=== PATIENT | female | born 1960 | race Caucasian/White ===

== ENCOUNTER 2019-05-10 15:29 | Emergency (ER) | payer MEDICARE, SELFPAY ==
--- NOTE | ~2019-05-10 | CT_ITS ---
EXAMINATION: CT abdomen pelvis w con DATE: 05/10/2019 17:46 INDICATION: Leukocytosis, fever and right lower quadrant abdominal pain. TECHNIQUE: Computed tomography (CT) of the abdomen and pelvis was performed with 100 mL Omnipaque-350 intravenous contrast. Automated exposure control and iterative reconstruction technique were employe d. The dose-length product was 258.17 mGy-cm. COMPARISON: None FINDINGS: Mild atelectasis and bronchiectatic changes in the bilateral lower lobes. Heart size is normal. No pe ricardial or pleural effusion. Small amount of fluid within the lower thoracic esophagus. Postoperative change of prior anterior and posterior lumbar spinal fusion extending from L1 through S 1 with interbody fusion devices at L1-L2 and L2-L3, anterior fusion without evident interbody fusion device at L4-L5 and L5-S1 and with bilateral vertical rods and pedicle screw fixations extending from L1-L2 and L3-S1 on the right and from L1-L3 and L4-S1 on the left. The L3-L4 disc space remains unfu sed. Prominent metallic streak artifact from the pedicle screws limits evaluation of the adjacent sof t tissues at several levels throughout the abdomen. The spleen is not visualized and there are metallic densities as well as small soft tissue nodules at the splenic fossa suggesting likely prior splenectomy with adjacent splenosis. Cholecystectomy clips the gallbladder fossa. Liver, spleen, bilateral adrenal glands and kidneys appear normal. Moderate a mount of stool scattered throughout the colon. No bowel obstruction or abnormal bowel wall thickening . The appendix is not visualized. No pericecal inflammatory change to suggest acute appendicitis. Claritza rosy and bilateral adnexa are unremarkable. Tiny focus of gas in the nondependent aspect of the otherw ise normal-appearing bladder. No free intraperitoneal gas or fluid. No pathologically enlarged abdomi nal or pelvic lymphadenopathy. Moderate bilateral hip osteoarthritis. Bone graft harvest site at the right posterior iliac spine. IMPRESSION: 1. Tiny focus of gas within the otherwise normal-appearing bladder. Correlate with urinalysis and for history of recent segmentation or Gonzalez catheterization. 2. No other acute intra-abdominal/pelvic process. Evaluation of portions of the abdomen is limited by prominent metallic streak artifact related to L1-S1 instrumented anterior and posterior spinal fusio n. 3. Additional metallic densities left upper quadrant with several adjacent small soft tissue deposits suggesting prior splenectomy and secondary spondylosis. Correlate with surgical history. Reviewed, dictated and finalized at location A. PENDENT INSURANCE ADJUSTER IMPRESSION: 1. Tiny focus of gas within the otherwise normal-appearing bladder. Correlate w ith urinalysis and for history of recent segmentation or Gonzalez catheterization. 2. No other acute intra-abdominal/pelvic process. Evaluation of portions of the abdomen is limited by prominent metallic streak artifact related to L1-S1 inst rumented anterior and posterior spinal fusion. 3. Additional metallic densities left upper quadrant with several adjacent smal l soft tissue deposits suggesting prior splenectomy and secondary spondylosis. Correlate with surgical history.
[2019-05-10 16:25] VITALS: RESP 18; TEMP 37; O2SAT 98
--- NOTE | 2019-05-10 16:28 | ECG_ITS ---
Measurements Intervals [place] Rate: 66 P: 61 NM: 142 QRS: 5 QRSD: 90 T: 63 QT: 469 QTc: 492 Interpretive Statements SINUS RHYTHM INCOMPLETE RIGHT BUNDLE BRANCH BLOCK BASELINE ARTIFACT- I, II, III, AVR, AVL, AVF, V1-V2 BORDERLINE ECG Electronically Signed On 05-11-2019 9:19:01 CUSTOMER DEVELOPMENT REPRESENTATIVE by Shmuel Mayen D.O.
--- NOTE | 2019-05-10 16:33 | ED.ABDPAIN ---
HPI - Abdominal Pain General Chief Complaint: Abdominal Pain Stated Complaint: pain in stomach, low grade fever vomiting Source: patient and family Mode of arrival: ambulatory Limitations: no limitations History of Present Illness HPI narrative: Eloisa is a 58-year-old woman the present to emergency department abdominal pain. Abdominal mcfarland began insidiously at noon yesterday. she has a cramping to sharp pain in her right lower quadrant that has become progressively worse. She has had 2 episodes of nonbilious nonbloody vomiting And nausea. Last BM was yesterday. She reports she ran a fever of 101 this morning. Pain was partially relieved with ibuprofen. of note she had her appendix removed in 1972 and her gallbladder removed in 2008. She had a colonoscopy in December of 2018 that resulted in perforation. This led to significant bleeding and she had to have her spleen removed and developed pancreatitis during that time. She later developed an abdominal abscess did require a drain. She denies any chest pain, shortness of breath near-syncope/syncope but does admit diaphoresis. MD elicited complaint: abdominal pain Onset (ago): day(s) (1) Location: RLQ Severity: moderate Quality: cramping and stabbing Radiation: R flank Related Data Home Medications Medication Instructions Recorded Confirmed Bacillus coagulans [Digestive 1 cell PO DAILY 05/10/19 05/10/19 Advantage] C,E,zinc,copper [id number] 1 cap PO DAILY 05/10/19 05/10/19 [Ocuvite Adult 50 Plus] aspirin 325 mg PO DAILY 05/10/19 05/10/19 biotin 5,000 mcg PO DAILY 05/10/19 05/10/19 diphenhydramine-acetaminophen 2 tablet PO HS PRN 05/10/19 05/10/19 [Tylenol PM Extra Strength] fluticasone furoate-vilanterol 1 inh INHALATION DAILY 05/10/19 05/10/19 [Breo Ellipta] fluticasone propionate 1 spray INTRANASAL BID PRN 05/10/19 05/10/19 iron 159 mg PO DAILY 05/10/19 05/10/19 levocetirizine [Xyzal] 5 mg PO DAILY 05/10/19 05/10/19 [id number] [Creon] 1 cap PO TID 05/10/19 05/10/19 mecobalamin (vitamin B12) 1,000 mcg PO DAILY 05/10/19 05/10/19 melatonin 10 mg PO HS PRN 05/10/19 05/10/19 multivitamin [Multiple Vitamins] 1 tablet PO DAILY 05/10/19 05/10/19 oxybutynin chloride 10 mg PO DAILY 05/10/19 05/10/19 pantoprazole 40 mg PO DAILY 05/10/19 05/10/19 pramipexole 0.75 mg PO TID 05/10/19 05/10/19 sennosides-docusate sodium [Colace 4 tab-cap PO DAILY PRN 05/10/19 05/10/19 2-In-1] sertraline 150 mg PO DAILY 05/10/19 05/10/19 sucralfate 1 g PO QID 05/10/19 05/10/19 Allergies Allergy/AdvReac Type Severity Reaction Status Date / Time codeine Allergy Mild Unknown Verified 05/10/19 16:41 vancomycin AdvReac Unknown Rash Verified 05/10/19 16:44 cefazolin [From [facility]] AdvReac Rash Verified 05/10/19 16:44 MORPHINE Allergy Mild Rash Uncoded 05/10/19 16:43 ANCEF AdvReac Rash Uncoded 05/10/19 16:44 Review of Systems Constitutional: Constitutional: Denies weight gain Eyes: Eyes: Denies change in vision ENT: Denies Normal hearing present, Denies vertigo and Denies dizziness Cardiovascular: Cardiovascular: Denies chest pain with activity, Denies syncope, Denies edema and Denies dyspnea on exertion Respiratory: Respiratory: Denies cough and Denies dyspnea on exertion Gastrointestinal: Gastrointestinal: Denies diarrhea Genitourinary: Genitourinary: Denies hematuria and Denies dysuria Musculoskeletal: Musculoskeletal: Denies deformity Neurologic: Denies Normal hearing present, Denies behavioral changes, Denies confusion, Denies vertigo, Denies dizziness, Denies syncope and Denies loss of vision Psychiatric: Psychiatric: Denies anxiety, Denies behavioral changes and Denies confusion Endocrine: Endocrine: Reports no additional endocrine complaints Hematologic/Lymphatic: Hematologic/Lymphatic: Reports no additional hematologic/lymphatic complaints Allergic/Immunologic: Allergic/Immunologic: Reports no additional allergic/immunologic complaints REPLACED BY [facility]
[2019-05-10 16:46] LABS: Basophils Absolute Auto 0.06 K/mm3 (0.00-0.10); Basophils Percent Auto 0.2 % (0.0-1.0); Eosinophils Absolute Auto 0.17 K/mm3 (0.02-0.50); Eosinophils Percent Auto 0.7 % (1.0-6.0); Hematocrit 38.8 % (35.0-49.0); Hemoglobin 12.6 g/dL (12.0-15.0); Immature Granulocyte Percent A 0.8 % (0.0-0.0); Lymphocytes Absolute Auto 1.42 K/mm3 (1.10-4.50); Lymphocytes Percent Auto 5.5 % (18.0-42.0); Mean Corpuscular HGB Conc 32.5 g/dL (32.0-36.0); Mean Corpuscular Volume 83.1 fL (78.0-102.0); Mean Platelet Volume 9.7 fl (9.2-11.8); Monocytes Absolute Auto 0.89 K/mm3 (0.10-0.90); Monocytes Percent Auto 3.5 % (2.0-11.0); Neutrophils Absolute Auto 22.9 K/mm3 (1.7-7.2); Neutrophils Percent Auto 89.3 % (50.0-70.0); Platelet Count Result 416 K/mm3 (150-420); Red Blood Count 4.67 M/mm3 (4.20-5.40); Red Cell Distribution Width 20.7 % (11.6-14.4)
[2019-05-10 16:49] LABS: White Blood Count 25.6 K/mm3 (4.8-10.8)
--- NOTE | 2019-05-10 16:51 | PC.NURSE ---
WBC 25.6 per Reshma from lab. Dr Hylton aware.
[2019-05-10] MEDS: ONDANSETRON INJ 4 MG/2 ML VIAL IV PUSH (17:00)
[2019-05-10 17:06] LABS: Add Urine Microscopic? YES; Bilirubin Urine Negative (Negative); Blood Urine Negative (Negative); Color Urine Yellow (Yellow); Glucose Urine UA Negative (Negative); Ketones Urine Negative (Negative); Leukocyte Esterase Ur 3+ LEU/UL (Negative); Nitrate Urine Positive (Negative); Protein Urine Negative (Negative); Specific Grav Ur 1.015 (1.010-1.020); Urobilinogen Urine 0.2 mg/dL (0.2-1.0); pH Urine 7.5 (5.0-8.0)
[2019-05-10 17:07] LABS: Alanine Aminotransferase 23 U/L (14-59); Albumin Level 3.8 g/dL (3.4-5.0); Alkaline Phosphatase 106 U/L (46-116); Aspartate Amino Transferase 21 U/L (15-37); Bilirubin,Total 0.3 mg/dL (0.00-1.00); Blood Urea Nitrogen 16 mg/dL (7-18); Calcium 9.4 mg/dL (8.5-10.1); Carbon Dioxide 29 mmol/L (21-32); Chloride 99 mmol/L (98-108); Estimated CRCL calculation 46 ml/min; Estimated Glomerular Filt Rate > 60; Glucose 124 mg/dL (70-99); Lipase 128 U/L (73-393); Osmolality Calculated 286 mOsm/kg (285-295); Sodium 137 mmol/L (136-145); Total Protein 8.6 g/dL (6.4-8.2); Troponin I < 0.02 ng/mL (0.00-0.056)
[2019-05-10 17:11] LABS: Lactic Acid Reflex 1.2 mmol/L (0.4-2.0)
[2019-05-10 17:13] LABS: Appearance Urine Cloudy (Clear); Bacteria Urine 4+ /hpf; Squamous Epithelial Cell Urine Rare /hpf (Few); WBC Clumps Urine Present /hpf; WBC Urine >75 /hpf (0-3)
--- NOTE | 2019-05-10 18:44 | PC.NURSE ---
RESTING ON STREACHER. STATES HAS LESS PAIN. IV INFUSSING ORDERED. FAMILY AT BEDSIDE. APPEARS COMFORTABLE. VVS. O2 SAT 97% RM.AIR RESP.18 .
[2019-05-10] MEDS: LACTATED RINGERS 1,000 ML 999 ML IV CONT (19:37)
[2019-05-10 19:53] VITALS: BP 141/70; PULSE 92; RESP 20; TEMP 36.6; O2SAT 98
== END 2019-05-10 19:54 | disposition home or self-care (01) ==
PROVIDERS: Emergency Provider Family Medicine
DX: N39.0 Urinary tract infection, site not specified (principal)
CPT/HCPCS: 36415; 74177; 80053; 81001; 83605; 83690; 84484; 85025; 87040; 87077; 87086; 87088; 87186; 93005; 96374; 96375; 99283; 99284; J1956; J2405; J3010; J7120; Q9965

== ENCOUNTER 2019-06-17 18:45 | Emergency (ER) | payer MEDICARE, SELFPAY ==
--- NOTE | ~2019-06-17 | CT_ITS ---
EXAMINATION: CT abdomen pelvis w con DATE: 06/17/2019 20:14 INDICATION: Abdominal pain and fever TECHNIQUE: Computed tomography (CT) of the abdomen and pelvis was performed with 100 cc Omnipaque 350 intravenous contrast. Automated exposure control and iterative reconstruction technique were employe d. Exam dose: 202.41 mGy-cm total exam DLP. COMPARISON: 05/10/2019 CT abdomen pelvis FINDINGS: There is mild bilateral dependent lower lobe atelectasis, right greater than left. Normal h eart size. No pericardial or pleural effusion. The examination is limited by considerable streak artifact pedicle screws and rods extending througho ut the lumbar spine and to S1. There is considerable streak artifact in left upper quadrant also, apparently due to surgical clips a ssociated with splenectomy. Status post cholecystectomy. The liver, pancreas, and adrenal glands and kidneys appear unremarkable and not significantly changed compared to 05/10/2019. Normal caliber of the abdominal aorta. No intraperitoneal or retroperitoneal or pelvic mass lesion or adenopathy or ascites is detected. There are fluid distended small bowel segments with air-fluid levels, primarily involving the ileum; differential diagnosis includes enteritis, adynamic ileus versus less likely early or partial distal small bowel obstruction. Clinical correlation is advised. The colon is unremarkable. No bowel wall th ickening, pneumatosis or intraperitoneal free air is detected. No intraperitoneal or retroperitoneal or pelvic mass lesion or adenopathy or ascites is evident. IMPRESSION: Air-fluid levels in the distal small bowel; differential diagnosis includes enteritis, m ild adynamic ileus versus early or partial distal small bowel obstruction Otherwise no significant change since 05/10/2019 Reviewed, dictated and finalized at Location [facility]. Reviewed, dictated and finalized at location A. IMPRESSION: Air-fluid levels in the distal small bowel; differential diagnosis includes enteritis, mild adynamic ileus versus early or partial distal small b owel obstruction Otherwise no significant change since 05/10/2019
--- NOTE | 2019-06-17 18:52 | ED.ABDPAIN ---
HPI - Abdominal Pain General Chief Complaint: Abdominal Pain Stated Complaint: Stomach pain Time Seen by Provider: 06/17/19 18:52 Source: patient Mode of arrival: ambulatory Limitations: no limitations History of Present Illness HPI narrative: 58-year-old woman comes in today complaining of abdominal pain and started last night. Patient states that she has been nauseated in today had a fever of 101. She states that she has been nauseated but has had no vomiting after she took some Zofran she had at home. Last fall she underwent splenectomy, pancreatectomy and partial gastrectomy at [facility] after complications from a colonoscopy. MD elicited complaint: abdominal pain Onset (ago): day(s) (1) Pain Consistency: constant Location: other ( Across abdomen above the umbilicus) Severity: severe Quality: sharp Radiation: none Migration to: no migration Exacerbating factors: nothing Relieving factors: nothing Associated symptoms: nausea and fever Treatments prior to arrival: other ( Tylenol) Related Data Patient : No Home Medications Medication Instructions Recorded Confirmed Bacillus coagulans [Digestive 1 cell PO DAILY 05/10/19 06/17/19 Advantage] C,E,zinc,copper [id number] 1 cap PO DAILY 05/10/19 06/17/19 [Ocuvite Adult 50 Plus] aspirin 325 mg PO DAILY 05/10/19 06/17/19 biotin 5,000 mcg PO DAILY 05/10/19 06/17/19 diphenhydramine-acetaminophen 2 tablet PO HS PRN 05/10/19 06/17/19 [Tylenol PM Extra Strength] fluticasone furoate-vilanterol 1 inh INHALATION DAILY 05/10/19 06/17/19 [Breo Ellipta] fluticasone propionate 1 spray INTRANASAL BID PRN 05/10/19 06/17/19 iron 159 mg PO DAILY 05/10/19 06/17/19 levocetirizine [Xyzal] 5 mg PO DAILY 05/10/19 06/17/19 [id number]-[id number]-[id number] [Creon] 1 cap PO TID 05/10/19 06/17/19 mecobalamin (vitamin B12) 1,000 mcg PO DAILY 05/10/19 06/17/19 melatonin 10 mg PO HS PRN 05/10/19 06/17/19 multivitamin [Multiple Vitamins] 1 tablet PO DAILY 05/10/19 06/17/19 oxybutynin chloride 10 mg PO DAILY 05/10/19 06/17/19 pantoprazole 40 mg PO DAILY 05/10/19 06/17/19 pramipexole 0.75 mg PO TID 05/10/19 06/17/19 sennosides-docusate sodium [Colace 4 tab-cap PO DAILY PRN 05/10/19 06/17/19 2-In-1] sertraline 150 mg PO DAILY 05/10/19 06/17/19 sucralfate 1 g PO QID 05/10/19 06/17/19 azithromycin 500 mg PO DAILY 06/17/19 06/17/19 benzonatate 100 mg PO PRN 06/17/19 06/17/19 gabapentin 100 mg PO TID 06/17/19 06/17/19 ondansetron 4 mg PO PRN 06/17/19 06/17/19 Allergies Allergy/AdvReac Type Severity Reaction Status Date / Time codeine Allergy Mild Unknown Verified 05/10/19 16:41 vancomycin AdvReac Unknown Rash Verified 05/10/19 16:44 cefazolin [From [facility]] AdvReac Rash Verified 05/10/19 16:44 MORPHINE Allergy Mild Rash Uncoded 05/10/19 16:43 ANCEF AdvReac Rash Uncoded 05/10/19 16:44 Review of Systems Constitutional: Constitutional: Denies chills, Denies fatigue, Reports fever(s) and Denies weakness Eyes: Eyes: Denies change in vision and Denies photophobia ENT: Denies dysphagia, Denies nasal congestion and Denies sore throat Cardiovascular: Cardiovascular: Denies chest pain and Denies radiating jaw, neck or arm pain Respiratory: Respiratory: Denies chest congestion, Denies cough, Denies dyspnea and Denies wheezing Gastrointestinal: Gastrointestinal: Reports abdominal pain, Denies diarrhea, Reports nausea and Denies vomiting Comments: denies melena and hematochezia Genitourinary: Genitourinary: Denies hematuria, Denies nocturia and Denies dysuria Musculoskeletal: Musculoskeletal: Denies myalgias, Denies arthralgias, Denies joint swelling and Denies muscle cramps Integumentary/Breasts: Skin/Breast: Denies pruritus, Denies erythema and Denies rash Neurologic: Denies vertigo, Denies dizziness, Denies syncope, Denies headache(s) and Denies focal weakness Hematologic/Lymphatic: Hematologic/Lymphatic: Denies easy bleeding and Denies easy bruising Allergic/Immunologic: Allergic
[2019-06-17 18:55] VITALS: BP 113/62; PULSE 80; RESP 20; TEMP 37.3; O2SAT 98
--- NOTE | 2019-06-17 19:10 | ECG_ITS ---
Measurements Intervals [place] Rate: 75 P: 79 AL: 125 QRS: 42 QRSD: 78 T: 73 QT: 415 QTc: 465 Interpretive Statements SINUS RHYTHM NORMAL ECG Electronically Signed On 06-18-2019 9:36:27 CDT by Shmuel Mayen D.O.
[2019-06-17] MEDS: SODIUM CHLORIDE 0.9% IV 1,000 ML 999 ML IV CONT (19:28)
[2019-06-17 19:37] LABS: Basophils Absolute Auto 0.05 K/mm3 (0.00-0.10); Basophils Percent Auto 0.3 % (0.0-1.0); Eosinophils Absolute Auto 0.06 K/mm3 (0.02-0.50); Eosinophils Percent Auto 0.3 % (1.0-6.0); Hematocrit 38.8 % (35.0-49.0); Hemoglobin 12.7 g/dL (12.0-15.0); Immature Granulocyte Absolute 0.12 K/mm3 (0.00-0.00); Immature Granulocyte Percent A 0.6 % (0.0-0.0); Lymphocytes Absolute Auto 2.81 K/mm3 (1.10-4.50); Lymphocytes Percent Auto 14.8 % (18.0-42.0); Mean Corpuscular HGB Conc 32.7 g/dL (32.0-36.0); Mean Corpuscular Hemoglobin 27.4 pg (27.0-31.0); Mean Corpuscular Volume 83.6 fL (78.0-102.0); Mean Platelet Volume 10.1 fl (9.2-11.8); Monocytes Absolute Auto 1.18 K/mm3 (0.10-0.90); Monocytes Percent Auto 6.2 % (2.0-11.0); Neutrophils Absolute Auto 14.8 K/mm3 (1.7-7.2); Neutrophils Percent Auto 77.8 % (50.0-70.0); Platelet Count Result 386 K/mm3 (150-420); Red Blood Count 4.64 M/mm3 (4.20-5.40); Red Cell Distribution Width 17.9 % (11.6-14.4)
[2019-06-17 19:46] LABS: Partial Thromboplastin Time 29.6 SEC (22.3-31.6); Prothrombin Time 10.5 Seconds (9.64-11.0)
[2019-06-17 19:51] LABS: Estimated CRCL calculation 53 ml/min; Estimated Glomerular Filt Rate > 60
[2019-06-17 19:55] LABS: Alanine Aminotransferase 12 U/L (14-59); Albumin Level 3.6 g/dL (3.4-5.0); Alkaline Phosphatase 93 U/L (46-116); Anion Gap 15.9 mmol/L (7-16); Aspartate Amino Transferase 13 U/L (15-37); Bilirubin,Total 0.2 mg/dL (0.00-1.00); Carbon Dioxide 26 mmol/L (21-32); Chloride 99 mmol/L (98-108); Glucose 112 mg/dL (70-99); Lipase 316 U/L (73-393); Potassium 3.9 mmol/L (3.5-5.1); Sodium 137 mmol/L (136-145); Total Protein 8.3 g/dL (6.4-8.2)
[2019-06-17 20:09] LABS: Blood Urea Nitrogen 12 mg/dL (7-18); Osmolality Calculated 284 mOsm/kg (285-295)
[2019-06-17 20:21] LABS: Lactic Acid 1.2 mmol/L (0.4-2.0)
[2019-06-17 20:31] LABS: Add Urine Microscopic? YES; Appearance Urine Clear (Clear); Bilirubin Urine Negative (Negative); Blood Urine Negative (Negative); Color Urine Yellow (Yellow); Glucose Urine UA Negative (Negative); Ketones Urine Negative (Negative); Leukocyte Esterase Ur 2+ (Negative); Nitrate Urine Negative (Negative); Protein Urine Negative (Negative); Urobilinogen Urine 0.2 mg/dL (0.2-1.0)
[2019-06-17 20:32] LABS: Occult Blood Negative (Negative)
[2019-06-17 20:44] LABS: Bacteria Urine Trace /hpf; RBC Urine None seen /hpf (0-2); Squamous Epithelial Cell Urine Few /hpf (Few)
[2019-06-17 20:55] VITALS: BP 111/61; PULSE 79; RESP 15
--- NOTE | 2019-06-17 22:18 | PC.NURSE ---
2054 ELIZA JUNIOR FROM [facility] CONTACTED FOR TRANSFER. 2132 PT ACCEPTED. SEE ERP CHARTING. AWAITING ROOM AT THIS TIME.
--- NOTE | 2019-06-17 23:03 | PC.NURSE ---
2242 ROOM [id number] PROVIDED. TELEPHONE REPORT CALLED TO [place] JUNIOR AT 2251. [facility] CONTACTED FOR TRANSPORT AT 2256.
[2019-06-17] MEDS: SODIUM CHLORIDE 0.9% IV 500 ML 999 ML IV CONT (23:07)
[2019-06-17 23:26] VITALS: BP 112/67; PULSE 75; RESP 15; O2SAT 95
--- NOTE | 2019-06-17 23:28 | PC.NURSE ---
IVF INFUSING DURING TRANSFER TO [facility]. NO STOP TIME AVAILABLE.
== END 2019-06-17 23:27 | disposition short-term general hospital (02) ==
PROVIDERS: Emergency Provider Emergency Medicine
DX: R10.0 Acute abdomen (principal); J44.9 Chronic obstructive pulmonary disease, unspecified; K21.9 Gastro-esophageal reflux disease without esophagitis
CPT/HCPCS: 36415; 74177; 80053; 81001; 82272; 83605; 83690; 84484; 85025; 85610; 85730; 87040; 93005; 96361; 96365; 96375; 96376; 99285; J2543; J3010; J7030; J7040; Q9965

== ENCOUNTER 2019-11-16 10:30 | Outpatient (CLI) | payer MEDICARE, SELFPAY ==
[2019-11-16 10:47] LABS: Hematocrit 41.7 % (35.0-49.0); Hemoglobin 13.2 g/dL (12.0-15.0); Mean Corpuscular HGB Conc 31.7 g/dL (32.0-36.0); Mean Corpuscular Hemoglobin 28.3 pg (27.0-31.0); Mean Corpuscular Volume 89.5 fL (78.0-102.0); Mean Platelet Volume 9.6 fl (9.2-11.8); Platelet Count Result 357 K/mm3 (150-420); Red Blood Count 4.66 M/mm3 (4.20-5.40); Red Cell Distribution Width 16.7 % (11.6-14.4); White Blood Count 14.3 K/mm3 (4.8-10.8)
[2019-11-16 11:02] LABS: Alanine Aminotransferase 21 U/L (14-59); Albumin Level 3.7 g/dL (3.4-5.0); Alkaline Phosphatase 100 U/L (46-116); Anion Gap 8 mmol/L (8-16); Aspartate Amino Transferase 18 U/L (15-37); Bilirubin Direct 0.1 mg/dL (0-0.2); Bilirubin,Total 0.2 mg/dL (0.00-1.00); Blood Urea Nitrogen 20 mg/dL (7-18); Calcium 9.3 mg/dL (8.5-10.1); Carbon Dioxide 29 mmol/L (21-32); Chloride 98 mmol/L (98-108); Estimated Glomerular Filt Rate > 60; Glucose 102 mg/dL (70-99); Lipase 260 U/L (73-393); Osmolality Calculated 282 mOsm/kg (285-295); Potassium 4.2 mmol/L (3.5-5.1); Sodium 135 mmol/L (136-145); Total Protein 8.5 g/dL (6.4-8.2)
== END 2019-11-16 10:31 | disposition home or self-care (01) ==
DX: K86.1 Other chronic pancreatitis (principal)
CPT/HCPCS: 36415; 80048; 80076; 83690; 85027

== ENCOUNTER 2023-05-03 15:11 | Outpatient (CLI) | payer MEDICARE, SELFPAY ==
[2023-05-03 16:01] LABS: CRP 1.3 mg/dL (0.0-0.9)
[2023-05-03 16:41] LABS: Erythrocyte Sedimentation Rate 16 mm/hr (0-20)
== END 2023-05-03 15:12 | disposition home or self-care (01) ==
LOC: CHSLAB 15:18
DX: Z96.643 Presence of artificial hip joint, bilateral (principal)
CPT/HCPCS: 36415; 85652; 86140

== ENCOUNTER 2023-09-15 14:35 | Outpatient (RCR) | payer MEDICARE, SELFPAY ==
--- NOTE | 2023-09-15 16:13 | OPREHPOC ---
Outpatient Therapy Plan of Care This is a Multidisciplinary Plan of Care that may contain components documented by all disciplines (PT, OT, and ST.) PT Problem 1 PT Problem #1 Knowledge Deficit PT Goal 1 Goal 1. independent and compliant with HEP Target Visit 5 PT Goal 2 Goal 1. compliant with PT POC 90% of visits Target Visit 10 PT Problem 2 PT Problem #2 Pain PT Goal 1 Goal 1. decrease pain at worst to 6/10 in general Target Visit 10 PT Problem 3 PT Problem #3 Impaired Strength PT Goal 1 Goal 1. improve L hip strength to 4+/5 or better overall 2. improve bilateral shoulder strength to 4+/5 or better overall 3. improve L elbow extension to 5/5 Target Visit 10 PT Problem 4 PT Problem #4 Impaired Functional Mobil PT Goal 1 Goal 1. tug to be completed in 12 seconds of less 2. 5x sit to stand to be completed in less than 15 seconds 3. patient to complete 6 minute walk test with most appropriate 4. LEFS to display 30% or less functional deficits 5. tinetti to display moderate fall risk or less Target Visit 10
--- NOTE | 2023-09-15 16:13 | PTOPEVAL1 ---
Assessment and note entered by JT File, PT Evaluation Information Assessment Status Evaluation Diagnosis restless leg syndrome Onset 09/03/23 Subjective Information patient reports she is having a balance issue. she reports she also feels like she is losing strength in her arms and legs. she reports she would like to be able to stay upright and straight . she reports she has a degenerative spine and joint disease. she has had a full spinal fusion. she has one spot in her cervical spine that is not fused. she has had bilateral hip and knee replacements, and R shoulder replacement. she reports she has been losing her balance and becoming weak for the last 5 years. she reports she has been progressively getting worse. she reports she is fearful to fall. she reports she usually walks with a cane, but left it in another car today. she reports she has difficulty putting away dishes in tall cabinets due to UE weakness. Reported Pain Level Pain Score 4: Self Report Assessment PT Clinical Summary mrs. henson is a 62 yo woman who presents to skilled PT services for evaluation and treatment of restless leg syndrome. she also suffers from DDD/DJD, and has had several jt replacements and spinal surgeries. she presents today with generalized weakness in the UE's and LE's, deficits in balance, and abnormal/unsafe gait mechanics. she would benefit from continued skilled PT to address her objective/functional deficits and improve her quality of life/ functional activity performance. she would benefit from the use of an AD for ambulation at all times to improve her safety and function. Plan of Care Interventions Gait Training,Neuro Re-education,Patient/Caregiver Educati,Therapeutic Activities,Therapeutic Exercise PT Services Indicated Yes Treatment Frequency and 2x weekly for 10 visits Duration These treatments will address the objective and functional deficits as defined above. The patient will be advanced safely and appropriately in order for the patient to progress towards his/her prior level of function. Additional exercises will be introduced and as well as a comprehensive home exercise program upon discharge, if needed, ?to ensure carryover of functional gains achieved in the clinic. This treatment plan has been reviewed and agreement upon by the patient.
--- NOTE | 2023-10-29 07:52 | OPREHPOC ---
Outpatient Therapy Plan of Care This is a Multidisciplinary Plan of Care that may contain components documented by all disciplines (PT, OT, and ST.) PT Problem 1 PT Problem #1 Knowledge Deficit PT Goal 1 Goal 1. independent and compliant with HEP Target Visit 5 Progress Met PT Goal 2 Goal 1. compliant with PT POC 90% of visits Target Visit 10 Progress Met PT Problem 2 PT Problem #2 Pain PT Goal 1 Goal 1. decrease pain at worst to 6/10 in general Target Visit 10 Progress Not Met PT Problem 3 PT Problem #3 Impaired Strength PT Goal 1 Goal 1. improve L hip strength to 4+/5 or better overall 2. improve bilateral shoulder strength to 4+/5 or better overall 3. improve L elbow extension to 5/5 Target Visit 10 Progress Not Met PT Problem 4 PT Problem #4 Impaired Functional Mobil PT Goal 1 Goal 1. tug to be completed in 12 seconds of less. not met 2. 5x sit to stand to be completed in less than 15 seconds. not met 3. patient to complete 6 minute walk test with most appropriate. met 4. LEFS to display 30% or less functional deficits 5. tinetti to display moderate fall risk or less. not met Target Visit 10 Progress Partially Met
--- NOTE | 2023-10-29 07:53 | PTOPDC ---
Assessment and note entered by JT File, PT Evaluation Information Assessment Status Discharge Diagnosis restless leg syndrome, MS Onset 09/03/23 Subjective Information patient reports nothing is getting better. she reports it is getting harder and harder to do simple activities. she reports all the initial exercises she was given at her [id number] evaluation for home are getting harder and harder to complete now. she reports she has been diagnosed with MS. she reports she is awaiting her first visit at the MS clinic at [place]. she reports she is also struggling to sleep at night with insomnia that has gotten worse as well. Reported Pain Level Pain Score 5: Self Report Assessment PT Clinical Summary mrs. henson presents to skilled PT services today for her 10th skilled PT visit. she presents today with continued deficits in balance, strength , and functional activity performance. she has received a diagnosis of MS while in her time in skilled PT. she has only made partial progress towards goals thus far, and since her initial evaluation, her movements have gotten more ataxic. she displays continued needs for skilled PT, but at this time, we are going to DC therapy and have her receive evaluation from MS clinic. she will likely need to return to skilled PT after her evaluation with the MS clinic. Plan of Care PT Services Indicated Yes
== END 2023-10-29 08:56 | disposition home or self-care (01) ==
LOC: CHSPT 14:35
DX: G25.81 Restless legs syndrome (principal)
CPT/HCPCS: 97110; 97112; 97162; 97530

== ENCOUNTER 2023-12-28 08:28 | Outpatient (RCR) | payer MEDICARE, BC, SELFPAY ==
--- NOTE | 2023-12-28 08:19 | PTOPEVAL1 ---
Assessment and note entered by Lesley Mauricio DPT Evaluation Information Assessment Status Evaluation Diagnosis weakness, gait impairment Other ICD-10 Condition Codes ( G95.9 PT) Onset 12/17/23 Subjective Information Patient reports over the last year she has noticed increased weakness and poor balance. She reports she has recently had a spinal tap and confirmed an MS diagnosis. She follows up with an MS specialist on Jan 03. Patient reports she has only had one fall but has had many near falls. Patient reports L side seems to be weaker. Patient is retired. Patient is taking care of all house hold chores. She reports fatigue at conclusion of the day. She reports she has pain all over with history of multiple joint replacement. Reported Pain Level Pain Score 4: Self Report Assessment PT Clinical Summary Mrs. Enciso is a 63 year old female who presents to PT with weakness and poor balance. She demonstrates decreased B LE and UE weakness, impaired balance and impaired gait impairing her ability to ambulate prolonged distances, putting her at increased fall risk and completing house hold tasks. She will benefit from skilled PT to address impairments and return to PLOF. Plan of Care Interventions Gait Training,Hot Pack/Cold Pack,Manual Therapy, Neuro Re-education,Patient/Caregiver Educati, Therapeutic Activities,Therapeutic Exercise PT Services Indicated Yes Treatment Frequency and 3x weekly for 12 visits Duration These treatments will address the objective and functional deficits as defined above. The patient will be advanced safely and appropriately in order for the patient to progress towards his/her prior level of function. Additional exercises will be introduced and as well as a comprehensive home exercise program upon discharge, if needed, ?to ensure carryover of functional gains achieved in the clinic. This treatment plan has been reviewed and agreement upon by the patient.
--- NOTE | 2024-01-21 08:31 | OPREHPOC ---
Outpatient Therapy Plan of Care This is a Multidisciplinary Plan of Care that may contain components documented by all disciplines (PT, OT, and ST.) PT Problem 1 PT Problem #1 Knowledge Deficit PT Goal 1 Goal / Goal Update Patient to demonstrate independence with HEP Target Visit 6 Progress Met PT Problem 2 PT Problem #2 Impaired Functional Mobil PT Goal 1 Goal / Goal Update 1. Patient to complete 600' during 6 min walk test with no seated rest to return to house hold ambulation at PLOF. not met 2. Patient to demonstrate 4+/5 B LE and UE strength to return to house hold tasks at PLOF. not met Target Visit 12 Progress Not Met PT Problem 3 PT Problem #3 Impaired Balance PT Goal 1 Goal / Goal Update 1. Patient to improve Tinetti Balance test by 7 pts to decrease falls at home 2. Patient to complete 5TSTS in <15 seconds to decrease fall risk Target Visit 12 Progress Not Met
--- NOTE | 2024-01-21 08:32 | PTOPPROGNS ---
Assessment and note entered by JT File, PT Evaluation Information Assessment Status Progress Diagnosis weakness, gait impairment Other ICD-10 Condition Codes ( G95.9 PT) Onset 12/17/23 Subjective Information patient reports she feels her balance and strength have continued to get worse. she reports she has also been having to take care of her at home after his shoulder surgery, and reports it is more difficult to help him. she reports she has walked a mile on the treadmill at home already this morning. she reports she holds onto the treadmill with both hands. Assessment PT Clinical Summary mrs. henson presents to skilled PT services for her 10th skilled PT visit. she presents today with continued deficits in balance, strength, coordination, and ambulation mechanics. today she displays worsened performance on her tinetti score , but she was having issues with clearing the L foot during ambulation. she would benefit from continued skilled PT to address her objective/ functional deficits remaining to improve her balance, safety, functional activity performance, and quality of life. Plan of Care Interventions Gait Training,Hot Pack/Cold Pack,Manual Therapy, Neuro Re-education,Patient/Caregiver Educati, Therapeutic Activities,Therapeutic Exercise PT Services Indicated Yes Treatment Frequency and continue skilled PT per initial POC Duration These treatments will address the objective and functional deficits as defined above. The patient will be advanced safely and appropriately in order for the patient to progress towards his/her prior level of function. Additional exercises will be introduced and as well as a comprehensive home exercise program upon discharge, if needed, ?to ensure carryover of functional gains achieved in the clinic. This treatment plan has been reviewed and agreement upon by the patient.
--- NOTE | 2024-01-26 08:12 | OPREHPOC ---
Outpatient Therapy Plan of Care This is a Multidisciplinary Plan of Care that may contain components documented by all disciplines (PT, OT, and ST.) PT Problem 1 PT Problem #1 Knowledge Deficit PT Goal 1 Goal / Goal Update Patient to demonstrate independence with HEP Target Visit 6 Progress Met PT Problem 2 PT Problem #2 Impaired Functional Mobil PT Goal 1 Goal / Goal Update 1. Patient to complete 600' during 6 min walk test with no seated rest to return to house hold ambulation at PLOF. not met 2. Patient to demonstrate 4+/5 B LE and UE strength to return to house hold tasks at PLOF. not met Target Visit 16 Progress Not Met PT Problem 3 PT Problem #3 Impaired Balance PT Goal 1 Goal / Goal Update 1. Patient to improve Tinetti Balance test by 7 pts to decrease falls at home 2. Patient to complete 5TSTS in <15 seconds to decrease fall risk Target Visit 16 Progress Not Met
--- NOTE | 2024-01-26 08:12 | PTOPREEVAL ---
Assessment and note entered by JT File, PT Evaluation Information Assessment Status Re-evaluation Diagnosis weakness, gait impairment Other ICD-10 Condition Codes ( G95.9 PT) Onset 12/17/23 Subjective Information patient reports she just found out her type of MS is primary progressive and will likely not have any remission cycles. she reports she is awaiting approval for a new medication. she reports she is active at home with her walking and exercise, but cannot work on her balance at home alone. she would like to continue therapy to work on her balance and maintain her ability to walk. Reported Pain Level Pain Score 7: Self Report Assessment PT Clinical Summary mrs. hneson presents to skilled PT services today for her 12th skilled therapy visit. she has just recently found out her type of MS is primary progressive. she reports she is active at home, but cannot work on her balance by herself. she continues to display bilateral UE and LE weakness, decreased ambulation mechanics, and poor balance/ high fall risk. given the nature of her neurological disorder, it is unlikely her balance and coordination with improve. however, she would benefit from continued skilled PT, but in a more maintenance program to work on maintaining balance and ambulation ability. Plan of Care Interventions Gait Training,Hot Pack/Cold Pack,Manual Therapy, Neuro Re-education,Patient/Caregiver Educati, Therapeutic Activities,Therapeutic Exercise PT Services Indicated Yes Treatment Frequency and continue skilled PT 1x weekly for 4 more visits in Duration a maintenance program focused on balance activities, coordination, and ambulation. These treatments will address the objective and functional deficits as defined above. The patient will be advanced safely and appropriately in order for the patient to progress towards his/her prior level of function. Additional exercises will be introduced and as well as a comprehensive home exercise program upon discharge, if needed, ?to ensure carryover of functional gains achieved in the clinic. This treatment plan has been reviewed and agreement upon by the patient.
--- NOTE | 2024-02-03 07:11 | PCPTNOTE ---
Cancelled session. Reports she got RSV and shingles immunization vaccine yesterday and cannot lift her arms. She reports she has not slept all night.
== END 2024-03-06 07:45 | disposition still patient (30) ==
LOC: CHSPT 08:28
DX: G95.9 Disease of spinal cord, unspecified (principal)
CPT/HCPCS: 97110; 97112; 97162; 97530

== ENCOUNTER 2024-03-31 09:35 | Outpatient (RCR) | payer MEDICARE, BC, SELFPAY ==
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
--- NOTE | 2024-04-13 08:04 | OPREHPOC ---
Outpatient Therapy Plan of Care This is a Multidisciplinary Plan of Care that may contain components documented by all disciplines (PT, OT, and ST.) PT Problem 1 PT Problem #1 Knowledge Deficit PT Goal 1 Goal / Goal Update Patient to demonstrate independence with HEP Target Visit 6 Progress Met PT Problem 2 PT Problem #2 Impaired Functional Mobility PT Goal 1 Goal / Goal Update 1. Patient to complete 600' during 6 min walk test with no seated rest to return to house hold ambulation at PLOF. not met 2. Patient to demonstrate 4+/5 B LE and UE strength to return to house hold tasks at PLOF. not met Target Visit 28 Progress Not Met PT Problem 3 PT Problem #3 Impaired Balance PT Goal 1 Goal / Goal Update 1. Patient to improve Tinetti Balance test by 7 pts to decrease falls at home not met 2. Patient to complete 5TSTS in <15 seconds to decrease fall risk not met Target Visit 28 Progress Not Met
--- NOTE | 2024-04-26 10:24 | BUOTOPEVAL ---
Assessment and note entered by Letty El, OT Evaluation Information Assessment Status Evaluation Diagnosis Multiple sclerosis ICD-10 Condition Codes (OT) Generalized muscle weakness M62.81 Other ICD-10 Condition Codes ( Myelopathy (G95.9); Spasticity (R25.2) OT) Reported Pain Level Pain Score 4,3,4,4: Self Report Pain Score 4,3,4,4: Self Report Pain Score 5,3,8,6: Self Report Pain Score 5,7,4,5: Self Report Pain Score 6: Self Report Pain Score 3: Self Report Pain Score 3: Self Report Assessment OT Clinical Summary The patient is a 63 year old female who was referred to outpatient OT due to multiple sclerosis. She demonstrates weakness and poor endurance which affects her ability to perform her ADLs and IADLs safely. She recently was diagnosed with MS and is motivated to improve and try to maintain her strength. The patient previously did not demonstrate UB weakness and WNL endurance, she also did not have shoulder pain prior to MS and fall. 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 Plan of Care Interventions Therapeutic Exercise,Manual Therapy,Neuro Re- education,Therapeutic Activities,Hot Pack/Cold Pack,Sensory Integrative Techniques,Self-Care/Home Management,Prosthetic Training OT Services Indicated Yes Treatment Frequency and 1x/week for 10 visits. Duration These treatments will address the objective and functional deficits as defined above. The patient will be advanced safely and appropriately in order for the patient to progress towards his/her prior level of function. Additional exercises will be introduced and as well as a comprehensive home exercise program upon discharge, if needed, ?to ensure carryover of functional gains achieved in the clinic. This treatment plan has been reviewed and agreement upon by the patient.
--- NOTE | 2024-04-26 10:24 | OPREHPOC ---
Outpatient Therapy Plan of Care This is a Multidisciplinary Plan of Care that may contain components documented by all disciplines (PT, OT, and ST.) PT Problem 1 PT Problem #1 Knowledge Deficit PT Goal 1 Goal / Goal Update Patient to demonstrate independence with HEP Target Visit 6 Progress Met PT Problem 2 PT Problem #2 Impaired Functional Mobility PT Goal 1 Goal / Goal Update 1. Patient to complete 600' during 6 min walk test with no seated rest to return to house hold ambulation at PLOF. not met 2. Patient to demonstrate 4+/5 B LE and UE strength to return to house hold tasks at PLOF. not met Target Visit 28 Progress Not Met PT Problem 3 PT Problem #3 Impaired Balance PT Goal 1 Goal / Goal Update 1. Patient to improve Tinetti Balance test by 7 pts to decrease falls at home not met 2. Patient to complete 5TSTS in <15 seconds to decrease fall risk not met Target Visit 28 Progress Not Met OT Problem 1 OT Problem #1 Knowledge Deficit OT Goal 1 Goal / Goal Update The patient will demonstrate 100% knowledge and return demonstration for UE HEP needed to improve and maintain strength. 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 L shoulder pain during elbow MMT L elbow flexion/extension: 3-/5 R elbow flexion/extension: 4/5 R shoulder flexion: 4/5 R shoulder extension: 4+/5 Target Visit 10 OT Goal 2 Goal / Goal Update The patient will demonstrate increased endurance by engaging in 15 minutes of aerobic activity prior to visible signs of fatigue in order to perform IADLs. Target Visit 20 OT Problem 3 OT Problem #3 Pain OT Goal 1 Goal / Goal Update The patient will demonstrate decreased L shoulder pain reporting <4/10 pain at its worst in order to improve sleep. Target Visit 10
== END 2024-06-29 23:59 | disposition home or self-care (01) ==
LOC: CHSPT 09:35
DX: G95.9 Disease of spinal cord, unspecified (principal)
CPT/HCPCS: 97110; 97112; 97166; 97530; 97750

== ENCOUNTER 2024-06-08 02:32 | Emergency (ER) | payer MEDICARE, SELFPAY ==
--- NOTE | ~2024-06-08 | CT_ITS ---
Clinical Indication: Shortness of breath CT Scan of the Chest with Contrast: Technique: Contiguous sections were acquired throughout the chest after intravenous administration of 100 cc of Omnipaque 350. Dose reduction technique was used on this scan by utilizing automated expos ure control and iterative reconstruction technique. The dose-length product (DLP) was 327.97 mGy-cm. Findings: There is no evidence of any significant mediastinal, hilar or axillary lymphadenopathy. The contrast bolus and streak artifact from extensive spinal fixation extremely limit evaluation for pulmonary emb olus. No definite large central pulmonary embolus. No definite aortic aneurysm. There is no evidence of pleural or pericardial effusion. There is moderate emphysema. There is right middle lobe consolidation and probable volume loss, most compatible with extensive right middle lobe atelectasis. There is mild haziness dependently in the ri ght lower lobe and minimally in the inferior right upper lobe. There is minimal left basilar haziness . Images through the upper abdomen reveal no abnormalities. Impression: Very limited evaluation for pulmonary embolus due to timing of contrast bolus and streak artifact. No definite large central pulmonary embolus. Moderate emphysema. Near complete right middle lobe atelectasis. Dependent hazy airspace disease, as above, worst the right lung base. Correlate for atelectatic john e versus possibly pneumonia. Reviewed, dictated and finalized at location M. TECHNICAL LEAD Impression: Very limited evaluation for pulmonary embolus due to timing of contrast bolus a nd streak artifact. No definite large central pulmonary embolus. Moderate emphysema. Near complete right middle lobe atelectasis. Dependent hazy airspace disease, as above, worst the right lung base. Correlate for atelectatic change versus possibly pneumonia.
--- NOTE | ~2024-06-08 | XR_ITS ---
Portable chest x-ray Comparison: None Clinical History: Shortness of breath Findings: Mild bibasilar haziness is compatible with mild bibasilar pulmonary edema. Possible mild b ibasilar chronic interstitial disease. Cardiomediastinal silhouette is unremarkable. There is extens lauryn spinal fixation hardware and right shoulder arthroplasty. Impression: Bibasilar haziness suggests mild bibasilar pulmonary edema, or possibly bibasilar chronic interstitia l change. Reviewed, dictated and finalized at location M. ER DRIVER Impression: Bibasilar haziness suggests mild bibasilar pulmonary edema, or possibly bibasil ar chronic interstitial change.
[2024-06-08 02:32] VITALS: O2SAT 92
--- OUTSIDE RECORDS SUMMARY | 2024-06-08 02:35 | XMS_ITS | Encounter Summary ---
Author Organization [facility] Address [address] [place] [address] Care Team Providers Care Tube Coater Name Role Phone Unavailable Primary Care Provider Unavailabl e Encounter Details Date Type Department Care Team (Late st Contact Info) Description 10/26/2019 Lab Requisition [facility] [address] [place] [id number] [place] [address] [place] [address] Social History Tobacco Use Types Packs/Day Years Used Date Smoking Tobacco: Never Assessed Sex and Gender Information Value Date Recorded Sex Assigned at Not on file Gender Identity Not on file Sexual Orientation Not on file documented as of this encounter Plan of Treatment Not on file documented as of this encounter Procedures Procedure Name Priority Date/Time Associated Diagnosis Comments DERMATOPATHOLOGY Routine 10/25/2019 12:0 0 AM CDT documented in this encounter Results * DERMATOPATHOLOGY (10/25/2019 12:00 AM CDT) Case Report Dermatopathology Report Case: [id number] Authorizing Provider: Em Tran MD Collected: 10/25/2019 12:00 AM Ordering Location: [facility] Received: 10/26/2019 02:28 PM Pathologist: Anjana Almazan MD Specimens: A) - Skin, inferior mid forehead B) - Skin, left central parietal scalp 0 5:19 PM CDT DERMATOPATHOLOGY LABORATORY Final Diagnosis Specimen A. SKIN, inferior mid forehead: SEBORRHEIC KERATOSIS, IRRITATED AND INFLAMED (L82.0) Specimen B. SKIN, left central parietal scalp: SEBORRHEIC KERATOSIS, IRRITATED AND INFLAMED (L82.0) 0 5:19 PM CDT DERMATOPATHOLOGY LABORATORY Clinical History A-B: Inflamed seborrheic keratosis. . 0 5:19 PM CDT DERMATOPATHOLOGY LABORATORY Gross Description Specimen A: Received is one formalin filled container labeled with the patient's name and designated inferior mid forehead. The specimen consists of a shave biopsy measuring [id number]. Jar 0. Specimen B: Received is one formalin filled container labeled with the patient's name and designated left central parietal scalp. The specimen consists of a shave biopsy measuring [id number]. Jar 0. 0 5:19 PM CDT DERMATOPATHOLOGY LABORATORY Microscopic Description Specimen A. SKIN, inferior mid forehead: Sections show acanthosis, papillomatosis, hyperkeratosis, and squamous eddies. There is a lymphohistiocytic infiltrate within the papillary dermis. Specimen B. SKIN, left central parietal scalp: Sections show acanthosis, papillomatosis, hyperkeratosis, and squamous eddies. There is a lymphohistiocytic infiltrate within the papillary dermis. 0 5:19 PM CDT DERMATOPATHOLOGY LABORATORY Disclaimer An external and internal positive and negative controls are appropriate for the histochemical, immunohistochemical and immunofluorescence stain(s) in this case (if any), except where stated explicitly. The performance characteristics of the stain(s) cited in this report were developed and its performance characteristic determined by the Dermatopathology Laboratory at [facility], directed by Dr. Alicja Osman. These tests need not be, and therefore are not, approved by the [place] Food and Drug Administration. The tests are used for clinical purposes. Billing Codes Specimen Charges Stain Charges 14498 [id number] 1 1 0 5:19 PM CDT DERMATOPATHOLOGY LABORATORY Embedded Images 0 5:19 PM CDT DERMATOPATHOLOGY LABORATORY Pathology/Cytology TISSUE SPECIMEN FROM SKIN / Unknown 10/25/2019 10/26/2019 2:28 PM CDT Miscellaneous samples (specimen) TISSUE SPECIMEN FROM SKIN / Unknown 10/25/2019 10/26/2019 2:28 PM CDT Em Tran MD LAB - PATHOLOGY/C YTOLOGY ORDERABLES DERMATOPATHOLOGY LABORATORY [facility] - Department of Dermatology [facility] [address] [phone] documented in this encounter Visit Diagnoses Not on filedocumented in this encounter
--- OUTSIDE RECORDS SUMMARY | 2024-06-08 02:35 | XMS_ITS | Encounter Summary ---
Author Organization [facility] Address [address] [place] [address] Phone Care Team Providers Care Mothers Helper Name Role Phone Rinku Suresh MD Primary Care Provider [phone] Encounter Details Date Type Department Care Team (Late st Contact Info) Description 04/26/2020 Transcribe [facility] Pre[facility]Pac[facility] II [address] [place] [id number] Jaiden Gonzalez MD [address] [facility], [address] [place] [address] Preop testing (Primary Dx) Social History Tobacco Use Types Packs/Day Years Used Date Smoking Tobacco: Former Cigarettes 1 04 05 983 - 2012 Smokeless Tobacco: Never Alcohol Use Standard Drinks/Week Comments No 0 (1 standard drink = 0.6 oz pur e alcohol) Comments No Sex and Gender Information Value Date Recorded Sex Assigned at Not on file Legal Sex Female 11:37 PM CDT Gender Identity Not on file Sexual Orientation Not on file COVID-19 Exposure Response Date Recorded In the last month, have you been in contact with someone who was confirmed or suspected to have Coronavirus / COVID-19? No / Unsure 04/26/2020 2:23 PM [facility] [employer] [facility] documented as of this encounter Plan of Treatment Not on file documented as of this encounter Results * SARS-COV-2 BY MOLECULAR (05/11/2020 8:29 AM [facility] [employer] [facility]) SARSCOV2 NOT DETECTED (Referen ce Range for this test is Not Detected ) [facility] THERMOFISHER FAST DX 05/12/2020 1:51 AM [facility] [employer] [facility] Comment:This test was perfor med by a PCR method. Other NASOPHARYNGEAL STRUCTURE / Unknown Non-Phlebotomy Collection / Unknown 05/11/2020 8:29 AM [facility] [employer] [facility] 05/11/2020 8:54 AM [facility] [employer] [facility] Narrative [facility] - 05/12/2020 1:51 AM [facility] [employer] [facility] Authorized Fact Sheets about this test for providers and patients are available at: https://www.fda.gov/medical-devices/tipcoojaq-pcppvtntqn-mgehcvm-devices/emergen -us e-authorizations us Jaiden Gonzalez MD MICROBIOLOGY - GENERAL ORDERAB LES Final Result Performing Organization Address City/State/[facility] Co de Phone Number [facility] [address] [place] [address], documented in this encounter Visit Diagnoses Diagnosis Preop testing- Primary Preoperative examination, unspecified documented in this encounter Care Teams Mothers Helper Relationship Specialty Start Date End Date Rinku Suresh MD [address] [place] [id number] PCP - General Internal Medicine 05/18/18 documented as of this encounter
--- OUTSIDE RECORDS SUMMARY | 2024-06-08 02:35 | XMS_ITS | Patient Health Summary ---
Author Organization [facility] Address [address] [place] [address] Care Team Providers Care Pressure Control Supervisor Name Role Phone Unavailable Primary Care Provider Unavailabl e Note from [facility],non-owned Affiliates and Associated Physician Practices is amultiple site organization consisting of ambulatory clinics and hospital sitesin [place], [place], [place] and [place]. This disclosure is being madepursuant to the Care Everywhere program and may not contain all information available regarding this patient. Last updated 17.[facility] Social History Tobacco Use Types Packs/Day Years Used Date Smoking Tobacco: Never Assessed Sex and Gender Information Value Date Recorded Sex Assigned at Not on file Gender Identity Not on file Sexual Orientation Not on file Procedures * DERMATOPATHOLOGY(Performed 10/25/2019) Results * DERMATOPATHOLOGY (10/25/2019 12:00 AM CDT) Case Report Dermatopathology Report Case: [id number] Authorizing Provider: Em Tran MD Collected: 10/25/2019 12:00 AM Ordering Location: [facility] Received: 10/26/2019 02:28 PM [...] specimen consists of a shave biopsy measuring [id number]. Jar 0. Specimen B: Received is one formalin filled container labeled with the patient's name and designated left central parietal scalp. The specimen consists of a shave biopsy measuring [id number]. Jar 0. 0 5:19 PM CDT DERMATOPATHOLOGY [...] characteristic determined by the Dermatopathology Laboratory at [facility], directed by Dr. Alicja Osman. These tests need not be, and therefore are not, approved by the [place] Food and Drug Administration. The tests are used for clinical purposes. Billing Codes Specimen Charges Stain Charges [id number] 1 1 0 5:19 PM CDT DERMATOPATHOLOGY LABORATORY Embedded Images 0 5:19 PM CDT DERMATOPATHOLOGY LABORATORY Pathology/Cytology TISSUE SPECIMEN FROM SKIN / Unknown 10/25/2019 10/26/2019 2:28 PM CDT Miscellaneous samples (specimen) TISSUE SPECIMEN FROM SKIN / Unknown 10/25/2019 10/26/2019 2:28 PM CDT Em Tran MD LAB - PATHOLOGY/C YTOLOGY ORDERABLES DERMATOPATHOLOGY LABORATORY [facility] - Department of Dermatology Respiratory Equipment Assistant [place]/[address] [place] [address], [facility] [phone]
--- OUTSIDE RECORDS SUMMARY | 2024-06-08 02:35 | XMS_ITS ---
Care Plan - [facility] Created on: June 08, 2024 [place]EL PARK : 1960 Sex: Female Author Organization [facility] Address [address] [place] [address] Phone Care Team Providers Care Pie Bakery Laborer Name Role Phone DANNI HAMILTON, CANDY MITCHELL Unavailable [phone]
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
--- OUTSIDE RECORDS SUMMARY | 2024-06-08 02:35 | XMS_ITS | Clinical Summary ---
Author Organization [facility] Address [address] [facility], [address] [address] Phone Care Team Providers Care Bar Supervisor Name Role Phone Rinku Suresh MD Primary Care Provider [phone] Allergies Active Allergy Reactions Criticality Noted Date Comments Cefazolin Hives Reaction: HIVES, Codeine Other (see Comments) Reaction: GI, Diazepam Unknown Hydrocodone-Acetaminoph en Vomiting Morphine Other (see Comments) Reaction: GI, Oxycodone-Acetaminophen Other (see Comments) Reaction: GI, Sulfa Antibiotics Other (see Comments) Reaction: GI, Vancomycin Hives Reaction: HIVES, Medications carbidopa-levodopa (SINEMET) 25-100 MG Tablet 04/11/19 19 Active Cholecalciferol (GNP VITAMIN D MAXIMUM STRENGTH) 2000 UNIT Tablet Act lauryn Cyanocobalamin (V-R VITAMIN B-12) 500 MCG Tablet Active fluticasone (FLONASE) 50 MCG/ACT Suspension 10/06/19 18 Active gabapentin (NEURONTIN) 300 MG Capsule Take 300 mg by mouth 2 times daily. 01/30/20 18 Active lansoprazole (PREVACID SOLUTAB) 30 MG TABLET DISPERSIBLE Active Melatonin 1 MG/ML Liquid Take 10 mg by mouth nightly. Active sertraline (ZOLOFT) 25 MG Tablet Active sertraline (ZOLOFT) 100 MG Tablet Take 150 mg by mouth nightly. 04/15/19 19 Active BREO ELLIPTA 100-25 MCG/INH AEROSOL POWDER, BREATH ACTIVATED INHALE 1 PUFF BY MOUTH DAILY 5 11/13/19 19 Active omeprazole (PRILOSEC) 20 MG CAPSULE DELAYED RELEASE Take 20 mg by mouth daily as needed. 4 11/11/19 19 Active oxybutynin (DITROPAN-XL) 10 MG TABLET SR 24 HR 11/02/19 19 Active pramipexole (MIRAPEX) 0.25 MG Tablet Take 0.75 mg by mouth 3 times daily. 5 10/26/19 19 Active Biotin 1 MG Capsule Take by mouth. Active diphenhydrAMINE-mine taminophen (BENADRYL PM) 25-500 MG Tablet Take 1 Tab by mouth. Active Levocetirizine Dihydrochloride 5 MG Tablet Take 5 mg by mouth. Active Multiple Vitamins-Minerals (I-NICOLE) Tablet 1 Tab. Acti ve ANORO ELLIPTA 62.5-25 MCG/INH AEROSOL POWDER, BREATH ACTIVATED INL 1 PUFF PO QD 05/05/19 20 Active CREON [address] Particles TK 1 C PO TID WC 04/20/19 20 Active pantoprazole (PROTONIX) 40 MG Tablet Delayed Response 05/02/19 20 Active lubiprostone (Amitiza) 24 MCG Capsule Take 24 mcg by mouth 2 times daily (with meals). Active mirtazapine (REMERON) 15 MG Tablet Take 15 mg by mouth nightly. Active ocuvite-lutein (OCUVITE) Capsule Take 1 Cap by mouth daily. Active diphenhydrAMINE-APA P, sleep, (TYLENOL PM EXTRA STRENGTH PO) Take 2 Tabs by mouth nightly. Active docusate sodium (Colace) 100 MG Capsule Take 100 mg by mouth 2 times daily as needed. Active traMADol (ULTRAM) 50 MG Tablet Take 1 Tablet by mouth every 4 hours as needed for Moderate or more severe pain. 60 Tablet 05/14/19 21 Active aspirin 325 MG Tablet Take 1 Tablet by mouth daily. 42 Tablet 05/14/19 21 Active celecoxib (CeleBREX) 200 MG Capsule Take 1 Capsule by mouth 2 times daily. 84 Capsule 05/14/19 21 Active ferrous sulfate 325 (65 Fe) MG Tablet Take 1 Tablet by mouth daily. 30 Tablet 05/14/19 21 Active ondansetron (ZOFRAN-ODT) 4 MG TABLET DISPERSIBLE Take 1 Tablet by mouth every 8 hours as needed for Nausea - 1st line. 20 Tablet 02/09/20 21 Active scopolamine (TRANSDERM-SCOP) 1 MG/3DAYS PATCH 72 HR 1 Patch by Transdermal route every 72 hours. 1.5 mg patch delivers 1 mg over 3 days 4 Patch 05/14/19 Active ascorbic acid 500 MG Tablet Take 1 Tablet by mouth daily. 30 Tablet 05/14/19 Active methylPREDNISolone (MEDROL DOSPACK) 4 MG Tablet Therapy Pack See product package insert for dosing schedule 21 Tablet 07/24/19 Active oxyCODONE (ROXICODONE) 5 MG Tablet Take 1 Tablet by mouth every 6 hours as needed for Severe pain. 15 Tablet 07/24/19 Active ondansetron (ZOFRAN) 4 MG Tablet Take 1 Tablet by mouth every 8 hours as needed for Nausea - 1st line. 10 Tablet 07/24/19 Active cyclobenzaprine (FLEXERIL) 5 MG Tablet Take 1 Tablet by mouth 3 times daily as needed for Muscle spasms. 15 Tablet 07/24/19 Active Family History Medical History Relation Name Comments Arthritis Father Congestive Heart Failure Father Multiple Sclerosis Mother Parkinsonism Mother Relation Name Status Comments Father Alive Mother Social History Tobacco Use Types Packs/Day Years Used Date Smoking Tobacco: Former Cigarettes 2012 Smokeless Tobacco: Never Alcohol Use Standard Drinks/Week Comments No 0 (1 standard drink = 0.6 oz pur e alcohol) Comments No Sex and Gender Information Value Date Recorded Sex Assigned at Not on file Legal Sex Female 11:37 PM CDT Gender Identity Not on file Sexual Orientation Not on file Last Filed Vital Signs Vital Sign Reading Time Taken Comments Blood Pressure 160/80 07/23/2020 4:05 PM CDT Pulse 68 07/23/2020 2:16 PM CDT Temperature 36.7 C (98.1 F) 07/23/2020 2:16 PM CDT Respiratory Rate 20 07/23/2020 2:16 PM CDT Oxygen Saturation 100% 07/23/2020 2:16 PM CDT Inhaled Oxygen Concentration - - Weight 56.7 kg (125 lb) 07/23/2020 2:16 PM CDT Height 162.6 cm (5' 4 ) 07/23/2020 2:16 PM CDT Body Mass Index 21.46 07/23/2020 2:16 PM CDT Plan of Treatment Health Maintenance Due Date Last Done Comments DEXA Bone Density 1960 Hepatitis C Virus (HCV) Screening 1960 TdaP Immunization 1960 Pap Smear 12/08/1979 Cervical Cancer Screening (CCS) 1988 HPV/Cotest 1988 Colonoscopy 12/08/2003 Colorectal Cancer Screening 12/08/2003 Cologuard 2008 Immunochemical Fecal Occult Blood 2008 Mammogram 2008 Zoster Immunization (1 of 2) 2008 Influenza Immunization (#1) 12/05/202304/05, 03/19/2018, 01/30/2017 SARS-COV-2 Immunization ( season) 2023 03/25/2021, 07/05/2020, 06/07/2020 Pneumococcal Immunization (5 0+ years) (3 of 3 - PCV20 or PCV21) 04/16/2025 04/16/2020, 01/06/2019 Respiratory Syncytial Virus (RSV) Immunization (Adult) (1 - 1-dose 75+ series) 2033 Meningococcal Immunization (ACWY) Aged Out 01/06/2019 No longer eligible based on patient's age to complete this topic Lung Cancer Screening Discontinued 03/24/2019 Pneumococcal Immunization Combined Discontinued 04/16/2020, 01/06/2019 Hepatitis B Immunization Aged Out No longer eligible based on patient's age to complete this topic Rotavirus Immunization Aged Out No lo nger eligible based on patient's age to complete this topic Medical Devices Implanted Type Area Setter Molding [employer] Coremaking Machines Device Identifier Shelf Expiration Date Model / Serial / Lot Liner Actb Altrx Mcdonald Neutral 50mm 32mm Hip - [id number] Implanted:Qty : 1 on 05/14/2020 by Jaiden Gonzalez MD at [facility] IMPLANT Left: Hip [employer] 07/03/2024 [id number] / [id number] / [id number] Shell Actb 50mm Hip Sector Gription Mcdonald - [id number] Implanted:Qty : 1 on 05/14/2020 by Jaiden Gonzalez MD at [facility] IMPLANT Left: Hip [employer] 02/02/2030 [id number] / [id number] / [id number] Femoral Stem Implanted:Qty : 1 on 05/14/2020 by Jaiden Gonzalez MD at [facility] Left: Hip [employer] 04/04/2030 [id number] / [id number] / [id number] Ceramic Femoral Head Implanted:Qty : 1 on 05/14/2020 by Jaiden Gonzalez MD at [facility] Left: Hip [employer] 08/03/2023 [id number] / [id number] / [id number] Insurance Care Teams Bar Supervisor Relationship Specialty Start Date End Date Rinku Suresh MD [address] [place] [id number] PCP - General Internal Medicine 05/18/18
--- OUTSIDE RECORDS SUMMARY | 2024-06-08 02:35 | XMS_ITS | Clinical Summary ---
Author Organization [facility] Address [address] [place] [address] Phone Care Team Providers Care Purchase Order Checker Name Role Phone DANNI HAMILTON, CANDY MITCHELL Unavailable [phone] Reason for Visit and Chief Complaint * PHONE CALL Problems Includes: Problems addressed during this encounter and other active Problems Current Visit Onset Date Resolved Date Provider Conditio n Status Generalized Anxiety Disorder 05/01/2021 CANDY LEUNG MD Active Last Documented On 2 2:53PM ; [facility] Past Visits Onset Date Resolved Date Provider Condition Status Attention Deficit Disorder Without Hyperactivity 05/01/2021 CANDY LEUNG MD Active Last Documented On 2 3:52PM ; [facility] Psychophysiological Insomnia 05/01/2021 CANDY LEUNG MD Active Last Documented On 2 2:53PM ; [facility] Major Depression 05/01/2021 CANDY LEUNG MD Active Last Documented On 2 2:52PM ; [facility] Plan of Treatment No Plan of Treatment Recorded Assessments Includes: Assessments from this encounter Findings - Generalized anxiety disorder - Last Documented On 02/17/2022 9:32AM ; [facility] Medical Equipment - Implanted Devices Includes: Current Devices No Medical Equipment Recorded Medications Includes: Medications discussed during this encounter and other current Medications Discontinued / Stopped on this date CANDY LEUNG MD on 01/09/2022 LORazepam 0.5 MG Oral Tablet Provider: CANDY LEUNG MD Diagnosis: Generalized anxi ety disorder Last Documented On 02/16/2022 1:30PM By Nani Leung MD ; [facility] New / Renewed during this visit CANDY LEUNG MD on 02/16/2022 LORazepam 0.5 MG Oral Tablet Provider: CANDY LEUNG MD 30 day supply: 15 tablet, 0 refills Diagnosis: Generalized anxiety disorder as directed - 1/2 - 1 tab a day as needed for severe panic attacks Pharmacy: [address], [id number] - Last Documented On 3 10:01AM By Nani Leung MD ; [facility] Current Medications (continue as prescribed) EQ Laxative Maximum Strength 25 MG Oral Tablet 023 Provider: Diagnosis: 3 tabs at night Last Documented On 3 10:04AM By NIKKI HOWARD ; [facility] Focalin 5 MG Oral Tablet 06/29/2022 Provider: MET JACQUELINE LEUNG MD Diagnosis: Attn-defct hyper activity disorder, predom inattentive type as directed - 1 tab in am with food Last Documented On 3 11:33AM By Nani Leung MD ; [facility] LORazepam 0.5 MG Oral Tablet 06/29/2022 Provider: CANDY LEUNG MD Diagnosis: Generalized anxi ety disorder as directed - 1/2 - 1 tab a day as needed for severe panic attacks Last Documented On 3 11:33AM By Nani Leung MD ; [facility] OLANZapine 15 MG Oral Tablet 06/29/2022 Provider: CANDY LEUNG MD Diagnosis: Major depressive disorder, recurrent, moderate as directed -- 1 tab at bedtime Last Documented On 3 11:33AM By Nani Leung MD ; [facility] traZODone HCl 100 MG Oral Tablet 06/15/2022 Provider: CANDY LEUNG MD Diagnosis: Psychophysiologi c insomnia as directed 3 tabs at bedtime Last Documented On 06/15/2022 3:36PM By Nani Leung MD ; [facility] Folic Acid 1 MG Oral Tablet 03/31/2022 Provider: [facility] [employer] Diagnosis: 1 tab daily Last Documented On 3 11:38AM By NIKKI OCHOA RMA ; [facility] Pramipexole Dihydrochloride 0.75 MG Oral Tablet 09/08/2021 Provider: TIMMY VALENZUELA MD Diagnosis: 2 tabs in the evening Last Documented On 3 11:39AM By NIKKI OCHOA A ; [facility] Antacid 200-200-20 MG/5ML Oral Suspension 05/21/2021 Provider: RENU ARGUELLO MD Diagnosis: as needed Last Documented On 06/06/2021 2:04PM By MICHELLE PARKS ; [facility] Ocuvite Adult 50+ Oral Capsule 05/01/2021 Provider: Diagnosis: 1 cap daily Last Documented On 05/01/2021 3:10PM By NIKKI OCHOA A ; [facility] Xyzal 5 MG Oral Tablet 05/01/2021 Provider: Diagnosis: 1 tab daily Last Documented On 05/01/2021 3:10PM By NIKKI OCHOA A ; [facility] Biotin 5000 MCG Oral Capsule 05/01/2021 Provider: Diagnosis: 1 cap daily Last Documented On 05/01/2021 3:13PM By NIKKI OCHOA A ; [facility] Stool Softener 100 MG Oral Capsule 05/01/2021 Pr ovider: Diagnosis: 1 cap tid Last Documented On 05/01/2021 3:12PM By NIKKI OCHOA A ; [facility] Ondansetron HCl 8 MG Oral Tablet 03/13/2021 Provider : RENU ARGUELLO MD Diagnosis: 2 tab prn nausea/vomiting Last Documented On 05/01/2021 3:04PM By NIKKI HOWARD ; [facility] Anoro Ellipta 62.5-25 MCG/IN H Inhalation Aerosol Powder Breath Activated 03/11/2021 Provider: ERNIE MADRIGAL MD Diagnosis: 1 inhalation daily Last Documented On 05/01/2021 3:07PM By NIKKI GUAMANA ; [facility] Cyclobenzaprine HCl 10 MG Oral Tablet 01/06/2021 Pro vider: ERNIE MADRIGAL MD Diagnosis: take 1 tab prn Last Documented On 05/01/2021 3:07PM By NIKKI HOWADR ; [facility] Suspended Medications Sertraline HCl 100 MG Oral Tablet 03/11/2022 Provide r: CANDY LEUNG MD Diagnosis: as directed 1 and 1/2 tabs daily Last Documented On 03/11/2022 4:45PM By Nani Leung MD ; [facility] Past Medications on file Gabapentin 300 MG Oral Capsule 06/29/2022 - 07/29/2022 Provider: Diagnosis: 2 capsules at night Last Documented On 10:02AM By NIKKI HOWARD ; [facility] Focalin 10 MG Oral Tablet 10/14/2021 - 11/13/2021 Provider: CANDY LEUNG MD Diagnosis: Generalized anxi ety disorder as directed -- 1 tab in am Last Documented On 10/14/2021 2:31PM By Nani Leung MD ; [facility] Pramipexole Dihydrochloride 0.75 MG Oral Tablet 08/13/2021 - 11/11/2021 Provider: Diagnosis: 1 afternoon prn and 2 at hs Last Documented On 08/13/2021 9:28AM By NIKKI HOWARD ; [facility] Gabapentin 300 MG Oral Capsule 08/13/2021 - 09/12/2021 Provider: ERNIE MADRIGAL MD Diagnosis: 2 at night Last Documented On 08/13/2021 9:26AM By NIKKI HOWARD ; [facility] DayVigo 5 MG Oral Tablet 05/01/2021 - 05/21/2021 Provider: CANDY LEUNG MD Diagnosis: Psychophysiologi c insomnia as directed -- 1 tab at hs a s needed for sleep Last Documented On 05/01/2021 4:02PM By Nani Leung MD ; [facility] Medications Administered Includes: Administered Medications from this encounter No Administered Medications Recorded Results Includes: Results discussed during this encounter No Results Recorded For Specified Dates History of Present Illness Includes: History of Present Illness from this encounter No History of Present Illness Recorded Social History No Social History Recorded - Smoking Status Unknown Medical History Includes: Medical History addressed during this encounter No Medical History Recorded Family History Includes: Family History addressed during this encounter No Family History Recorded Review of Systems Includes: Review of Systems from this encounter No Review of Systems Recorded Mental Status Includes: Mental Status from this encounter No Mental Status Recorded Functional Status Includes: Functional Status from this encounter No Functional Status Recorded Physical Exam Includes: Physical Exam from this encounter No Physical Exam Recorded Allergies Includes: Active Allergies Substance Type Reaction Onset Date Resolved Date Statu s Vancomycin Allergy Hives / Urticaria 06/14/2019 Active Last Documented On 07/05/2023 10:12AM ; [facility] Note: Imported from external source. Valium Allergy Nausea, Vomiting, Diarrhea / Diarrheal disorder 04/01/2015 Active Last Documented On 07/05/2023 10:12AM ; [facility] Note: Imported from external source. Sulfa Antibiotics Allergy Nausea, Vomiting, Diarrhea / Diarrheal disorder 08/13/2021 Active Last Documented On 07/05/2023 10:12AM ; [facility] Note: Imported from external source. Percocet Allergy Nausea, Vomiting, Diarrhea / Diarrheal disorder 04/01/2015 Active Last Documented On 07/05/2023 10:12AM ; [facility] Note: Imported from external source. Morphine Sulfate Allergy Nausea, Vomiting, Diarrhea / Diarrheal disorder 04/01/2015 Resolved Last Documented On 09/22/2022 11:29AM ; [facility] Note: Imported from external source. Morphine Sulfate Allergy Nausea, Vomiting, Diarrhea / Diarrheal disorder 04/01/2015 Active Last Documented On 10:12AM ; [facility] Ancef Allergy Nausea, Vomiting , Diarrhea / Diarrheal disorder 04/01/2015 Active Last Documented On 07/05/2023 10:12AM ; [facility] Note: Imported from external source. Encounters Encounter Provider Location Date Check-In Time Check-Out Time Diagnosis * PHONE CALL CANDY LEUNG MD [facility] 02/17/20 12:17PM 11:59PM Generalized Anxiety Disorder Insurance Includes: Active Insurance Policies Plan Name Member ID Group # Subscriber Relationship Effect lauryn Dates 1 - [employer] [id number] [place] Self Clinical Notes Includes: Clinical Notes from this encounter No Clinical Notes Recorded
--- OUTSIDE RECORDS SUMMARY | 2024-06-08 02:35 | XMS_ITS | Clinical Summary ---
Author Organization [facility] Address [address] [place] [address] Phone Care Team Providers Care Tank Erector Name Role Phone JOS HAMILTON, RENU Valerio Unavailable [phone] ELIDIA BARNETT, NAREN Lozano Unavailable [phone] ROHAN HAMILTON, ERNIE Hinds Primary Care Provider [phone] BUD VERDIN MD Unavailable [phone] DANNI HAMILTON, CANDY MITCHELL Unavailable [phone] Reason for Visit and Chief Complaint The Chief Complaint is: Med check/follow up, The Chief Complaint is: Check up. She is wanting some updated labs. She is still not eating good and having trouble with bowel movements. She sees GI on the of this month. She is very tired all the time and she is getting dizzy, losing her balance. The Dr [facility] said she might need iron. Her daughter thinks she needs to get a test to see what meds she is allergic to Problems Includes: Problems addressed during this encounter and other active Problems Current Visit Onset Date Resolved Date Provider Jerrell lundy Status Generalized Anxiety Disorder 05/01/2021 Active Last Documented On 3 5:53PM ; [facility] Iron Deficiency Anemia 01/27/2021 SUSIE CALVILLO CREDIT UNDERWRITER-C Active Last Documented On 1 9:09AM ; [facility] Constipation 11/27/2020 SUSIE STOKES CREDIT UNDERWRITER- C Active Last Documented On 1 9:08AM ; [facility] Spinal Stenosis Lumbar 11/27/2020 SUSIE CALVILLO CREDIT UNDERWRITER-C Active Last Documented On 1 7:54AM ; [facility] Chronic Obstructive Pulmonary Disease 12/28/2019 SUSIE Fernandez KIKE CREDIT UNDERWRITER-C Active Last Documented On 0 10:52AM ; [facility] Past Visits Onset Date Resolved Date Provider Condition Status Panic Disorder 05/06/2023 CANDY Wright Active Last Documented On 4 8:48PM ; [facility] Marijuana By Prescription 07/27/2022 SUSIE PONDERS CREDIT UNDERWRITER-C Active Last Documented On 3 8:03PM ; [facility] Folic Acid Deficiency 03/31/2022 SUSIE PULLIAMS CREDIT UNDERWRITER-C Active Last Documented On 2 9:21AM ; [facility] Hyperlipidemia 07/02/2021 SUSIE PONDERS FN P-C Active Last Documented On 2 12:57PM ; [facility] Attention Deficit Disorder Without Hyperactivity 2 Active Last Documented On 3 5:53PM ; [facility] Psychophysiological Insomnia 05/01/2021 Active Last Documented On 3 5:53PM ; [facility] Major Depression 05/01/2021 Active Last Documented On 3 5:53PM ; [facility] Aortic Regurgitation 01/21/2021 SUSIE PONDERS CREDIT UNDERWRITER-C Active Last Documented On 01/21/2021 9:23AM ; [facility] Note: mild on ECHO 2020. Mitral Regurgitation 01/21/2021 SUSIE PONDERS CREDIT UNDERWRITER-C Active Last Documented On 01/21/2021 9:22AM ; [facility] Note: mild on ECHO 2020. Tricuspid Regurgitation 01/21/2021 ROSALIND ZARIA Rebecca KIKE CREDIT UNDERWRITER-C Active Last Documented On 01/21/2021 9:23AM ; [facility] Note: mild on ECHO 2020. Spinal Stenosis Thoracic 11/27/2020 BRAVO GUTIERREZ Rebecca KIKE CREDIT UNDERWRITER-C Active Last Documented On 1 7:53AM ; [facility] Splenic Laceration 01/12/2019 ERNIE Wright Active Last Documented On 01/12/2019 11:00AM ; [facility] 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 Troop Harriett Depression with Anxiety 09/26/2012 ERNIE SHEPHERD MD Active Last Documented On 5 10:05AM ; [facility] Restless Legs Syndrome 09/26/2012 ERNIE ROSALES MD Active Last Documented On 5 10:05AM ; [facility] Peptic Ulcer Chronic 05/31/2012 ERNIE MADRIGAL MD Active Last Documented On 5 10:04AM ; [facility] Osteoarthritis Generalized Multiple Sites 05/31/2012 ERNIE MADRIGAL MD Active Last Documented On 5 10:05AM ; [facility] Plan of Treatment 1. Get labs done to further assess possible anemia or needing iron. 2. Stop Anoro, finish Breztri, then start Trelegy (covered by insurance) - for COPD. 3. Starting Famotidine due to issues eating. 4. Keep appt with GI on 05/27/23. Will need colonoscopy this year - due. 5. Continue to work with friend who is a physical therapist. Follow up in 6 months. 1) Return to the clinic if condition worsens or new symptoms arise. 2) Patient to call if problem develops. - Last Documented On 05/18/2023 10:03AM ; [facility] Future Appointments Date Time Location Provi ronel PSYCH ADULT FOLLOW UP 06/13/2024 10:00AM [facility] OUP-PSY CANDY LEUNG MD Last Documented On 11:09AM ; [facility] Assessments Includes: Assessments from this encounter Findings - J44.9 - Chronic obstructive pulmonary disease, unspecified - Last Documented On 05/18/2023 10:03AM ; [facility] - K59.00 - Constipation, unspecified - Last Documented On 05/18/2023 10:03AM ; [facility] - Lumbar stenosis - Last Documented On 05/18/2023 10:03AM ; [facility] - F41.1 - Generalized anxiety disorder - Last Documented On 05/18/2023 10:03AM ; [facility] - D50.9 - Iron deficiency anemia, unspecified - Last Documented On 05/18/2023 10:03AM ; [facility] Medical Equipment - Implanted Devices Includes: Current Devices No Medical Equipment Recorded Medications Includes: Medications discussed during this encounter and other current Medications Discontinued / Stopped on this date ERNIE MADRIGAL MD on 05/13/2023 Anoro Ellipta 62.5-25 MCG/ACT Inhalation Aerosol Powder Breath Activated Provider: ERNIE MADRIGAL MD Diagnosis: Chronic obstruct lauryn pulmonary disease, unspecified Last Documented On 9:20AM By Susie CARLTON ; [facility] Focalin 10 MG Oral Tablet Provider: CANDY LEUNG MD Diagnosis: Attention-defici t hyperactivity disorder, unspecified type Last Documented On 05/14/2023 8:52AM By Alyssa HOWARD ; [facility] Focalin 5 MG Oral Tablet Provider: CANDY LEUNG MD Diagnosis: Attn-defct hyper activity disorder, predom inattentive type Last Documented On 05/14/2023 8:53AM By Alyssa HOWARD ; [facility] Tamsulosin HCl 0.4 MG Oral Capsule Provider: SUSIE CARLTON Diagnosis: Retention of uri ne, unspecified Last Documented On 05/14/2023 8:55AM By Alyssa HOWARD ; [facility] Gabapentin 300 MG Oral Capsule Provider: ERNIE MADRIGAL MD Diagnosis: Last Documented On 05/14/2023 8:53AM By Alyssa HOWARD ; [facility] Cyclobenzaprine HCl 10 MG Oral Tablet Pro vider: Diagnosis: Last Documented On 05/14/2023 8:51AM By Alyssa HOWARD ; [facility] OLANZapine 15 MG Oral Tablet Provider: CANDY LEUNG MD Diagnosis: Major depressive disorder, recurrent, moderate Last Documented On 05/14/2023 8:54AM By Alyssa HOWARD ; [facility] Methocarbamol 750 MG Oral Tablet Provider : BUD VERDIN MD Diagnosis: Last Documented On 05/14/2023 8:54AM By Alyssa HOWARD ; [facility] Probiotic (Lactobacillus) Oral Capsule Pr ovider: Diagnosis: Last Documented On 9:33AM By Susie CARLTON ; [facility] Ondansetron 4 MG Oral Tablet Disintegrating Provider: ERNIE MADRIGAL MD Diagnosis: Nausea with vomi ting, unspecified Last Documented On 05/14/2023 8:55AM By Alyssa HOWARD ; [facility] Xyzal 5 MG OR TABS Provider: Diagnosis: Last Documented On 05/14/2023 8:56AM By Alyssa HOWARD ; [facility] DayVigo 5 MG OR TABS Provider: CANDY LEUNG MD Diagnosis: Psychophysiologi c insomnia Last Documented On 05/14/2023 8:51AM By Alyssa HOWARD ; [facility] New / Renewed during this visit SUSIE CARLTON on 05/14/2023 Trelegy Ellipta 100-62.5-25 MCG/ACT Inhalation Aerosol Powder Breath Activated Provider: SUSIE CARLTON 30 day supply: 60 each, 5 refills Diagnosis: Chronic obstructive pulmonary disease, unspecified 1 puff daily Pharmacy: [facility] - [address], [phone] - Last Documented On 4 9:31AM By Susie CARLTON ; [facility] Famotidine 20 MG Oral Tablet Provider: SUSIE CARLTON 30 day supply: 60 tablet, 6 refills Diagnosis: Gastro-esophageal reflux disease without esophagitis take 1-2 tabs daily Pharmacy: [facility] - [address], [phone] - Last Documented On 4 9:47AM By Susie CARLTON ; [facility] Current Medications (continue as prescribed) Gabapentin 300 MG Oral Capsule 08/23/2023 Provider: ERNIE MADRIGAL MD Diagnosis: Polyosteoarthrit is, unspecified 1-2 po tid Last Documented On 08/23/2023 6:32PM By ERNIE MARDIGAL MD ; [facility] LORazepam 0.5 MG Oral Tablet 08/23/2023 Provider: CANDY LEUNG MD Diagnosis: Generalized anxi ety disorder as directed - 1/2 - 1 tab a day as needed for severe panic attacks Last Documented On 08/23/2023 1:38PM By Nani Leung MD ; [facility] Focalin 10 MG Oral Tablet 08/12/2023 Provider: CANDY LEUNG MD Diagnosis: Attention-defici t hyperactivity disorder, unspecified type as directed 1 tablet in the morning and 1 tablet at noon Last Documented On 08/12/2023 10:36AM By Nani Leung MD ; [facility] traZODone HCl 100 MG Oral Tablet 07/20/2023 Provider: CANDY LEUNG MD Diagnosis: Psychophysiologi c insomnia as directed 4 tabs at bedtime Last Documented On 07/20/2023 3:22PM By Nani Leung MD ; [facility] Pramipexole Dihydrochloride 0.75 MG Oral Tablet 06/15/2023 Provider: ERNIE MADRIGAL MD Diagnosis: 2 at 5 pm and 2 at bedtime Last Documented On 07/05/2023 10:11AM By NIKKI HOWARD ; [facility] Sertraline HCl 100 MG Oral Tablet 05/31/2023 Provider: CANDY LEUNG MD Diagnosis: Major depressive disorder, recurrent, unspecified ud - as directed as directed 2 tabs daily Last Documented On 05/31/2023 10:55AM By Nani Leung MD ; [facility] Levocetirizine Dihydrochloride 5 MG Oral Tablet 2023 Provider: Diagnosis: Last Documented On 05/14/2023 8:57AM By Alyssa HOWARD ; [facility] Vitamin D 25 MCG (1000 UT) Oral Tablet 05/14/2023 Pr ovider: Diagnosis: Last Documented On 05/14/2023 8:58AM By Alyssa HOWARD ; [facility] traZODone HCl 100 MG Oral Tablet 03/16/2023 Provider: CANDY LEUNG MD Diagnosis: Psychophysiologi c insomnia as directed 5 tabs at bedtime Last Documented On 03/16/2023 12:00PM By Nani Leung MD ; [facility] HYDROcodone-Acetaminophen 10 -325 MG Oral Tablet 02/23/2023 Provider: BUD VERDIN MD Diagnosis: use prn Last Documented On 03/16/2023 11:27AM By NIKKI HOWARD ; [facility] EQ Laxative Maximum Strength 25 MG Oral Tablet 023 Provider: Diagnosis: 3-4 tabs at night Last Documented On 09/22/2022 11:16AM By NIKKI HOWARD ; [facility] Stool Softener 100 MG Oral Tablet 07/02/2021 Provide r: Diagnosis: 3 times daily Last Documented On 07/02/2021 8:37AM By Alyssa HOWARD ; [facility] Fluticasone Propionate 50 MCG/ACT Nasal Suspension 06/10/2021 Provider: ERNIE MADRIGAL MD Diagnosis: Allergic rhiniti s due to pollen 1 sq each nostril 1-2xd as needed Last Documented On 06/10/2021 12:32PM By ERNIE MADRIGAL MD ; [facility] Biotin 5000 MCG OR CAPS 05/01/2021 Provider: Diagnosis: 1 cap daily Last Documented On 08/01/2022 5:38PM By NIKKI HOWARD ; [facility] Ocuvite Adult 50+ OR CAPS 05/01/2021 Provider: Diagnosis: 1 cap daily Last Documented On 08/01/2022 5:38PM By NIKKI HOWARD ; [facility] Past Medications on file traZODone HCl 100 MG Oral Tablet 07/20/2023 - 08/19/2023 Provider: CANDY LEUNG MD Diagnosis: Psychophysiologi c insomnia 4 tabs at bedtime Last Documented On 07/20/2023 2:59PM By MICHELLE PARKS ; [facility] Pramipexole Dihydrochloride 0.75 MG Oral Tablet 03/16/2023 - 06/14/2023 Provider: Diagnosis: 2 tabs late afternoon and 2 in the evening Last Documented On 03/16/2023 11:20AM By NIKKI HOWARD ; [facility] Medications Administered Includes: Administered Medications from this encounter No Administered Medications Recorded Vital Signs Includes: Vital Signs from this encounter Vital Name 05/14/2023 08:44A Blood Pressure Sitting R 118/70 BP Cuff Size Regular Pulse Rate-Sitting (bpm) 75 Respiration Rate (breaths/min) 22 Temp-Oral (F) 97.5 Height (in) 65 Weight (lb) 126.0375 Body Mass Index 21 Body Surface Area 1.6 Oxygen Saturation (%) 98 Last Documented: On 05/14/2023 9:00AM ; [facility] Results Includes: Results discussed during this encounter No Results Recorded For Specified Dates History of Present Illness Includes: History of Present Illness from this encounter JOSE PARK is a 62 year old female. - Allergy list reviewed - Problem list reviewed - Medication list reviewed Patient is a 62 year old female who presents today for a med check and routine follow up. She has had issues with eating for a long time - has gas and indigestion. Had EGD 11/2018 and Colonoscopy 12/2018 (not good prep). Patient saw Naren Nava NP with [facility]. They did an iron panel which showed level in the 40s, but no CBC. Patient's iron has been 9 in the past when she needed iron infusions. Has appt with Dr. Parkinson on 05/27/23. Patient feels tired often. She was having issues with breathing and started on Breztri 2 puffs BID at last visit several months ago (was told to stop Anoro). Patient has been using both due to confusion with meds. States they are both expensive, but was told her insurance would cover Trelegy. Patient sees Dr. Leung, uses Trazodone 4 tabs at bedtime. Use Focalin only daily. Patient is on Hydrocodone daily from [facility] as well. Social History Description Last Updated Tobacco non-user - quit smoking 04/2023 Last Documented On 4 8:43AM ; [facility] Consuming 5 or more drinks per day None 05/14/2023 Last Documented On 4 10:03AM ; [facility] Not recovering alcoholic 05/14/2023 Last Documented On 4 10:03AM ; [facility] Not recovering from substance abuse 12/2023 Last Documented On 4 10:03AM ; [facility] Number of times used recreat ional drug/ prescription drug for nonmedical reason. None 05/14/2023 Last Documented On 4 10:03AM ; [facility] Stopped smoking years ago 2012 3 Last Documented On 4 8:43AM ; [facility] Former smoker 02/03/2022 Last Documented On 4 8:43AM ; [facility] Currently 06/14/2019 Last Documented On 4 8:43AM ; [facility] Smoking Status Unknown Procedures and Surgical History Includes: Procedures from this encounter Procedures Code Diagnosis Performing Provider Service L ocation Service Date continue current medication Last Documented On 4 9:25AM ; [facility] use of tobacco assessment performed 1000F Last Documented On 4 9:25AM ; [facility] review of medications documented 1160F Last Documented On 4 8:44AM ; [facility] Medical History Includes: Medical History addressed during this encounter Description Last Updated Surgery T1-L1 Spinal Fusion - 03/12/[address] Jorge Hsieh ~ERMIAS 2008- Dr. Cristina 12/31/2022 Last Documented On 4 8:43AM ; [facility] History of colonoscopy fiberoptic was pe rformed 12/26/2018 F/U in 5 years 02/03/2022 Last Documented On 4 8:43AM ; [facility] History of screening mammogram was perfo rmed 10/22/2020 02/03/2022 Last Documented On 4 8:43AM ; [facility] History of essential hypertension 2021 Last Documented On 4 8:43AM ; [facility] History of hyperlipidemia 08/22/2021 Last Documented On 4 8:43AM ; [facility] LOW BACK FUSIONS 1994, 2005, 2007, 2011, 2015, 2020 ~APPENDECTOMY 1973 ~KNEES 04 06 02 ~NECK FUSIONS 06 08 07 ~SPINAL SIMULLATORS 05 2009 ~CHOLECYSTECTOM 2014 ~SHOULDERS 2012 2013 2015 ~SPLENECTOMY 12/31/18 ~ABDOMINAL DRAIN 01/2019 PANCREATIC STENT 02/201901/09/2021 Last Documented On 4 8:43AM ; [facility] History of Abnormal Pap Smear 06/14/2019 Last Documented On 4 8:43AM ; [facility] History of arthritis 06/14/2019 Last Documented On 4 8:43AM ; [facility] No recent change in medical history 06/03 Last Documented On 4 8:43AM ; [facility] Family History Includes: Family History addressed during this encounter Description Last Updated Family history reviewed - unchanged sinc e last visit 12/28/2019 Last Documented On 4 8:43AM ; [facility] Sororal history of diabetes mellitus MOTHER PARKINSON/M.S. ~SISTER LING ~FATHER HIGH BLOOD PRESSURE ~ 06/14/2019 Last Documented On 4 8:43AM ; [facility] Review of Systems Includes: Review of Systems from this encounter Systemic: Feeling tired. No fever, no chills, no night sweats, and no edema. Head: No headache. Eyes: No itching of the eyes and no watery discharge from eyes. Otolaryngeal: No hearing loss, no tinnitus, no watery nasal discharge, and not blood-tinged. No nasal passage blockage (stuffiness), no sore throat, and no itchy throat. Cardiovascular: No chest pain or discomfort and no palpitations. Pulmonary: Dyspnea. No supine dyspnea. No cough, no hemoptysis, and no wheezing. Gastrointestinal: Appetite decreased. No dysphagia and no heartburn. No nausea and no vomiting. Abdominal pain. No melena. No diarrhea, but has constipation at times. Genitourinary: No hematuria, no increase in urinary frequency, and no nocturia. No urinary loss of control and no dysuria. Musculoskeletal: Limited ROM present, uses cane and back pain. No muscle aches, no localized joint pain, and no localized joint stiffness. Neurological: No dizziness, no vertigo, no fainting, no decrease in concentrating ability, and no slurred speech. No sensory disturbances, no tingling, and no numbness. Skin: No pruritus. No skin lesions and no rash. Mental Status Includes: Mental Status from this encounter Description No disorientation was observ ed The memory was unimpaired Functional Status Includes: Functional Status from this encounter No Functional Status Recorded Physical Exam Includes: Physical Exam from this encounter Allergies Includes: Active Allergies Substance Type Reaction Onset Date Resolved Date Statu s Vancomycin Allergy Hives / Urticaria 06/14/2019 Active Last Documented On 07/05/2023 10:12AM ; [facility] Note: Imported from external source. Valium Allergy Nausea, Vomiting, Diarrhea / Diarrheal disorder 04/01/2015 Active Last Documented On 07/05/2023 10:12AM ; [facility] Note: Imported from external source. Sulfa Antibiotics Allergy Nausea, Vomiting, Diarrhea / Diarrheal disorder 08/13/2021 Active Last Documented On 07/05/2023 10:12AM ; [facility] Note: Imported from external source. Percocet Allergy Nausea, Vomiting, Diarrhea / Diarrheal disorder 04/01/2015 Active Last Documented On 07/05/2023 10:12AM ; [facility] Note: Imported from external source. Morphine Sulfate Allergy Nausea, Vomiting, Diarrhea / Diarrheal disorder 04/01/2015 Resolved Last Documented On 09/22/2022 11:29AM ; [facility] Note: Imported from external source. Morphine Sulfate Allergy Nausea, Vomiting, Diarrhea / Diarrheal disorder 04/01/2015 Active Last Documented On 10:12AM ; [facility] Ancef Allergy Nausea, Vomiting , Diarrhea / Diarrheal disorder 04/01/2015 Active Last Documented On 07/05/2023 10:12AM ; [facility] Note: Imported from external source. Encounters Encounter Provider Location Date Check-In Time Check-Out Time Diagnosis CHECK UP SUSIE CARLTON [facility]- 4 8:39AM 9:40AM Iron Deficiency Anemia,Generali zed Anxiety Disorder,Consti pation,Chronic Obstructive Pulmonary Disease,Spinal Stenosis Lumbar Insurance Includes: Active Insurance Policies Plan Name Member ID Group # Subscriber Relationship Effect lauryn Dates 1 - [employer] [id number] MIGUEL PARK Self Clinical Notes Includes: Clinical Notes from this encounter * Progress note Date Encounter Last Documented by 05/14/2023 CHECK UP Last documented on 05/18/2023; 10:03 AM, SUSIE CARLTON; [facility] Active Problems & Conditions - I35.1 - Aortic Regurgitation - mild on ECHO 2020. - Attention Deficit Disorder Without Hyperactivity - J44.9 - Chronic Obstructive Pulmonary Disease - K59.00 - Constipation - F41.8 - Depression with Anxiety - E53.8 - Folic Acid Deficiency - F41.1 - Generalized Anxiety Disorder - Hyperlipidemia - D50.9 - Iron Deficiency Anemia - Major Depression - Marijuana By Prescription - I34.0 - Mitral Regurgitation - mild on ECHO 2020. - M15.9 - Osteoarthritis Generalized Multiple Sites - K27.7 - Peptic Ulcer Chronic - F51.04 - Psychophysiological Insomnia - G25.81 - Restless Legs Syndrome - Spinal Stenosis Lumbar - M48.04 - Spinal Stenosis Thoracic - S36.039A - Splenic Laceration - 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 Troop Harriett - I36.1 - Tricuspid Regurgitation - mild on ECHO 2020. Chief Complaint The Chief Complaint is: Check up. She is wanting some updated labs. She is still not eating good and having trouble with bowel movements. She sees GI on the of this month. She is very tired all the time and she is getting dizzy, losing her balance. The Dr [facility] the [facility] said she might need iron. Her daughter thinks she needs to get a test to see what meds she is allergic toThe Chief Complaint is: Med check/follow up. History of Present Illness MIGUEL PARK is a 62 year old female. - Allergy list reviewed - Problem list reviewed - Medication list reviewed Patient is a 62 year old female who presents today for a med check and routine follow up. She has had issues with eating for a long time - has gas and indigestion. Had EGD 11/2018 and Colonoscopy 12/2018 (not good prep). Patient saw Naren Nava NP with [facility]. They did an iron panel which showed level in the 40s, but no CBC. Patient's iron has been 9 in the past when she needed iron infusions. Has appt with Dr. Parkinson on 05/27/23. Patient feels tired often. She was having issues with breathing and started on Breztri 2 puffs BID at last visit several months ago (was told to stop Anoro). Patient has been using both due to confusion with meds. States they are both expensive, but was told her insurance would cover Trelegy. Patient sees Dr. Leung, uses Trazodone 4 tabs at bedtime. Use Focalin only daily. Patient is on Hydrocodone daily from [facility] as well. Current Medication - Biotin 5000 MCG Capsule as directed 1 cap daily, 0 days, 0 refills - Breztri Aerosphere 160-9-4.8 MCG/ACT Inhalation Aerosol 2 puffs BID, 30 days, 5 refills - EQ Laxative Maximum Strength 25 MG Oral Tablet as directed 3-4 tabs at night, 0 days, 0 refills - Fluticasone Propionate 50 MCG/ACT Nasal Suspension 1 sq each nostril 1-2xd as needed, 30 days, 5 refills - Focalin 10 MG Oral Tablet as directed 1 tablet in the morning and 1 tablet at noon, 30 days, 0 refills - Gabapentin 300 MG Oral Capsule as directed 2 in the evening, 30 days, 0 refills - HYDROcodone-Acetaminophen 10-325 MG Oral Tablet as directed use prn, 10 days, 0 refills - Levocetirizine Dihydrochloride 5 MG Oral Tablet One tablet daily 0 days, 0 refills - LORazepam 0.5 MG Oral Tablet as directed - 1/2 - 1 tab a day as needed for severe panic attacks, 30 days, 0 refills - Ocuvite Adult 50+ Capsule as directed 1 cap daily, 0 days, 0 refills - Pramipexole Dihydrochloride 0.75 MG Oral Tablet as directed 2 tabs late afternoon and 2 in the evening, 90 days, 0 refills - Sertraline HCl 100 MG Oral Tablet ud - as directed as directed 2 tabs daily, 90 days, 3 refills - Stool Softener 100 MG Oral Tablet 3 times daily, 0 days, 0 refills - traZODone HCl 100 MG Oral Tablet as directed 5 tabs at bedtime, 30 days, 3 refills - Vitamin D 25 MCG (1000 UT) Oral Tablet One tablet daily 0 days, 0 refills Past Medical/Surgical History Reported: No recent change in medical history. Surgery T1-L1 Spinal Fusion - 03/12/[address] Jorge ANDREWS 2008- Dr. Cristina. Other: Diaignostic fiberoptic colonoscopy 12/26/2018 F/U in 5 years. Screening mammogram was performed 10/22/2020 Diagnoses: Essential hypertension. Abnormal Pap Smear. Hyperlipidemia. Arthritis LOW BACK FUSIONS 1994, 2005, 2008, 2011, 2015, 2020 APPENDECTOMY 1973 KNEES 02 03 NECK FUSIONS 03 06 07 SPINAL SIMULLATORS 2009 CHOLECYSTECTOM 2014 SHOULDERS 2012 2013 2015 SPLENECTOMY 12/31/18 ABDOMINAL DRAIN 01/2019 PANCREATIC STENT 02/2019. Social History Tobacco use: Tobacco non-user - quit smoking 2012 and former smoker stopped smoking years ago 2012. Alcohol: Consuming 5 or more drinks per day None. Not recovering alcoholic. Drug Use: Not recovering from substance abuse. Number of times used recreational drug/ prescription drug for nonmedical reason. None. Marital: Currently . Allergies - Ancef Reaction: , Diarrhea / Diarrheal disorder - Morphine Sulfate Reaction: , Diarrhea / Diarrheal disorder - Percocet Reaction: , Diarrhea / Diarrheal disorder - Sulfa Antibiotics Reaction: Diarrhea / Diarrheal disorder, Nausea, Vomiting - Valium Reaction: , Diarrhea / Diarrheal disorder - Vancomycin Reaction: Hives / Urticaria Family History Family history reviewed - unchanged since last visit [place]: Diabetes mellitus MOTHER PARKINSON/M.S. SISTER CRONES FATHER HIGH BLOOD PRESSURE Review Of Systems Systemic: Feeling tired. No fever, no chills, no night sweats, and no edema. Head: No headache. Eyes: No itching of the eyes and no watery discharge from eyes. Otolaryngeal: No hearing loss, no tinnitus, no watery nasal discharge, and not blood-tinged. No nasal passage blockage (stuffiness), no sore throat, and no itchy throat. Cardiovascular: No chest pain or discomfort and no palpitations. Pulmonary: Dyspnea. No supine dyspnea. No cough, no hemoptysis, and no wheezing. Gastrointestinal: Appetite decreased. No dysphagia and no heartburn. No nausea and no vomiting. Abdominal pain. No melena. No diarrhea, but has constipation at times. Genitourinary: No hematuria, no increase in urinary frequency, and no nocturia. No urinary loss of control and no dysuria. Musculoskeletal: Limited ROM present, uses cane and back pain. No muscle aches, no localized joint pain, and no localized joint stiffness. Neurological: No dizziness, no vertigo, no fainting, no decrease in concentrating ability, and no slurred speech. No sensory disturbances, no tingling, and no numbness. Skin: No pruritus. No skin lesions and no rash. Physical Findings - Vitals taken 05/14/2023 08:44 am BP-Sitting R 118/70 mmHg BP Cuff Size Regular Pulse Rate-Sitting 75 bpm Respiration Rate 22 per min Temp-Oral 97.5 F Height 65 in Weight 126 lbs .6 oz Body Mass Index 21 kg/m2 Body Surface Area 1.6 m2 Oxygen Saturation 98 % General Appearance: - Alert. - Well developed. - Well nourished. - Well hydrated. - In no acute distress. Head: Injuries: - No evidence of a head injury. Appearance: - Head normocephalic. Neck: Suppleness: - Neck demonstrated no decrease in suppleness. Thyroid: - Not diffusely enlarged. Eyes: General/bilateral: Pupils: - PERRLA. Ears: General/bilateral: Tympanic Membrane: - Examined. - Not bulging. - Not erythematous. - Color normal. - No loss of tympanic membrane light reflex. Right Ear: External Auditory Canal: - Normal. Left Ear: External Auditory Canal: - Normal. Nose: General/bilateral: Cavity: - Nasal mucosa moist. Pharynx: Oropharynx: - Not inflamed. Lymph Nodes: - No adenopathy. Lungs: - Respiration rhythm and depth was normal. - Clear to auscultation. Cardiovascular: - System: Heart rate and rhythm normal. Edema: - Not present. Abdomen: Auscultation: - Bowel sounds were normal. Palpation: - Abdomen was soft. - Abdominal non-tender. Musculoskeletal System: General/bilateral: - Normal movement of all extremities. Neurological: - No disorientation was observed. - Memory was unimpaired. Gait And Stance: - Abnormal, uses cane. Psychiatric: - Mood was not anxious. - Mood was not depressed. Skin: - Mucous membranes were dry. - Normal. - No skin lesions. Assessment - J44.9 - Chronic obstructive pulmonary disease, unspecified - K59.00 - Constipation, unspecified - Lumbar stenosis - F41.1 - Generalized anxiety disorder - D50.9 - Iron deficiency anemia, unspecified Therapy - Continue current medication. Counseling/Education Plan of care discussed with patient. Understanding was verbalized by all and all questions were addressed and answered. Discussed Pt. encouraged to be compliant with current treatment. Plan StartCited - Chronic obstructive pulmonary disease, unspecified Trelegy Ellipta 100-62.5-25 MCG/ACT each 1 puff daily, 30 days, 5 refills EndCited StartCited - Gastro-esophageal reflux disease without esophagitis Famotidine 20 MG tablet take 1-2 tabs daily, 30 days, 6 refills EndCited StartCited - Iron deficiency anemia, unspecified Lab: VITAMIN B12 & FOLATE Lab: CMP Lab: CBC WITH DIFF EndCited 1. Get labs done to further assess possible anemia or needing iron. 2. Stop Anoro, finish Breztri, then start Trelegy (covered by insurance) - for COPD. 3. Starting Famotidine due to issues eating. 4. Keep appt with GI on 05/27/23. Will need colonoscopy this year - due. 5. Continue to work with friend who is a physical therapist. Follow up in 6 months. 1) Return to the clinic if condition worsens or new symptoms arise. 2) Patient to call if problem develops. Practice Management Use of tobacco assessment performed Review of medications documented. Care Team - CANDY LEUNG MD - Psychiatry - RENU PARKINSON MD - Gastroenterology - BUD VERDIN MD - Pain Management - NAREN NAVA NP - Neurology Health Reminders - Assess Need for CT Lung Screen satisfied 05/14/2023. - Assess Tobacco Use satisfied 05/14/2023. - Colorectal Cancer Screening satisfied 12/26/2018. - Mammogram satisfied 10/22/2020.
--- OUTSIDE RECORDS SUMMARY | 2024-06-08 02:35 | XMS_ITS | Clinical Summary ---
Author Organization [facility] Address [address] [place] [address] Phone Care Team Providers Care Confectionery Cooker Name Role Phone DANNI HAMILTON, CANDY MITCHELL Unavailable [phone] Reason for Visit and Chief Complaint The Chief Complaint is: follow up for depression, anxiety, insomnia Problems Includes: Problems addressed during this encounter and other active Problems Current Visit Onset Date Resolved Date Provider Conditio n Status Attention Deficit Disorder Without Hyperactivity 05/01/2021 CANDY LEUNG MD Active Last Documented On 2 3:52PM ; [facility] Generalized Anxiety Disorder 05/01/2021 CANDY LEUNG MD Active Last Documented On 2 2:53PM ; [facility] Psychophysiological Insomnia 05/01/2021 CANDY LEUNG MD Active Last Documented On 2 2:53PM ; [facility] Major Depression 05/01/2021 CANDY LEUNG MD Active Last Documented On 2 2:52PM ; [facility] Plan of Treatment Major depressive disorder -Sertraline 150 mg a day, Olanzapine 10 mg 1 tab at bedtime Generalized Anxiety Disorder - Sertraline 150 mg a day Attention Deficit Disorder - Focalin 10 mg 1/2 tab in am - as needed only since this may further curb her appetite Psychophysiological Insomnia - Trazodone 50 mg 3 - 4 at hs prn sleep, encouraged good sleep hygiene habits - Last Documented On 02/02/2022 12:34AM ; [facility] Education and Decision Aids were provided during visit for: Patient education about medi cation ---Education was given on medication(s) and diagnosis. I reviewed the risks, benefits and side effects of patient's medications Last Documented On 2 10:54AM ; [facility] Discussed calming techniques such as breathing exercises and other relaxation techniques Last Documented On 10:54AM ; [facility] Discussed good sleep hygiene habits Last Documented On 10:56AM ; [facility] Assessments Includes: Assessments from this encounter Findings - Attention deficit disorder without hyperactivity - Last Documented On 02/02/2022 12:34AM ; [facility] - Major depressive disorder - Last Documented On 02/02/2022 12:34AM ; [facility] - Psychophysiological insomnia - Last Documented On 02/02/2022 12:34AM ; [facility] - Generalized anxiety disorder - Last Documented On 02/02/2022 12:34AM ; [facility] Instructions Includes: Instructions from this encounter Education and Decision Aids were provided during visit for: Patient education about medi cation ---Education was given on medication(s) and diagnosis. I reviewed the risks, benefits and side effects of patient's medications Last Documented On 10:54AM ; [facility] Discussed calming techniques such as breathing exercises and other relaxation techniques Last Documented On 10:54AM ; [facility] Discussed good sleep hygiene habits Last Documented On 10:56AM ; [facility] Medical Equipment - Implanted Devices Includes: Current Devices No Medical Equipment Recorded Medications Includes: Medications discussed during this encounter and other current Medications New / Renewed during this visit CANDY LEUNG MD on 01/09/2022 LORazepam 0.5 MG Oral Tablet Provider: CANDY LEUNG MD 30 day supply: 7 tablet, 0 refills Diagnosis: Generalized anxiety disorder as directed - 1/2 - 1 tab a day as needed for severe panic attacks Pharmacy: [address], [phone] - Last Documented On 02/16/2022 1:30PM By Nani Leung MD ; [facility] Current Medications (continue as prescribed) EQ Laxative Maximum Strength 25 MG Oral Tablet 023 Provider: Diagnosis: 3 tabs at night Last Documented On 3 10:04AM By NIKKI HOWARD ; [facility] Focalin 5 MG Oral Tablet 06/29/2022 Provider: MET JACQUELINE LEUNG MD Diagnosis: Attn-defct hyper activity disorder, predom inattentive type as directed - 1 tab in am with food Last Documented On 3 11:33AM By Nani Leung MD ; [facility] LORazepam 0.5 MG Oral Tablet 06/29/2022 Provider: CANDY LEUNG MD Diagnosis: Generalized anxi ety disorder as directed - 1/2 - 1 tab a day as needed for severe panic attacks Last Documented On 3 11:33AM By Nani Leung MD ; [facility] OLANZapine 15 MG Oral Tablet 06/29/2022 Provider: CANDY LEUNG MD Diagnosis: Major depressive disorder, recurrent, moderate as directed -- 1 tab at bedtime Last Documented On 3 11:33AM By Nani Leung MD ; [facility] traZODone HCl 100 MG Oral Tablet 06/15/2022 Provider: CANDY LEUNG MD Diagnosis: Psychophysiologi c insomnia as directed 3 tabs at bedtime Last Documented On 06/15/2022 3:36PM By Nani Leung MD ; [facility] Folic Acid 1 MG Oral Tablet 03/31/2022 Provider: SUSIE STOKES INTERACTIVE MARKETING STRATEGIST-C Diagnosis: 1 tab daily Last Documented On 3 11:38AM By NIKKI HOWARD ; [facility] Pramipexole Dihydrochloride 0.75 MG Oral Tablet 09/08/2021 Provider: TIMMY VALENZUELA MD Diagnosis: 2 tabs in the evening Last Documented On 3 11:39AM By NIKKI HOWARD ; [facility] Antacid 200-200-20 MG/5ML Oral Suspension 05/21/2021 Provider: MELANIE PARKINSON MD Diagnosis: as needed Last Documented On 06/06/2021 2:04PM By MICHELLE PARKS ; [facility] Ocuvite Adult 50+ Oral Capsule 05/01/2021 Provider: Diagnosis: 1 cap daily Last Documented On 05/01/2021 3:10PM By NIKKI OCHOA RMA ; [facility] Xyzal 5 MG Oral Tablet 05/01/2021 Provider: Diagnosis: 1 tab daily Last Documented On 05/01/2021 3:10PM By NIKKI OCHOA RMA ; [facility] Biotin 5000 MCG Oral Capsule 05/01/2021 Provider: Diagnosis: 1 cap daily Last Documented On 05/01/2021 3:13PM By NIKKI OCHOA RMA ; [facility]S Stool Softener 100 MG Oral Capsule 05/01/2021 Pr ovider: Diagnosis: 1 cap tid Last Documented On 05/01/2021 3:12PM By NIKKI OCHOA A ; [facility] Ondansetron HCl 8 MG Oral Tablet 03/13/2021 Provider : MELANIE PARKINSON MD Diagnosis: 2 tab prn nausea/vomiting Last Documented On 05/01/2021 3:04PM By NIKKI OCHOA A ; [facility] Anoro Ellipta 62.5-25 MCG/IN H Inhalation Aerosol Powder Breath Activated 03/11/2021 Provider: ERNIE MADRIGAL MD Diagnosis: 1 inhalation daily Last Documented On 05/01/2021 3:07PM By NIKKI OCHOA A ; [facility] Cyclobenzaprine HCl 10 MG Oral Tablet 01/06/2021 Pro vider: ERNIE MADRIGAL MD Diagnosis: take 1 tab prn Last Documented On 05/01/2021 3:07PM By NIKKI OCHOA RMA ; [facility] Suspended Medications Sertraline HCl 100 MG Oral Tablet 03/11/2022 Provide r: CANDY LEUNG MD Diagnosis: as directed 1 and 1/2 tabs daily Last Documented On 03/11/2022 4:45PM By Nani Leung MD ; [facility] Past Medications on file Gabapentin 300 MG Oral Capsule 06/29/2022 - 07/29/2022 Provider: Diagnosis: 2 capsules at night Last Documented On 03/27/202 3 10:02AM By NIKKI HOWARD ; [facility] Focalin 10 MG Oral Tablet 10/14/2021 - 11/13/2021 Provider: CANDY LEUNG MD Diagnosis: Generalized anxi ety disorder as directed -- 1 tab in am Last Documented On 10/14/2021 2:31PM By Nani Leung MD ; [facility] Pramipexole Dihydrochloride 0.75 MG Oral Tablet 08/13/2021 - 11/11/2021 Provider: Diagnosis: 1 afternoon prn and 2 at hs Last Documented On 08/13/2021 9:28AM By NIKKI HOWARD ; [facility] Gabapentin 300 MG Oral Capsule 08/13/2021 - 09/12/2021 Provider: ERNIE MADRIGAL MD Diagnosis: 2 at night Last Documented On 08/13/2021 9:26AM By NIKKI HOWARD ; [facility] DayVigo 5 MG Oral Tablet 05/01/2021 - 05/21/2021 Provider: CANDY LEUNG MD Diagnosis: Psychophysiologi c insomnia as directed -- 1 tab at hs a s needed for sleep Last Documented On 05/01/2021 4:02PM By Nani Leung MD ; [facility] Medications Administered Includes: Administered Medications from this encounter No Administered Medications Recorded Vital Signs Includes: Vital Signs from this encounter Vital Name 01/09/2022 11:09A Blood Pressure Sitting (mmHg) 122/62 BP Cuff Size Regular Pulse Rate-Sitting (bpm) 88 Pulse Rhythm Regular Height (in) 66 Weight (lb) 123 Body Mass Index (kg/m2) 19.9 Body Surface Area (m2) 1.6 Last Documented: On 01/09/2022 11:19A M ; [facility] Results Includes: Results discussed during this encounter No Results Recorded For Specified Dates History of Present Illness Includes: History of Present Illness from this encounter JOSE PARK is a 61 year old female. - Past medical history reviewed - Medication list reviewed Pt reported some stressors in her life. She was caring for her father until he had to be placed in a detention due to end stage CHF and unable to care for himself. However, her father refused to go to the detention and has been resistive to care. She was pushing his father in a wheelchair and had pain in the right anterior rib cage. She saw Ernesto Tellez ALEJANDRO on 12/04/21. She was treated for UTI. She also got her dental implants top and [place] a discounted [place] of $20,000. She has been anxious and somewhat down due to family and health issues. Some days she is tired and not as motivated. Sleep has been interrupted. Appetite is fair. She only takes Focalin as needed and did not think that this is causing to decrease her appetite. She is able to focus and concentrate when taking the Focalin. At times she still gets distracted and inattentive. She gets restless at times. She actually gained 5 lbs since she was last seen. At times she feels bad about self. She denied suicidal thoughts. No delusions/hallucinations. At times she gets annoyed and frustrated with her father since he can be resistive to care. She has episodes of panic. I suggested Lorazepam as needed only and will increase Olanzapine to 10 mg at hs to see if this will help improve her mood but she feels that Sertraline has helped lift her spirit. She takes Trazodone as needed only. No motor side effects on Olanzapine. MENTAL STATUS EXAM: Sensorium - alert, oriented to name, place, and time Attitude - cooperative Gait - ambulatory Sleep - trouble sleeping Interest/Energy/Motivation - at times tired and not motivated Guilt/Worthlessness - absent Concentration/Attention Span - able to focus and concentrate better if she takes Focalin Memory Recall - fairly good Appetite - fair, on 10/14/21 pt weighed 118 pounds and current weight is 123 pounds so she gained 5 pounds Suicidal Thoughts - absent Homicidal Thoughts - absent Delusions - absent Hallucinations - absent Appearance - casually groomed Motor Behavior - calm, at times restless Eye Contact - intermittent Speech - fluent Mood - less depressed but stressed, frustrated Affect - at times anxious Thought Process - coherent Insight and Judgment - intact Social History Description Last Updated Daily coffee consumption - 1 -2 cans of soda a week and 1 chocolate bar daily, does not drink coffee or tea 05/04/2022 Last Documented On 2 10:54AM ; [facility] Patient reported that she wa s born a blue baby . Her relationship [...] past or pending legal history. Patient enjoys [facility] and sikhism. 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 05/01/2021 Last Documented On 2 10:54AM ; [facility] Former smoker - quit smoking 2012 Last Documented On 2 10:54AM ; [facility] Smoking Status Unknown Procedures and Surgical History Includes: Procedures from this encounter Procedures Code Diagnosis Performing Provider Service L ocation Service Date education and instructions Last Documented On 2 10:54AM ; [facility] I discussed the risks, benef its and side effects of Olanzapine to the patient including the possibility of metabolic and motor side effects such as tardive dyskinesia Last Documented On 2 10:56AM ; [facility] dangerousness assessment: suicide risk -not suic idal 3085F Last Documented On 2 10:54AM ; [facility] use of tobacco assessment performed 1000F Last Documented On 2 11:09AM ; [facility] patient screened for future fall risk - no recen t falls 3288F Last Documented On 2 11:07AM ; [facility] review of medications documented 1160F Last Documented On 2 10:56AM ; [facility] screening for adult depressi on: impression and score - please see above treatment and PHQ score Last Documented On 11:09AM ; [facility] standardized depression screening: posit lauryn for symptoms Last Documented On 11:09AM ; [facility] Counseling on new medication : I discussed the risks, benefits and side effects of Lorazepam. Patient verbalized understanding and agreed to treatment Last Documented On 2 12:15AM ; [facility] Clinical summary provided to patient Last Documented On 2 10:54AM ; [facility] PHQ-9: total score 10 Last Documented On 2 12:15AM ; [facility] Surgical History Last Updated History of total shoulder replacement - bilateral -- 2016 and 201806/29/2022 Last Documented On 2 10:54AM ; [facility] History of lumbar vertebral fusion - 12/2020 -- including thoracic -- Dr. Jorge Aranda -- [place] 06/29/2022 Last Documented On 2 10:54AM ; [facility] History of endoscopic insert ion of stent of pancreatic duct - abdominal drain - 01/2019 and 02/201902/02/2022 Last Documented On 2 12:34AM ; [facility] History of splenectomy - 12/31/201802/02 Last Documented On 2 12:34AM ; [facility] History of cervical vertebra l fusion and cervical decompression in 2002 and 200705/02/2021 Last Documented On 2 10:54AM ; [facility] History of hip replacement - bilateral - - 2019 and 202005/01/2021 Last Documented On 2 10:54AM ; [facility] History of knee replacement - bilateral -- 2000 and 200105/01/2021 Last Documented On 2 10:54AM ; [facility] History of cholecystectomy - 2007 Last Documented On 2 10:54AM ; [facility] History of appendectomy - 1971 2 Last Documented On 2 10:54AM ; [facility] Medical History Includes: Medical History addressed during this encounter Description Last Updated History of iron deficiency anemia 2022 Last Documented On 2 10:54AM ; [facility] History of constipation - has tried Derick luis 05/04/2022 Last Documented On 2 10:54AM ; [facility] Primary Care Provider: Dr. Adriana Madrigal ~Dr. Melanie Parkinson -- Cell Feed Department Supervisor ~Dr. Jorge Hsieh -- Orthopedist ~Dr. Timmy Mclean -- Neurologist ~Dr. Alberto Valdez -- Shoulder Surgeon at [facility] ~Dr. Rg Montgomery -- Dentist ~Luis Quiros Mgkermit 02/02/2022 Last Documented On 2 12:34AM ; [facility] No diagnosis of history of C OVID-19 infection - pt reported no Covid symptoms 08/13/2021 Last Documented On 2 10:54AM ; [facility] History of tooth extraction - given Zpak 250 mg for prophylaxis purposes 08/13/2021 Last Documented On 2 10:54AM ; [facility] History of colonoscopy - 201 9 -- botched per patient leading to weight loss 08/13/2021 Last Documented On 2 10:54AM ; [facility] History of coronavirus 2019- nCoV vaccine - Moderna #1 06/2020 #2 06/2020 #3 03/25/21 05/01/2021 Last Documented On 2 10:54AM ; [facility] History of osteoarthritis of multiple sites - accelerated degenerative disk and joint disease 05/01/2021 Last Documented On 2 10:54AM ; [facility] History of splenic laceration - requirin g slenectomy 05/01/2021 Last Documented On 2 10:54AM ; [facility] History of spinal stenosis - lumbar and thoracic 05/01/2021 Last Documented On 2 10:54AM ; [facility] History of restless legs syndrome 2021 Last Documented On 2 10:54AM ; [facility] History of chronic peptic ulcer 05/01/19 Last Documented On 2 10:54AM ; [facility] History of chronic obstructive pulmonary disease 05/01/2021 Last Documented On 2 10:54AM ; [facility] History of tricuspid regurgitation 05/01 Last Documented On 2 10:54AM ; [facility] History of mitral regurgitation 05/01/19 Last Documented On 2 10:54AM ; [facility] History of aortic regurgitation 05/01/19 Last Documented On 2 10:54AM ; [facility] Family History Includes: Family History addressed during this encounter Description Last Updated Sororal history of dementia of Alzheimer's type with early onset - oldest sister - and depression 05/01/2021 Last Documented On 2 10:54AM ; [facility] Review of Systems Includes: Review of Systems from this encounter Systemic: Not feeling poorly (malaise). No fever and no chills. Night sweats. Head: No headache and no sinus pain. Neck: Neck pain. No neck stiffness. Eyes: No vision problems. Itching of the eyes. No eye pain. Otolaryngeal: No hearing loss, no earache, and no nasal discharge. Postnasal drip. No hoarseness and no sore throat. Cardiovascular: No chest pain or discomfort, no palpitations, and the heart rate was not fast. Pulmonary: No dyspnea, no cough, and no wheezing. Gastrointestinal: No heartburn. Nausea. No vomiting. Abdominal pain and constipation. Genitourinary: Increased urinary frequency. No dysuria. Endocrine: No polydipsia and no excessive sweating. Libido has changed. Musculoskeletal: No muscle aches. Pain localized to one or more joints and joint stiffness localized to one or more joints. Neurological: No dizziness, no vertigo, and no fainting. Motor disturbances. Skin: No pruritus. No skin lesions and [...] Active Last Documented On 07/05/2023 10:12AM ; [facility] Note: Imported from external source. Valium Allergy Nausea, Vomiting, Diarrhea / Diarrheal disorder 04/01/2015 Active Last Documented On 07/05/2023 10:12AM ; [facility] Note: Imported from external source. Sulfa Antibiotics Allergy Nausea, Vomiting, Diarrhea / Diarrheal disorder 08/13/2021 Active Last Documented On 07/05/2023 10:12AM ; [facility] Note: Imported from external source. Percocet Allergy Nausea, Vomiting, Diarrhea / Diarrheal disorder 04/01/2015 Active Last Documented On 07/05/2023 10:12AM ; [facility] Note: Imported from external source. Morphine Sulfate Allergy Nausea, Vomiting, Diarrhea / Diarrheal disorder 04/01/2015 Resolved Last Documented On 09/22/2022 11:29AM ; [facility] Note: Imported from external source. Morphine Sulfate Allergy Nausea, Vomiting, Diarrhea / Diarrheal disorder 04/01/2015 Active Last Documented On 10:12AM ; [facility] Ancef Allergy Nausea, Vomiting , Diarrhea / Diarrheal disorder 04/01/2015 Active Last Documented On 07/05/2023 10:12AM ; [facility] Note: Imported from external source. Encounters Encounter Provider Location Date Check-In Time Check-Out Time Diagnosis FOLLOW UP CANDY LEUNG MD [facility] 2 11:00AM 12:05PM Generalized Anxiety Disorder,Psycho physiological Insomnia,Attent ion Deficit Disorder Without Hyperactivity,M ajor Depression Insurance Includes: Active Insurance Policies Plan Name Member ID Group # Subscriber Relationship Effect lauryn Dates 1 - [employer]VANTAGE [id number] MIGUEL PARK Self Clinical Notes Includes: Clinical Notes from this encounter No Clinical Notes Recorded
--- OUTSIDE RECORDS SUMMARY | 2024-06-08 02:35 | XMS_ITS | Clinical Summary ---
Author Organization [facility] Address [address] [place] [address] Phone Care Team Providers Care Material Flow Analyst Name Role Phone DANNI HAMILTON, CANDY MITCHELL Unavailable [phone] Reason for Visit and Chief Complaint * PHONE CALL Problems Includes: Problems addressed during this encounter and other active Problems Current Visit Onset Date Resolved Date Provider Conditio n Status Major Depression 05/01/2021 CANDY LEUNG MD Active Last Documented On 2 2:52PM ; [facility] Past Visits Onset Date Resolved Date Provider Condition Status Attention Deficit Disorder Without Hyperactivity 05/01/2021 CANDY LEUNG MD Active Last Documented On 2 3:52PM ; [facility] Generalized Anxiety Disorder 05/01/2021 CANDY LEUNG MD Active Last Documented On 2 2:53PM ; [facility] Psychophysiological Insomnia 05/01/2021 CANDY LEUNG MD Active Last Documented On 2 2:53PM ; [facility] Plan of Treatment No Plan of Treatment Recorded Assessments Includes: Assessments from this encounter Findings - Major depressive disorder - Last Documented On 01/26/2022 2:27PM ; [facility] Medical Equipment - Implanted Devices Includes: Current Devices No Medical Equipment Recorded Medications Includes: Medications discussed during this encounter and other current Medications New / Renewed during this visit CANDY LEUNG MD on 01/26/2022 OLANZapine 10 MG Oral Tablet Provider: CANDY LEUNG MD 30 day supply: 30 tablet, 5 refills Diagnosis: Major depressive disorder, recurrent, unspecified as directed -- 1 tab at bedtime Pharmacy: [address], [id number] - Last Documented On 3 10:16AM By NIKKI HOWARD ; [facility] Current Medications (continue as prescribed) EQ Laxative Maximum Strength 25 MG Oral Tablet 023 Provider: Diagnosis: 3 tabs at night Last Documented On 3 10:04AM By [facility] Focalin 5 MG Oral Tablet 06/29/2022 Provider: MET JACQUELINE LEUNG MD Diagnosis: Attn-defct hyper activity disorder, predom inattentive type as directed - 1 tab in am with food Last Documented On 3 11:33AM By Nani Leung MD ; [facility] LORazepam 0.5 MG Oral Tablet 06/29/2022 Provider: CANDY LEUNG MD Diagnosis: Generalized anxi ety disorder as directed - 1/2 - 1 tab a day as needed for severe panic attacks Last Documented On 3 11:33AM By Nani Leung MD ; [facility] OLANZapine 15 MG Oral Tablet 06/29/2022 Provider: CANDY LEUNG MD Diagnosis: Major depressive disorder, recurrent, moderate as directed -- 1 tab at bedtime Last Documented On 3 11:33AM By Nani Leung MD ; [facility] traZODone HCl 100 MG Oral Tablet 06/15/2022 Provider: CANDY LEUNG MD Diagnosis: Psychophysiologi c insomnia as directed 3 tabs at bedtime Last Documented On 06/15/2022 3:36PM By Nani Leung MD ; [facility] Folic Acid 1 MG Oral Tablet 03/31/2022 Provider: SUSIE STOKES [employer] MEMBER-C Diagnosis: 1 tab daily Last Documented On 3 11:38AM By NIKKI HOWARD ; [facility] Pramipexole Dihydrochloride 0.75 MG Oral Tablet 09/08/2021 Provider: TIMMY VALENZUELA MD Diagnosis: 2 tabs in the evening Last Documented On 3 11:39AM By NIKKI OCHOA RMA ; [facility] Antacid 200-200-20 MG/5ML Oral Suspension 05/21/2021 Provider: RENU ARGUELLO MD Diagnosis: as needed Last Documented On 06/06/2021 2:04PM By MICHELLE PARKS ; [facility] Ocuvite Adult 50+ Oral Capsule 05/01/2021 Provider: Diagnosis: 1 cap daily Last Documented On 05/01/2021 3:10PM By NIKKI OCHOA RMA ; [facility] Xyzal 5 MG Oral Tablet 05/01/2021 Provider: Diagnosis: 1 tab daily Last Documented On 05/01/2021 3:10PM By NIKKI OCHOA RMA ; [facility] Biotin 5000 MCG Oral Capsule 05/01/2021 Provider: Diagnosis: 1 cap daily Last Documented On 05/01/2021 3:13PM By NIKKI OCHOA RMA ; [facility] Stool Softener 100 MG Oral Capsule 05/01/2021 Pr ovider: Diagnosis: 1 cap tid Last Documented On 05/01/2021 3:12PM By NIKKI OCHOA RMA ; [facility] Ondansetron HCl 8 MG Oral Tablet 03/13/2021 Provider : RENU ARGUELLO MD Diagnosis: 2 tab prn nausea/vomiting Last Documented On 05/01/2021 3:04PM By NIKKI OCHOA RMA ; [facility] Anoro Ellipta 62.5-25 MCG/IN H Inhalation Aerosol Powder Breath Activated 03/11/2021 Provider: ERNIE MADRIGAL MD Diagnosis: 1 inhalation daily Last Documented On 05/01/2021 3:07PM By NIKKI OCHOA RMA ; [facility] Cyclobenzaprine HCl 10 MG Oral Tablet 01/06/2021 Pro vider: ERNIE MADRIGAL MD Diagnosis: take 1 tab prn Last Documented On 05/01/2021 3:07PM By NIKKI OCHOA RMA ; [facility] Suspended Medications Sertraline HCl 100 MG Oral Tablet 03/11/2022 Provide r: CANDY LEUNG MD Diagnosis: as directed 1 and 1/2 tabs daily Last Documented On 03/11/2022 4:45PM By Nani Leung MD ; [facility] Past Medications on file Gabapentin 300 MG Oral Capsule 06/29/2022 - 07/29/2022 Provider: Diagnosis: 2 capsules at night Last Documented On 3 10:02AM By NIKKI HOWARD ; [facility] Focalin 10 MG Oral Tablet 10/14/2021 - 11/13/2021 Provider: CANDY LEUNG MD Diagnosis: Generalized anxi ety disorder as directed -- 1 tab in am Last Documented On 10/14/2021 2:31PM By Nani Leung MD ; [facility] Pramipexole Dihydrochloride 0.75 MG Oral Tablet 08/13/2021 - 11/11/2021 Provider: Diagnosis: 1 afternoon prn and 2 at hs Last Documented On 08/13/2021 9:28AM By NIKKI HOWARD ; [facility] Gabapentin 300 MG Oral Capsule 08/13/2021 - 09/12/2021 Provider: ERNIE MADRIGAL MD Diagnosis: 2 at night Last Documented On 08/13/2021 9:26AM By NIKKI HOWARD ; [facility] DayVigo 5 MG Oral Tablet 05/01/2021 - 05/21/2021 Provider: CANDY LEUNG MD Diagnosis: Psychophysiologi c insomnia as directed -- 1 tab at hs a s needed for sleep Last Documented On 05/01/2021 4:02PM By Nani Leung MD ; [facility] Medications Administered Includes: Administered Medications from [...] Active Last Documented On 07/05/2023 10:12AM ; [facility] Note: Imported from external source. Valium Allergy Nausea, Vomiting, Diarrhea / Diarrheal disorder 04/01/2015 Active Last Documented On 07/05/2023 10:12AM ; [facility] Note: Imported from external source. Sulfa Antibiotics Allergy Nausea, Vomiting, Diarrhea / Diarrheal disorder 08/13/2021 Active Last Documented On 07/05/2023 10:12AM ; [facility] Note: Imported from external source. Percocet Allergy Nausea, Vomiting, Diarrhea / Diarrheal disorder 04/01/2015 Active Last Documented On 07/05/2023 10:12AM ; [facility] Note: Imported from external source. Morphine Sulfate Allergy Nausea, Vomiting, Diarrhea / Diarrheal disorder 04/01/2015 Resolved Last Documented On 09/22/2022 11:29AM ; [facility] Note: Imported from external source. Morphine Sulfate Allergy Nausea, Vomiting, Diarrhea / Diarrheal disorder 04/01/2015 Active Last Documented On 10:12AM ; [facility] Ancef Allergy Nausea, Vomiting , Diarrhea / Diarrheal disorder 04/01/2015 Active Last Documented On 07/05/2023 10:12AM ; [facility] Note: Imported from external source. Encounters Encounter Provider Location Date Check-In Time Check-Out Time Diagnosis * PHONE CALL CANDY LEUNG MD [facility] 01/27/20 22 2:02PM 11:59PM Major Depression Insurance Includes: Active Insurance Policies Plan Name Member ID Group # Subscriber Relationship Effect lauryn Dates 1 - [employer] MEDIC[employer] ADVANTAGE [id number] [place] Self Clinical Notes Includes: Clinical Notes from this encounter No Clinical Notes Recorded
[2024-06-08 02:36] VITALS: BP 119/69; PULSE 67; RESP 18; TEMP 36.8; O2SAT 78
--- OUTSIDE RECORDS SUMMARY | 2024-06-08 02:36 | XMS_ITS | Clinical Summary ---
Author Organization [facility] Address [address] [place] [address] Care Team Providers Care Faculty Head Name Role Phone Unavailable Primary Care Provider Unavailabl e Source Comments [facility],non-owned Affiliates and Associated Physician Practices is amultiple site organization consisting of ambulatory clinics and hospital sitesin [place], [place], [place] and [place]. This disclosure is being madepursuant to the Care Everywhere program and may not contain all information available regarding this patient. Last updated 17.[facility] Pulsant Social History Tobacco Use Types Packs/Day Years Used Date Smoking Tobacco: Never Assessed Sex and Gender Information Value Date Recorded Sex Assigned at Not on file Gender Identity Not on file Sexual Orientation Not on file Plan of Treatment Health Maintenance Due Date Last Done Comments BONE DENSITY TESTING 1960 COLOGUARD (AGES 45-75) - COL ON CA SCREENING 1958 COLON MONITORING 1958 COLONOSCOPY - COLON CA SCREENING 1958 CT COLONOGRAPHY - COLON CA SCREENING 1958 Colorectal Cancer Screening 1958 FIT - COLON CA SCREENING 1958 FLEX SIG - COLON CA SCREENING 1958 LIPID TESTING 1958 MAMMOGRAM 1958 PAP SMEAR 1958 HIV SCREENING 1973 HEPATITIS C SCREENING 12/02/1976 DTAP/TDAP/TD VACCINES (1 - Tdap) 1977 PNEUMOCOCCAL VACCINE 50+ (1 of 1 - PCV) 2008 ZOSTER VACCINE (1 of 2) 2008 COVID-19 VACCINE ( - 2023-2 5 season) 2023 INFLUENZA VACCINE (#1) 2023 DEPRESSION SCREENING 04/05/2024 MEDICARE AWV CALENDAR YEAR 2024 Respiratory Syncytial Virus (RSV) Vaccine Pt: or over 60 yrs (1 - 1-dose 75+ series) 2033 HEPATITIS B VACCINE Aged Out No longe r eligible based on patient's age to complete this topic HIB VACCINE Aged Out No longer eligi ble based on patient's age to complete this topic HPV VACCINE Aged Out No longer eligi ble based on patient's age to complete this topic MENINGOCOCCAL (Group B) VACCINE Aged Out No longer eligible based on patient's age to complete this topic MENINGOCOCCAL VACCINE Aged Out No jaelyn sara eligible based on patient's age to complete this topic
--- OUTSIDE RECORDS SUMMARY | 2024-06-08 02:36 | XMS_ITS | Clinical Summary ---
Author Organization [facility] Address [address] [place] [address] Phone Care Team Providers Care Collection Systems Technician Name Role Phone JOS HAMILTON, RENU Valerio Unavailable [phone] ELIDIA BARNETT, NAREN Lozano Unavailable [phone] ROHAN HAMILTON, ERNIE Hinds Primary Care Provider [phone] VELVET HMAILTON, BUD Fernandez Unavailable [phone] DANNI HAMILTON, CANDY MITCHELL Unavailable [phone] Reason for Visit and Chief Complaint * PHONE CALL Problems Includes: Problems addressed during this encounter and other active Problems All Visits Onset Date Resolved Date Provider Condition S tatus Panic Disorder 05/06/2023 CANDY Wright Active Last Documented On 4 8:48PM ; [facility] Marijuana By Prescription 07/27/2022 SUSIE STOKES DIRECTOR OF LOGISTICS-C Active Last Documented On 3 8:03PM ; [facility] Folic Acid Deficiency 03/31/2022 SUSIE BARRERA DIRECTOR OF LOGISTICS-C Active Last Documented On 2 9:21AM ; [facility] Hyperlipidemia 07/02/2021 SUSIE STOKES FN P-C Active Last Documented On 2 12:57PM ; [facility] Attention Deficit Disorder Without Hyperactivity 2 Active Last Documented On 3 5:53PM ; [facility] Generalized Anxiety Disorder 05/01/2021 Active Last Documented On 3 5:53PM ; [facility] Psychophysiological Insomnia 05/01/2021 Active Last Documented On 3 5:53PM ; [facility] Major Depression 05/01/2021 Active Last Documented On 3 5:53PM ; [facility] Iron Deficiency Anemia 01/27/2021 SUSIE Fernandez [employer] DIRECTOR OF LOGISTICS-C Active Last Documented On 1 9:09AM ; [facility] Aortic Regurgitation 01/21/2021 SUSIE Fernandez [employer] DIRECTOR OF LOGISTICS-C Active Last Documented On 01/21/2021 9:23AM ; [facility] Note: mild on ECHO 2020. Mitral Regurgitation 01/21/2021 SSUIE Fernandez [employer] DIRECTOR OF LOGISTICS-C Active Last Documented On 01/21/2021 9:22AM ; [facility] Note: mild on ECHO 2020. Tricuspid Regurgitation 01/21/2021 ROSALIND Fernandez [employer] DIRECTOR OF LOGISTICS-C Active Last Documented On 01/21/2021 9:23AM ; [facility] Note: mild on ECHO 2020. Constipation 11/27/2020 SUSIE Fernandez [employer] DIRECTOR OF LOGISTICS-C Active Last Documented On 1 9:08AM ; [facility] Spinal Stenosis Lumbar 11/27/2020 SUSIE Fernandez [employer] OF LOGISTICS-C Active Last Documented On 1 7:54AM ; [facility] Spinal Stenosis Thoracic 11/27/2020 SUSIE Gonzalez [employer] DIRECTOR OF LOGISTICS-C Active Last Documented On 1 7:53AM ; [facility] Chronic Obstructive Pulmonary Disease 12/28/2019 SUSIE Fernandez [employer] DIRECTOR OF LOGISTICS-C Active Last Documented On 0 10:52AM ; [facility] Splenic Laceration 01/12/2019 ERNIE Wright Active Last Documented On 01/12/2019 11:00AM ; [facility] 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 [facility] Depression with Anxiety 09/26/2012 ERNIE SHEPHERD MD Active Last Documented On 5 10:05AM ; [facility] Restless Legs Syndrome 09/26/2012 ERNIE ROSALES MD Active Last Documented On 5 10:05AM ; [facility] Peptic Ulcer Chronic 05/31/2012 ERNIE MADRIGAL MD Active Last Documented On 5 10:04AM ; [facility] Osteoarthritis Generalized Multiple Sites 05/31/2012 ERNIE MADRIGAL MD Active Last Documented On 5 10:05AM ; [facility] Plan of Treatment Future Appointments Date Time Location Provi ronel PSYCH ADULT FOLLOW UP 06/13/2024 10:00AM [facility] CANDY LEUNG MD Last Documented On 11:09AM ; [facility] Assessments Includes: Assessments from this encounter No Assessments Recorded Medical Equipment - Implanted Devices Includes: Current Devices No Medical Equipment Recorded Medications Includes: Medications discussed during this encounter and other current Medications Current Medications (continue as prescribed) Gabapentin 300 MG Oral Capsule 08/23/2023 Provider: ERNIE MADRIGAL MD Diagnosis: Polyosteoarthrit is, unspecified 1-2 po tid Last Documented On 08/23/2023 6:32PM By ERNIE MADRIGAL MD ; [facility] LORazepam 0.5 MG Oral Tablet 08/23/2023 Provider: CANDY LEUNG MD Diagnosis: Generalized anxi ety disorder as directed - 1/2 - 1 tab a day as needed for severe panic attacks Last Documented On 08/23/2023 1:38PM By Nani Leung MD ; [facility] Focalin 10 MG Oral Tablet 08/12/2023 Provider: CANDY LEUNG MD Diagnosis: Attention-defici t hyperactivity disorder, unspecified type as directed 1 tablet in the morning and 1 tablet at noon Last Documented On 08/12/2023 10:36AM By Nani Leung MD ; [facility] traZODone HCl 100 MG Oral Tablet 07/20/2023 Provider: CANDY LEUNG MD Diagnosis: Psychophysiologi c insomnia as directed 4 tabs at bedtime Last Documented On 07/20/2023 3:22PM By Nani Leung MD ; [facility] Pramipexole Dihydrochloride 0.75 MG Oral Tablet 06/15/2023 Provider: ERNIE MADRIGAL MD Diagnosis: 2 at 5 pm and 2 at bedtime Last Documented On 07/05/2023 10:11AM By NIKKI HOWARD ; [facility] Sertraline HCl 100 MG Oral Tablet 05/31/2023 Provider: CANDY LEUNG MD Diagnosis: Major depressive disorder, recurrent, unspecified ud - as directed as directed 2 tabs daily Last Documented On 05/31/2023 10:55AM By Nani Leung MD ; [facility] Levocetirizine Dihydrochloride 5 MG Oral Tablet 2023 Provider: Diagnosis: Last Documented On 05/14/2023 8:57AM By Alyssa HOWARD ; [facility] Vitamin D 25 MCG (1000 UT) Oral Tablet 05/14/2023 Pr ovider: Diagnosis: Last Documented On 05/14/2023 8:58AM By Alyssa HOWARD ; [facility] Trelegy Ellipta 100-62.5-25 MCG/ACT Inhalation Aerosol Powder Breath Activated 05/14/2023 Provider: SUSIE CARLTON Diagnosis: Chronic obstruct lauryn pulmonary disease, unspecified 1 puff daily Last Documented On 4 9:31AM By Ssuie CARLTON ; [facility] Famotidine 20 MG Oral Tablet 05/14/2023 Provider: SUSIE CARLTON Diagnosis: Gastro-esophagea l reflux disease without esophagitis take 1-2 tabs daily Last Documented On 4 9:47AM By Susie CARLTON ; [facility] traZODone HCl 100 MG Oral Tablet 03/16/2023 Provider: CANDY LEUNG MD Diagnosis: Psychophysiologi c insomnia as directed 5 tabs at bedtime Last Documented On 03/16/2023 12:00PM By Nani Leung MD ; [facility] HYDROcodone-Acetaminophen 10 -325 MG Oral Tablet 02/23/2023 Provider: BUD VERDIN MD Diagnosis: use prn Last Documented On 03/16/2023 11:27AM By NIKKI HOWARD ; [facility] EQ Laxative Maximum Strength 25 MG Oral Tablet 023 Provider: Diagnosis: 3-4 tabs at night Last Documented On 09/22/2022 11:16AM By NIKKI HOWARD ; [facility] Stool Softener 100 MG Oral Tablet 07/02/2021 Provide r: Diagnosis: 3 times daily Last Documented On 07/02/2021 8:37AM By Alyssa HOWARD ; [facility] Fluticasone Propionate 50 MCG/ACT Nasal Suspension 06/10/2021 Provider: ERNIE MADRIGAL MD Diagnosis: Allergic rhiniti s due to pollen 1 sq each nostril 1-2xd as needed Last Documented On 06/10/2021 12:32PM By ERNIE MADRIGAL MD ; [facility] Biotin 5000 MCG OR CAPS 05/01/2021 Provider: Diagnosis: 1 cap daily Last Documented On 08/01/2022 5:38PM By NIKKI HOWARD ; [facility] Ocuvite Adult 50+ OR CAPS 05/01/2021 Provider: Diagnosis: 1 cap daily Last Documented On 08/01/2022 5:38PM By NIKKI HOWARD ; [facility] Past Medications on file traZODone HCl 100 MG Oral Tablet 07/20/2023 - 08/19/2023 Provider: CANDY LEUNG MD Diagnosis: Psychophysiologi c insomnia 4 tabs at bedtime Last Documented On 07/20/2023 2:59PM By MICHELLE PARKS ; [facility] Pramipexole Dihydrochloride 0.75 MG Oral Tablet 03/16/2023 - 06/14/2023 Provider: Diagnosis: 2 tabs late afternoon and 2 in the evening Last Documented On 03/16/2023 11:20AM By NIKKI HOWARD ; [facility] Medications Administered Includes: Administered Medications from this [...] Active Last Documented On 07/05/2023 10:12AM ; [facility] Note: Imported from external source. Valium Allergy Nausea, Vomiting, Diarrhea / Diarrheal disorder 04/01/2015 Active Last Documented On 07/05/2023 10:12AM ; [facility] Note: Imported from external source. Sulfa Antibiotics Allergy Nausea, Vomiting, Diarrhea / Diarrheal disorder 08/13/2021 Active Last Documented On 07/05/2023 10:12AM ; [facility] Note: Imported from external source. Percocet Allergy Nausea, Vomiting, Diarrhea / Diarrheal disorder 04/01/2015 Active Last Documented On 07/05/2023 10:12AM ; [facility] Note: Imported from external source. Morphine Sulfate Allergy Nausea, Vomiting, Diarrhea / Diarrheal disorder 04/01/2015 Resolved Last Documented On 09/22/2022 11:29AM ; [facility] Note: Imported from external source. Morphine Sulfate Allergy Nausea, Vomiting, Diarrhea / Diarrheal disorder 04/01/2015 Active Last Documented On 10:12AM ; [facility] Ancef Allergy Nausea, Vomiting , Diarrhea / Diarrheal disorder 04/01/2015 Active Last Documented On 07/05/2023 10:12AM ; [facility] Note: Imported from external source. Encounters Encounter Provider Location Date Check-In Time Check-Out Time Diagnosis * PHONE CALL CANDY LEUNG MD [facility] 4 6:36PM 11:59PM Insurance Includes: Active Insurance Policies Plan Name Member ID Group # Subscriber Relationship Effect lauryn Dates 1 - [employer] ADVANTAGE [id number] [place] Self Clinical Notes Includes: Clinical Notes from this encounter * Progress note Date Encounter Last Documented by 08/05/2023 * PHONE CALL Last documented on 08/05/2023; 6:39 PM, CANDY LEUNG MD; [facility] Active Problems & Conditions - Aortic Regurgitation [...] - Splenic Laceration - 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 Chief Complaint Phone Call - Chief Concern: Reason for call: I called pt about her sleep study results Date/Initials: 08/05/23 Dr. Pettit Current Medication - Biotin 5000 MCG Capsule [...] at bedtime, 30 days, 3 refills - traZODone HCl 100 MG Oral Tablet as directed 4 tabs at bedtime, 30 days, 0 refills - traZODone HCl 100 MG Oral Tablet as directed 4 tabs at bedtime, 30 days, 5 refills - Trelegy Ellipta 100-62.5-25 MCG/ACT Inhalation Aerosol Powder Breath Activated 1 puff daily, 30 days, 5 refills - Vitamin D 25 MCG (1000 UT) Oral Tablet One tablet daily 0 days, 0 refills Allergies - Ancef Reaction: , Diarrhea / Diarrheal disorder - Morphine Sulfate Reaction: , Diarrhea / Diarrheal disorder - Percocet Reaction: , Diarrhea / Diarrheal disorder - Sulfa Antibiotics Reaction: Diarrhea / Diarrheal disorder, Nausea, Vomiting - Valium Reaction: , Diarrhea / Diarrheal disorder - Vancomycin Reaction: Hives / Urticaria Plan StartCited - Other PHY ORDER/COMMENT I called Elisa about her sleep study results done last 08/02/23 and showed severe WILLEM. I recommended getting CPAP and will probably send referral to [facility] for the equipment. I informed her that I will have my staff call her as to where to package pick up the CPAP equipment since it may depend on her insurance. Pt voiced understanding and appreciated the call. EndCited Care Team - CANDY LEUNG MD - Psychiatry - RENU ARGUELLO MD - Gastroenterology - BUD VERDIN MD - Pain Management - NAREN BRENNER NP - Neurology
--- OUTSIDE RECORDS SUMMARY | 2024-06-08 02:36 | XMS_ITS | Clinical Summary ---
Author Organization [facility] Address [address] [place] [address] Phone Care Team Providers Care Supervisor [employer] Department Name Role Phone JOS HAMILTON, RENU Valerio Unavailable [phone] ELIDIA BARNETT, NAREN Lozano Unavailable [phone] ROHAN HAMILTON, ERNIE Hinds Primary Care Provider [phone] VELVET HAMILTON, BUD Fernandez Unavailable [phone] DANNI HAMILTON, CANDY MITCHELL Unavailable [phone] Reason for Visit and Chief Complaint * PHONE CALL Problems Includes: Problems addressed during this encounter and other active Problems All Visits Onset Date Resolved Date Provider Condition S tatus Panic Disorder 05/06/2023 CANDY Wright Active Last Documented On 4 8:48PM ; [facility] Marijuana By Prescription 07/27/2022 SUSIE STOKES [employer] Active Last Documented On 3 8:03PM ; [facility] Folic Acid Deficiency 03/31/2022 SUSIE BARRERA [employer] Active Last Documented On 2 9:21AM ; [facility] Hyperlipidemia 07/02/2021 SUSIE STOKES FN P-C Active Last Documented On 2 12:57PM ; [facility] Attention Deficit Disorder Without Hyperactivity 2 Active Last Documented On 3 5:53PM ; [facility] Generalized Anxiety Disorder 05/01/2021 Active Last Documented On 3 5:53PM ; [facility] Psychophysiological Insomnia 05/01/2021 Active Last Documented On 3 5:53PM ; [facility] Major Depression 05/01/2021 Active Last Documented On 3 5:53PM ; [facility] Iron Deficiency Anemia 01/27/2021 SUSIE Fernandez [facility] [facility] [employer] Active Last Documented On 1 9:09AM ; [facility] Aortic Regurgitation 01/21/2021 SUSIE Fernandez [employer] Active Last Documented On 01/21/2021 9:23AM ; [facility] Note: mild on ECHO 2020. Mitral Regurgitation 01/21/2021 SUSIE Fernandez [employer] Active Last Documented On 01/21/2021 9:22AM ; [facility] Note: mild on ECHO 2020. Tricuspid Regurgitation 01/21/2021 ROSALIND Fernandez [employer] Active Last Documented On 01/21/2021 9:23AM ; [facility] Note: mild on ECHO 2020. Constipation 11/27/2020 SUSIE Fernandez [facility] [employer] Active Last Documented On 1 9:08AM ; [facility] Spinal Stenosis Lumbar 11/27/2020 SUSIE Fernandez [employer] Active Last Documented On 1 7:54AM ; [facility] Spinal Stenosis Thoracic 11/27/2020 SUSIE Gonzalez [employer] Active Last Documented On 1 7:53AM ; [facility] Chronic Obstructive Pulmonary Disease 12/28/2019 SUSIE Fernandez [employer] Active Last Documented On 0 10:52AM ; [facility] Splenic Laceration 01/12/2019 ERNIE Wright Active Last Documented On 01/12/2019 11:00AM ; [facility] 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 [facility] Depression with Anxiety 09/26/2012 ERNIE SHEPHERD MD Active Last Documented On 5 10:05AM ; [facility] Restless Legs Syndrome 09/26/2012 ERNIE ROSALES MD Active Last Documented On 5 10:05AM ; [facility] Peptic Ulcer Chronic 05/31/2012 ERNIE MADRIGAL MD Active Last Documented On 5 10:04AM ; [facility] Osteoarthritis Generalized Multiple Sites 05/31/2012 ERNIE MADRIGAL MD Active Last Documented On 5 10:05AM ; [facility] Plan of Treatment Future Appointments Date Time Location Provi ronel PSYCH ADULT FOLLOW UP 06/13/2024 10:00AM [facility] CANDY LEUNG MD Last Documented On 11:09AM ; [facility] Assessments Includes: Assessments from this [...] 08/23/2023 6:32PM By ERNIE MADRIGAL MD ; [facility] LORazepam 0.5 MG Oral Tablet 08/23/2023 Provider: CANDY LEUNG MD Diagnosis: Generalized anxi ety disorder as directed - 1/2 - 1 tab a day as needed for severe panic attacks Last Documented On 08/23/2023 1:38PM By Nani Leung MD ; [facility] Focalin 10 MG Oral Tablet 08/12/2023 Provider: CANDY LEUNG MD Diagnosis: Attention-defici t hyperactivity disorder, unspecified type as directed 1 tablet in the morning and 1 tablet at noon Last Documented On 08/12/2023 10:36AM By Nani Leung MD ; [facility] traZODone HCl 100 MG Oral Tablet 07/20/2023 Provider: CANDY LEUNG MD Diagnosis: Psychophysiologi c insomnia as directed 4 tabs at bedtime Last Documented On 07/20/2023 3:22PM By Nani Leung MD ; [facility] Pramipexole Dihydrochloride 0.75 MG Oral Tablet 06/15/2023 Provider: ERNIE MADRIGAL MD Diagnosis: 2 at 5 pm and 2 at bedtime Last Documented On 07/05/2023 10:11AM By NIKKI HOWARD ; [facility] Sertraline HCl 100 MG Oral Tablet 05/31/2023 Provider: CANDY LEUNG MD Diagnosis: Major depressive disorder, recurrent, unspecified ud - as directed as directed 2 tabs daily Last Documented On 05/31/2023 10:55AM By Nani Leung MD ; [facility] Levocetirizine Dihydrochloride 5 MG Oral Tablet 2023 Provider: Diagnosis: Last Documented On 05/14/2023 8:57AM By Alyssa HOWARD ; [facility] Vitamin D 25 MCG (1000 UT) Oral Tablet 05/14/2023 Pr ovider: Diagnosis: Last Documented On 05/14/2023 8:58AM By Alyssa HOWARD ; [facility] Trelegy Ellipta 100-62.5-25 MCG/ACT Inhalation Aerosol Powder Breath Activated 05/14/2023 Provider: SUSIE CARLTON Diagnosis: Chronic obstruct lauryn pulmonary disease, unspecified 1 puff daily Last Documented On 4 9:31AM By Susie CARLTON ; [facility] Famotidine 20 MG Oral Tablet 05/14/2023 Provider: SUSIE CARLTON Diagnosis: Gastro-esophagea l reflux disease without esophagitis take 1-2 tabs daily Last Documented On 4 9:47AM By Susie CARLTON ; [facility] traZODone HCl 100 MG Oral Tablet 03/16/2023 Provider: CANDY LEUNG MD Diagnosis: Psychophysiologi c insomnia as directed 5 tabs at bedtime Last Documented On 03/16/2023 12:00PM By Nani Leung MD ; [facility] HYDROcodone-Acetaminophen 10 -325 MG Oral Tablet 02/23/2023 Provider: BUD VERDIN MD Diagnosis: use prn Last Documented On 03/16/2023 11:27AM By NIKKI HOWARD ; [facility] EQ Laxative Maximum Strength 25 MG Oral Tablet 023 Provider: Diagnosis: 3-4 tabs at night Last Documented On 09/22/2022 11:16AM By NIKKI HOWARD ; [facility] Stool Softener 100 MG Oral Tablet 07/02/2021 Provide r: Diagnosis: 3 times daily Last Documented On 07/02/2021 8:37AM By Alyssa HOWARD ; [facility] Fluticasone Propionate 50 MCG/ACT Nasal Suspension 06/10/2021 Provider: ERNIE MADRIGAL MD Diagnosis: Allergic rhiniti s due to pollen 1 sq each nostril 1-2xd as needed Last Documented On 06/10/2021 12:32PM By ERNIE MADRIGAL MD ; [facility] Biotin 5000 MCG OR CAPS 05/01/2021 Provider: Diagnosis: 1 cap daily Last Documented On 08/01/2022 5:38PM By NIKKI HOWARD ; [facility] Ocuvite Adult 50+ OR CAPS 05/01/2021 Provider: Diagnosis: 1 cap daily Last Documented On 08/01/2022 5:38PM By NIKKI HOWARD ; [facility] Medications Administered Includes: Administered Medications from [...] Active Last Documented On 07/05/2023 10:12AM ; [facility] Note: Imported from external source. Valium Allergy Nausea, Vomiting, Diarrhea / Diarrheal disorder 04/01/2015 Active Last Documented On 07/05/2023 10:12AM ; [facility] Note: Imported from external source. Sulfa Antibiotics Allergy Nausea, Vomiting, Diarrhea / Diarrheal disorder 08/13/2021 Active Last Documented On 07/05/2023 10:12AM ; [facility] Note: Imported from external source. Percocet Allergy Nausea, Vomiting, Diarrhea / Diarrheal disorder 04/01/2015 Active Last Documented On 07/05/2023 10:12AM ; [facility] Note: Imported from external source. Morphine Sulfate Allergy Nausea, Vomiting, Diarrhea / Diarrheal disorder 04/01/2015 Resolved Last Documented On 09/22/2022 11:29AM ; [facility] Note: Imported from external source. Morphine Sulfate Allergy Nausea, Vomiting, Diarrhea / Diarrheal disorder 04/01/2015 Active Last Documented On 10:12AM ; [facility] Ancef Allergy Nausea, Vomiting , Diarrhea / Diarrheal disorder 04/01/2015 Active Last Documented On 07/05/2023 10:12AM ; [facility] Note: Imported from external source. Encounters Encounter Provider Location Date Check-In Time Check-Out Time Diagnosis * PHONE CALL ERNIE MADRIGAL MD 08/03/2023 9:14AM 11:59PM Insurance Includes: Active Insurance Policies Plan Name Member ID Group # Subscriber Relationship Effect lauryn Dates 1 - [employer] [id number] MIGUEL Orozco VIVIAN Self Clinical Notes Includes: Clinical Notes from this encounter * Progress note Date Encounter Last Documented by 08/03/2023 * PHONE CALL Last documented on 08/03/2023; 11:54 AM, ERNIE MADRIGAL MD; [facility] Chief Complaint Phone Call - Chief Concern: Reason for call:She has had left flank pain for a few weeks. She has been to urgent care and the ER, she has had a CT but that was inconclusive due to her spinal fusion. (matal) She has beenon abx for an infection that her urine culture showed but she still has the pain and wanted to know if a ultrasound would detect a kidney stone? pt phone # for return call: [phone] Date/Initials:08/03/23 tlk left msg reviewed er w/u--T spine pain/ no stone.
--- OUTSIDE RECORDS SUMMARY | 2024-06-08 02:36 | XMS_ITS | Referral Summary ---
Author Organization [facility] Address [address] [place] [address] Care Team Providers Care Supervisor [employer] Name Role Phone Unavailable Primary Care Provider Unavailabl e Source Comments [facility],non-owned Affiliates and Associated Physician Practices is amultiple site organization consisting of ambulatory clinics and hospital sitesin [place], [place], [place] and [place]. This disclosure is being madepursuant to the Care Everywhere program and may not contain all information available regarding this patient. Last updated 17.[facility] Social History Tobacco Use Types Packs/Day Years Used Date Smoking Tobacco: Never Assessed Sex and Gender Information Value Date Recorded Sex Assigned at Not on file Gender Identity Not on file Sexual Orientation Not on file Plan of Treatment Not on file
--- OUTSIDE RECORDS SUMMARY | 2024-06-08 02:36 | XMS_ITS | Clinical Summary ---
Author Organization [facility] Address [address] [place] [address] Phone Care Team Providers Care Stem Sizer Name Role Phone DANNI HAMILTON, CANDY MITCHELL Unavailable [phone] Reason for Visit and Chief Complaint The Chief Complaint is: follow up for depression, anxiety, insomnia Problems Includes: Problems addressed during this encounter and other active Problems Current Visit Onset Date Resolved Date Provider Conditio n Status Attention Deficit Disorder Without Hyperactivity 05/01/2021 CANDY LEUNG MD Active Last Documented On 2 3:52PM ; [facility] Generalized Anxiety Disorder 05/01/2021 CANDY LEUNG MD Active Last Documented On 2 2:53PM ; [facility] Psychophysiological Insomnia 05/01/2021 CANDY LEUNG MD Active Last Documented On 2 2:53PM ; [facility] Major Depression 05/01/2021 CANDY LEUNG MD Active Last Documented On 2 2:52PM ; [facility] Plan of Treatment Major depressive disorder -Sertraline 150 mg a day, Olanzapine 15 mg 1 tab at bedtime - so far pt denied motor side effects Generalized Anxiety Disorder - Sertraline 150 mg a day Panic Disorder - Lorazepam 0.5 mg a day as needed for severe anxiety/panic, breathing exercises, meditation Attention Deficit Disorder - Pt held off Focalin 10 mg 1/2 tab in am - as needed only since this may further curb her appetite Psychophysiological Insomnia - Trazodone 100 mg 3 at hs prn sleep, encouraged good sleep hygiene habits - Last Documented On 05/04/2022 4:12PM ; [facility] Education and Decision Aids were provided during visit for: Discussed calming techniques such as breathing exercises and other relaxation techniques if and when anxious Last Documented On 3 4:05PM ; [facility] Discussed good sleep hygiene habits - balanced meal plan, health supplements but pt said she cannot tolerate protein shakes Last Documented On 3 4:05PM ; [facility] Assessments Includes: Assessments from this encounter Findings - Attention deficit disorder without hyperactivity - Last Documented On 05/04/2022 4:12PM ; [facility] - Major depressive disorder - Last Documented On 05/04/2022 4:12PM ; [facility] - Psychophysiological insomnia - Last Documented On 05/04/2022 4:12PM ; [facility] - Generalized anxiety disorder - Last Documented On 05/04/2022 4:12PM ; [facility] Instructions Includes: Instructions from this encounter Education and Decision Aids were provided during visit for: Discussed calming techniques such as breathing exercises and other relaxation techniques if and when anxious Last Documented On 3 4:05PM ; [facility] Discussed good sleep hygiene habits - balanced meal plan, health supplements but pt said she cannot tolerate protein shakes Last Documented On 3 4:05PM ; [facility] Medical Equipment - Implanted Devices Includes: Current Devices No Medical Equipment Recorded Medications Includes: Medications discussed during this encounter and other current Medications Discontinued / Stopped on this date on 05/01/2021 Adult Aspirin Regimen 81 MG Oral Tablet Delayed Releas e Provider: Diagnosis: Last Documented On 3 11:25AM By NIKKI HOWARD ; [facility] amLODIPine Besylate 5 MG Oral Tablet Prov ider: ERNIE MADRIGAL MD Diagnosis: Last Documented On 3 11:26AM By NIKKI HOWARD ; [facility] New / Renewed during this visit CANDY LEUNG MD on 05/04/2022 traZODone HCl 100 MG Oral Tablet Provider: CANDY LEUNG MD 30 day supply: 90 tablet, 0 refills Diagnosis: Psychophysiologic insomnia as directed -- 3 tabs at bedtime Pharmacy: [address], [id number] - Last Documented On 3 10:16AM By NIKKI OCHOA Rebecca ; [facility] OLANZapine 15 MG Oral Tablet Provider: CANDY LEUNG MD 30 day supply: 30 tablet, 3 refills Diagnosis: Major depressive disorder, recurrent, moderate as directed -- 1 tab at bedtime Pharmacy: [address], [id number] - Last Documented On 3 10:51AM By Nani Leung MD ; [facility] Current Medications (continue as prescribed) EQ Laxative Maximum Strength 25 MG Oral Tablet 023 Provider: Diagnosis: 3 tabs at night Last Documented On 3 10:04AM By NIKKI HOWARD ; [facility] Focalin 5 MG Oral Tablet 06/29/2022 Provider: MET JACQUELINE LEUNG MD Diagnosis: Attn-defct hyper activity disorder, predom inattentive type as directed - 1 tab in am with food Last Documented On 3 11:33AM By Nani Leung MD ; [facility] LORazepam 0.5 MG Oral Tablet 06/29/2022 Provider: CANDY LEUNG MD Diagnosis: Generalized anxi ety disorder as directed - 1/2 - 1 tab a day as needed for severe panic attacks Last Documented On 3 11:33AM By Nani Leung MD ; [facility] OLANZapine 15 MG Oral Tablet 06/29/2022 Provider: CANDY LEUNG MD Diagnosis: Major depressive disorder, recurrent, moderate as directed -- 1 tab at bedtime Last Documented On 3 11:33AM By Nani Leung MD ; [facility] traZODone HCl 100 MG Oral Tablet 06/15/2022 Provider: CANDY LEUNG MD Diagnosis: Psychophysiologi c insomnia as directed 3 tabs at bedtime Last Documented On 06/15/2022 3:36PM By Nani Leung MD ; [facility] Folic Acid 1 MG Oral Tablet 03/31/2022 Provider: [employer] Diagnosis: 1 tab daily Last Documented On 3 11:38AM By NIKKI OCHOA RMA ; [facility] Pramipexole Dihydrochloride 0.75 MG Oral Tablet 09/08/2021 Provider: TIMMY VALENZUELA MD Diagnosis: 2 tabs in the evening Last Documented On 3 11:39AM By NIKKI OCHOA RMA ; [facility] Antacid 200-200-20 MG/5ML Oral Suspension 05/21/2021 Provider: MELANIE PARKINSON MD Diagnosis: as needed Last Documented On 06/06/2021 2:04PM By MICHELLE PARKS ; [facility] Ocuvite Adult 50+ Oral Capsule 05/01/2021 Provider: Diagnosis: 1 cap daily Last Documented On 05/01/2021 3:10PM By NIKKI OCHOA RMA ; [facility] Xyzal 5 MG Oral Tablet 05/01/2021 Provider: Diagnosis: 1 tab daily Last Documented On 05/01/2021 3:10PM By NIKKI OCHOA RMA ; [facility] Biotin 5000 MCG Oral Capsule 05/01/2021 Provider: Diagnosis: 1 cap daily Last Documented On 05/01/2021 3:13PM By NIKKI OCHOA RMA ; [facility] [employer]S Stool Softener 100 MG Oral Capsule 05/01/2021 Pr ovider: Diagnosis: 1 cap tid Last Documented On 05/01/2021 3:12PM By NIKKI OCHOA RMA ; [facility] Ondansetron HCl 8 MG Oral Tablet 03/13/2021 Provider : MELANIE PARKINSON MD Diagnosis: 2 tab prn nausea/vomiting Last Documented On 05/01/2021 3:04PM By NIKKI OCHOA RMA ; [facility] Anoro Ellipta 62.5-25 MCG/IN H Inhalation Aerosol Powder Breath Activated 03/11/2021 Provider: ERNIE MADRIGAL MD Diagnosis: 1 inhalation daily Last Documented On 05/01/2021 3:07PM By NIKKI OCHOA RMA ; [facility] Cyclobenzaprine HCl 10 MG Oral Tablet 01/06/2021 Pro vider: ERNIE MADRIGAL MD Diagnosis: take 1 tab prn Last Documented On 05/01/2021 3:07PM By NIKKI HOWARD ; [facility] Suspended Medications Sertraline HCl 100 MG Oral Tablet 03/11/2022 Provide r: CANDY LEUNG MD Diagnosis: as directed 1 and 1/2 tabs daily Last Documented On 03/11/2022 4:45PM By Nani Leung MD ; [facility] Past Medications on file Gabapentin 300 MG Oral Capsule 06/29/2022 - 07/29/2022 Provider: Diagnosis: 2 capsules at night Last Documented On 10:02AM By NIKKI HOWARD ; [facility] Focalin 10 MG Oral Tablet 10/14/2021 - 11/13/2021 Provider: CANDY LEUNG MD Diagnosis: Generalized anxi ety disorder as directed -- 1 tab in am Last Documented On 10/14/2021 2:31PM By Nani Leung MD ; [facility] Pramipexole Dihydrochloride 0.75 MG Oral Tablet 08/13/2021 - 11/11/2021 Provider: Diagnosis: 1 afternoon prn and 2 at hs Last Documented On 08/13/2021 9:28AM By NIKKI HOWARD ; [facility] Gabapentin 300 MG Oral Capsule 08/13/2021 - 09/12/2021 Provider: ERNIE MADRIGAL MD Diagnosis: 2 at night Last Documented On 08/13/2021 9:26AM By NIKKI HOWARD ; [facility] DayVigo 5 MG Oral Tablet 05/01/2021 - 05/21/2021 Provider: CANDY LEUNG MD Diagnosis: Psychophysiologi c insomnia as directed -- 1 tab at hs a s needed for sleep Last Documented On 05/01/2021 4:02PM By Nani Leung MD ; [facility] Medications Administered Includes: Administered Medications from this encounter No Administered Medications Recorded Vital Signs Includes: Vital Signs from this encounter Vital Name 05/04/2022 11:43A Blood Pressure Sitting L 118/73 BP Cuff Size Regular Pulse Rate-Sitting (bpm) 86 Pulse Rhythm Regular Height (in) 66 Weight (lb) 112 Body Mass Index 18.1 Body Surface Area 1.6 Note: self reported vitals Last Documented: On 05/04/2022 11:44A M ; [facility] Results Includes: Results discussed during this encounter No Results Recorded For Specified Dates History of Present Illness Includes: History of Present Illness from this encounter JOSE PARK is a 61 year old female. - Allergy list reviewed - Past medical history reviewed - Medication list reviewed - Current/previous labs reviewed Previous labs done 03/27/23 showed Iron was 9, Hgb 7.3 rbc 2.57 then pt received iron infusion 04/21/22 so on 04/27/22 Iron level went up 52, Hgb 10.6, Folate 4 (low), B 12 = 1115 Pt reported that she had back surgery last 03/12/23. She had revision of spinal procedure - thoracic and lumbar fusion (T1 - L1) and during the 5 hours surgery she was laid flat in her stomach with both arms above her head and so after the surgery she could barely move her arms and hands. She had to undergo physical therapy so she can manuever her arms. She now has difficulty putting on her clothes. Her has to assist her with bathing/showering. When she goes downstairs, she cannot bend her head down, he just has to use her eyes to look down but all she sees are her bifocals. She said that she is able to drive so instead moving her head/neck, she just relies on the mirror to look at her sides but she may be missing the blind spots. She gets a little down not just due to health issues but because her 92 y/o father is now in the prison and she was told that her father is supposed to live only for 3 - 6 months. He has severe foot infection, CHF and other health issues. It has been hard for her to even visit her father at the prison but here sister has been making the visits more. Pt gets occ anxious. Pt denied having any mood swings. Pt has not been as irritable. Pt has been motivated in general in doing daily tasks except when tired and since she is physically limited. Sleep has been a struggle but she has chronic insomnia for many years and she has tried other sleep aids - Zolpidem, Belsomra etc...but did not work for her. Pt felt that the Trazodone has not been working too well lately. She is on 200 mg at hs so I recommended increasing it to 300 mg at hs. Pt has been napping/sleeping too much during the daytime. Pt gets tired. Appetite is poor as she lost 11 lbs since last seen. She tried protein shakes but tends to gag on these supplements. She was gaining wt with the Olanzapine before surgery but after the back surgery she cannot even drink protein shakes since she has tendency to gag when that happens. Pt has not been feeling as bad about self. Pt is not able to focus and concentrate since she had to stop the Focalin. Pt denied having any psychomotor restlessness. Pt denied suicidal thoughts. Pt denied having any delusions/hallucinations. I discussed about increasing the Trazodone to 300 mg at hs to see if this will help with sleep and after 5 days may try increasing the Olanzapine to 15 mg at hs since this may cause wt gain as far as the metabolic effect but I explained again to pt that this is a mood stabilizer/antipsychotic med. She thought this is helping along with Sertraline for her mood. She got the Lorazepam last 04/13/22 for 15 tabs and has been using it every other night for sleep instead of for anxiety so I discussed about trying to increase the Trazodone so that this can be utilized instead of a controlled substance med like lorazepam for sleep since this can be habit forming. She denied motor side effects from Olanzapine. No TD noted/reported. She uses Oxycodone as needed for pain that is why it is best to avoid using benzos with opioids even though it used prn only. The Pramipexole seems to help with her RLS. MENTAL STATUS EXAM: Sensorium - alert, oriented to name, place, and time Attitude - cooperative Gait - ambulatory Sleep - difficulty falling and staying asleep - she has chronic insomnia Interest/Energy/Motivation - same days not as motivated due to physical issues/limitations Guilt/Worthlessness - absent Concentration/Attention Span - at times hard to focus and concentrate - she has not been taking Focalin Memory Recall - fairly good Appetite - decreased since back surgery - on 01/09/22 pt weighed 123 lbs and on 05/04/22 she weighed 112 lbs so she lost 11 lbs Suicidal Thoughts - absent Homicidal Thoughts - absent Delusions - absent Hallucinations - absent Appearance - casually groomed Motor Behavior - calm, occ restless Eye Contact - intermittent Speech - fluent Mood - some days down due to health issues but overall better Affect - at times anxious Thought Process - coherent Insight and Judgment - intact Social History Description Last Updated Daily coffee consumption - 1 -2 6-oz cans of soda a week and 1 chocolate bar daily, does not drink coffee or tea 05/04/2022 Last Documented On 3 4:12PM ; [facility] Patient reported that she wa s born [...] past or pending legal history. Patient enjoys [employer] and alevism. 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 05/01/2021 Last Documented On 3 11:23AM ; [facility] Former smoker - quit smoking 2012 Last Documented On 3 11:23AM ; [facility] Smoking Status Unknown Procedures and Surgical History Includes: Procedures from this encounter Procedures Code Diagnosis Performing Provider Service L ocation Service Date education and instructions Last Documented On 3 11:23AM ; [facility] I discussed the risks, benef its and side effects of Olanzapine to the patient including the possibility of metabolic and motor side effects such as tardive dyskinesia Last Documented On 3 11:41AM ; [facility] dangerousness assessment: suicide risk -not suic idal 3085F Last Documented On 3 11:23AM ; [facility] use of tobacco assessment performed 1000F Last Documented On 3 11:24AM ; [facility] patient screened for future fall risk - no recen t falls 3288F Last Documented On 3 11:24AM ; [facility] review of medications documented 1160F Last Documented On 3 11:24AM ; [facility] screening for adult depressi on: impression and score - please see above treatment and PHQ score Last Documented On 3 11:24AM ; [facility] standardized depression screening: posit lauryn for symptoms Last Documented On 3 11:24AM ; [facility] Clinical summary provided to patient Last Documented On 3 11:23AM ; [facility] PHQ-9: total score 11 Last Documented On 3 4:04PM ; [facility] Surgical History Last Updated History of total shoulder replacement - bilateral -- 2016 and 201806/29/2022 Last Documented On 3 11:23AM ; [facility] History of lumbar vertebral fusion - 03/12/22 fusion of T1 - L1 -- given Mupirocin ointment 2%; 12/2020 -- including thoracic -- Dr. Jorge Aranda -- Joss 05/04/2022 Last Documented On 3 4:12PM ; [facility] History of endoscopic insert ion of stent of pancreatic duct - abdominal drain - 01/2019 and 02/201902/02/2022 Last Documented On 3 11:23AM ; [facility] History of splenectomy - 12/31/201802/02 Last Documented On 3 11:23AM ; [facility] History of cervical vertebra l fusion and cervical decompression in 2002 and 200705/02/2021 Last Documented On 3 11:23AM ; [facility] History of hip replacement - bilateral - - 2019 and 202005/01/2021 Last Documented On 3 11:23AM ; [facility] History of knee replacement - bilateral -- 2000 and 200105/01/2021 Last Documented On 3 11:23AM ; [facility] History of cholecystectomy - 2007 Last Documented On 3 11:23AM ; [facility] History of appendectomy - 1971 Last Documented On 3 11:23AM ; [facility] Medical History Includes: Medical History addressed during this encounter Description Last Updated History of iron deficiency anemia 2022 Last Documented On 3 11:23AM ; [facility] History of iron deficiency a tj - had 2 iron infusions 04/21/22 since her Hgb went down to 7.3 last 03/2022 but now it went back up to 10.3 last 04/202205/04/2022 Last Documented On 3 4:12PM ; [facility] History of constipation - has tried Derick luis 05/04/2022 Last Documented On 3 11:23AM ; [facility] History of constipation - seen at [facility] given emema 05/04/2022 Last Documented On 3 4:12PM ; [facility] History of dysuria - given Cipro 250 mg 02/03/22 05/04/2022 Last Documented On 3 4:12PM ; [facility] History of cough - given Tessalon Perles 100 mg 04/01/22 05/04/2022 Last Documented On 3 4:12PM ; [facility] History of urinary retention - given Zayas sulosin 0.4 mg 04/08/22 05/04/2022 Last Documented On 3 4:12PM ; [facility] Primary Care Provider: Dr. Adriana Madrigal ~Dr. Melanie Parkinson -- Director Physical ~Dr. Jorge Hsieh -- Orthopedist ~Dr. Timmy Mclean -- Neurologist ~Dr. Alberto Valdez -- Shoulder Surgeon at [facility] ~Dr. Rg Montgoemry -- Dentist ~Dr. Luis Handley - Pain Mgt 05/04/2022 Last Documented On 3 4:12PM ; [facility] History of tooth extraction - given Zpak 250 mg for prophylaxis purposes 08/13/2021 Last Documented On 3 11:23AM ; [facility] History of colonoscopy - 201 9 -- botched per patient leading to weight loss 08/13/2021 Last Documented On 3 11:23AM ; [facility] History of coronavirus 2019- nCoV vaccine - Moderna #1 06/2020 #2 06/2020 #3 03/25/21 05/01/2021 Last Documented On 3 11:23AM ; [facility] History of osteoarthritis of multiple sites - accelerated degenerative disk and joint disease 05/01/2021 Last Documented On 3 11:23AM ; [facility] History of splenic laceration - requirin g slenectomy 05/01/2021 Last Documented On 3 11:23AM ; [facility] History of spinal stenosis - lumbar and thoracic 05/01/2021 Last Documented On 3 11:23AM ; [facility] History of restless legs syndrome 2021 Last Documented On 3 11:23AM ; [facility] History of chronic peptic ulcer 05/01/19 22 Last Documented On 3 11:23AM ; [facility] History of chronic obstructive pulmonary disease 05/01/2021 Last Documented On 3 11:23AM ; [facility] History of tricuspid regurgitation 05/01 Last Documented On 3 11:23AM ; [facility] History of mitral regurgitation 05/01/19 22 Last Documented On 3 11:23AM ; [facility] History of aortic regurgitation 05/01/19 22 Last Documented On 3 11:23AM ; [facility] Family History Includes: Family History addressed during this encounter Description Last Updated Sororal history of dementia of Alzheimer's type with early onset - oldest sister - and depression 05/01/2021 Last Documented On 3 11:23AM ; [facility] Review of Systems Includes: Review of Systems from this encounter Systemic: Not feeling poorly (malaise). No fever and no chills. Night sweats. Head: No headache and no sinus pain. Neck: Neck pain and neck stiffness. Eyes: No vision problems, no itching of the eyes, and no eye pain. Otolaryngeal: No hearing loss and no earache. Nasal discharge. No hoarseness and no sore throat. Cardiovascular: No chest pain or discomfort, no palpitations, and the heart rate was not fast. Pulmonary: No dyspnea, no cough, and no wheezing. Gastrointestinal: No heartburn. No nausea and no vomiting. Abdominal pain. No diarrhea and no constipation. Genitourinary: No increase in urinary frequency. No dysuria. Endocrine: No polydipsia and no excessive sweating. Musculoskeletal: Muscle aches, pain localized to one or more joints, and joint stiffness localized to one or [...] Active Last Documented On 07/05/2023 10:12AM ; [facility] Note: Imported from external source. Valium Allergy Nausea, Vomiting, Diarrhea / Diarrheal disorder 04/01/2015 Active Last Documented On 07/05/2023 10:12AM ; [facility] Note: Imported from external source. Sulfa Antibiotics Allergy Nausea, Vomiting, Diarrhea / Diarrheal disorder 08/13/2021 Active Last Documented On 07/05/2023 10:12AM ; [facility] Note: Imported from external source. Percocet Allergy Nausea, Vomiting, Diarrhea / Diarrheal disorder 04/01/2015 Active Last Documented On 07/05/2023 10:12AM ; [facility] Note: Imported from external source. Morphine Sulfate Allergy Nausea, Vomiting, Diarrhea / Diarrheal disorder 04/01/2015 Resolved Last Documented On 09/22/2022 11:29AM ; [facility] Note: Imported from external source. Morphine Sulfate Allergy Nausea, Vomiting, Diarrhea / Diarrheal disorder 04/01/2015 Active Last Documented On 10:12AM ; [facility] Ancef Allergy Nausea, Vomiting , Diarrhea / Diarrheal disorder 04/01/2015 Active Last Documented On 07/05/2023 10:12AM ; [facility] Note: Imported from external source. Encounters Encounter Provider Location Date Check-In Time Check-Out Time Diagnosis [employer] CANDY LEUNG MD [facility] 05/04/19 23 11:23AM 11:59PM Generalized Anxiety Disorder,Psycho physiological Insomnia,Attent ion Deficit Disorder Without Hyperactivity,M ajor Depression Insurance Includes: Active Insurance Policies Plan Name Member ID Group # Subscriber Relationship Effect lauryn Dates 1 - [employer]AGE [id number] MIGUEL PARK Self Clinical Notes Includes: Clinical Notes from this encounter No Clinical Notes Recorded
--- OUTSIDE RECORDS SUMMARY | 2024-06-08 02:36 | XMS_ITS | Clinical Summary ---
Author Organization [facility] Address [address] [place] [address] Phone Care Team Providers Care Wrapping Checker Name Role Phone Rinku Suresh MD Primary Care Provider [phone] Allergies Active Allergy Reactions Criticality Noted Date Comments Cefazolin Rash Low 12/24/2018 Codeine Nausea and Vomiting Low 12/27/2018 Morphine Nausea and Vomiting Low 12/27/2018 Oxycodone-Acetaminophen Nausea and Vomiting Low Vancomycin Rash Low 12/24/2018 Medications pramipexole (MIRAPEX) 0.75 mg Tablet Take 0.75 mg by mouth 3 times daily. Active sertraline HCl (SERTRALINE ORAL) Take 150 mg by mouth daily. Active fluticasone propionate (FLONASE) 50 mcg/spray Salmon, Suspension nasal inhaler Administer 2 Sprays in each nostril daily. Active fluticasone furoate-vilante rol (BREO ELLIPTA) 100-25 mcg/dose Disk with Device Take 1 Puff by inhalation daily. Active levocetirizine (XYZAL) 5 mg tablet Take 5 mg by mouth late in the day. Active cyanocobalamin (VITAMIN B-12) 500 mcg tablet Take 1,000 mcg by mouth daily. Active biotin 5 mg Capsule Take 5 mg by mouth. Active beta-carotene,A ,-vits C,E/mins (OCUVITE ORAL)Indication s:unsure of dosage; she states she takes OTC med and take one pill daily Take by mouth. Acti ve melatonin 5 mg Tablet Take 10 mg by mouth daily at bedtime. Active oxybutynin chloride (DITROPAN XL) 10 mg Extended Release 24 hour tablet Take 10 mg by mouth daily. Active acetaminophen (TYLENOL) 500 mg tablet Take 2 Tablets (1,000 mg) by mouth every 6 hours as needed for Pain. 9 Active sucralfate (CARAFATE) 1 gram tablet Take 1 Gram by mouth 4 times daily before meals and at bedtime. Active Saccharomyces boulardii (FLORASTOR) 250 mg Capsule Take 2 Capsules (500 mg) by mouth 2 times daily. 9 Active aspirin (ECOTRIN EC) 325 mg Tablet, Delayed Release (E.C.) Take 1 Tablet (325 mg) by mouth daily. 30 Tablet 9 Active ondansetron (ZOFRAN ODT) 4 mg Tablet, Rapid Dissolve Take 1 Tablet by mouth every 6 hours as needed for Nausea/Vomiting 40 Tablet 1 03/21/2019 10:19 AM COLLECTION ADVISOR 9 Active omeprazole (PriLOSEC) 20 mg Capsule, Delayed Release(E.C.) Take 20 mg by mouth daily. Active docusate sodium (COLACE) 50 mg capsule Take 50 mg by mouth 2 times daily. Active lansoprazole (PREVACID) 15 mg Capsule, Delayed Release(E.C.) Take 15 mg by mouth daily. Active carbonyl iron (FEOSOL) 45 mg Tablet Take 45 mg by mouth daily. Active lipase-protease -amylase DR (Creon) 36,000-114,000- 180,000 unit capsule Take 1 Capsule by mouth 3 times daily with meals. 120 Capsule 1 0 Active dicyclomine (BENTYL) 10 mg capsule TAKE 1 CAPSULE BY MOUTH EVERY 6 HOURS NEEDED FOR PAIN 60 Capsule 1 0 Active gabapentin (NEURONTIN) 100 mg capsule TAKE 1 CAPSULE(100 MG) BY MOUTH THREE TIMES DAILY 90 Capsule 1 0 Active Active Problems Problem Noted Date Diagnosed Date Acute biliary pancreatitis without infection or necrosis 03/24/2019 Acute pancreatitis 03/19/2019 Lung nodule, RUL 02/15/2019 Pancreatic pseudocyst 02/01/2019 Abscess after procedure 01/28/2019 Asplenia after surgical procedure 01/28/2019 Protein-calorie malnutrition, severe 01/03/2019 Overview (01/29/2019): Also dx with moderate PCM on 01-03-19 Abdominal pain WILLEM (obstructive sleep apnea) Allergy to antibiotic C. difficile diarrhea Chronic obstructive pulmonary disease Resolved Problems Problem Noted Date Diagnosed Date Resolved Date Hemoperitoneum 12/24/2018 06/18/2019 Spleen hematoma 06/18/2019 Acute blood loss anemia 06/03 Retroperitoneal hemorrhage 0 06/18/2019 Traumatic hemorrhagic shock 06/18/2019 Acute hypoxemic respiratory failure 06/18/2019 Immunizations Immunization Administration Dates Next Due (ACTHIB/HIBERIX)(2 MOS-5 YRS /6 WKS-4 YRS) HAEMOPHILUS INFLUENZAE TYPE B VACCINE (HIB), PRP-T CONJUGATE, 4 DOSE, 0.5 ML IM 01/06/2019 (BEXSERO)(10-25 YR) MENINGOC OCCAL RECOMBIANT PROTEIN AND OUTER MEMBRANE VESICLE VACCINE, SEROGROUP B MENB-4C, 2 DOSE IM 01/06/2019 (MENVEO)(1 VIAL/2 VIAL)(10-5 5 YRS/2 MOS-55 YRS) MENINGOCOCCAL ACYW OLIGOSACCHARIDE CONJUGATE VACCINE, (PF) IM 01/06/2019 (PNEUMOVAX 23)(50 YRS UP) PN EUMOCOCCAL POLYSACCHARIDE (PPV23) 0.5 ML, IM 03/21/2019 (PREVNAR 13)(6 WKS UP) PNEUM OCOCCAL CONJUGATE (PCV13) 0.5 ML, IM 01/06/2019 Influenza Seasonal Unspecified Formulation IM Family History Medical History Relation Name Comments Colon Cancer Neg Hx Social History Tobacco Use Types Packs/Day Years Used Date Smoking Tobacco: Former Cigarettes Q uit: 04/30/2012 Smokeless Tobacco: Never Alcohol Use Standard Drinks/Week Comments Not Currently 0 (1 standard drink = 0.6 oz pur e alcohol) Comments No Sex and Gender Information Value Date Recorded Sex Assigned at Not on file Legal Sex Female 5:11 AM COLLECTION ADVISOR Gender Identity Not on file Sexual Orientation Not on file Last Filed Vital Signs Vital Sign Reading Time Taken Comments Blood Pressure 155/71 09/05/2019 9:42 AM CDT Pulse 56 09/05/2019 9:42 AM CDT Temperature 36.9 C (98.4 F) 06/20/2019 1:13 PM CDT Respiratory Rate 16 06/20/2019 1:13 PM CDT Oxygen Saturation 100% 06/20/2019 1:13 PM CDT Inhaled Oxygen Concentration - - Weight 54.4 kg (120 lb) 09/05/2019 9:42 AM CDT Height 167.6 cm (5' 6 ) 09/05/2019 9:42 AM CDT Body Mass Index 19.37 09/05/2019 9:42 AM CDT Plan of Treatment Health Maintenance Due Date Last Done Comments DTAP/TDAP/TD VACCINES (1 - Tdap) 1977 BREAST CANCER SCREENING 1998 COLORECTAL SCREENING 12/08/2003 Colorectal Cancer Screening 12/08/2003 FIT-DNA Q 3 years 12/08/2003 FIT/FOBT Q 1 year 12/08/2003 Flex Sig/CT Colonography Q 5 years 12/08/2003 ZOSTER VACCINE (1 of 2) 2008 RSV VACCINE (60+ or ) (1 - Risk 60-74 years 1-dose series) 2018 INFLUENZA VACCINE (#1) 2023 01/03/2019 OSTEOPOROSIS SCREENING 12/08/2023 PNEUMOCOCCAL VACCINE 50+ YEA RS (2 of 2 - PPSV23, PCV20 or PCV21) 03/21/2024 03/21/2019, 01/06/2019 Medical Devices Implanted Type Area Cheese Tester Device Identifier Shelf Expiration Date Model / Serial / Lot Barrier Seprafilm 3x5in [id number] - [id number] Implanted:Qty: 1 on 12/31/2018 by Desmond Nix MD at [facility] Adhesion Barrier N/A: Abdomen [employer] [id number] 03/04/2021 [id number] / / [id number] Coil Embol Pod Packing [id number]/26 /2019 Implanted:Qty: 2 on 12/29/2018 by Chantelle Kimball MD Coil Left: Arterial [employer] 11/09/2026 [id number] / [id number] / [id number] Description:Pod Packing coil 60 cm implanted in splenic artery Coil Embol Pod5 Cmplx 5mm 30cm [id number]- [id number] Implanted:Qty: 1 on 12/29/2018 by Chantelle Kimball MD Coil Left: Arterial [employer] 10/18/2026 [id number] / [id number] / [id number] Description:Pod 5 coil 30 cm implanted in splenic artery Coil-12/29/2018 Implanted:Qty: 1 on 12/29/2018 by Chantelle Kimball MD Coil Left: Arterial 06/19/2023 [id number] / [id number] / [id number] Description:MicroNester Embo lization COil 4 mm x 7 cm implanted in splenic artery Stent Pncrtc Frmn Flx 5fr 5cm 6552 - [id number] Implanted:Qty: 1 on 03/17/2019 by Eduardo Hernandez MD at [facility] Stent N/A: Pancreas [employer] [id number] 01/04/2024 [id number] / / [id number] [place] [facility] Address: [place] [address] RX [employer] Medicare Part D RX [employer] (INTERNAL) [facility] Plans Advance Directives For more information, please contact: [phone] * Full Code (Latest Code Status on File) Date Activated Date Inactivated Comments 06/18/2019 2:27 AM 06/20/2019 6:16 PM * Full Code Date Activated Date Inactivated Comments 05/01/2019 11:44 AM 05/01/2019 3:32 PM * Full Code Date Activated Date Inactivated Comments 05/01/2019 11:22 AM 05/01/2019 11:44 AM * Full Code Date Activated Date Inactivated Comments 03/19/2019 11:43 AM 03/21/2019 1:52 PM * Full Code Date Activated Date Inactivated Comments 01/28/2019 6:02 PM 02/02/2019 3:40 PM Care Teams Wrapping Checker Relationship Specialty Start Date End Date Rinku Suresh MD [address] [place] [phone] PCP - General Internal Medicine 12/24/18
--- OUTSIDE RECORDS SUMMARY | 2024-06-08 02:36 | XMS_ITS | Continuity of Care Document ---
Author Organization [facility] Medical [facility] Address [address] [place] [phone] Care Team Providers Care Specimen Preparation Assistant Name Role Phone Rinku Suresh Primary Care Physician Encounter [facility] [id number] Date(s): 06/06/24 - 06/06/[address] [phone]- ([phone] - Discharge Disposition: Home or Self Care Encounter Type: Between Visit Allergies, Adverse Reactions, Alerts Substance Criticality Severity Reaction Reaction Severity Status vancomycin 1 High criticality Moderate Urticaria Active Percocet 2 Unable to assess criticality Unknown Diarrheal disorder Vomiting Nausea Active sulfa drugs 3 High criticality Moderate Diarrheal disorder Vomiting Nausea Active Ancef 4 High criticality Moderate Diarrheal disorder Vomiting Nausea Active Morphine Sulfate High criticality Moderate Diarrhe al disorder Vomiting Nausea Active diazePAM 5 High criticality Moderate Nausea, vom iting and diarrhea Diarrheal disorder Vomiting Nausea Active 1Outside Source Comment: Note: Imported from external source. 2Outside Source Comment: Note: Imported from external source. 3Outside Source Comment: Note: Imported from external source. 4Outside Source Comment: Note: Imported from external source. 5Outside Source Comment: Note: Imported from external source. Assessment and Plan Future Appointments Appointment Date:06/13/2024 10:00:00 AM Scheduled Provider:Jace Leung MD Location:[facility] Appointment Type:Psych FU 18 years and older ([facility]) Future Scheduled Tests Radiology* MG Mammo Screening Bilateral. 01/26/24 Immunizations Given and Recorded Vaccine Date Status Refusal Reason zoster vaccine, recombinant 02/02/24 Recorded RSV vaccine preF3, recombinant 02/02/24 Recorded influenza virus vaccine, inactivated 1 01/26/24 Gi jarod influenza virus vaccine, inactivated 12/31/22 Jeovany rded influenza virus vaccine, inactivated 07/02/21 Jeovany rded influenza virus vaccine, inactivated 04/16/20 Jeovany rded influenza virus vaccine, inactivated 03/19/18 Jeovany rded influenza virus vaccine, inactivated 01/30/17 Jeovany rded influenza virus vaccine, inactivated 03/19/16 Jeovany rded influenza virus vaccine, inactivated 04/09/15 Jeovany rded SARS-CoV-2 (COVID-19) Moderna (cvx 311) 03/25/21 R ecorded SARS-CoV-2 (COVID-19) Moderna (cvx 311) 06/03/20 R ecorded SARS-CoV-2 (COVID-19) Moderna (cvx 311) 06/03/20 R ecorded SARS-CoV-2 (COVID-19) mRNA-1273 vaccine 2 03/25/21 Recorded SARS-CoV-2 (COVID-19) mRNA-1273 vaccine 3 07/05/20 Recorded SARS-CoV-2 (COVID-19) mRNA-1273 vaccine 4 06/07/20 Recorded pneumococcal 23-polyvalent vaccine 04/16/20 Record ed pneumococcal 13-valent conjugate vaccine 01/06/19 Recorded meningococcal group B vaccine 01/06/19 Recorded meningococcal conjugate vaccine 01/06/19 Recorded 1Early/Late Reason: Early/Late Reason: Other : NOT GIVEN EARLY 2Result Comment: Welder Gas Automatic: Moderna 3Result Comment: Welder Gas Automatic: Moderna 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: 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 [employer] Automatic: Moderna Medications benzonatate 200 mg oral capsule = 1 cap, Oral, every 8 hr, PRN as needed for cough, # 30 cap, 0 Refill(s), [id number] Start Date: 06/06/24 Status: Ordered Quantity: 30.0 Unit: Repeat number: 1 Biotin 5000 mcg oral capsule = 1 cap, Oral, Daily, 0 Refill(s) Start Date: 10/18/23 Status: Ordered Repeat number: 1 dexmethylphenidate 10 mg oral tablet = 1 tab, Oral, BID, 1 tab in am and 1 tab at noon, # 60 tab, 0 Refill(s), Pharmacy: [facility] #[id number] Start Date: 03/28/24 Status: Ordered Quantity: 60.0 Unit: Repeat number: 1 Dulcolax Laxative See Instructions, take 3-4 tablets at bedtime, 0 Refill(s) Start Date: 10/18/23 Status: Ordered Repeat number: 1 Dulcolax Stool Softener 100 mg oral capsule = 1 cap, Oral, TID, PRN as needed for constipation, # 20 cap, 0 Refill(s) Start Date: 10/18/23 Status: Ordered Quantity: 20.0 Unit: Repeat number: 1 famotidine 20 mg oral tablet 1-2 tabs, Oral, Daily, 0 Refill(s) Start Date: 10/18/23 Status: Ordered Repeat number: 1 fluticasone 50 mcg/inh nasal spray = 1 sprays, Nostril-Both, Daily, 0 Refill(s) Start Date: 10/18/23 Status: Ordered Repeat number: 1 gabapentin 300 mg oral capsule 1-2 caps, Oral, TID, # 560 cap, 3 Refill(s), Pharmacy: [facility] #[id number] Start Date: 02/15/24 Status: Ordered Quantity: 560.0 Unit: Repeat number: 4 hydrocodone-acetaminophen 10 mg-325 mg oral tablet 40 EA, 0 Refill(s), TAKE 1 TABLET BY MOUTH TWICE DAILY NEEDED FOR PAIN, 0 Refill(s) Start Date: 10/18/23 Status: Ordered Repeat number: 1 levocetirizine 5 mg oral tablet = 1 tab, Oral, Daily, 0 Refill(s) Start Date: 05/13/23 Status: Ordered Repeat number: 1 LORazepam 0.5 mg oral tablet = 1 tab, Oral, Daily, PRN as needed for anxiety, # 15 tab, 0 Refill(s), Pharmacy: [facility] #[id number] Start Date: 05/16/24 Status: Ordered Quantity: 15.0 Unit: Repeat number: 1 Ocrevus 300 mg/10 mL intravenous solution 1 infusion, IV Piggyback, every 6 mo, 0 Refill(s) Start Date: 05/01/24 Status: Ordered Repeat number: 1 Ocuvite Adult 50+ oral capsule 1 cap, Oral, Daily, # 30 cap, 0 Refill(s) Start Date: 10/18/23 Status: Ordered Quantity: 30.0 Unit: Repeat number: 1 ondansetron 4 mg oral tablet, disintegrating = 1 tab, Oral, every 6 hr, PRN as needed for nausea/vomiting, # 9 tab, 3 Refill(s), [id number] Start Date: 05/01/24 Stop Date: 08/29/24 Status: Ordered Quantity: 9.0 Unit: Repeat number: 4 Indication: Nausea ondansetron 4 mg oral tablet, disintegrating = 1 tab, Oral, every 8 hr, PRN as needed for nausea/vomiting, # 28 tab, 0 Refill(s), [id number] Start Date: 06/06/24 Status: Ordered Quantity: 28.0 Unit: Repeat number: 1 pramipexole 0.75 mg oral tablet 2 tabs, Oral, BID, # 540 tab, 1 Refill(s), [id number] Start Date: 11/19/23 Stop Date: 05/17/24 Status: Ordered Quantity: 540.0 Unit: Repeat number: 2 sertraline 100 mg oral tablet = 2 tab, Oral, Daily, # 180 tab, 1 Refill(s), [id number] Start Date: 05/25/24 Stop Date: 11/21/24 Status: Ordered Quantity: 180.0 Unit: Repeat number: 2 tolterodine 4 mg oral capsule, extended release = 1 tab, Oral, Daily, 0 Refill(s) Start Date: 05/01/24 Status: Ordered Repeat number: 1 traZODone 100 mg oral tablet 4 tabs, Oral, every day at bedtime, # 360 tab, 3 Refill(s), [id number] Start Date: 02/16/24 Stop Date: 02/10/25 Status: Ordered Quantity: 360.0 Unit: Repeat number: 4 Indication: Psychophysiologic insomnia Trelegy Ellipta 100 mcg-62.5 mcg-25 mcg/inh inhalation powder See Instructions, INHALE 1 PUFF BY MOUTH DAILY, # 60 EA, 11 Refill(s), [id number] Start Date: 01/24/24 Status: Ordered Quantity: 60.0 Unit: Repeat number: 1 Vitamin D3 25 mcg (1000 intl units) oral capsule = 1 cap, Oral, Daily, 0 Refill(s) Start Date: 05/13/23 Status: Ordered Repeat number: 1 Zithromax 500 mg oral tablet 1 tab, Oral, Daily, # 5 tab, 0 Refill(s), [id number], 163.2, cm, 05/01/24 14:01:00 MANAGER ACCESS, Height, 58.3, kg, 05/01/24 14:03:00 MANAGER ACCESS, Weight Dosing Start Date: 06/06/24 Stop Date: 06/11/24 Status: Ordered Quantity: 5.0 Unit: Repeat number: 1 Problem List Condition Confirmation Course Effective Dates Status Health St atus Informant Laceration of spleen 1 Confirmed 01/12/19 Active Malaise Confirmed Active Multiple sclerosis Confirmed Active Major depressive disorder, recurrent Confirmed Active 1Outside Source Comment: 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 [facility] Procedures Procedure Date Related Diagnosis Body Site Status Enteroscopy 2023 Completed Lumbar and lumbosacral fusio n by anterior technique 2020 Completed Hip replacement 3 2019 Complet ed Splenectomy 12/31/18 Completed Colonoscopy 2018 Completed Stent 5 2018 Completed Shoulder replacement 2016 Co mpleted Cholecystectomy 2007 Completed Fusion of cervicothoracic re gion of spine with internal fixation by anterior approach 2002 Completed Knee replacement 8 2000 Comple blue Appendectomy 1972 Completed Appendectomy (procedure) Completed Arthroplasty of knee (procedure) Completed Cholecystectomy (procedure) Completed Enteroscopy (procedure) C ompleted Insertion of hip prosthesis (procedure) Completed Insertion of stent Comple blue Klippel-Feil sequence (disorder) Completed Lumbar spinal fusion (procedure) Completed Splenectomy (procedure) C ompleted Total shoulder replacement (procedure) 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 Jorge Aranda and on 11/10/21 fusion of T1 - L1 2020 4botched per patient leading to her weight loss and 05/27/23 5endoscopic insertion of stent of pancreatic duct - abdominal drain - 01/2019 and 02/2019 6a2018 - right shoulder reverse replacement 7and cervical depression in 2007 Social History Social History Type Response Smoking Status Former smoker, quit more than 30 days ago;Never 1 entered on: 10/18/23 Sex Female Sex Representation Female (finding) 1quit smoking 2013 Patient Care team information Care Team Personnel Name: Rinku Suresh MD Position: Physician Member Role: Primary Care Physician Address: [address] [place] [address] Telecom: Name: Jace Leung MD Position: Physician Member Role: Psychiatrist Address: [address] [place] [address] Telecom: Care Team Related Persons Name: ТАТЬЯНА PARK Insurance Providers Guarantor name: MIGUEL PARK Health Plan Information #: 1 Payer: [facility] Member Number: NA Policy Number: NA Group Number: NA Payer Identifier: NA Health Plan Information #: 2 Payer: Medicare Member Number: NA Policy Number: NA Group Number: NA Payer Identifier: NA
--- OUTSIDE RECORDS SUMMARY | 2024-06-08 02:37 | XMS_ITS | Clinical Summary ---
Author Organization [facility] Address [address] [place] [id number] Care Team Providers Care Professor Of Economics Name Role Phone Unavailable Primary Care Provider Unavailabl e Social History Tobacco Use Types Packs/Day Years Used Date Smoking Tobacco: Former Comments Unknown Sex and Gender Information Value Date Recorded Sex Assigned at Not on file Legal Sex Female 3:04 AM CDT Gender Identity Not on file Sexual Orientation Not on file Last Filed Vital Signs Vital Sign Reading Time Taken Comments Blood Pressure 134/70 12/01/2011 9:36 AM CDT Pulse 80 12/01/2011 9:36 AM CDT Temperature - - Respiratory Rate 18 12/01/2011 9:36 AM CDT Oxygen Saturation - - Inhaled Oxygen Concentration - - Weight 69.9 kg (154 lb) 12/01/2011 9:36 AM CDT Height - - Body Mass Index - - Plan of Treatment Health Maintenance Due Date Last Done Comments Colorectal Cancer Screening Colonoscopy (10 Years) 1958 Hepatitis C 1976 DTaP, Tdap and Td Vaccines ( 1 - Tdap) 1977 Mammogram Screening 1998 Zoster Vaccines (1 of 2) 2008 COVID-19 Vaccine ( - 2023-2 5 season) 2023 Dexa Scan (General) 12/08/2023 Pneumococcal Vaccine: 65+ Ye ars (1 of 1 - PCV) 12/08/2023 Influenza Adult (#1) 2024 RSV Immunization or 60+ Years (1 - 1-dose 75+ series) 2033 Meningococcal B Vaccine Aged Out No l onger eligible based on patient's age to complete this topic Meningococcal Vaccine Aged Out No jaelyn sara eligible based on patient's age to complete this topic Pneumococcal Vaccine: Pediat rics (0 to 5 Years) and At-Risk Patients (6 to 64 Years) Aged Out No longer eligible b ased on patient's age to complete this topic RSV Immunizations Under 20 Months Aged Out No longer eligible based on patient's age to complete this topic
--- OUTSIDE RECORDS SUMMARY | 2024-06-08 02:37 | XMS_ITS | Clinical Summary ---
Author Organization [facility] Address [address] [place] [address] Phone Care Team Providers Care Manager Voice Name Role Phone DANNI HAMILTON, CANDY MITCHELL [facility] [phone] Reason for Visit and Chief Complaint The Chief Complaint is: follow up for depression, anxiety, insomnia Problems Includes: Problems addressed during this encounter and other active Problems Current Visit Onset Date Resolved Date Provider Conditio n Status Attention Deficit Disorder Without Hyperactivity 05/01/2021 CANDY LEUNG MD Active Last Documented On 2 3:52PM ; [facility] Generalized Anxiety Disorder 05/01/2021 CANDY LEUNG MD Active Last Documented On 2 2:53PM ; [facility] Psychophysiological Insomnia 05/01/2021 CANDY LEUNG MD Active Last Documented On 2 2:53PM ; [facility] Major Depression 05/01/2021 CANDY LEUNG MD Active Last Documented On 2 2:52PM ; [facility] Plan of Treatment Major depressive disorder -Sertraline 150 mg a day, Olanzapine 15 mg 1 tab at bedtime - so far pt denied motor side effects Generalized Anxiety Disorder - Sertraline 150 mg a day Panic Disorder - Lorazepam 0.5 mg a day as needed for severe anxiety/panic, breathing exercises, meditation Attention Deficit Disorder - Focalin 5 mg 1 tab in am Psychophysiological Insomnia - Trazodone 100 mg 3 at hs prn sleep, encouraged good sleep hygiene habits - Last Documented On 06/29/2022 2:44PM ; [facility] Education and Decision Aids were provided during visit for: Discussed calming techniques such as breathing exercises and other relaxation techniques Last Documented On 3 9:53AM ; [facility] Discussed good sleep hygiene habits Last Documented On 3 10:18AM ; [facility] Assessments Includes: Assessments from this encounter Findings - Attention deficit disorder without hyperactivity - Last Documented On 06/29/2022 2:44PM ; [facility] - Major depressive disorder - Last Documented On 06/29/2022 2:44PM ; [facility] - Psychophysiological insomnia - Last Documented On 06/29/2022 2:44PM ; [facility] - Generalized anxiety disorder - Last Documented On 06/29/2022 2:44PM ; [facility] Instructions Includes: Instructions from this encounter Education and Decision Aids were provided during visit for: Discussed calming techniques such as breathing exercises and other relaxation techniques Last Documented On 3 9:53AM ; [facility] Discussed good sleep hygiene habits Last Documented On 3 10:18AM ; [facility] Medical Equipment - Implanted Devices Includes: Current Devices No Medical Equipment Recorded Medications Includes: Medications discussed during this encounter and other current Medications Discontinued / Stopped on this date on 06/15/2022 traZODone HCl 100 MG Oral Tablet Provider : Diagnosis: Psychophysiologi c insomnia Last Documented On 3 10:16AM By NIKKI HOWARD ; [facility] LORazepam 0.5 MG Oral Tablet Provider: CANDY LEUNG MD Diagnosis: Generalized anxi ety disorder Last Documented On 3 10:40AM By Nani Leung MD ; [facility] Focalin 5 MG Oral Tablet Provider: CANDY LEUNG MD Diagnosis: Attn-defct hyper activity disorder, predom inattentive type Last Documented On 3 10:36AM By Nani Leung MD ; [facility] traZODone HCl 100 MG Oral Tablet Provider: CANDY LEUNG MD Diagnosis: Psychophysiologi c insomnia Last Documented On 3 10:16AM By NIKKI HOWARD ; [facility] oxyCODONE HCl 5 MG Oral Tablet Provider: Diagnosis: Last Documented On 3 10:25AM By Nani Leung MD ; [facility] traZODone HCl 50 MG Oral Tablet Provider: CANDY LEUNG MD Diagnosis: Obstructive slee p apnea (adult) (pediatric) Last Documented On 3 10:17AM By NIKKI HOWARD ; [facility] OLANZapine 10 MG Oral Tablet Provider: CANDY LEUNG MD Diagnosis: Major depressive disorder, recurrent, unspecified Last Documented On 3 10:16AM By NIKKI HOWARD ; [facility] New / Renewed during this visit CANDY LEUNG MD on 06/29/2022 Focalin 5 MG Oral Tablet Provider: MET JACQUELINE LEUNG MD 30 day supply: 30 tablet, 0 refills Diagnosis: Attn-defct hyperactivity disorder, predom inattentive type as directed - 1 tab in am with food Pharmacy: [address] [facility], [id number] - Last Documented On 3 11:33AM By Nani Leung MD ; [facility] LORazepam 0.5 MG Oral Tablet Provider: CANDY LEUNG MD 30 day supply: 15 tablet, 0 refills Diagnosis: Generalized anxiety disorder as directed - 1/2 - 1 tab a day as needed for severe panic attacks Pharmacy: [address] [facility], [id number] - Last Documented On 3 11:33AM By Nani Leung MD ; [facility] OLANZapine 15 MG Oral Tablet Provider: CANDY LEUNG MD 90 day supply: 90 tablet, 1 refills Diagnosis: Major depressive disorder, recurrent, moderate as directed -- 1 tab at bedtime [facility] [employer] [facility] [id number] - Last Documented On 3 11:33AM By Nani Leung MD ; [facility] Current Medications (continue as prescribed) EQ Laxative Maximum Strength 25 MG Oral Tablet 023 Provider: Diagnosis: 3 tabs at night Last Documented On 3 10:04AM By NIKKI HOWARD ; [facility] traZODone HCl 100 MG Oral Tablet 06/15/2022 Provider: CANDY LEUNG MD Diagnosis: Psychophysiologi c insomnia as directed 3 tabs at bedtime Last Documented On 06/15/2022 3:36PM By Nani Leung MD ; [facility] Folic Acid 1 MG Oral Tablet 03/31/2022 Provider: SUSIE STOKES OBGYN SPECIALIST-C Diagnosis: 1 tab daily Last Documented On 3 11:38AM By NIKKI HOWARD ; [facility] Pramipexole Dihydrochloride 0.75 MG Oral Tablet 09/08/2021 Provider: TIMMY VALENZUELA MD Diagnosis: 2 tabs in the evening Last Documented On 3 11:39AM By NIKKI HOWARD ; [facility] Antacid 200-200-20 MG/5ML Oral Suspension 05/21/2021 Provider: MELANIE PARKINSON MD Diagnosis: as needed Last Documented On 06/06/2021 2:04PM By MICHELLE PARKS ; [facility] Ocuvite Adult 50+ Oral Capsule 05/01/2021 Provider: Diagnosis: 1 cap daily Last Documented On 05/01/2021 3:10PM By NIKKI HOWARD ; [facility] Xyzal 5 MG Oral Tablet 05/01/2021 Provider: Diagnosis: 1 tab daily Last Documented On 05/01/2021 3:10PM By NIKKI HOWARD ; [facility] Biotin 5000 MCG Oral Capsule 05/01/2021 Provider: Diagnosis: 1 cap daily Last Documented On 05/01/2021 3:13PM By NIKKI HOWARD ; [facility] Stool Softener 100 MG Oral Capsule 05/01/2021 Pr ovider: Diagnosis: 1 cap tid Last Documented On 05/01/2021 3:12PM By NIKKI HOWARD ; [facility] Ondansetron HCl 8 MG Oral Tablet 03/13/2021 Provider : MELANIE PARKINSON MD Diagnosis: 2 tab prn nausea/vomiting Last Documented On 05/01/2021 3:04PM By NIKKI HOWARD ; [facility] Anoro Ellipta 62.5-25 MCG/IN H Inhalation Aerosol Powder Breath Activated 03/11/2021 Provider: ERNIE MADRIGAL MD Diagnosis: 1 inhalation daily Last Documented On 05/01/2021 3:07PM By NIKKI HOWARD ; [facility] Cyclobenzaprine HCl 10 MG Oral Tablet 01/06/2021 Pro vider: ERNIE MADRIGAL MD Diagnosis: take 1 tab prn Last Documented On 05/01/2021 3:07PM By NIKKI HOWARD ; [facility] Suspended Medications Sertraline HCl 100 MG Oral Tablet 03/11/2022 Provide r: CANDY LEUNG MD Diagnosis: as directed 1 and 1/2 tabs daily Last Documented On 03/11/2022 4:45PM By Nani Leung MD ; [facility] Past Medications on file Gabapentin 300 MG Oral Capsule 06/29/2022 - 07/29/2022 Provider: Diagnosis: 2 capsules at night Last Documented On 10:02AM By NIKKI HOWARD ; [facility] Focalin 10 MG Oral Tablet 10/14/2021 - 11/13/2021 Provider: CANDY LEUNG MD Diagnosis: Generalized anxi ety disorder as directed -- 1 tab in am Last Documented On 10/14/2021 2:31PM By Nani Leung MD ; [facility] Pramipexole Dihydrochloride 0.75 MG Oral Tablet 08/13/2021 - 11/11/2021 Provider: Diagnosis: 1 afternoon prn and 2 at hs Last Documented On 08/13/2021 9:28AM By NIKKI HOWARD ; [facility] Gabapentin 300 MG Oral Capsule 08/13/2021 - 09/12/2021 Provider: ERNIE MADRIGAL MD Diagnosis: 2 at night Last Documented On 08/13/2021 9:26AM By NIKKI HOWARD ; [facility] DayVigo 5 MG Oral Tablet 05/01/2021 - 05/21/2021 Provider: CANDY LEUNG MD Diagnosis: Psychophysiologi c insomnia as directed -- 1 tab at hs a s needed for sleep Last Documented On 05/01/2021 4:02PM By Nani Leung MD ; [facility] Medications Administered Includes: Administered Medications from this encounter No Administered Medications Recorded Vital Signs Includes: Vital Signs from this encounter Vital Name 06/29/2022 10:19A Blood Pressure Sitting L 138/68 BP Cuff Size Regular Pulse Rate-Sitting (bpm) 88 Pulse Rhythm Regular Height (in) 66 Weight (lb) 120 Body Mass Index 19.4 Body Surface Area 1.6 Last Documented: On 06/29/2022 10:19A M ; [facility] Results Includes: Results discussed during this encounter No Results Recorded For Specified Dates History of Present Illness Includes: History of Present Illness from this encounter JOSE PARK is a 61 year old female. - Allergy list reviewed - Past medical history reviewed - Medication list reviewed Pt has been stressed with her father who is at a intermediate in [place]. Her father has dementia and recently fell and fractured his pelvis. She and her had to bring him to various drs' appointments in [place] and this is too hard on her since she has been suffering with pain as well. She had botox injection through endoscopy for her esophageal achalasia. She seemed to be eating better when this procedure was done. She did not feel that the Focalin is reducing her appetite. She gained 8 lbs since she was last seen. She is trying to cope with her own health issues. She has not been feeling as depressed. The Olanzapine seemed to help with her mood along with Sertraline. Pt occ gets anxious and needed Lorazepam from time to time. She has 3 left out of the 15 tabs of Lorazepam given last 05/20/22. Pt denied having any mood swings. Pt has not been as irritable. Pt has been motivated in general in doing daily tasks unless when tired. Sleep has been poor, she has trouble staying asleep. She will sleep for 2 hours and then wakes up intermittently. She felt that her current dose of Trazodone seemed to be sufficient. Pt has not been napping/sleeping too much during the daytime. Pt occ gets tired. Appetite seemed a bit better. Pt has not been feeling as bad about self. Pt is able to focus and concentrate for the most part but only when she takes Focalin, she only takes it as needed. Pt denied having any psychomotor restlessness unless she has flare ups for RLS for which she takes Mirapex. She sees a neurologist from the movement disorder dept at [facility]. She was also told that it takes time probably 5 years or > for her trapezius muscle to regenerate charlene after her surgery last 12/2021. Pt denied suicidal thoughts. Pt denied having any delusions/hallucinations. MENTAL STATUS EXAM: Sensorium - alert, oriented to name, place, and time Attitude - cooperative Gait - ambulatory with cane Sleep - difficulty staying asleep Interest/Energy/Motivation - good Guilt/Worthlessness - absent Concentration/Attention Span - able to focus and concentrate with Focalin but at times she can still get distracted Memory Recall - fairly good Appetite - getting better - on 05/04/22 pt weighed 112 lbs and on 06/29/22 she weighed 120 lbs so she gained 8 lbs Suicidal Thoughts - absent Homicidal Thoughts - absent Delusions - absent Hallucinations - absent Appearance - casually groomed Motor Behavior - calm Eye Contact - intermittent Speech - fluent Mood - not as depressed, occ anxious Affect - occ worried about her father Thought Process - coherent Insight and Judgment - intact Social History Description Last Updated Daily coffee consumption - 1 -2 6-oz cans of soda a week and 1 chocolate bar daily, does not drink coffee or tea 05/04/2022 Last Documented On 3 9:53AM ; [facility] Patient reported that [...] past or pending legal history. Patient enjoys [employer] and oriental orthodox. 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 05/01/2021 Last Documented On 3 9:53AM ; [facility] Former smoker - quit smoking 2012 Last Documented On 3 9:53AM ; [facility] Smoking Status Unknown Procedures and Surgical History Includes: Procedures from this encounter Procedures Code Diagnosis Performing Provider Service L ocation Service Date education and instructions Last Documented On 3 9:53AM ; [facility] I discussed the risks, benef its and side effects of Olanzapine to the patient including the possibility of metabolic and motor side effects such as tardive dyskinesia Last Documented On 3 10:18AM ; [facility] dangerousness assessment: suicide risk -not suic idal 3085F Last Documented On 3 9:53AM ; [facility] use of tobacco assessment performed 1000F Last Documented On 3 9:53AM ; [facility] patient screened for future fall risk - no recen t falls 3288F Last Documented On 3 9:53AM ; [facility] review of medications documented 1160F Last Documented On 3 9:53AM ; [facility] screening for adult depressi on: impression and score - please see above treatment and PHQ score Last Documented On 3 9:53AM ; [facility] standardized depression screening: posit lauryn for symptoms Last Documented On 3 9:53AM ; [facility] encouragement to exercise - doing PT Last Documented On 3 2:40PM ; [facility] Clinical summary provided to patient Last Documented On 3 9:53AM ; [facility] PHQ-9: total score 10 Last Documented On 3 2:39PM ; [facility] Surgical History Last Updated History of enteroscopic proc edures - 05/22/22 for GI Achlasia with Botox injections 06/29/2022 Last Documented On 3 2:44PM ; [facility] History of total shoulder re placement - bilateral -- 2016 and 2018 - right shoulder reverse replacement 06/29/2022 Last Documented On 3 2:44PM ; [facility] History of lumbar vertebral fusion - 12/11/21 fusion of T1 - L1 -- given Mupirocin ointment 2%; 12/2020 -- including thoracic -- Dr. Jorge Aranda -- Joss 06/29/2022 Last Documented On 3 2:44PM ; [facility] History of endoscopic insert ion of stent of pancreatic duct - abdominal drain - 01/2019 and 02/201902/02/2022 Last Documented On 3 9:53AM ; [facility] History of splenectomy - 12/31/201802/02 Last Documented On 3 9:53AM ; [facility] History of cervical vertebra l fusion and cervical decompression in 2002 and 200705/02/2021 Last Documented On 3 9:53AM ; [facility] History of hip replacement - bilateral - - 2019 and 202005/01/2021 Last Documented On 3 9:53AM ; [facility] History of knee replacement - bilateral -- 2000 and 200105/01/2021 Last Documented On 3 9:53AM ; [facility] History of cholecystectomy - 2007 Last Documented On 3 9:53AM ; [facility] History of appendectomy - 1972 2 Last Documented On 3 9:53AM ; [facility] Medical History Includes: Medical History addressed during this encounter Description Last Updated History of urinary tract infection - giv en Nitrofurantoin 100 mg 06/11/22 06/29/2022 Last Documented On 3 2:44PM ; [facility] Primary Care Provider: Dr. Adriana Madrigal ~Dr. Melanie Parkinson -- Director Targeted Marketing ~Dr. Jorge Hsieh -- Orthopedist ~Dr. Timmy Mclean -- Neurologist ~Dr. Alberto Valdez -- Shoulder Surgeon at [facility] ~Dr. Andi Mcrae -- Dentist ~Dr. Luis Handley - Pain Mgt 06/29/2022 Last Documented On 3 2:44PM ; [facility] History of iron deficiency a nemia - had 2 iron infusions 04/21/22 since her Hgb went down to 7.3 last 03/2022 but now it went back up to 10.3 last 04/202205/04/2022 Last Documented On 3 9:53AM ; [facility] History of constipation - seen at [facility] given emema 05/04/2022 Last Documented On 3 9:53AM ; [facility] History of dysuria - given Cipro 250 mg 02/03/22 05/04/2022 Last Documented On 3 9:53AM ; [facility] History of cough - given Tessalon Perles 100 mg 04/01/22 05/04/2022 Last Documented On 3 9:53AM ; [facility] History of urinary retention - given Zayas sulosin 0.4 mg 04/08/22 05/04/2022 Last Documented On 3 9:53AM ; [facility] History of tooth extraction - given Zpak 250 mg for prophylaxis purposes 08/13/2021 Last Documented On 3 9:53AM ; [facility] History of colonoscopy - 201 9 -- botched per patient leading to weight loss 08/13/2021 Last Documented On 3 9:53AM ; [facility] History of coronavirus 2019- nCoV vaccine - Moderna #1 06/2020 #2 06/2020 #3 03/25/21 05/01/2021 Last Documented On 3 9:53AM ; [facility] History of osteoarthritis of multiple sites - accelerated degenerative disk and joint disease 05/01/2021 Last Documented On 3 9:53AM ; [facility] History of splenic laceration - requirin g slenectomy 05/01/2021 Last Documented On 3 9:53AM ; [facility] History of spinal stenosis - lumbar and thoracic 05/01/2021 Last Documented On 3 9:53AM ; [facility] History of restless legs syndrome 2021 Last Documented On 3 9:53AM ; [facility] History of chronic peptic ulcer 05/01/19 Last Documented On 3 9:53AM ; [facility] History of chronic obstructive pulmonary disease 05/01/2021 Last Documented On 3 9:53AM ; [facility] History of tricuspid regurgitation 05/01 Last Documented On 3 9:53AM ; [facility] History of mitral regurgitation 05/01/19 Last Documented On 3 9:53AM ; [facility] History of aortic regurgitation 05/01/19 Last Documented On 3 9:53AM ; [facility] Family History Includes: Family History addressed during this encounter Description Last Updated Sororal history of dementia of Alzheimer's type with early onset - oldest sister - and depression 05/01/2021 Last Documented On 3 9:53AM ; [facility] Review of Systems Includes: Review of Systems from this encounter Systemic: Not feeling poorly (malaise). No fever and no chills. Night sweats. Head: No headache and no sinus pain. Neck: Neck pain and neck stiffness. Eyes: No vision problems. Itching of the eyes. No eye pain. Otolaryngeal: No hearing loss and no earache. Nasal discharge. No hoarseness and no sore throat. Cardiovascular: No chest pain or discomfort, no palpitations, and the heart rate was not fast. Pulmonary: No dyspnea. Cough. No wheezing. Gastrointestinal: No heartburn. No nausea and [...] Active Last Documented On 07/05/2023 10:12AM ; [facility] Note: Imported from external source. Valium Allergy Nausea, Vomiting, Diarrhea / Diarrheal disorder 04/01/2015 Active Last Documented On 07/05/2023 10:12AM ; [facility] Note: Imported from external source. Sulfa Antibiotics Allergy Nausea, Vomiting, Diarrhea / Diarrheal disorder 08/13/2021 Active Last Documented On 07/05/2023 10:12AM ; [facility] Note: Imported from external source. Percocet Allergy Nausea, Vomiting, Diarrhea / Diarrheal disorder 04/01/2015 Active Last Documented On 07/05/2023 10:12AM ; [facility] Note: Imported from external source. Morphine Sulfate Allergy Nausea, Vomiting, Diarrhea / Diarrheal disorder 04/01/2015 Resolved Last Documented On 09/22/2022 11:29AM ; [facility] Note: Imported from external source. Morphine Sulfate Allergy Nausea, Vomiting, Diarrhea / Diarrheal disorder 04/01/2015 Active Last Documented On 10:12AM ; [facility] Ancef Allergy Nausea, Vomiting , Diarrhea / Diarrheal disorder 04/01/2015 Active Last Documented On 07/05/2023 10:12AM ; [facility] Note: Imported from external source. Encounters Encounter Provider Location Date Check-In Time Check-Out Time Diagnosis FOLLOW UP CANDY LEUNG MD [facility] 3 9:52AM 11:05AM Generalized Anxiety Disorder,Psycho physiological Insomnia,Attent ion Deficit Disorder Without Hyperactivity,M ajor Depression Insurance Includes: Active Insurance Policies Plan Name Member ID Group # Subscriber Relationship Effect lauryn Dates 1 - [employer] [id number] MIGUEL PARK Self Clinical Notes Includes: Clinical Notes from this encounter No Clinical Notes Recorded
--- OUTSIDE RECORDS SUMMARY | 2024-06-08 02:37 | XMS_ITS | Clinical Summary ---
Author Organization [facility] Address [address] [place] [address] Phone Care Team Providers Care Central Office Associate Name Role Phone JOS HAMILTON, RENU Valerio Unavailable [phone] ELIDIA BARNETT, NAREN Lozano Unavailable [phone] ROHAN HAMILTON, ERNIE Hinds Primary Care Provider [phone] VELVET HAMILTON, BUD Fernandez Unavailable [phone] DANNI HAMILTON, CANDY MITCHELL Unavailable [phone] Reason for Visit and Chief Complaint * PHONE CALL Problems Includes: Problems addressed during this encounter and other active Problems All Visits Onset Date Resolved Date Provider Condition S tatus Panic Disorder 05/06/2023 CANDY Wright Active Last Documented On 4 8:48PM ; [facility] Marijuana By Prescription 07/27/2022 SUSIE STOKES TALENT ENGINEER-C Active Last Documented On 3 8:03PM ; [facility] Folic Acid Deficiency 03/31/2022 SUSIE BARRERA TALENT ENGINEER-C Active Last Documented On 2 9:21AM ; [facility] Hyperlipidemia 07/02/2021 SUSIE STOKES FN P-C Active Last Documented On 2 12:57PM ; [facility] Attention Deficit Disorder Without Hyperactivity 2 Active Last Documented On 3 5:53PM ; [facility] Generalized Anxiety Disorder 05/01/2021 Active Last Documented On 3 5:53PM ; [facility] Psychophysiological Insomnia 05/01/2021 Active Last Documented On 3 5:53PM ; [facility] Major Depression 05/01/2021 Active Last Documented On 3 5:53PM ; [facility] Iron Deficiency Anemia 01/27/2021 SUSIE Fernandez [employer] TALENT ENGINEER-C Active Last Documented On 1 9:09AM ; [facility] Aortic Regurgitation 01/21/2021 SUSIE Fernandez KIKE TALENT ENGINEER-C Active Last Documented On 01/21/2021 9:23AM ; [facility] Note: mild on ECHO 2020. Mitral Regurgitation 01/21/2021 SUSIE Fernandez KIKE TALENT ENGINEER-C Active Last Documented On 01/21/2021 9:22AM ; [facility] Note: mild on ECHO 2020. Tricuspid Regurgitation 01/21/2021 ROSALIND Fernandez KIKE TALENT ENGINEER-C Active Last Documented On 01/21/2021 9:23AM ; [facility] Note: mild on ECHO 2020. Constipation 11/27/2020 SUSIE Fernandez CHILD ERS TALENT ENGINEER-C Active Last Documented On 1 9:08AM ; [facility] Spinal Stenosis Lumbar 11/27/2020 SUSIE Fernandez [employer] TALENT ENGINEER-C Active Last Documented On 1 7:54AM ; [facility] Spinal Stenosis Thoracic 11/27/2020 SUSIE Gonzalez HILDERS TALENT ENGINEER-C Active Last Documented On 1 7:53AM ; [facility] Chronic Obstructive Pulmonary Disease 12/28/2019 SUSIE Fernandez KIKE TALENT ENGINEER-C Active Last Documented On 0 10:52AM ; [facility] Splenic Laceration 01/12/2019 ERNIE Wright Active Last Documented On 01/12/2019 11:00AM ; [facility] 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 [facility] Depression with Anxiety 09/26/2012 ERNIE SHEPHERD MD Active Last Documented On 5 10:05AM ; [facility] Restless Legs Syndrome 09/26/2012 ERNIE ROSALES MD Active Last Documented On 5 10:05AM ; [facility] Peptic Ulcer Chronic 05/31/2012 ERNIE MADRIGAL MD Active Last Documented On 5 10:04AM ; [facility] Osteoarthritis Generalized Multiple Sites 05/31/2012 ERNIE MADRIGAL MD Active Last Documented On 5 10:05AM ; [facility] Plan of Treatment Future Appointments Date Time Location Provi ronel PSYCH ADULT FOLLOW UP 06/13/2024 10:00AM [facility] CANDY LEUNG MD Last Documented On 11:09AM ; [facility] Assessments Includes: Assessments from this encounter [...] 08/23/2023 6:32PM By ERNIE MADRIGAL MD ; [facility] LORazepam 0.5 MG Oral Tablet 08/23/2023 Provider: CANDY LEUNG MD Diagnosis: Generalized anxi ety disorder as directed - 1/2 - 1 tab a day as needed for severe panic attacks Last Documented On 08/23/2023 1:38PM By Nani Leung MD ; [facility] Focalin 10 MG Oral Tablet 08/12/2023 Provider: CANDY LEUNG MD Diagnosis: Attention-defici t hyperactivity disorder, unspecified type as directed 1 tablet in the morning and 1 tablet at noon Last Documented On 08/12/2023 10:36AM By Nani Leung MD ; [facility] traZODone HCl 100 MG Oral Tablet 07/20/2023 Provider: CANDY LEUNG MD Diagnosis: Psychophysiologi c insomnia as directed 4 tabs at bedtime Last Documented On 07/20/2023 3:22PM By Nani Leung MD ; [facility] Pramipexole Dihydrochloride 0.75 MG Oral Tablet 06/15/2023 Provider: ERNIE MADRIGAL MD Diagnosis: 2 at 5 pm and 2 at bedtime Last Documented On 07/05/2023 10:11AM By NIKKI HOWARD ; [facility] Sertraline HCl 100 MG Oral Tablet 05/31/2023 Provider: CANDY LEUNG MD Diagnosis: Major depressive disorder, recurrent, unspecified ud - as directed as directed 2 tabs daily Last Documented On 05/31/2023 10:55AM By Nani Leung MD ; [facility] Levocetirizine Dihydrochloride 5 MG Oral Tablet 2023 Provider: Diagnosis: Last Documented On 05/14/2023 8:57AM By Alyssa HOWARD ; [facility] Vitamin D 25 MCG (1000 UT) Oral Tablet 05/14/2023 Pr ovider: Diagnosis: Last Documented On 05/14/2023 8:58AM By Alyssa HOWARD ; [facility] Trelegy Ellipta 100-62.5-25 MCG/ACT Inhalation Aerosol Powder Breath Activated 05/14/2023 Provider: SUSIE CARLTON Diagnosis: Chronic obstruct lauryn pulmonary disease, unspecified 1 puff daily Last Documented On 4 9:31AM By Susie CARLTON ; [facility] Famotidine 20 MG Oral Tablet 05/14/2023 Provider: SUSIE CARLTON Diagnosis: Gastro-esophagea l reflux disease without esophagitis take 1-2 tabs daily Last Documented On 4 9:47AM By Susie CARLTON ; [facility] traZODone HCl 100 MG Oral Tablet 03/16/2023 Provider: CANDY LEUNG MD Diagnosis: Psychophysiologi c insomnia as directed 5 tabs at bedtime Last Documented On 03/16/2023 12:00PM By Nani Leung MD ; [facility] HYDROcodone-Acetaminophen 10 -325 MG Oral Tablet 02/23/2023 Provider: BUD VERDIN MD Diagnosis: use prn Last Documented On 03/16/2023 11:27AM By NIKKI HOWARD ; [facility] EQ Laxative Maximum Strength 25 MG Oral Tablet 023 Provider: Diagnosis: 3-4 tabs at night Last Documented On 09/22/2022 11:16AM By NIKKI HOWARD ; [facility] Stool Softener 100 MG Oral Tablet 07/02/2021 Provide r: Diagnosis: 3 times daily Last Documented On 07/02/2021 8:37AM By Alyssa HOWARD ; [facility] Fluticasone Propionate 50 MCG/ACT Nasal Suspension 06/10/2021 Provider: ERNIE MADRIGAL MD Diagnosis: Allergic rhiniti s due to pollen 1 sq each nostril 1-2xd as needed Last Documented On 06/10/2021 12:32PM By ERNIE MADRIGAL MD ; [facility] Biotin 5000 MCG OR CAPS 05/01/2021 Provider: Diagnosis: 1 cap daily Last Documented On 08/01/2022 5:38PM By NIKKI HOWARD ; [facility] Ocuvite Adult 50+ OR CAPS 05/01/2021 Provider: Diagnosis: 1 cap daily Last Documented On 08/01/2022 5:38PM By NIKKI HOWARD ; [facility] Past Medications on file traZODone HCl 100 MG Oral Tablet 07/20/2023 - 08/19/2023 Provider: CANDY LEUNG MD Diagnosis: Psychophysiologi c insomnia 4 tabs at bedtime Last Documented On 07/20/2023 2:59PM By MICHELLE PARKS ; [facility] Pramipexole Dihydrochloride 0.75 MG Oral Tablet 03/16/2023 - 06/14/2023 Provider: Diagnosis: 2 tabs late afternoon and 2 in the evening Last Documented On 03/16/2023 11:20AM By NIKKI HOWARD ; [facility] Medications Administered Includes: Administered Medications from this encounter No Administered Medications Recorded Results Includes: Results discussed during this encounter No Results Recorded For Specified Dates History of Present Illness Includes: History of Present Illness from this encounter No History of Present Illness Recorded Social History Description Last Updated Tobacco non-user - quit smoking 04/2023 Last Documented On 4 2:04PM ; [facility] Stopped smoking years ago 2012 3 Last Documented On 4 2:04PM ; [facility] Former smoker 02/03/2022 Last Documented On 4 2:04PM ; [facility] Currently 06/14/2019 Last Documented On 4 2:04PM ; [facility] Smoking Status Unknown Medical History Includes: Medical History addressed during this encounter Description Last Updated Surgery T1-L1 Spinal Fusion - 03/12/[address] Jorge Hsieh ~LEEP 2008- Dr. Cristina 12/31/2022 Last Documented On 4 2:04PM ; [facility] History of colonoscopy fiberoptic was pe rformed 12/26/2018 F/U in 5 years 02/03/2022 Last Documented On 4 2:04PM ; [facility] History of screening mammogram was perfo rmed 10/22/2020 02/03/2022 Last Documented On 4 2:04PM ; [facility] History of essential hypertension 2021 Last Documented On 4 2:04PM ; [facility] History of hyperlipidemia 08/22/2021 Last Documented On 4 2:04PM ; [facility] LOW BACK FUSIONS 1994, 2004, 2007, 2011, 2015, 2020 ~APPENDECTOMY 1973 ~KNEES 04 06 03 ~NECK FUSIONS 06 08 07 ~SPINAL SIMULLATORS 2009 ~CHOLECYSTECTOM 2014 ~SHOULDERS 2012 2013 2014 ~SPLENECTOMY 12/31/18 ~ABDOMINAL DRAIN 01/2019 PANCREATIC STENT 02/201901/09/2021 Last Documented On 4 2:04PM ; [facility] History of Abnormal Pap Smear 06/14/2019 Last Documented On 4 2:04PM ; [facility] History of arthritis 06/14/2019 Last Documented On 4 2:04PM ; [facility] No recent change in medical history 06/03 Last Documented On 4 2:04PM ; [facility] Family History Includes: Family History addressed during this encounter Description Last Updated Family history reviewed - unchanged sin e last visit 12/28/2019 Last Documented On 4 2:04PM ; [facility] Sororal history of diabetes mellitus MOTHER PARKINSON/M.S. ~SISTER CRONES ~FATHER HIGH BLOOD PRESSURE ~ 06/14/2019 Last Documented On 4 2:04PM ; [facility] Review of Systems Includes: Review of Systems [...] Active Last Documented On 07/05/2023 10:12AM ; [facility] Note: Imported from external source. Valium Allergy Nausea, Vomiting, Diarrhea / Diarrheal disorder 04/01/2015 Active Last Documented On 07/05/2023 10:12AM ; [facility] Note: Imported from external source. Sulfa Antibiotics Allergy Nausea, Vomiting, Diarrhea / Diarrheal disorder 08/13/2021 Active Last Documented On 07/05/2023 10:12AM ; [facility] Note: Imported from external source. Percocet Allergy Nausea, Vomiting, Diarrhea / Diarrheal disorder 04/01/2015 Active Last Documented On 07/05/2023 10:12AM ; [facility] Note: Imported from external source. Morphine Sulfate Allergy Nausea, Vomiting, Diarrhea / Diarrheal disorder 04/01/2015 Resolved Last Documented On 09/22/2022 11:29AM ; [facility] Note: Imported from external source. Morphine Sulfate Allergy Nausea, Vomiting, Diarrhea / Diarrheal disorder 04/01/2015 Active Last Documented On 10:12AM ; [facility] Ancef Allergy Nausea, Vomiting , Diarrhea / Diarrheal disorder 04/01/2015 Active Last Documented On 07/05/2023 10:12AM ; [facility] Note: Imported from external source. Encounters Encounter Provider Location Date Check-In Time Check-Out Time Diagnosis * PHONE CALL SUSIE CARLTON 04/30/2023 2:04PM 11:59PM Insurance Includes: Active Insurance Policies Plan Name Member ID Group # Subscriber Relationship Effect lauryn Dates 1 - [employer]AGE [id number] ELOISA PARK Self Clinical Notes Includes: Clinical Notes from this encounter * Progress note Date Encounter Last Documented by 04/30/2023 * PHONE CALL Last documented on 04/30/2023; 2:27 PM, SUSIE ALLEN-Lisa; [facility] Active Problems & Conditions - [...] - Splenic Laceration - 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 [facility] - I36.1 - Tricuspid Regurgitation - mild on ECHO 2020. Chief Complaint Phone Call - Chief Concern: Reason for call: Eloisa called yesterday saying she is supposed to get an iron infusion ordered by us. The labs she had done at [facility] were abnormal. The provider there had not sent us anything so that lab you saw this morning did not have everything on it. I printed off the lab from [facility] and had Nereyda scan it in for me so you can see it. pt phone # for return call: [phone] Date/Initials:04/30/23 tlk. Current Medication - Biotin 5000 MCG Capsule [...] at noon, 30 days, 0 refills - Focalin 10 MG Oral Tablet as directed 1 tablet in the morning and 1 tablet at noon, 30 days, 0 refills - Focalin 5 MG Oral Tablet as directed - 1 tab in am with food, 30 days, 0 refills - Gabapentin 300 MG Oral Capsule as directed 2 in the evening, 30 days, 0 refills - HYDROcodone-Acetaminophen 10-325 MG Oral Tablet as directed use prn, 10 days, 0 refills - LORazepam 0.5 MG Oral Tablet as directed - 1/2 - 1 tab a day as needed for severe panic attacks, 30 days, 0 refills - Methocarbamol 750 MG Oral Tablet prn, 15 days, 0 refills - Ocuvite Adult 50+ Capsule as directed 1 cap daily, 0 days, 0 refills - Ondansetron 4 MG Oral Tablet Disintegrating Take one four times a day as needed, 30 days, 1 refills - Pramipexole Dihydrochloride 0.75 MG Oral Tablet as directed 2 tabs late afternoon and 2 in the evening, 90 days, 0 refills - Probiotic (Lactobacillus) Oral Capsule 1 capsule daily 0 days, 0 refills - Sertraline HCl 100 MG Oral Tablet ud - as directed as directed 2 tabs daily, 90 days, 3 refills - Stool Softener 100 MG Oral Tablet 3 times daily, 0 days, 0 refills - Tamsulosin HCl 0.4 MG Oral Capsule TAKE 1 CAPSULE BY MOUTH DAILY, 30 days, 11 refills - traZODone HCl 100 MG Oral Tablet as directed 5 tabs at bedtime, 30 days, 3 refills - Xyzal 5 MG Tablet as directed 1 tab daily, 0 days, 0 refills Past Medical/Surgical History [...] NECK FUSIONS 03 06 07 SPINAL SIMULLATORS 05 2009 CHOLECYSTECTOM 2014 SHOULDERS 2012 2013 2014 SPLENECTOMY 12/31/18 ABDOMINAL DRAIN 01/2019 PANCREATIC STENT 02/2019. Social History Tobacco use: Tobacco non-user - quit smoking 2012 and former smoker stopped smoking years ago 2012. Marital: Currently . Allergies - Ancef Reaction: [...] PARKINSON/M.S. SISTER CRONES FATHER HIGH BLOOD PRESSURE Plan StartCited - Other PHY ORDER/COMMENT let patient know that the labs they sent us was just an iron panel, not anything with the hemoglobin and CBC, showing blood counts. When she has needed the iron infusions in the past, iron level was less than 10. The one they sent us was 42, which is almost normal. At this point, from what they sent us, no need for infusion. If they feel she needed something, they are welcome to order something. EndCited Care Team - CANDY LEUNG MD - Psychiatry - RENU ARGUELLO MD - Gastroenterology - BUD VERDIN MD - Pain Management - TIMMY VALADEZ MD - Neurology Health Reminders - Assess Need for CT Lung Screen satisfied 04/30/2023. - Assess Tobacco Use satisfied 04/30/2023. - Colorectal Cancer Screening satisfied 12/26/2018. - Mammogram satisfied 10/22/2020.
--- OUTSIDE RECORDS SUMMARY | 2024-06-08 02:37 | XMS_ITS ---
Author Organization [facility] S Address [address] [place] [address] Phone Care Team Providers Care Cardiac Specialist Name Role Phone DANNI HAMILTON, CANDY MITCHELL Unavailable [phone] Problems Includes: Active, inactive, and resolved Problems All Visits Onset Date Resolved Date Provider Condition S tatus Attention Deficit Disorder Without Hyperactivity 05/01/2021 CANDY LEUNG MD Active Last Documented On 2 3:52PM ; [facility] Generalized Anxiety Disorder 05/01/2021 CANDY LEUNG MD Active Last Documented On 2 2:53PM ; [facility] Psychophysiological Insomnia 05/01/2021 CANDY LEUNG MD Active Last Documented On 2 2:53PM ; [facility] Major Depression 05/01/2021 CANDY LEUNG MD Active Last Documented On 2 2:52PM ; [facility] Plan of Treatment Education and Decision Aids were provided during visit for: Discussed calming techniques such as breathing exercises and other relaxation techniques Last Documented On 3 9:53AM ; [facility] Discussed good sleep hygiene habits Last Documented On 3 10:18AM ; [facility] Discussed calming techniques such as breathing exercises and other relaxation techniques if and when anxious Last Documented On 3 4:05PM ; [facility] Discussed good sleep hygiene habits - balanced meal plan, health supplements but pt said she cannot tolerate protein shakes Last Documented On 3 4:05PM ; [facility] Patient education about medi cation ---Education was given on medication(s) and diagnosis. I reviewed the risks, benefits and side effects of patient's medications Last Documented On 2 10:54AM ; [facility] Discussed calming techniques such as breathing exercises and other relaxation techniques Last Documented On 2 10:54AM ; [facility] Discussed good sleep hygiene habits Last Documented On 2 10:56AM ; [facility] Patient education about medi cation --- I educated patient on medication(s) and diagnosis. I reviewed the risks, benefits and side effects of patient's medications Last Documented On 2 1:50PM ; [facility] Discussed calming techniques such as breathing exercises and other relaxation techniques Last Documented On 2 1:50PM ; [facility] Discussed good sleep hygiene habits Last Documented On 2 1:58PM ; [facility] Patient education about medi cation --- I educated patient on medication(s) and diagnosis. I reviewed the risks, benefits and side effects of patient's medications Last Documented On 2 9:19AM ; [facility] Discussed calming techniques such as breathing exercises and other relaxation techniques Last Documented On 2 9:19AM ; [facility] Discussed good sleep hygiene habits Last Documented On 2 9:41AM ; [facility] Patient education about medi cation --- I educated patient on medication(s) and diagnosis. I reviewed the risks, benefits and side effects of patient's medications Last Documented On 2 1:50PM ; [facility] Discussed calming techniques such as breathing exercises and other relaxation techniques Last Documented On 2 1:50PM ; [facility] Patient counseling I discuss ed risk, benefits, and side effects of sleep aid Belsomra - including the possibility of sleep related behaviors i.e. sleepwalking, sleeptalking, sleepdriving, etc... Pt verbalized understanding Last Documented On 2 2:02PM ; [facility] Counseling for nutrition/jordan ght management provided Last Documented On 2 2:02PM ; [facility] Discussed good sleep hygiene habits Last Documented On 2 2:02PM ; [facility] Patient education about medi cation --- I educated patient on medication(s) and diagnosis. I reviewed the risks, benefits and side effects of patient's medications Last Documented On 2 2:36PM ; [facility] Discussed calming techniques such as breathing exercises and other relaxation techniques Last Documented On 2 2:36PM ; [facility] Counseling for nutrition/jordan ght management provided Last Documented On 2 3:23PM ; [facility] Discussed good sleep hygiene habits Last Documented On 2 3:23PM ; [facility] Assessments Includes: Assessments for all patient encounters Findings Encounter Date Attention deficit disorder w ithout hyperactivity FOLLOW UP with CANDY LEUNG MD 06/29/2022 Last Documented On 3 2:44PM ; [facility] Generalized anxiety disorder FOLLOW UP with MARILIA LEUNG MD 06/29/2022 Last Documented On 3 2:44PM ; [facility] Major depressive disorder FOLLOW UP with CANDY LEUNG MD 06/29/2022 Last Documented On 3 2:44PM ; [facility] Psychophysiological insomnia FOLLOW UP with MARILIA LEUNG MD 06/29/2022 Last Documented On 3 2:44PM ; [facility] Attention deficit disorder w ithout hyperactivity TELEHEALTH with CANDY ELUNG MD 05/04/2022 Last Documented On 3 4:12PM ; [facility] Generalized anxiety disorder TELEHEALTH with MET JACQUELINE LEUNG MD 05/04/2022 Last Documented On 3 4:12PM ; [facility] Major depressive disorder TELEHEALTH with ESME LEUNG MD 05/04/2022 Last Documented On 3 4:12PM ; [facility] Psychophysiological insomnia TELEHEALTH with MET JACQUELINE LEUNG MD 05/04/2022 Last Documented On 3 4:12PM ; [facility] Generalized anxiety disorder * PHONE CALL with Marta LEUNG MD 02/16/2022 Last Documented On 2 9:32AM ; [facility] Major depressive disorder * PHONE CALL with MARILIA LEUNG MD 01/26/2022 Last Documented On 2 2:27PM ; [facility] Attention deficit disorder w ithout hyperactivity FOLLOW UP with CANDY LEUNG MD 01/09/2022 Last Documented On 2 12:34AM ; [facility] Generalized anxiety disorder FOLLOW UP with MARILIA LEUNG MD 01/09/2022 Last Documented On 2 12:34AM ; [facility] Major depressive disorder FOLLOW UP with CANDY LEUNG MD 01/09/2022 Last Documented On 2 12:34AM ; [facility] Psychophysiological insomnia FOLLOW UP with MARILIA LEUNG MD 01/09/2022 Last Documented On 2 12:34AM ; [facility] Attention deficit disorder w ithout hyperactivity * PHONE CALL with CANDY LEUNG MD 01/05/2022 Last Documented On 2 2:03PM ; [facility] Attention deficit disorder w ithout hyperactivity FOLLOW UP with CANDY LEUNG MD 10/14/2021 Last Documented On 2 8:08AM ; [facility] Generalized anxiety disorder FOLLOW UP with MARILIA LEUNG MD 10/14/2021 Last Documented On 2 8:08AM ; [facility] Major depressive disorder FOLLOW UP with CANDY LEUNG MD 10/14/2021 Last Documented On 2 8:08AM ; [facility] Psychophysiological insomnia FOLLOW UP with MARILIA LEUNG MD 10/14/2021 Last Documented On 2 8:08AM ; [facility] Attention deficit disorder w ithout hyperactivity FOLLOW UP with CANDY LEUNG MD 08/13/2021 Last Documented On 2 12:15PM ; [facility] Generalized anxiety disorder FOLLOW UP with MARILIA LEUNG MD 08/13/2021 Last Documented On 2 12:15PM ; [facility] Major depressive disorder FOLLOW UP with CANDY LEUNG MD 08/13/2021 Last Documented On 2 12:15PM ; [facility] Psychophysiological insomnia FOLLOW UP with MARILIA LEUNG MD 08/13/2021 Last Documented On 2 12:15PM ; [facility] Attention deficit disorder w ithout hyperactivity TELEHEALTH with CANDY LEUNG MD 06/06/2021 Last Documented On 2 11:06PM ; [facility] Generalized anxiety disorder TELEHEALTH with MET JACQUELINE LEUNG MD 06/06/2021 Last Documented On 2 11:06PM ; [facility] Major depressive disorder TELEHEALTH with ESME LEUNG MD 06/06/2021 Last Documented On 2 11:06PM ; [facility] Psychophysiological insomnia TELEHEALTH with MET JACQUELINE LEUNG MD 06/06/2021 Last Documented On 2 11:06PM ; [facility] Psychophysiological insomnia * PHONE CALL with Marta LEUNG MD 05/21/2021 Last Documented On 2 5:02PM ; [facility] Attention deficit disorder w ithout hyperactivity PSYCH NEW PATIENT EXAM- ADULT with CANDY LEUNG MD 05/01/2021 Last Documented On 2 9:17AM ; [facility] Generalized anxiety disorder PSYCH NEW P ATIENT EXAM- ADULT with CANDY LEUNG MD 05/01/2021 Last Documented On 2 9:17AM ; [facility] Major depressive disorder PSYCH NEW YESENIA ENT EXAM- ADULT with CANDY LEUNG MD 05/01/2021 Last Documented On 2 9:17AM ; [facility] Psychophysiological insomnia PSYCH NEW P ATIENT EXAM- ADULT with CANDY LEUNG MD 05/01/2021 Last Documented On 2 9:17AM ; [facility] Instructions Includes: Instructions for all patient encounters Education and Decision Aids were provided during visit for: Discussed calming techniques such as breathing exercises and other relaxation techniques Last Documented On 3 9:53AM ; [facility] Discussed good sleep hygiene habits Last Documented On 3 10:18AM ; [facility] Discussed calming techniques such as breathing exercises and other relaxation techniques if and when anxious Last Documented On 3 4:05PM ; [facility] Discussed good sleep hygiene habits - balanced meal plan, health supplements but pt said she cannot tolerate protein shakes Last Documented On 3 4:05PM ; [facility] Patient education about medi cation ---Education was given on medication(s) and diagnosis. I reviewed the risks, benefits and side effects of patient's medications Last Documented On 2 10:54AM ; [facility] Discussed calming techniques such as breathing exercises and other relaxation techniques Last Documented On 2 10:54AM ; [facility] Discussed good sleep hygiene habits Last Documented On 2 10:56AM ; [facility] Patient education about medi cation --- I educated patient on medication(s) and diagnosis. I reviewed the risks, benefits and side effects of patient's medications Last Documented On 2 1:50PM ; [facility] Discussed calming techniques such as breathing exercises and other relaxation techniques Last Documented On 2 1:50PM ; [facility] Discussed good sleep hygiene habits Last Documented On 2 1:58PM ; [facility] Patient education about medi cation --- I educated patient on medication(s) and diagnosis. I reviewed the risks, benefits and side effects of patient's medications Last Documented On 2 9:19AM ; [facility] Discussed calming techniques such as breathing exercises and other relaxation techniques Last Documented On 2 9:19AM ; [facility] Discussed good sleep hygiene habits Last Documented On 2 9:41AM ; [facility] Patient education about medi cation --- I educated patient on medication(s) and diagnosis. I reviewed the risks, benefits and side effects of patient's medications Last Documented On 2 1:50PM ; [facility] Discussed calming techniques such as breathing exercises and other relaxation techniques Last Documented On 2 1:50PM ; [facility] Patient counseling I discuss ed risk, benefits, and side effects of sleep aid Belsomra - including the possibility of sleep related behaviors i.e. sleepwalking, sleeptalking, sleepdriving, etc... Pt verbalized understanding Last Documented On 2 2:02PM ; [facility] Counseling for nutrition/jordan ght management provided Last Documented On 2 2:02PM ; [facility] Discussed good sleep hygiene habits Last Documented On 2 2:02PM ; [facility] Patient education about medi cation --- I educated patient on medication(s) and diagnosis. I reviewed the risks, benefits and side effects of patient's medications Last Documented On 2 2:36PM ; [facility] Discussed calming techniques such as breathing exercises and other relaxation techniques Last Documented On 2 2:36PM ; [facility] Counseling for nutrition/jordan ght management provided Last Documented On 2 3:23PM ; [facility] Discussed good sleep hygiene habits Last Documented On 2 3:23PM ; [facility] Medical Equipment - Implanted Devices Includes: Current and historical Devices No Medical Equipment Recorded Medications Includes: Current and historical Medications Current Medications (continue as prescribed) EQ Laxative Maximum Strength 25 MG Oral Tablet 023 Provider: Diagnosis: 3 tabs at night Last Documented On 3 10:04AM By NIKKI HOWARD ; [facility] Focalin 5 MG Oral Tablet 06/29/2022 Provider: MET JACQUELINE LEUNG MD Diagnosis: Attn-defct hyper activity disorder, predom inattentive type as directed - 1 tab in am with food Last Documented On 3 11:33AM By Nani Leugn MD ; [facility] LORazepam 0.5 MG Oral Tablet 06/29/2022 Provider: CANDY LEUNG MD Diagnosis: Generalized anxi ety disorder as directed - 1/2 - 1 tab a day as needed for severe panic attacks Last Documented On 3 11:33AM By Nani Leung MD ; [facility] OLANZapine 15 MG Oral Tablet 06/29/2022 Provider: CANDY LEUNG MD Diagnosis: Major depressive disorder, recurrent, moderate as directed -- 1 tab at bedtime Last Documented On 3 11:33AM By Nani Leung MD ; [facility] traZODone HCl 100 MG Oral Tablet 06/15/2022 Provider: CANDY LEUNG MD Diagnosis: Psychophysiologi c insomnia as directed 3 tabs at bedtime Last Documented On 06/15/2022 3:36PM By Nani Leung MD ; [facility] Folic Acid 1 MG Oral Tablet 03/31/2022 Provider: SUSIE STOKES [employer] OPERATOR-C Diagnosis: 1 tab daily Last Documented On 3 11:38AM By NIKKI HOWARD ; [facility] Pramipexole Dihydrochloride 0.75 MG Oral Tablet 09/08/2021 Provider: TIMMY VALENZUELA MD Diagnosis: 2 tabs in the evening Last Documented On 3 11:39AM By NIKKI HOWARD ; [facility] Antacid 200-200-20 MG/5ML Oral Suspension 05/21/2021 Provider: MELANIE PARKINSON MD Diagnosis: as needed Last Documented On 06/06/2021 2:04PM By MICHELLE PARKS ; [facility] Ocuvite Adult 50+ Oral Capsule 05/01/2021 Provider: Diagnosis: 1 cap daily Last Documented On 05/01/2021 3:10PM By NIKKI HOWARD ; [facility] Xyzal 5 MG Oral Tablet 05/01/2021 Provider: Diagnosis: 1 tab daily Last Documented On 05/01/2021 3:10PM By NIKKI HOWARD ; [facility] Biotin 5000 MCG Oral Capsule 05/01/2021 Provider: Diagnosis: 1 cap daily Last Documented On 05/01/2021 3:13PM By NIKKI GUAMANA ; [facility] Stool Softener 100 MG Oral Capsule 05/01/2021 Pr ovider: Diagnosis: 1 cap tid Last Documented On 05/01/2021 3:12PM By NIKKI OCHOA RMA ; [facility] Ondansetron HCl 8 MG Oral Tablet 03/13/2021 Provider : MELNAIE PARKINSON MD Diagnosis: 2 tab prn nausea/vomiting Last Documented On 05/01/2021 3:04PM By NIKKI OCHOA A ; [facility] Anoro Ellipta 62.5-25 MCG/IN H Inhalation Aerosol Powder Breath Activated 03/11/2021 Provider: ERNIE MADRIGAL MD Diagnosis: 1 inhalation daily Last Documented On 05/01/2021 3:07PM By NIKKI OCHOA A ; [facility] Cyclobenzaprine HCl 10 MG Oral Tablet 01/06/2021 Pro vider: ERNIE MADRIGAL MD Diagnosis: take 1 tab prn Last Documented On 05/01/2021 3:07PM By NIKKI OCHOA A ; [facility] Suspended Medications Sertraline HCl 100 MG Oral Tablet 03/11/2022 Provide r: CANDY LEUNG MD Diagnosis: as directed 1 and 1/2 tabs daily Last Documented On 03/11/2022 4:45PM By Nani Leung MD ; [facility] Past Medications on file Gabapentin 300 MG Oral Capsule 06/29/2022 - 07/29/2022 Provider: Diagnosis: 2 capsules at night Last Documented On 3 10:02AM By NIKKI OCHOA RMA ; [facility] traZODone HCl 100 MG Oral Tablet 06/15/2022 - 06/30/19 Provider: Diagnosis: Psychophysiologi c insomnia 3 tabs at bedtime Last Documented On 3 10:16AM By NIKKI OCHOA ROWENAA ; [facility] LORazepam 0.5 MG Oral Tablet 05/20/2022 - 06/29/2022 Provider: CANDY LEUNG MD Diagnosis: Generalized anxi ety disorder as directed - 1/2 - 1 tab a day as needed for severe panic attacks Last Documented On 3 10:40AM By Nani Leung MD ; [facility] Focalin 5 MG Oral Tablet 05/20/2022 - 06/29/2022 Provider: CANDY LEUNG MD Diagnosis: Attn-defct hyper activity disorder, predom inattentive type as directed - 1 tab in am with food Last Documented On 3 10:36AM By Nani Leung MD ; [facility] traZODone HCl 100 MG Oral Tablet 05/04/2022 - 06/29/2022 Provider: CANDY LEUNG MD Diagnosis: Psychophysiologi c insomnia as directed -- 3 tabs at bedtime Last Documented On 3 10:16AM By NIKKI HOWARD ; [facility] OLANZapine 15 MG Oral Tablet 05/04/2022 - 06/29/2022 Provider: CANDY LEUNG MD Diagnosis: Major depressive disorder, recurrent, moderate as directed -- 1 tab at bedtime Last Documented On 3 10:51AM By Nani Leung MD ; [facility] oxyCODONE HCl 5 MG Oral Tablet 04/18/2022 - 06/29/2022 Provider: Diagnosis: use prn pain Last Documented On 3 10:25AM By Nani Leung MD ; [facility] LORazepam 0.5 MG Oral Tablet 04/13/2022 - 05/20/2022 Provider: CANDY LEUNG MD Diagnosis: Generalized anxi ety disorder as directed - 1/2 - 1 tab a day as needed for severe panic attacks Last Documented On 3 11:13AM By Nani Leung MD ; [facility] LORazepam 0.5 MG Oral Tablet 02/16/2022 - 04/13/2022 Provider: CANDY LEUNG MD Diagnosis: Generalized anxi ety disorder as directed - 1/2 - 1 tab a day as needed for severe panic attacks Last Documented On 3 10:01AM By Nani Leung MD ; [facility] traZODone HCl 50 MG Oral Tablet 02/04/2022 - 06/29/2022 Provider: CANDY LEUNG MD Diagnosis: Obstructive slee p apnea (adult) (pediatric) as directed 3-4 tablets at b edtime as needed for sleep Last Documented On 3 10:17AM By NIKKI HOWARD ; [facility] OLANZapine 10 MG Oral Tablet 01/26/2022 - 06/29/2022 Provider: CANDY LEUNG MD Diagnosis: Major depressive disorder, recurrent, unspecified as directed -- 1 tab at bedtime Last Documented On 3 10:16AM By NIKKI HOWARD ; [facility] LORazepam 0.5 MG Oral Tablet 01/09/2022 - 02/16/2022 Provider: CANDY LEUNG MD Diagnosis: Generalized anxi ety disorder as directed - 1/2 - 1 tab a day as needed for severe panic attacks Last Documented On 02/16/2022 1:30PM By Nani Leung MD ; [facility] Focalin 5 MG Oral Tablet 01/05/2022 - 05/20/2022 Provider: CANDY LEUNG MD Diagnosis: Attn-defct hyper activity disorder, predom inattentive type as directed - 1 tab in am with food Last Documented On 05/20/2022 6:59PM By Nani Leung MD ; [facility] Sertraline HCl 100 MG Oral Tablet 12/09/2021 - 03/11/2022 Provider: CANDY CASTANO MD Diagnosis: as directed 1 and 1/2 tabs daily Last Documented On 03/11/2022 4:34PM By Nani Leung MD ; [facility] traZODone HCl 50 MG Oral Tablet 11/05/2021 - 02/04/2022 Provider: CANDY LEUNG MD Diagnosis: Obstructive slee p apnea (adult) (pediatric) as directed 3-4 tablets at b edtime as needed for sleep Last Documented On 02/04/2022 4:27PM By Nani Leung MD ; [facility] traZODone HCl 50 MG Oral Tablet 11/05/2021 - 02/02/2022 Provider: Diagnosis: Obstructive slee p apnea (adult) (pediatric) 3-4 tablets at bedtime as needed for sleep Last Documented On 10/31/202 2 12:12AM By Nani Leung MD ; [facility] OLANZapine 5 MG Oral Tablet 10/14/2021 - 02/02/2022 Provider: CANDY LEUNG MD Diagnosis: Major depressive disorder, recurrent, moderate One tablet at bed time Last Documented On 2 12:12AM By Nani Leung MD ; [facility] Focalin 10 MG Oral Tablet 10/14/2021 - 11/13/2021 Provider: CANDY LEUNG MD Diagnosis: Generalized anxi ety disorder as directed -- 1 tab in am Last Documented On 10/14/2021 2:31PM By Nani Leung MD ; [facility] Gabapentin 300 MG Oral Capsule 09/08/2021 - 06/29/2022 Provider: Diagnosis: 1 to 2 capsuled three times a day Last Documented On 3 10:02AM By NIKKI HOWARD ; [facility] Sertraline HCl 100 MG Oral Tablet 09/04/2021 - 12/09/2021 Provider: CANDY CASTANO MD Diagnosis: as directed 1 and 1/2 tabs daily Last Documented On 2 11:01AM By Nani Leung MD ; [facility] traZODone HCl 50 MG Oral Tablet 09/04/2021 - 02/02/2022 Provider: CANDY LEUNG MD Diagnosis: Psychophysiologi c insomnia as directed 3 - 4 tablets at bedtime Last Documented On 2 12:12AM By Nani Leung MD ; [facility] traZODone HCl 50 MG Oral Tablet 09/04/2021 - 2 Provider: Diagnosis: Psychophysiologi c insomnia 3 - 4 tablets at bedtime Last Documented On 2 12:13AM By Nani Leung MD ; [facility] Pramipexole Dihydrochloride 0.75 MG Oral Tablet 08/13/2021 - 11/11/2021 Provider: Diagnosis: 1 afternoon prn and 2 at hs Last Documented On 08/13/2021 9:28AM By NIKKI HOWARD ; [facility] Gabapentin 300 MG Oral Capsule 08/13/2021 - 09/12/2021 Provider: ERNIE MADRIGAL MD Diagnosis: 2 at night Last Documented On 08/13/2021 9:26AM By NIKKI HOWARD ; [facility] Focalin 10 MG Oral Tablet 07/25/2021 - 02/02/2022 Provider: CANDY LEUNG MD Diagnosis: Attn-defct hyper activity disorder, predom inattentive type 1 tablet every morning with food Last Documented On 2 12:13AM By Nani Leung MD ; [facility] Focalin 10 MG Oral Tablet 06/30/2021 - 07/25/2021 Provider: CANDY LEUNG MD Diagnosis: Attn-defct hyper activity disorder, predom inattentive type 1 tablet every morning with food Last Documented On 07/25/2021 4:30PM By Nani Leung MD ; [facility] traZODone HCl 50 MG Oral Tablet 06/06/2021 - 02/02/2022 Provider: CANDY LEUNG MD Diagnosis: Psychophysiologi c insomnia as directed 2 or 3 tabs at bedtime Last Documented On 2 12:13AM By Nani Leung MD ; [facility] Focalin 10 MG Oral Tablet 06/02/2021 - 06/30/2021 Provider: CANDY LEUNG MD Diagnosis: Attn-defct hyper activity disorder, predom inattentive type 1 tablet every morning with food Last Documented On 06/30/2021 7:03PM By Nani Leung MD ; [facility] Lubiprostone 24 MCG Oral Capsule 05/21/2021 - 08/13/2021 Provider: MELANIE MEJÍA MD Diagnosis: 1 capsule daily Last Documented On 08/13/2021 9:25AM By NIKKI HOWARD ; [facility] Belsomra 20 MG Oral Tablet 05/21/2021 - 08/13/2021 Provider: CANDY LEUNG MD Diagnosis: Psychophysiologi c insomnia as directed -- 1/2 - 1 tab a t bedtime as needed for sleep Last Documented On 2 10:14AM By Nani Leung MD ; [facility] HM Melatonin 10 MG Oral Tablet Extended Release 05/01/2021 - 08/13/2021 Provider: Diagnosis: 1 tab at bedtime Last Documented On 08/13/2021 9:25AM By NIKKI HOWARD ; [facility] Adult Aspirin Regimen 81 MG Oral Tablet Delayed Release 05/01/2021 - 05/04/2022 Provider: Diagnosis: 1 tab daily Last Documented On 3 11:25AM By NIKKI HOWARD ; [facility] Lansoprazole 30 MG Oral Capsule Delayed Release 05/01/2021 - 08/13/2021 Provider: Diagnosis: 1 cap daily Last Documented On 08/13/2021 9:26AM By NIKKI HOWARD ; [facility] Focalin 10 MG Oral Tablet 05/01/2021 - 06/02/2021 Provider: CANDY LEUNG MD Diagnosis: Attn-defct hyper activity disorder, predom inattentive type 1 tablet every morning with food Last Documented On 11:41AM By Nani Leung MD ; [facility] EQ Laxative Maximum Strength 25 MG Oral Tablet 0 05/01/2021 - 06/29/2022 Provider: Diagnosis: 1 tab at night Last Documented On 3 10:04AM By NIKKI HOWARD ; [facility] DayVigo 5 MG Oral Tablet 05/01/2021 - 05/21/2021 Provider: CANDY LEUNG MD Diagnosis: Psychophysiologi c insomnia as directed -- 1 tab at hs a s needed for sleep Last Documented On 05/01/2021 4:02PM By Nani Leung MD ; [facility] amLODIPine Besylate 5 MG Ora l Tablet 04/24/2021 - 05/04/2022 Provider: ERNIE MADRIGAL MD Diagnosis: 1 tab daily Last Documented On 3 11:26AM By NIKKI HOWARD ; [facility] Gabapentin 300 MG Oral Capsule 04/21/2021 - 08/13/2021 Provider: ERNIE MADRIGAL MD Diagnosis: 1 cap tid Last Documented On 08/13/2021 9:26AM By NIKKI HOWARD ; [facility] busPIRone HCl 5 MG Oral Tablet 04/14/2021 - 08/13/2021 Provider: MELANIE MEJÍA MD Diagnosis: 1 tab tid Last Documented On 08/13/2021 9:27AM By NIKKI HOWARD ; [facility] Linzess 290 MCG Oral Capsule 03/28/2021 - 08/13/2021 Provider: SUSIE MCALLISTER RS DAM OPERATOR-C Diagnosis: 1 cap daily pt thinks her bottle says 145 mcg Last Documented On 08/13/2021 9:27AM By NIKKI HOWARD ; [facility] Mirtazapine 45 MG Oral Tablet 03/20/2021 - 08/13/2021 Provider: SUSIE Fernandez DEJAHGuzman RS DAM OPERATOR-C Diagnosis: 1 tab daily Last Documented On 2 10:13AM By Nani Leung MD ; [facility] Pramipexole Dihydrochloride 0.75 MG Oral Tablet 03/14/2021 - 08/13/2021 Provider: Diagnosis: [address] Timmy Ayala Last Documented On 08/13/2021 9:28AM By NIKKI HOWARD ; [facility] Sertraline HCl 100 MG Oral Tablet 03/01/2021 - 02/02/2022 Provider: ERNIE MADRIGAL MD Diagnosis: 1 and 1/2 tabs daily Last Documented On 2 12:13AM By Nani Leung MD ; [facility] Medications Administered Includes: Administered Medications in patient's chart No Administered Medications Recorded Results Includes: Results from 06/09/2023 through 06/08/2024 No Results Recorded For Specified Dates History of Present Illness History of Present Illness not supported for this document type No History of Present Illness Recorded Social History Description Last Updated Daily coffee consumption - 1 -2 6-oz cans of soda a week and 1 chocolate bar daily, does not drink coffee or tea 05/04/2022 Last Documented On 3 4:12PM ; [facility] Patient reported that she wa [...] past or pending legal history. Patient enjoys Myows and shinto. 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 Last Documented On 2 9:17AM ; [facility] Former smoker - quit smoking 2012 Last Documented On 2 9:17AM ; [facility] Smoking Status Unknown Procedures and Surgical History Surgical History Last Updated History of enteroscopic proc edures - 05/22/22 for GI Achlasia with Botox injections 06/29/2022 Last Documented On 3 2:44PM ; [facility] History of total shoulder re placement - bilateral -- 2016 and 2018 - right shoulder reverse replacement 06/29/2022 Last Documented On 3 2:44PM ; [facility] History of lumbar vertebral fusion - 12/11/21 fusion of T1 - L1 -- given Mupirocin ointment 2%; 12/2020 -- including thoracic -- Dr. Jorge Aranda -- Joss 06/29/2022 Last Documented On 3 2:44PM ; [facility] History of endoscopic insert ion of stent of pancreatic duct - abdominal drain - 01/2019 and 02/201902/02/2022 Last Documented On 2 12:34AM ; [facility] History of splenectomy - 12/31/201802/02 Last Documented On 2 12:34AM ; [facility] History of cervical vertebra l fusion and cervical decompression in 2002 and 200705/02/2021 Last Documented On 2 9:17AM ; [facility] History of hip replacement - bilateral - - 2019 and 202005/01/2021 Last Documented On 2 9:17AM ; [facility] History of knee replacement - bilateral -- 2000 and 200105/01/2021 Last Documented On 2 9:17AM ; [facility] History of cholecystectomy - 2007 Last Documented On 2 9:17AM ; [facility] History of appendectomy - 1971 2 Last Documented On 2 9:17AM ; [facility] Medical History Includes: Medical History in patient's chart Description Last Updated History of urinary tract infection - giv en Nitrofurantoin 100 mg 06/11/22 06/29/2022 Last Documented On 3 2:44PM ; [facility] Primary Care Provider: Dr. Adriana Madrigal ~Dr. Melanie Parkinson -- Tax Compliance Agent ~Dr. Jorge Hsieh -- Orthopedist [facility]rologist ~Dr. Alberto Valdez -- Shoulder Surgeon at [facility] ~Dr. Andi Mcrae -- Dentist ~Dr. Luis Handley - Pain Mgt 06/29/2022 Last Documented On 3 2:44PM ; [facility] History of iron deficiency a tj - had 2 iron infusions 04/21/22 since her Hgb went down to 7.3 last 03/2022 but now it went back up to 10.3 last 04/202205/04/2022 Last Documented On 3 4:12PM ; [facility] of [facility] - [facility] at [facility] given emema 05/04/2022 Last Documented On 3 4:12PM ; [facility] of dysuria - given Cipro 250 mg 02/03/22 05/04/2022 Last Documented On 3 4:12PM ; [facility] History of cough - given Tessalon Perles 100 mg 04/01/22 05/04/2022 Last Documented On 3 4:12PM ; [facility] History of urinary retention - given Zayas sulosin 0.4 mg 04/08/22 05/04/2022 Last Documented On 3 4:12PM ; [facility] History of tooth extraction - given Zpak 250 mg for prophylaxis purposes 08/13/2021 Last Documented On 2 12:15PM ; [facility] of colon[facility] - 201 9 -- botched per patient leading to weight loss 08/13/2021 Last Documented On 2 12:15PM ; [facility] History of coronavirus 2019- nCoV vaccine - Moderna #1 06/2020 #2 06/2020 #3 03/25/21 05/01/2021 Last Documented On 2 9:17AM ; [facility] History of osteoarthritis of multiple sites - accelerated degenerative disk and joint disease 05/01/2021 Last Documented On 2 9:17AM ; [facility] History of splenic laceration - requirin g slenectomy 05/01/2021 Last Documented On 2 9:17AM ; [facility] History of spinal stenosis - lumbar and thoracic 05/01/2021 Last Documented On 2 9:17AM ; [facility] History of restless legs syndrome 2021 Last Documented On 2 9:17AM ; [facility] History of chronic peptic ulcer 05/01/19 22 Last Documented On 2 9:17AM ; [facility] History of chronic obstructive pulmonary disease 05/01/2021 Last Documented On 2 9:17AM ; [facility] History of tricuspid regurgitation 05/01 Last Documented On 2 9:17AM ; [facility] History of mitral regurgitation 05/01/19 22 Last Documented On 2 9:17AM ; [facility] History of aortic regurgitation 05/01/19 22 Last Documented On 2 9:17AM ; [facility] Family History Includes: Family History in patient's chart Description Last Updated Sororal history of dementia of Alzheimer's type with early onset - oldest sister - and depression 05/01/2021 Last Documented On 2 9:17AM ; [facility] Review of Systems Review of Systems not supported for this document type No Review of Systems Recorded Mental Status Description Major depressive disorder Functional Status No Functional Status Recorded Physical Exam Physical Exam not supported for this document type No Physical Exam Recorded Allergies Includes: Active, inactive, and resolved Allergies Substance Type Reaction Onset Date Resolved Date Statu s Vancomycin Allergy Hives / Urticaria 06/14/2019 Active Last Documented On 07/05/2023 10:12AM ; [facility] Note: Imported from external source. Valium Allergy Nausea, Vomiting, Diarrhea / Diarrheal disorder 04/01/2015 Active Last Documented On 07/05/2023 10:12AM ; [facility] Note: Imported from external source. Sulfa Antibiotics Allergy Nausea, Vomiting, Diarrhea / Diarrheal disorder 08/13/2021 Active Last Documented On 07/05/2023 10:12AM ; [facility] Note: Imported from external source. Percocet Allergy Nausea, Vomiting, Diarrhea / Diarrheal disorder 04/01/2015 Active Last Documented On 07/05/2023 10:12AM ; [facility] Note: Imported from external source. Morphine Sulfate Allergy Nausea, Vomiting, Diarrhea / Diarrheal disorder 04/01/2015 Resolved Last Documented On 09/22/2022 11:29AM ; [facility] Note: Imported from external source. Morphine Sulfate Allergy Nausea, Vomiting, Diarrhea / Diarrheal disorder 04/01/2015 Active Last Documented On 4 10:12AM ; [facility] Ancef Allergy Nausea, Vomiting , Diarrhea / Diarrheal disorder 04/01/2015 Active Last Documented On 07/05/2023 10:12AM ; [facility] Note: Imported from external source. Insurance Includes: Active Insurance Policies Plan Name Member ID Group # Subscriber Relationship Effect lauryn Dates 1 - [employer]AGE [id number] MIGUEL PARK Self Clinical Notes Includes: Signed Clinical Notes starting from 04/24/2022 No Clinical Notes Recorded
--- OUTSIDE RECORDS SUMMARY | 2024-06-08 02:37 | XMS_ITS ---
Care Plan - [facility] Created on: June 08, 2024 MIGUEL PARK : 1960 Sex: Female Author Organization [facility] Address [address] [place] [address] Phone Care Team Providers Care Film Or Tape Librarian Name Role Phone JOS HAMILTON, RENU Valerio Unavailable [phone] ELIDIA BARNETT, NAREN Lozano Unavailable [phone] ROHAN HAMILTON, ERNIE Hinds Primary Care Provider [phone] VELVET HAMILTON, BUD Fernandez Unavailable [phone] DANNI HAMILTON, CANDY MITCHELL Unavailable [phone]
--- NOTE | 2024-06-08 02:43 | ED_ITS ---
HPI - URI/Sore Throat General Chief Complaint: Upper Respiratory Infection Stated Complaint: n/v/d Time Seen by Provider: 06/08/24 02:41 Source: patient and family Mode of arrival: ambulatory Limitations: no limitations History of Present Illness HPI Narrative: 63-year-old female with a history of ex smoking, anemia, RLS, GERD, COPD, multiple sclerosis( leg Weakness ) status post treatment, status post splenectomy / partial gastrectomy/pancreatectomy with pancreatic insufficiency presents to the ED with a 5 day history of -- fever with chills. She was noted to have a T-max of 100.4? -- cough productive of mucopurulent sputum -- Nasal congestion -- sore throat -- body ache -- nausea with multiple episodes of vomiting and diarrhea. No abdominal pain. MD elicited complaint: fever, cough, sore throat and nasal congestion Pertinent past history: COPD and immunosuppression ( on treatment for MS. History of splenectomy.) Onset (ago): day(s) ( Five days) Consistency: constant Description of mucous: yellow Able to tolerate fluids by mouth: Yes Exacerbating factors: nothing Relieving factors: nothing Context: sick contacts Associated symptoms: fever, chills, myalgias, nasal congestion, sore throat, cough, nausea, vomiting and diarrhea Treatments prior to arrival: none Related Data Home Medications ?Medication ?Instructions ?Recorded ?Confirmed ?Last Taken ?Type Bacillus coagulans 250 million 1 cell PO DAILY 05/10/19 06/17/19 Unknown History cell chewable tablet (Digestive Advantage Probiotic Gummy) aspirin 325 mg tablet 325 mg PO DAILY 05/10/19 06/17/19 Unknown History biotin 5,000 mcg disintegrating 5,000 mcg PO DAILY 05/10/19 06/17/19 Unknown History tablet diphenhydramine 25 2 tablet PO HS PRN Insomnia 05/10/19 06/17/19 Unknown History mg-acetaminophen 500 mg tablet (Tylenol PM Extra Strength) ferrous sulfate, dried 159 mg (45 159 mg PO DAILY 05/10/19 06/17/19 Unknown History mg iron) tablet,extended release (iron ER) fluticasone furoate 100 1 inh inhalation DAILY 05/10/19 06/17/19 Unknown History mcg-vilanterol 25 mcg/dose inhalation powder (Breo Ellipta) fluticasone propionate 50 1 spray intranasal BID PRN Allergy 05/10/19 06/17/19 Unknown History mcg/actuation nasal Symptoms spray,suspension levocetirizine 5 mg tablet (Xyzal) 5 mg PO DAILY 05/10/19 06/17/19 Unknown History udhulc-sjvlprwv-bobqywy 1 cap PO TID 05/10/19 06/17/19 Unknown History 36,000-114,000-180,000 unit capsule,delay rel (Creon) mecobalamin (vitamin B12) 1,000 1,000 mcg PO DAILY 05/10/19 06/17/19 Unknown History mcg chewable tablet melatonin 10 mg tablet 10 mg PO HS PRN Insomnia 05/10/19 06/17/19 Unknown History multivitamin (Multiple Vitamins 1 tablet PO DAILY 05/10/19 06/17/19 Unknown History tablet) oxybutynin chloride 10 mg 10 mg PO DAILY 05/10/19 06/17/19 Unknown History tablet,extended release 24 hr pantoprazole 40 mg tablet,delayed 40 mg PO DAILY 05/10/19 06/17/19 Unknown History release pramipexole 0.75 mg tablet 0.75 mg PO TID 05/10/19 06/17/19 Unknown History sennosides 8.6 mg-docusate sodium 4 tab-cap PO DAILY PRN Constipation 05/10/19 06/17/19 Unknown History 50 mg tablet (Colace 2-In-1) sertraline 100 mg tablet 150 mg PO DAILY 05/10/19 06/17/19 Unknown History sucralfate 1 gram tablet 1 g PO QID 05/10/19 06/17/19 Unknown History vit C,E,zinc,copper-qgzxa9f 250 1 cap PO DAILY 05/10/19 06/17/19 Unknown History mg-lutein 5 mg-zeaxanthin 1 mg capsule (Ocuvite Adult 50 Plus) azithromycin 500 mg tablet 500 mg PO DAILY 06/17/19 06/17/19 Unknown History benzonatate 100 mg capsule 100 mg PO PRN 06/17/19 06/17/19 Unknown History gabapentin 100 mg capsule 100 mg PO TID 06/17/19 06/17/19 Unknown History ondansetron 4 mg disintegrating 4 mg PO PRN 06/17/19 06/17/19 Unknown History tablet Allergies Allergy/AdvReac Type Severity Reaction Status Date / Time codeine AdvReac Mild Nausea and Verified 06/08/24 03:43 Vomiting vancomycin AdvReac Unknown Rash Verified 06/08/24 03:17 cefazolin (From Ancef) AdvReac Rash Verified 06/08/24 03:17 MORPHINE Allergy Mild Rash Uncoded 06/08/24 03:17 ANCEF AdvReac Rash Uncoded 06/08/24 03:17 Review of Systems 2 Review of Systems: All systems reviewed & are unremarkable except as noted in HPI and below Constitutional: Constitutional: Reports as per HPI, Reports no additional constitutional complaints, Reports chills, Reports fever(s) and Reports weakness Eyes: Eyes: Reports as per HPI and Reports no additional eye complaints ENT: Reports system reviewed and no additional complaints, except as documented, Reports nasal congestion and Reports sore throat Cardiovascular: Cardiovascular: Reports as per HPI and Reports no additional cardiovascular complaints Respiratory: Respiratory: Reports as per HPI, Reports no additional respiratory complaints, Reports chest congestion and Reports cough Gastrointestinal: Gastrointestinal: Reports as per HPI, Reports no additional gastrointestinal complaints, Reports diarrhea, Reports nausea and Reports vomiting Genitourinary: Genitourinary: Reports no additional female genitourinary complaints and Reports as per HPI Musculoskeletal: Musculoskeletal: Reports no additional musculoskeletal complaints and Reports as per HPI Integumentary/Breasts: Skin/Breast: Reports system reviewed and no additional complaints, except as docu and Reports as per HPI Neurologic: Reports system reviewed and no additional complaints, except as documented and Reports as per HPI Comments: bilateral leg weakness Psychiatric: Psychiatric: Reports no additional psychiatric complaints and Reports as per HPI Endocrine: Endocrine: Reports no additional endocrine complaints and Reports as per HPI Hematologic/Lymphatic: Hematologic/Lymphatic: Reports no additional hematologic/lymphatic complaints and Reports as per HPI Allergic/Immunologic: Allergic/Immunologic: Reports no additional allergic/immunologic complaints and Reports as per HPI PMF Past Medical History Medical History Multiple sclerosis Restless leg syndrome Depression GERD (gastroesophageal reflux disease) Anemia COPD (chronic obstructive pulmonary disease) Pancreatic insufficiency Surgical History Surgical History H/O spinal fusion History of cholecystectomy History of splenectomy 26 surgeries for complications from colonoscopy Family History Family History Sibling Crohn's disease Social History Social History Smoking status: Former smoker Alcohol intake: never Substance use: never Living arrangements: with family Gender identity (if verbalized by the patient): Female Exam 2 Narrative: oxygen saturation of 78% on room air on presentation. Currently 92% on 3 L of O2. Const: General: ill appearing Nutritional Appearance: thin O rientation/consciousness: patient oriented x3 Limitations: no limitations HENMT: Head: normal to inspection Ears: external ears normal F mine/Nose/Sinus: Normal external nose present Face and sinus: normal facial exam Mouth: Yes Normal oral and palatal mucosa present Throat: posterior oropharynx normal Eyes: Conjunctivae: conjunctivae normal Pupils: Equal, round and reactive pupils present EOM: EOMs intact bilaterally Direct Ophthalmoscopy: no photophobia Neck: Neck: normal visual inspection, no lymphadenopathy and no meningeal signs Chest: Chest palpation & inspection: normal inspection of the chest Resp: Effort & Inspection: labored Auscultation: rales and diminished lung sounds Other: Bibasilar rales left greater than the right. Cardio: Rate: regular rate Rhythm: regular rhythm GI: GI Palp: Yes Soft to palpation Auscultation: normal bowel sounds O ther: No tenderness/ rigidity /rebound. : General: Yes no CVA tenderness Skin: General skin exam: normal color Rashes: no rashes Wounds: no wounds Neuro: General: patient oriented x3, moves all extremities, no meningeal signs, no focal motor deficits and CN's II-XI intact bilaterally Cranial nerves: Yes Nystagmus not present Speech: normal speech Extrem: General: normal to inspection and no clubbing, cyanosis or edema Psych: Mental Status: mental status grossly normal Affect: normal affect Attitude: cooperative Course Course Emergency Course: acute hypoxic respiratory failure influenza a COPD bibasilar infiltrates secondary to pneumonia versus pulmonary edema versus scarring new onset pulmonary edema positive D-dimer Vital Signs Vital signs: Vital Signs Pulse Oximetry 92 06/08/24 02:32 Oxygen Delivery Nasal Cannula 06/08/24 02:32 Oxygen Flow Rate 3 06/08/24 02:32 Temperature 36.8 C 06/08/24 02:36 Pulse Rate 67 06/08/24 02:36 Respiratory Rate 18 06/08/24 02:36 Blood Pressure 119/69 06/08/24 02:36 Pulse Oximetry 78 L 06/08/24 02:36 Oxygen Delivery Room Air 06/08/24 02:36 Oxygen Flow Rate 3 06/08/24 02:32 MDM - URI/Sore Throat MDM Narrative Medical decision making narrative: acute hypoxic respiratory failure influenza a bibasilar infiltrates-- MRSA negative COPD new onset CHF positive D-dimer Differential Diagnosis Differential diagnosis: Likely bronchitis Medical Records Attestation: I reviewed the patient's medical records. Lab Data Attestation: I reviewed the patient's lab results. 06/08/24 03:14 06/08/24 03:14 Labs: Lab Results 06/08/24 06/08/24 06/08/24 Range/Units 02:56 03:14 03:15 WBC 9.5 (4.8-10.8) K/mm3 RBC 4.35 (4.20-5.40) M/mm3 Hgb 12.5 (11.7-13.8) g/dL Hct 38.7 (35.0-42.0) % MCV 89.0 (78.0-102.0) fL MCH 28.7 (27.0-31.0) pg MCHC 32.3 (32-36) g/dL RDW 15.2 H (11.6-14.4) % Plt Count 224 (150-420) K/mm3 MPV 9.6 (9.2-11.8) fl Immature Gran % (Auto) 0.6 H (0.0-0.0) % Neut % (Auto) 67.8 (50.0-70.0) % Lymph % (Auto) 13.9 L (18.0-42.0) % Emmet % (Auto) 14.0 H (2.0-11.0) % Eos % (Auto) 3.4 (1.0-6.0) % Baso % (Auto) 0.3 (0.0-1.0) % Lymph # (Auto) 1.32 (1.10-4.50) K/mm3 Emmet # (Auto) 1.33 H (0.10-0.90) K/mm3 Eos # (Auto) 0.32 (0.02-0.50) K/mm3 Baso # (Auto) 0.03 (0.00-0.10) K/mm3 Abs Immat Gran (auto) 0.06 H (0.00-0.00) K/mm3 Absolute Neuts (auto) 6.46 (1.70-7.20) K/mm3 Absolute Nucleated RBC 0.00 (0.00-0.00) K/mm3 Nucleated RBC % 0.0 (0-0.0) % PT 10.8 (9.50-12.1) Seconds INR 1.0 APTT 32.1 H (23.9-30.70) Sec D-Dimer 1.87 H* (0.19-0.50) mg/L Sodium 133 L (136-145) mmol/L Potassium 4.0 (3.5-5.1) mmol/L Chloride 97 L (98-108) mmol/L Carbon Dioxide 29 (21-32) mmol/L Anion Gap 7 (4-12) mmol/L BUN 19 H (7-18) mg/dL Creatinine 0.95 (0.55-1.02) mg/dL Estim Creat Clear Calc 45 ml/min Estimated GFR 59 (59 - ) Glucose 99 (70-99) mg/dL Calculated Osmolality 278 L (285-295) mOsm/kg Lactic Acid 1.4 (0.4-2.0) mmol/L Calcium 9.5 (8.5-10.1) mg/dL Total Bilirubin 0.3 (0.00-1.00) mg/dL AST 33 (15-37) U/L ALT 31 (14-59) U/L Alkaline Phosphatase 107 (46-116) U/L Troponin I 10.0 (0.00-60.4) ng/L NT-Pro-B Natriuret Pep 1822 H (0-125) pg/mL Total Protein 7.5 (6.4-8.2) g/dL Albumin 3.2 L (3.4-5.0) g/dL Nasal MRSA (PCR) (NOT DETECTE) Influenza A (RT-PCR) Positive A (Negative) Influenza B (RT-PCR) Negative (Negative) RSV (RT-PCR) Negative (Negative) SARS-CoV-2 RNA (RT-PCR) Negative (Negative) 06/08/24 Range/Units 03:50 WBC (4.8-10.8) K/mm3 RBC (4.20-5.40) M/mm3 Hgb (11.7-13.8) g/dL Hct (35.0-42.0) % MCV (78.0-102.0) fL MCH (27.0-31.0) pg MCHC (32-36) g/dL RDW (11.6-14.4) % Plt Count (150-420) K/mm3 MPV (9.2-11.8) fl Immature Gran % (Auto) (0.0-0.0) % Neut % (Auto) (50.0-70.0) % Lymph % (Auto) (18.0-42.0) % Emmet % (Auto) (2.0-11.0) % Eos % (Auto) (1.0-6.0) % Baso % (Auto) (0.0-1.0) % Lymph # (Auto) (1.10-4.50) K/mm3 Emmet # (Auto) (0.10-0.90) K/mm3 Eos # (Auto) (0.02-0.50) K/mm3 Baso # (Auto) (0.00-0.10) K/mm3 Abs Immat Gran (auto) (0.00-0.00) K/mm3 Absolute Neuts (auto) (1.70-7.20) K/mm3 Absolute Nucleated RBC (0.00-0.00) K/mm3 Nucleated RBC % (0-0.0) % PT (9.50-12.1) Seconds INR APTT (23.9-30.70) Sec D-Dimer (0.19-0.50) mg/L Sodium (136-145) mmol/L Potassium (3.5-5.1) mmol/L Chloride (98-108) mmol/L Carbon Dioxide (21-32) mmol/L Anion Gap (4-12) mmol/L BUN (7-18) mg/dL Creatinine (0.55-1.02) mg/dL Estim Creat Clear Calc ml/min Estimated GFR (59 - ) Glucose (70-99) mg/dL Calculated Osmolality (285-295) mOsm/kg Lactic Acid (0.4-2.0) mmol/L Calcium (8.5-10.1) mg/dL Total Bilirubin (0.00-1.00) mg/dL AST (15-37) U/L ALT (14-59) U/L Alkaline Phosphatase (46-116) U/L Troponin I (0.00-60.4) ng/L NT-Pro-B Natriuret Pep (0-125) pg/mL Total Protein (6.4-8.2) g/dL Albumin (3.4-5.0) g/dL Nasal MRSA (PCR) Not detected (NOT DETECTE) Influenza A (RT-PCR) (Negative) Influenza B (RT-PCR) (Negative) RSV (RT-PCR) (Negative) SARS-CoV-2 RNA (RT-PCR) (Negative) ABG Data ABG results: 06/08/24 06/08/24 03:14 04:39 Puncture Site Left radial Right radial ABG pH 7.60 H 7.44 ABG pCO2 26.3 L 37.2 ABG pO2 Not Reportable 73.6 L ABG HCO3 25.4 24.9 ABG O2 Saturation 85.3 L 95.1 ABG Base Excess 4.9 H 1.0 Oxyhemoglobin 83.5 L 93.3 L O2 Delivery Device Room air Nasal cannula O2 Liters/Min 0.0 3.0 ECG Data EKG #1: ECG completion date: 06/08/24 ECG completion time: 03:02 Interpretation: normal sinus rhythm. Normal axis. No ST elevation. Discharge Plan Discharge Clinical Impression: Influenza, Acute hypoxic respiratory failure, Multiple sclerosis Bilateral pneumonia Qualifiers: Pneumonia type: due to unspecified organism Lung location: lower lobe of lung Q ualified Code(s): J18.9 - Pneumonia, unspecified organism CHF (congestive heart failure) Qualifiers: Heart failure type: unspecified Heart failure chronicity: acute Qualified Code(s): I50.9 - Heart failure, unspecified Patient Disposition: Still a Patient Condition: Stable Additional Instructions: transfer patient to [facility]. Patient has been accepted by Dr. Christian Gutierrez Patient Language: Luxembourgish Prescriptions: No Action multivitamin [Multiple Vitamins] Tablet 1 tablet PO DAILY oxybutynin chloride 10 mg tablet extended release 24hr 10 mg PO DAILY aspirin 325 mg Tablet 325 mg PO DAILY sucralfate 1 gram Tablet 1 g PO QID sennosides-docusate sodium [Colace 2-In-1] 8.6-50 mg Tablet 4 tab-cap PO DAILY PRN (Reason: Constipation) sertraline 100 mg tablet 150 mg PO DAILY pantoprazole 40 mg tablet,delayed release (DR/EC) 40 mg PO DAILY diphenhydramine-acetaminophen [Tylenol PM Extra Strength] 25-500 mg Tablet 2 tablet PO HS PRN (Reason: Insomnia) fluticasone propionate 50 mcg/actuation spray,suspension 1 spray INTRANASAL BID PRN (Reason: Allergy Symptoms) levocetirizine [Xyzal] 5 mg Tablet 5 mg PO DAILY pramipexole 0.75 mg tablet 0.75 mg PO TID iron 159 mg (45 mg iron) Tablet Extended Release 159 mg PO DAILY Ocuvite Adult 50 Plus 250-5-1 mg Capsule 1 cap PO DAILY melatonin 10 mg Tablet 10 mg PO HS PRN (Reason: Insomnia) Creon 36,000-114,000- 180,000 unit capsule,delayed release(DR/EC) 1 cap PO TID Breo Ellipta 100-25 mcg/dose blister with device 1 inh INHALATION DAILY Digestive Advantage Prob Gummy 250 million cell Tablet,Chewable 1 cell PO DAILY biotin 5,000 mcg Tablet,Disintegrating 5,000 mcg PO DAILY mecobalamin (vitamin B12) 1,000 mcg Tablet,Chewable 1,000 mcg PO DAILY benzonatate 100 mg capsule 100 mg PO PRN gabapentin 100 mg capsule 100 mg PO TID ondansetron 4 mg tablet,disintegrating 4 mg PO PRN azithromycin 500 mg tablet 500 mg PO DAILY Rx Instructions: 06/14/19 TO 06/18/19 Follow-up/Referrals: UNKNOWN,DOCTOR [Primary Care Provider] - Time of Disposition: 06:19
--- NOTE | 2024-06-08 02:51 | ECG_ITS ---
Test Date: 2024-06-08 03:02:40 Measurements Intervals [place] Rate: 63 P: 21 IA: 137 QRS: 48 QRSD: 85 T: 67 QT: 416 QTc: 428 Interpretive Statements SINUS RHYTHM No previous ECG available for comparison Electronically Signed On 06-08-2024 13:59:10 [employer] by Bharath Doran M.D.
--- OUTSIDE RECORDS SUMMARY | 2024-06-08 02:59 | XMS_ITS | Clinical Summary ---
Author Organization [facility] Address [address] [place] [address] Phone Care Team Providers Care Toddler Lead Teacher Name Role Phone JOS HAMILTON, RENU Valerio Unavailable [phone] ELIDIA BARNETT, NAREN Lozano Unavailable [phone] ROHAN HAMILTON, ERNIE Hinds Primary Care Provider [phone] VELVET HAMILTON, BUD Fernandez Unavailable [phone] 8:48PM ; [facility] Marijuana By Prescription 07/27/2022 [employer] Active Last Documented On 3 8:03PM ; [facility] Folic Acid Deficiency 03/31/2022 [employer]IE [employer]ARR[employer]A [employer] Active Last Documented On 2 9:21AM ; [facility] Hyperlipidemia 07/02/2021 SUSIE STOKES FN P-C Active Last Documented On 2 12:57PM ; [facility] Attention Deficit Disorder Without Hyperactivity 2 Active Last Documented On 3 5:53PM ; [facility] Generalized Anxiety Disorder 05/01/2021 Active Last Documented On 3 5:53PM ; [facility] Psychophysiological Insomnia 05/01/2021 Active Last Documented On 3 5:53PM ; [facility] Major Depression 05/01/2021 Active Last Documented On 3 5:53PM ; [facility] Iron Deficiency Anemia 01/27/2021 SUSIE Fernandez [employer] Active Last Documented On 1 9:09AM ; [facility] Aortic Regurgitation 01/21/2021 SUSIE Fernandez [employer] Active Last Documented On 01/21/2021 9:23AM ; [facility] Note: mild on ECHO 2020. Mitral Regurgitation 01/21/2021 SUSIE Fernandez [employer] Active Last Documented On 01/21/2021 9:22AM ; [facility] Note: mild on ECHO 2020. Tricuspid Regurgitation 01/21/2021 ROSALIND Fernandez [employer] Active Last Documented On 01/21/2021 9:23AM ; [facility] Note: mild on ECHO 2020. Constipation 11/27/2020 SUSIE Fernandez [employer] Active Last Documented On 1 9:08AM ; [facility] Spinal Stenosis Lumbar 11/27/2020 SUSIE Fernandez [employer] Active Last Documented On 1 7:54AM ; [facility] Spinal Stenosis Thoracic 11/27/2020 SUSIE Gonzalez [employer] Active Last Documented On 1 7:53AM ; [facility] Chronic Obstructive Pulmonary Disease 12/28/2019 SUSIE Fernandez [employer] Active Last Documented On 0 10:52AM ; [facility] Splenic Laceration 01/12/2019 ERNIE Wright Active Last Documented On 01/12/2019 11:00AM ; [facility] 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 [facility] Depression with Anxiety 09/26/2012 ERNIE SHEPHERD MD Active Last Documented On 5 10:05AM ; [facility] Restless Legs Syndrome 09/26/2012 ERNIE ROSALES MD Active Last Documented On 5 10:05AM ; [facility] Peptic Ulcer Chronic 05/31/2012 ERNIE MADRIGAL MD Active Last Documented On 5 10:04AM ; [facility] Osteoarthritis Generalized Multiple Sites 05/31/2012 ERNIE MADRIGAL MD Active Last Documented On 5 10:05AM ; [facility] Plan of Treatment Future Appointments Date Time Location Provi ronel PSYCH ADULT FOLLOW UP 06/13/2024 10:00AM [facility] OUP-PSY CANDY LEUNG MD Last Documented On 11:09AM ; [facility] Assessments Includes: Assessments from this encounter No [...] 08/23/2023 6:32PM By ERNIE MADRIGAL MD ; [facility] LORazepam 0.5 MG Oral Tablet 08/23/2023 Provider: CANDY LEUNG MD Diagnosis: Generalized anxi ety disorder as directed - 1/2 - 1 tab a day as needed for severe panic attacks Last Documented On 08/23/2023 1:38PM By Nani Leung MD ; [facility] Focalin 10 MG Oral Tablet 08/12/2023 Provider: CANDY LEUNG MD Diagnosis: Attention-defici t hyperactivity disorder, unspecified type as directed 1 tablet in the morning and 1 tablet at noon Last Documented On 08/12/2023 10:36AM By Nani Leung MD ; [facility] traZODone HCl 100 MG Oral Tablet 07/20/2023 Provider: CANDY LEUNG MD Diagnosis: Psychophysiologi c insomnia as directed 4 tabs at bedtime Last Documented On 07/20/2023 3:22PM By Nani Leung MD ; [facility] Pramipexole Dihydrochloride 0.75 MG Oral Tablet 06/15/2023 Provider: ERNIE MADRIGAL MD Diagnosis: 2 at 5 pm and 2 at bedtime Last Documented On 07/05/2023 10:11AM By NIKKI HOWARD ; [facility] Sertraline HCl 100 MG Oral Tablet 05/31/2023 Provider: CANDY LEUNG MD Diagnosis: Major depressive disorder, recurrent, unspecified ud - as directed as directed 2 tabs daily Last Documented On 05/31/2023 10:55AM By Nani Leung MD ; [facility] Levocetirizine Dihydrochloride 5 MG Oral Tablet 2023 Provider: Diagnosis: Last Documented On 05/14/2023 8:57AM By Alyssa HOWARD ; [facility] Vitamin D 25 MCG (1000 UT) Oral Tablet 05/14/2023 Pr ovider: Diagnosis: Last Documented On 05/14/2023 8:58AM By Alyssa HOWARD ; [facility] Trelegy Ellipta 100-62.5-25 MCG/ACT Inhalation Aerosol Powder Breath Activated 05/14/2023 Provider: SUSIE CARLTON Diagnosis: Chronic obstruct lauryn pulmonary disease, unspecified 1 puff daily Last Documented On 4 9:31AM By Susie CARLTON ; [facility] Famotidine 20 MG Oral Tablet 05/14/2023 Provider: SUSIE CARLTON Diagnosis: Gastro-esophagea l reflux disease without esophagitis take 1-2 tabs daily Last Documented On 4 9:47AM By Susie CARLTON ; [facility] traZODone HCl 100 MG Oral Tablet 03/16/2023 Provider: CANDY LEUNG MD Diagnosis: Psychophysiologi c insomnia as directed 5 tabs at bedtime Last Documented On 03/16/2023 12:00PM By Nani Leung MD ; [facility] HYDROcodone-Acetaminophen 10 -325 MG Oral Tablet 02/23/2023 Provider: BUD VERDIN MD Diagnosis: use prn Last Documented On 03/16/2023 11:27AM By NIKKI HOWARD ; [facility] EQ Laxative Maximum Strength 25 MG Oral Tablet 023 Provider: Diagnosis: 3-4 tabs at night Last Documented On 09/22/2022 11:16AM By NIKKI HOWARD ; [facility] Stool Softener 100 MG Oral Tablet 07/02/2021 Provide r: Diagnosis: 3 times daily Last Documented On 07/02/2021 8:37AM By Alyssa HOWARD ; [facility] Fluticasone Propionate 50 MCG/ACT Nasal Suspension 06/10/2021 Provider: ERNIE MADRIGAL MD Diagnosis: Allergic rhiniti s due to pollen 1 sq each nostril 1-2xd as needed Last Documented On 06/10/2021 12:32PM By ERNIE MADRIGAL MD ; [facility] Biotin 5000 MCG OR CAPS 05/01/2021 Provider: Diagnosis: 1 cap daily Last Documented On 08/01/2022 5:38PM By NIKKI HOWARD ; [facility] Ocuvite Adult 50+ OR CAPS 05/01/2021 Provider: Diagnosis: 1 cap daily Last Documented On 08/01/2022 5:38PM By NIKKI HOWARD ; [facility] Past Medications on file traZODone HCl 100 MG Oral Tablet 07/20/2023 - 08/19/2023 Provider: CANDY LEUNG MD Diagnosis: Psychophysiologi c insomnia 4 tabs at bedtime Last Documented On 07/20/2023 2:59PM By MICHELLE PARKS ; [facility] Pramipexole Dihydrochloride 0.75 MG Oral Tablet 03/16/2023 - 06/14/2023 Provider: Diagnosis: 2 tabs late afternoon and 2 in the evening Last Documented On 03/16/2023 11:20AM By NIKKI HOWARD ; [facility] Medications Administered Includes: Administered Medications from [...] 10:12AM ; [facility] Note: Imported from external source. Valium Allergy Nausea, Vomiting, Diarrhea / Diarrheal disorder 04/01/2015 Active Last Documented On 07/05/2023 10:12AM ; [facility] Note: Imported from external source. Sulfa Antibiotics Allergy Nausea, Vomiting, Diarrhea / Diarrheal disorder 08/13/2021 Active Last Documented On 07/05/2023 10:12AM ; [facility] Note: Imported from external source. Percocet Allergy Nausea, Vomiting, Diarrhea / Diarrheal disorder 04/01/2015 Active Last Documented On 07/05/2023 10:12AM ; [facility] Note: Imported from external source. Morphine Sulfate Allergy Nausea, Vomiting, Diarrhea / Diarrheal disorder 04/01/2015 Resolved Last Documented On 09/22/2022 11:29AM ; [facility] Note: Imported from external source. Morphine Sulfate Allergy Nausea, Vomiting, Diarrhea / Diarrheal disorder 04/01/2015 Active Last Documented On 10:12AM ; [facility] Ancef Allergy Nausea, Vomiting , Diarrhea / Diarrheal disorder 04/01/2015 Active Last Documented On 07/05/2023 10:12AM ; [facility] Note: Imported from external source. Encounters Encounter Provider Location Date Check-In Time Check-Out Time Diagnosis * PHONE CALL CANDY LEUNG MD [facility]-PSY 4 6:36PM 11:59PM Insurance Includes: Active Insurance Policies Plan Name Member ID Group # Subscriber Relationship Effect lauryn Dates 1 - [employer]AGE [id number] MIGUEL [place]ARK Self Clinical Notes Includes: Clinical Notes from this encounter * Progress note Date Encounter Last Documented by 08/05/2023 * PHONE CALL Last documented on 08/05/2023; 6:39 PM, CANDY LEUNG MD; [facility] Active Problems & Conditions - Aortic Regurgitation [...] CPAP and will probably send referral to [facility] for the equipment. 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 Pt voiced understanding and appreciated the call. EndCited Care Team - CANDY LEUNG MD - Psychiatry - RENU ARGUELLO MD - Gastroenterology - BUD VERDIN MD - Pain Management - NAREN BRENNER NP - Neurology
--- OUTSIDE RECORDS SUMMARY | 2024-06-08 03:00 | XMS_ITS | Clinical Summary ---
Author Organization [facility] Address [address] [place] [address] Phone Care Team Providers Care Order Processing Clerk Name Role Phone JOS HAMILTON, RENU Valerio Unavailable [phone] ELIDIA BARNETT, NAREN Lozano Unavailable [phone] ROHAN HAMILTON, ERNIE Hinds Primary Care Provider [phone] VELVET HAMILTON, BUD Fernandez Unavailable [phone] DANNI HAMILTON, CANDY MITCHELL Unavailable [phone] Reason for Visit and Chief Complaint * PHONE CALL Problems Includes: Problems addressed during this encounter and other active Problems All Visits Onset Date Resolved Date Provider Condition S tatus Panic Disorder 05/06/2023 CANDY Wright Active Last Documented On 4 8:48PM ; [facility] Marijuana By Prescription 07/27/2022 SUSIE [employer]OKES [employer]OST[employer]IST-C Active Last Documented On 3 8:03PM ; [facility] Folic Acid Deficiency 03/31/2022 SUSIE BARRERA DENTAL PROSTHETIST-C Active Last Documented On 2 9:21AM ; [facility] Hyperlipidemia 07/02/2021 SUSIE STOKES FN P-C Active Last Documented On 2 12:57PM ; [facility] Attention Deficit Disorder Without Hyperactivity 2 Active Last Documented On 3 5:53PM ; [facility] Generalized Anxiety Disorder 05/01/2021 Active Last Documented On 3 5:53PM ; [facility] Psychophysiological Insomnia 05/01/2021 Active Last Documented On 3 5:53PM ; [facility] Major Depression 05/01/2021 Active Last Documented On 3 5:53PM ; [facility] Iron Deficiency Anemia 01/27/2021 SUSIE Fernandez [employer] Active Last Documented On 1 9:09AM ; [facility] Aortic Regurgitation 01/21/2021 SUSIE Fernandez [employer] Active Last Documented On 01/21/2021 9:23AM ; [facility] Note: mild on ECHO 2020. Mitral Regurgitation 01/21/2021 SUSIE Fernandez [employer] Active Last Documented On 01/21/2021 9:22AM ; [facility] Note: mild on ECHO 2020. Tricuspid Regurgitation 01/21/2021 ROSALIND Fernandez [employer] Active Last Documented On 01/21/2021 9:23AM ; [facility] Note: mild on ECHO 2020. Constipation 11/27/2020 SUSIE Fernandez [employer] Active Last Documented On 1 9:08AM ; [facility] Spinal Stenosis Lumbar 11/27/2020 SUSIE Fernandez [employer] Active Last Documented On 1 7:54AM ; [facility] Spinal Stenosis Thoracic 11/27/2020 SUSIE Gonzalez [employer] Active Last Documented On 1 7:53AM ; [facility] Chronic Obstructive Pulmonary Disease 12/28/2019 SUSIE Fernandez [employer] Active Last Documented On 0 10:52AM ; [facility] Splenic Laceration 01/12/2019 ERNIE Wright Active Last Documented On 01/12/2019 11:00AM ; [facility] 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 [facility] Depression with Anxiety 09/26/2012 ERNIE SHEPHERD MD Active Last Documented On 5 10:05AM ; [facility] Restless Legs Syndrome 09/26/2012 ERINE ROSALES MD Active Last Documented On 5 10:05AM ; [facility] Peptic Ulcer Chronic 05/31/2012 ERNIE MADRIGAL MD Active Last Documented On 5 10:04AM ; [facility] Osteoarthritis Generalized Multiple Sites 05/31/2012 ERNIE MADRIGAL MD Active Last Documented On 5 10:05AM ; [facility] Plan of Treatment Future Appointments Date Time Location Provi ronel PSYCH ADULT FOLLOW UP 06/13/2024 10:00AM [facility] CANDY LEUNG MD Last Documented On 11:09AM ; [facility] Assessments Includes: Assessments from this [...] 08/23/2023 6:32PM By ERNIE MADRIGAL MD ; [facility] LORazepam 0.5 MG Oral Tablet 08/23/2023 Provider: CANDY LEUNG MD Diagnosis: Generalized anxi ety disorder as directed - 1/2 - 1 tab a day as needed for severe panic attacks Last Documented On 08/23/2023 1:38PM By Nani Leung MD ; [facility] Focalin 10 MG Oral Tablet 08/12/2023 Provider: CANDY LEUNG MD Diagnosis: Attention-defici t hyperactivity disorder, unspecified type as directed 1 tablet in the morning and 1 tablet at noon Last Documented On 08/12/2023 10:36AM By Nani Leung MD ; [facility] traZODone HCl 100 MG Oral Tablet 07/20/2023 Provider: CANDY LEUNG MD Diagnosis: Psychophysiologi c insomnia as directed 4 tabs at bedtime Last Documented On 07/20/2023 3:22PM By Nani Leung MD ; [facility] Pramipexole Dihydrochloride 0.75 MG Oral Tablet 06/15/2023 Provider: ERNIE MADRIGAL MD Diagnosis: 2 at 5 pm and 2 at bedtime Last Documented On 07/05/2023 10:11AM By NIKKI HOWARD ; [facility] Sertraline HCl 100 MG Oral Tablet 05/31/2023 Provider: CANDY LEUNG MD Diagnosis: Major depressive disorder, recurrent, unspecified ud - as directed as directed 2 tabs daily Last Documented On 05/31/2023 10:55AM By Nani Leung MD ; [facility] Levocetirizine Dihydrochloride 5 MG Oral Tablet 2023 Provider: Diagnosis: Last Documented On 05/14/2023 8:57AM By Alyssa HOWARD ; [facility] Vitamin D 25 MCG (1000 UT) Oral Tablet 05/14/2023 Pr ovider: Diagnosis: Last Documented On 05/14/2023 8:58AM By Alyssa HOWARD ; [facility] Trelegy Ellipta 100-62.5-25 MCG/ACT Inhalation Aerosol Powder Breath Activated 05/14/2023 Provider: SUSIE CARLTON Diagnosis: Chronic obstruct lauryn pulmonary disease, unspecified 1 puff daily Last Documented On 4 9:31AM By Susie CARLTON ; [facility] Famotidine 20 MG Oral Tablet 05/14/2023 Provider: SUSIE CARLTON Diagnosis: Gastro-esophagea l reflux disease without esophagitis take 1-2 tabs daily Last Documented On 4 9:47AM By Susie CARLTON ; [facility] traZODone HCl 100 MG Oral Tablet 03/16/2023 Provider: CANDY LEUNG MD Diagnosis: Psychophysiologi c insomnia as directed 5 tabs at bedtime Last Documented On 03/16/2023 12:00PM By Nani Leung MD ; [facility] HYDROcodone-Acetaminophen 10 -325 MG Oral Tablet 02/23/2023 Provider: BUD VERDIN MD Diagnosis: use prn Last Documented On 03/16/2023 11:27AM By NIKKI HOWARD ; [facility] EQ Laxative Maximum Strength 25 MG Oral Tablet 023 Provider: Diagnosis: 3-4 tabs at night Last Documented On 09/22/2022 11:16AM By NIKKI HOWARD ; [facility] Stool Softener 100 MG Oral Tablet 07/02/2021 Provide r: Diagnosis: 3 times daily Last Documented On 07/02/2021 8:37AM By Alyssa HOWARD ; [facility] Fluticasone Propionate 50 MCG/ACT Nasal Suspension 06/10/2021 Provider: ERNIE MADRIGAL MD Diagnosis: Allergic rhiniti s due to pollen 1 sq each nostril 1-2xd as needed Last Documented On 06/10/2021 12:32PM By ERNIE MADRIGAL MD ; [facility] Biotin 5000 MCG OR CAPS 05/01/2021 Provider: Diagnosis: 1 cap daily Last Documented On 08/01/2022 5:38PM By NIKKI HOWARD ; [facility] Ocuvite Adult 50+ OR CAPS 05/01/2021 Provider: Diagnosis: 1 cap daily Last Documented On 08/01/2022 5:38PM By NIKKI HOWARD ; [facility] Medications Administered Includes: Administered Medications from [...] Active Last Documented On 07/05/2023 10:12AM ; [facility] Note: Imported from external source. Valium Allergy Nausea, Vomiting, Diarrhea / Diarrheal disorder 04/01/2015 Active Last Documented On 07/05/2023 10:12AM ; [facility] Note: Imported from external source. Sulfa Antibiotics Allergy Nausea, Vomiting, Diarrhea / Diarrheal disorder 08/13/2021 Active Last Documented On 07/05/2023 10:12AM ; [facility] Note: Imported from external source. Percocet Allergy Nausea, Vomiting, Diarrhea / Diarrheal disorder 04/01/2015 Active Last Documented On 07/05/2023 10:12AM ; [facility] Note: Imported from external source. Morphine Sulfate Allergy Nausea, Vomiting, Diarrhea / Diarrheal disorder 04/01/2015 Resolved Last Documented On 09/22/2022 11:29AM ; [facility] Note: Imported from external source. Morphine Sulfate Allergy Nausea, Vomiting, Diarrhea / Diarrheal disorder 04/01/2015 Active Last Documented On 10:12AM ; [facility] Ancef Allergy Nausea, Vomiting , Diarrhea / Diarrheal disorder 04/01/2015 Active Last Documented On 07/05/2023 10:12AM ; [facility] Note: Imported from external source. Encounters Encounter Provider Location Date Check-In Time Check-Out Time Diagnosis * PHONE CALL ERNIE MADRIGAL MD 08/03/2023 9:14AM 11:59PM Insurance Includes: Active Insurance Policies Plan Name Member ID Group # Subscriber Relationship Effect lauryn Dates 1 - [employer]AGE [id number] MIGUEL Orozco VIVIAN Self Clinical Notes Includes: Clinical Notes from this encounter * Progress note Date Encounter Last Documented by 08/03/2023 * PHONE CALL Last documented on 08/03/2023; 11:54 AM, ERNIE MADRIGAL MD; [facility] Chief Complaint Phone Call - Chief Concern: [...] stone? pt phone # for return call: [phone] Date/Initials:08/03/23 tlk left msg reviewed er w/u--T spine pain/ no stone.
--- OUTSIDE RECORDS SUMMARY | 2024-06-08 03:00 | XMS_ITS | Patient Health Summary ---
Author Organization [facility] Address [address] [place] [address] Care Team Providers Care Code Enforcement Inspector Name Role Phone Unavailable Primary Care Provider Unavailabl e Note from [facility],non-owned Affiliates and Associated Physician Practices is amultiple site organization consisting of ambulatory clinics and hospital sitesin [place], [place], [place] and [place]. This disclosure is being madepursuant to the Care Everywhere program and may not contain all information available regarding this patient. Last updated 17.[facility] Social History Tobacco Use Types Packs/Day Years Used Date Smoking Tobacco: Never Assessed Sex and Gender Information Value Date Recorded Sex Assigned at Not on file Gender Identity Not on file Sexual Orientation Not on file Procedures * DERMATOPATHOLOGY(Performed 10/25/2019) Results * DERMATOPATHOLOGY (10/25/2019 12:00 AM CDT) Case Report Dermatopathology Report Case: [id number] Authorizing Provider: Em Tran MD Collected: 10/25/2019 12:00 AM Ordering Location: [facility] DermPath Lab Received: 10/26/2019 02:28 PM [...] specimen consists of a shave biopsy measuring [id number]. Jar 0. Specimen B: Received is one formalin filled container labeled with the patient's name and designated left central parietal scalp. The specimen consists of a shave biopsy measuring [id number]. Jar 0. 0 5:19 PM CDT DERMATOPATHOLOGY [...] characteristic determined by the Dermatopathology Laboratory at [facility], directed by Dr. Alicja Osman. These tests need not be, and therefore are not, approved by the [place] Food and Drug Administration. The tests are used for clinical purposes. Billing Codes Specimen Charges Stain Charges 66598 [id number] 1 1 0 5:19 PM CDT DERMATOPATHOLOGY LABORATORY Embedded Images 0 5:19 PM CDT DERMATOPATHOLOGY LABORATORY Pathology/Cytology TISSUE SPECIMEN FROM SKIN / Unknown 10/25/2019 10/26/2019 2:28 PM CDT Miscellaneous samples (specimen) TISSUE SPECIMEN FROM SKIN / Unknown 10/25/2019 10/26/2019 2:28 PM CDT Em Tran MD LAB - PATHOLOGY/C YTOLOGY ORDERABLES DERMATOPATHOLOGY LABORATORY [facility] - Department of Dermatology Water Treatment Plant Repairer [place]/[address] [place] [address], [facility] [phone]
--- OUTSIDE RECORDS SUMMARY | 2024-06-08 03:00 | XMS_ITS ---
Care Plan - [facility] Created on: June 08, 2024 MIGUEL PARK : [id number] Sex: Female Author Organization [facility] Address [address] [place] [address] Phone Care Team Providers Care Data Management Specialist Name Role Phone JOS HAMILTON, RENU Valerio Unavailable [phone] ELIDIA BARNETT, NAREN Lozano Unavailable [phone] ROHAN HAMILTON, ERNIE Hinds Primary Care Provider [phone] VELVET HAMILTON, BUD Fernandez Unavailable [phone] DANNI HAMILTON, CANDY MITCHELL Unavailable [phone]
--- OUTSIDE RECORDS SUMMARY | 2024-06-08 03:00 | XMS_ITS | Encounter Summary ---
Author Organization [facility] Address [address] [facility] [place] [address] Care Team Providers Care Silhouette Artist Name Role Phone Unavailable Primary Care Provider Unavailabl e Encounter Details Date Type Department Care Team (Late st Contact Info) Description 10/26/2019 Lab Requisition [facility] [address] [place] [id number] [place] [address] [place] [address] Social History Tobacco Use Types Packs/Day Years [...] AM CDT) Case Report Dermatopathology Report Case: [id number] Authorizing Provider: Em Tran MD Collected: 10/25/2019 12:00 AM Ordering Location: [facility] Received: 10/26/2019 02:28 PM Pathologist: [...] specimen consists of a shave biopsy measuring [id number]. Jar 0. Specimen B: Received is one formalin filled container labeled with the patient's name and designated left central parietal scalp. The specimen consists of a shave biopsy measuring [id number]. Jar 0. 0 5:19 PM CDT DERMATOPATHOLOGY [...] characteristic determined by the Dermatopathology Laboratory at [facility], directed by Dr. Alicja Osman. These tests need not be, and therefore are not, approved by the [place] Food and Drug Administration. The tests are used for clinical purposes. Billing Codes Specimen Charges Stain Charges 49292 39097 1 1 0 5:19 PM CDT DERMATOPATHOLOGY LABORATORY Embedded Images 0 5:19 PM CDT DERMATOPATHOLOGY LABORATORY Pathology/Cytology TISSUE SPECIMEN FROM SKIN / Unknown 10/25/2019 10/26/2019 2:28 PM CDT Miscellaneous samples (specimen) TISSUE SPECIMEN FROM SKIN / Unknown 10/25/2019 10/26/2019 2:28 PM CDT Em Tran MD LAB - PATHOLOGY/C YTOLOGY ORDERABLES DERMATOPATHOLOGY LABORATORY [facility] - Department of Dermatology [facility] [address] [phone] documented in this encounter Visit Diagnoses Not on filedocumented in this encounter
--- OUTSIDE RECORDS SUMMARY | 2024-06-08 03:00 | XMS_ITS | Encounter Summary ---
Author Organization [facility] Address [address] [place] [address] Phone Care Team Providers Care Medical Insurance Clerk Name Role Phone Rinku Suresh MD Primary Care Provider [phone] Encounter Details Date Type Department Care Team (Late st Contact Info) Description 04/26/2020 Transcribe Orders [facility] Preop[facility]Pacu II [address] [place] [id number] Jaiden Gonzalez MD [address], [address] [place] [address] Preop testing (Primary Dx) Social History Tobacco [...] COVID-19? No / Unsure 04/26/2020 2:23 PM PERSONAL LINES AGENT documented as of this encounter Plan of Treatment Not on file documented as of this encounter Results * SARS-COV-2 BY MOLECULAR (05/11/2020 8:29 AM PERSONAL LINES AGENT) SARSCOV2 NOT DETECTED (Referen ce Range for this test is Not Detected ) [facility] THERMOFISHER FAST DX 05/12/2020 1:51 AM PERSONAL LINES AGENT [facility] Comment:This test was perfor med by a PCR method. Other NASOPHARYNGEAL STRUCTURE / Unknown Non-Phlebotomy Collection / Unknown 05/11/2020 8:29 AM PERSONAL LINES AGENT 05/11/2020 8:54 AM PERSONAL LINES AGENT Narrative [facility] - 05/12/2020 1:51 AM PERSONAL LINES AGENT Authorized Fact Sheets about this test for providers and patients are available at: https://www.fda.gov/medical-devices/jqpxeehfj-rtqpguizgs-bjenqpk-devices/emergen -us e-authorizations us Jaiden Gonzalez MD MICROBIOLOGY - GENERAL ORDERAB LES Final Result Performing Organization Address City/State/[facility] Co de Phone Number [facility] [address] [place] [address], documented in this encounter Visit Diagnoses Diagnosis Preop testing- Primary Preoperative examination, unspecified documented in this encounter Care Teams Medical Insurance Clerk Relationship Specialty Start Date End Date Rinku Suresh MD [address] [place] [id number] PCP - General Internal Medicine 05/18/18 documented as of this encounter
--- OUTSIDE RECORDS SUMMARY | 2024-06-08 03:00 | XMS_ITS | Clinical Summary ---
Author Organization [facility] Address [address] [place] [address] Phone Care Team Providers Care Apiarist Name Role Phone DANNI HAMILTON, CANDY MITCHELL Unavailable [phone] Reason for Visit and Chief Complaint * PHONE CALL Problems Includes: Problems addressed during this encounter and other active Problems Current Visit Onset Date Resolved Date Provider Conditio n Status Major Depression 05/01/2021 CANDY LEUNG MD Active Last Documented On 2 2:52PM ; [facility] Past Visits Onset Date Resolved Date Provider Condition Status Attention Deficit Disorder Without Hyperactivity 05/01/2021 CANDY LEUNG MD Active Last Documented On 2 3:52PM ; [facility] Generalized Anxiety Disorder 05/01/2021 CANDY LEUNG MD Active Last Documented On 2 2:53PM ; [facility] Psychophysiological Insomnia 05/01/2021 CANDY LEUNG MD Active Last Documented On 2 2:53PM ; [facility] Plan of Treatment No Plan of Treatment Recorded Assessments Includes: Assessments from this encounter Findings - Major depressive disorder - Last Documented On 01/26/2022 2:27PM ; [facility] Medical Equipment - Implanted Devices Includes: [...] directed -- 1 tab at bedtime Pharmacy: [address], [id number] - Last Documented On 3 10:16AM By NIKKI HOWARD ; [facility] Current Medications (continue as prescribed) EQ Laxative Maximum Strength 25 MG Oral Tablet 023 Provider: Diagnosis: 3 tabs at night Last Documented On 3 10:04AM By NIKKI HOWARD [facility] F[facility] 5 MG Oral Tablet 06/29/2022 Provider: MET JACQUELINE LEUNG MD Diagnosis: Attn-defct hyper activity disorder, predom inattentive type as directed - 1 tab in am with food Last Documented On 3 11:33AM By Nani Leung MD ; [facility] LORazepam 0.5 MG Oral Tablet 06/29/2022 Provider: CANDY LEUNG MD Diagnosis: Generalized anxi ety disorder as directed - 1/2 - 1 tab a day as needed for severe panic attacks Last Documented On 3 11:33AM By Nani Leung MD ; [facility] OLANZapine 15 MG Oral Tablet 06/29/2022 Provider: CANDY LEUNG MD Diagnosis: Major depressive disorder, recurrent, moderate as directed -- 1 tab at bedtime Last Documented On 3 11:33AM By Nani Leung MD ; [facility] traZODone HCl 100 MG Oral Tablet 06/15/2022 Provider: CANDY LEUNG MD Diagnosis: Psychophysiologi c insomnia as directed 3 tabs at bedtime Last Documented On 06/15/2022 3:36PM By Nani Leung MD ; [facility] Folic Acid 1 MG Oral Tablet 03/31/2022 Provider: [employer] Diagnosis: 1 tab daily Last Documented On 3 11:38AM By NIKKI HOWARD ; [facility] Pramipexole Dihydrochloride 0.75 MG Oral Tablet 09/08/2021 Provider: TIMMY VALENZUELA MD Diagnosis: 2 tabs in the evening Last Documented On 3 11:39AM By NIKKI OCHOA RMA ; [facility] Antacid 200-200-20 MG/5ML Oral Suspension 05/21/2021 Provider: RENU ARGUELLO MD Diagnosis: as needed Last Documented On 06/06/2021 2:04PM By MICHELLE PARKS ; [facility] Ocuvite Adult 50+ Oral Capsule 05/01/2021 Provider: Diagnosis: 1 cap daily Last Documented On 05/01/2021 3:10PM By NIKKI OCHOA RMA ; [facility] Xyzal 5 MG Oral Tablet 05/01/2021 Provider: Diagnosis: 1 tab daily Last Documented On 05/01/2021 3:10PM By NIKKI OCHOA RMA ; [facility] Biotin 5000 MCG Oral Capsule 05/01/2021 Provider: Diagnosis: 1 cap daily Last Documented On 05/01/2021 3:13PM By NIKKI OCHOA RMA ; [facility] Stool Softener 100 MG Oral Capsule 05/01/2021 Pr ovider: Diagnosis: 1 cap tid Last Documented On 05/01/2021 3:12PM By NIKKI OCHOA RMA ; [facility] Ondansetron HCl 8 MG Oral Tablet 03/13/2021 Provider : RENU ARGUELLO MD Diagnosis: 2 tab prn nausea/vomiting Last Documented On 05/01/2021 3:04PM By NIKKI OCHOA RMA ; [facility] Anoro Ellipta 62.5-25 MCG/IN H Inhalation Aerosol Powder Breath Activated 03/11/2021 Provider: ERNIE MADRIGAL MD Diagnosis: 1 inhalation daily Last Documented On 05/01/2021 3:07PM By NIKKI OCHOA RMA ; [facility] Cyclobenzaprine HCl 10 MG Oral Tablet 01/06/2021 Pro vider: ERNIE MADRIGAL MD Diagnosis: take 1 tab prn Last Documented On 05/01/2021 3:07PM By NIKKI OCHOA RMA ; [facility] Suspended Medications Sertraline HCl 100 MG Oral Tablet 03/11/2022 Provide r: CANDY LEUNG MD Diagnosis: as directed 1 and 1/2 tabs daily Last Documented On 03/11/2022 4:45PM By Nani Leung MD ; [facility] Past Medications on file Gabapentin 300 MG Oral Capsule 06/29/2022 - 07/29/2022 Provider: Diagnosis: 2 capsules at night Last Documented On 3 10:02AM By NIKKI HOWARD ; [facility] Focalin 10 MG Oral Tablet 10/14/2021 - 11/13/2021 Provider: CANDY LEUNG MD Diagnosis: Generalized anxi ety disorder as directed -- 1 tab in am Last Documented On 10/14/2021 2:31PM By Nani Leung MD ; [facility] Pramipexole Dihydrochloride 0.75 MG Oral Tablet 08/13/2021 - 11/11/2021 Provider: Diagnosis: 1 afternoon prn and 2 at hs Last Documented On 08/13/2021 9:28AM By NIKKI HOWARD ; [facility] Gabapentin 300 MG Oral Capsule 08/13/2021 - 09/12/2021 Provider: ERNIE MADRIGAL MD Diagnosis: 2 at night Last Documented On 08/13/2021 9:26AM By NIKKI HOWARD ; [facility] DayVigo 5 MG Oral Tablet 05/01/2021 - 05/21/2021 Provider: CANDY LEUNG MD Diagnosis: Psychophysiologi c insomnia as directed -- 1 tab at hs a s needed for sleep Last Documented On 05/01/2021 4:02PM By Nani Leung MD ; [facility] Medications Administered Includes: Administered Medications from this [...] Active Last Documented On 07/05/2023 10:12AM ; [facility] Note: Imported from external source. Valium Allergy Nausea, Vomiting, Diarrhea / Diarrheal disorder 04/01/2015 Active Last Documented On 07/05/2023 10:12AM ; [facility] Note: Imported from external source. Sulfa Antibiotics Allergy Nausea, Vomiting, Diarrhea / Diarrheal disorder 08/13/2021 Active Last Documented On 07/05/2023 10:12AM ; [facility] Note: Imported from external source. Percocet Allergy Nausea, Vomiting, Diarrhea / Diarrheal disorder 04/01/2015 Active Last Documented On 07/05/2023 10:12AM ; [facility] Note: Imported from external source. Morphine Sulfate Allergy Nausea, Vomiting, Diarrhea / Diarrheal disorder 04/01/2015 Resolved Last Documented On 09/22/2022 11:29AM ; [facility] Note: Imported from external source. Morphine Sulfate Allergy Nausea, Vomiting, Diarrhea / Diarrheal disorder 04/01/2015 Active Last Documented On 10:12AM ; [facility] Ancef Allergy Nausea, Vomiting , Diarrhea / Diarrheal disorder 04/01/2015 Active Last Documented On 07/05/2023 10:12AM ; [facility] Note: Imported from external source. Encounters Encounter Provider Location Date Check-In Time Check-Out Time Diagnosis * PHONE CALL CANDY LEUNG MD [facility] 01/27/20 22 2:02PM 11:59PM Major Depression Insurance Includes: Active Insurance Policies Plan Name Member ID Group # Subscriber Relationship Effect lauryn Dates 1 - [employer] [id number] [place]EL [place] Self Clinical Notes Includes: Clinical Notes from this encounter No Clinical Notes Recorded
--- OUTSIDE RECORDS SUMMARY | 2024-06-08 03:00 | XMS_ITS | Clinical Summary ---
Author Organization [facility] Address [address] [place] [address] Phone Care Team Providers Care Finance Intern Name Role Phone DANNI HAMILTON, CANDY MITCHELL Unavailable [phone] Reason for Visit and Chief Complaint The Chief Complaint is: follow up for depression, anxiety, insomnia Problems Includes: Problems addressed during this encounter and other active Problems Current Visit Onset Date Resolved Date Provider Conditio n Status Attention Deficit Disorder Without Hyperactivity 05/01/2021 CANDY LEUNG MD Active Last Documented On 2 3:52PM ; [facility] Generalized Anxiety Disorder 05/01/2021 CANDY LEUNG MD Active Last Documented On 2 2:53PM ; [facility] Psychophysiological Insomnia 05/01/2021 CANDY LEUNG MD Active Last Documented On 2 2:53PM ; [facility] Major Depression 05/01/2021 CANDY LEUNG MD Active Last Documented On 2 2:52PM ; [facility] Plan of Treatment Major depressive disorder [...] - Last Documented On 02/02/2022 12:34AM ; [facility] Education and Decision Aids were provided during visit for: Patient education about medi cation ---Education was given on medication(s) and diagnosis. I reviewed the risks, benefits and side effects of patient's medications Last Documented On 2 10:54AM ; [facility] Discussed calming techniques such as breathing exercises and other relaxation techniques Last Documented On 10:54AM ; [facility] Discussed good sleep hygiene habits Last Documented On 10:56AM ; [facility] Assessments Includes: Assessments from this encounter Findings - Attention deficit disorder without hyperactivity - Last Documented On 02/02/2022 12:34AM ; [facility] - Major depressive disorder - Last Documented On 02/02/2022 12:34AM ; [facility] - Psychophysiological insomnia - Last Documented On 02/02/2022 12:34AM ; [facility] - Generalized anxiety disorder - Last Documented On 02/02/2022 12:34AM ; [facility] Instructions Includes: Instructions from this encounter Education and Decision Aids were provided during visit for: Patient education about medi cation ---Education was given on medication(s) and diagnosis. I reviewed the risks, benefits and side effects of patient's medications Last Documented On 10:54AM ; [facility] Discussed calming techniques such as breathing exercises and other relaxation techniques Last Documented On 10:54AM ; [facility] Discussed good sleep hygiene habits Last Documented On 10:56AM ; [facility] Medical Equipment - Implanted Devices Includes: [...] as needed for severe panic attacks Pharmacy: [address], [id number] - Last Documented On 02/16/2022 1:30PM By Nani Leung MD ; [facility] Current Medications (continue as prescribed) EQ Laxative Maximum Strength 25 MG Oral Tablet 023 Provider: Diagnosis: 3 tabs at night Last Documented On 3 10:04AM By NIKKI HOWARD ; [facility] Focalin 5 MG Oral Tablet 06/29/2022 Provider: MET JACQUELINE LEUNG MD Diagnosis: Attn-defct hyper activity disorder, predom inattentive type as directed - 1 tab in am with food Last Documented On 3 11:33AM By Nani Leung MD ; [facility] LORazepam 0.5 MG Oral Tablet 06/29/2022 Provider: CANDY LEUNG MD Diagnosis: Generalized anxi ety disorder as directed - 1/2 - 1 tab a day as needed for severe panic attacks Last Documented On 3 11:33AM By Nani Leung MD ; [facility] OLANZapine 15 MG Oral Tablet 06/29/2022 Provider: CANDY LEUNG MD Diagnosis: Major depressive disorder, recurrent, moderate as directed -- 1 tab at bedtime Last Documented On 3 11:33AM By Nani Leung MD ; [facility] traZODone HCl 100 MG Oral Tablet 06/15/2022 Provider: CANDY LEUNG MD Diagnosis: Psychophysiologi c insomnia as directed 3 tabs at bedtime Last Documented On 06/15/2022 3:36PM By Nani Leung MD ; [facility] Folic Acid 1 MG Oral Tablet 03/31/2022 Provider: SUSIE STOKES VASCULAR TECHNICIAN-C Diagnosis: 1 tab daily Last Documented On 3 11:38AM By NIKKI HOWARD ; [facility] Pramipexole Dihydrochloride 0.75 MG Oral Tablet 09/08/2021 Provider: TIMMY VALENZUELA MD Diagnosis: 2 tabs in the evening Last Documented On 3 11:39AM By NIKKI HOWARD ; [facility] Antacid 200-200-20 MG/5ML Oral Suspension 05/21/2021 Provider: MELANIE PARKINSON MD Diagnosis: as needed Last Documented On 06/06/2021 2:04PM By MICHELLE PARKS ; [facility] Ocuvite Adult 50+ Oral Capsule 05/01/2021 Provider: Diagnosis: 1 cap daily Last Documented On 05/01/2021 3:10PM By NIKKI OCHOA RMA ; [facility] Xyzal 5 MG Oral Tablet 05/01/2021 Provider: Diagnosis: 1 tab daily Last Documented On 05/01/2021 3:10PM By NIKKI OCHOA RMA ; [facility] Biotin 5000 MCG Oral Capsule 05/01/2021 Provider: Diagnosis: 1 cap daily Last Documented On 05/01/2021 3:13PM By NIKKI OCHOA RMA ; [facility] Stool Softener 100 MG Oral Capsule 05/01/2021 Pr ovider: Diagnosis: 1 cap tid Last Documented On 05/01/2021 3:12PM By NIKKI OCHOA A ; [facility] Ondansetron HCl 8 MG Oral Tablet 03/13/2021 Provider : MELANIE PARKINSON MD Diagnosis: 2 tab prn nausea/vomiting Last Documented On 05/01/2021 3:04PM By NIKKI OCHOA A ; [facility] Anoro Ellipta 62.5-25 MCG/IN H Inhalation Aerosol Powder Breath Activated 03/11/2021 Provider: ERNIE MADRIGAL MD Diagnosis: 1 inhalation daily Last Documented On 05/01/2021 3:07PM By NIKKI OCHOA A ; [facility] Cyclobenzaprine HCl 10 MG Oral Tablet 01/06/2021 Pro vider: ERNIE MADRIGAL MD Diagnosis: take 1 tab prn Last Documented On 05/01/2021 3:07PM By NIKKI OCHOA RMA ; [facility] Suspended Medications Sertraline HCl 100 MG Oral Tablet 03/11/2022 Provide r: CANDY LEUNG MD Diagnosis: as directed 1 and 1/2 tabs daily Last Documented On 03/11/2022 4:45PM By Nani Leung MD ; [facility] Past Medications on file Gabapentin 300 MG Oral Capsule 06/29/2022 - 07/29/2022 Provider: Diagnosis: 2 capsules at night Last Documented On 03/27/202 3 10:02AM By NIKKI HOWARD ; [facility] Focalin 10 MG Oral Tablet 10/14/2021 - 11/13/2021 Provider: CANDY LEUNG MD Diagnosis: Generalized anxi ety disorder as directed -- 1 tab in am Last Documented On 10/14/2021 2:31PM By Nani Leung MD ; [facility] Pramipexole Dihydrochloride 0.75 MG Oral Tablet 08/13/2021 - 11/11/2021 Provider: Diagnosis: 1 afternoon prn and 2 at hs Last Documented On 08/13/2021 9:28AM By NIKKI HOWARD ; [facility] Gabapentin 300 MG Oral Capsule 08/13/2021 - 09/12/2021 Provider: ERNIE MADRIGAL MD Diagnosis: 2 at night Last Documented On 08/13/2021 9:26AM By NIKKI HOWARD ; [facility] DayVigo 5 MG Oral Tablet 05/01/2021 - 05/21/2021 Provider: CANDY LEUNG MD Diagnosis: Psychophysiologi c insomnia as directed -- 1 tab at hs a s needed for sleep Last Documented On 05/01/2021 4:02PM By Nani Leung MD ; [facility] Medications Administered Includes: Administered Medications from [...] Last Documented: On 01/09/2022 11:19A M ; [facility] Results Includes: Results discussed during this encounter No Results Recorded For Specified Dates History of Present Illness Includes: History of Present Illness from this encounter JOSE PARK is a 61 year old female. - Past medical history reviewed - Medication list reviewed Pt reported some stressors in her life. She was caring for her father until he had to be placed in a skilled nursing due to end stage CHF and unable to care for himself. However, her father refused to go to the skilled nursing and has been resistive to care. She was pushing his father in a wheelchair and had pain in the right anterior rib cage. She saw Ernesto Tellez ALEJANDRO on 12/04/21. She was treated for UTI. She also got her dental implants top [place], [place] a discounted gipson of $20,000. [...] 05/04/2022 Last Documented On 2 10:54AM ; [facility] Patient reported that [...] past or pending legal history. Patient enjoys [employer] and congregation. Her jainism background is [employer] 06/06/2021 Last Documented On 2 10:54AM ; [facility] Not using alcohol 05/01/2021 Last Documented On 2 10:54AM ; [facility] Not using drugs 05/01/2021 Last Documented On 2 10:54AM ; 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 Former smoker - quit smoking 2012 Last Documented On 2 10:54AM ; [facility] Smoking Status Unknown Procedures and Surgical History Includes: Procedures from this encounter Procedures Code Diagnosis Performing Provider Service L ocation Service Date education and instructions Last Documented On 2 10:54AM ; [facility] I discussed the risks, benef its and side effects of Olanzapine to the patient including the possibility of metabolic and motor side effects such as tardive dyskinesia Last Documented On 2 10:56AM ; [facility] dangerousness assessment: suicide risk -not suic idal 3085F Last Documented On 2 10:54AM ; [facility] use of tobacco assessment performed 1000F Last Documented On 2 11:09AM ; [facility] patient screened for future fall risk - no recen t falls 3288F Last Documented On 2 11:07AM ; [facility] review of medications documented 1160F Last Documented On 2 10:56AM ; [facility] screening for adult depressi on: impression and score - please see above treatment and PHQ score Last Documented On 11:09AM ; [facility] standardized depression screening: posit lauryn for symptoms Last Documented On 11:09AM ; [facility] Counseling on new medication : I discussed the risks, benefits and side effects of Lorazepam. Patient verbalized understanding and agreed to treatment Last Documented On 2 12:15AM ; [facility] Clinical summary provided to patient Last Documented On 2 10:54AM ; [facility] PHQ-9: total score 10 Last Documented On 2 12:15AM ; [facility] Surgical History Last Updated History of total shoulder replacement - bilateral -- 2016 and 201806/29/2022 Last Documented On 2 10:54AM ; [facility] History of lumbar vertebral fusion - 12/2020 -- including thoracic -- Dr. Jorge Aranda -- [place] 06/29/2022 Last Documented On 2 10:54AM ; [facility] History of endoscopic insert ion of stent of pancreatic duct - abdominal drain - 01/2019 and 02/201902/02/2022 Last Documented On 2 12:34AM ; [facility] History of splenectomy - 12/31/201802/02 Last Documented On 2 12:34AM ; [facility] History of cervical vertebra l fusion and cervical decompression in 2002 and 200705/02/2021 Last Documented On 2 10:54AM ; [facility] History of hip replacement - bilateral - - 2019 and 202005/01/2021 Last Documented On 2 10:54AM ; [facility] History of knee replacement - bilateral -- 2000 and 200105/01/2021 Last Documented On 2 10:54AM ; [facility] History of cholecystectomy - 2007 Last Documented On 2 10:54AM ; [facility] History of appendectomy - 1971 2 Last Documented On 2 10:54AM ; [facility] Medical History Includes: Medical History addressed during this encounter Description Last Updated History of iron deficiency anemia 2022 Last Documented On 2 10:54AM ; [facility] History of constipation - has tried Derick luis 05/04/2022 Last Documented On 2 10:54AM ; [facility] Primary Care Provider: Dr. Adriana Madrigal ~Dr. Melanie Parkinson -- Barrel Waterer ~Dr. Jorge Hsieh -- Orthopedist ~Dr. Timmy Mclean -- Neurologist ~Dr. Alberto Valdez -- Shoulder Surgeon at [facility] ~Dr. Rg Montgomery -- Dentist ~Luis Quiros Mgkermit 02/02/2022 Last Documented On 2 12:34AM ; [facility] No diagnosis of history of C OVID-19 infection - pt reported no Covid symptoms 08/13/2021 Last Documented On 2 10:54AM ; [facility] History of tooth extraction - given Zpak 250 mg for prophylaxis purposes 08/13/2021 Last Documented On 2 10:54AM ; [facility] History of colonoscopy - 201 9 -- botched per patient leading to weight loss 08/13/2021 Last Documented On 2 10:54AM ; [facility] History of coronavirus 2019- nCoV vaccine - Moderna #1 06/2020 #2 06/2020 #3 03/25/21 05/01/2021 Last Documented On 2 10:54AM ; [facility] History of osteoarthritis of multiple sites - accelerated degenerative disk and joint disease 05/01/2021 Last Documented On 2 10:54AM ; [facility] History of splenic laceration - requirin g slenectomy 05/01/2021 Last Documented On 2 10:54AM ; [facility] History of spinal stenosis - lumbar and thoracic 05/01/2021 Last Documented On 2 10:54AM ; [facility] History of restless legs syndrome 2021 Last Documented On 2 10:54AM ; [facility] History of chronic peptic ulcer 05/01/19 Last Documented On 2 10:54AM ; [facility] History of chronic obstructive pulmonary disease 05/01/2021 Last Documented On 2 10:54AM ; [facility] History of tricuspid regurgitation 05/01 Last Documented On 2 10:54AM ; [facility] History of mitral regurgitation 05/01/19 Last Documented On 2 10:54AM ; [facility] History of aortic regurgitation 05/01/19 Last Documented On 2 10:54AM ; [facility] Family History Includes: Family History addressed during this encounter Description Last Updated Sororal history of dementia of Alzheimer's type with early onset - oldest sister - and depression 05/01/2021 Last Documented On 2 10:54AM ; [facility] Review of Systems Includes: Review of [...] Active Last Documented On 07/05/2023 10:12AM ; [facility] Note: Imported from external source. Valium Allergy Nausea, Vomiting, Diarrhea / Diarrheal disorder 04/01/2015 Active Last Documented On 07/05/2023 10:12AM ; [facility] Note: Imported from external source. Sulfa Antibiotics Allergy Nausea, Vomiting, Diarrhea / Diarrheal disorder 08/13/2021 Active Last Documented On 07/05/2023 10:12AM ; [facility] Note: Imported from external source. Percocet Allergy Nausea, Vomiting, Diarrhea / Diarrheal disorder 04/01/2015 Active Last Documented On 07/05/2023 10:12AM ; [facility] Note: Imported from external source. Morphine Sulfate Allergy Nausea, Vomiting, Diarrhea / Diarrheal disorder 04/01/2015 Resolved Last Documented On 09/22/2022 11:29AM ; [facility] Note: Imported from external source. Morphine Sulfate Allergy Nausea, Vomiting, Diarrhea / Diarrheal disorder 04/01/2015 Active Last Documented On 10:12AM ; [facility] Ancef Allergy Nausea, Vomiting , Diarrhea / Diarrheal disorder 04/01/2015 Active Last Documented On 07/05/2023 10:12AM ; [facility] Note: Imported from external source. Encounters Encounter Provider Location Date Check-In Time Check-Out Time Diagnosis FOLLOW UP CANDY LEUNG MD [facility] 2 11:00AM 12:05PM Generalized Anxiety Disorder,Psycho physiological Insomnia,Attent ion Deficit Disorder Without Hyperactivity,M ajor Depression Insurance Includes: Active Insurance Policies Plan Name Member ID Group # Subscriber Relationship Effect lauryn Dates 1 - [employer] ADVANTAGE [id number] MIGUEL PARK Self Clinical Notes Includes: Clinical Notes from this encounter No Clinical Notes Recorded
--- OUTSIDE RECORDS SUMMARY | 2024-06-08 03:00 | XMS_ITS | Clinical Summary ---
Author Organization [facility] Address [address] [facility], [address] [address] Phone Care Team Providers Care Pocket Secretary Assembler Name Role Phone Rinku Suresh MD Primary Care Provider [phone] Allergies Active Allergy Reactions Criticality Noted Date [...] PUFF PO QD 05/05/19 20 Active [facility]ON [address] Particles TK 1 C [...] this topic Medical Devices Implanted Type Area Migration Specialist Device Identifier Shelf Expiration Date Model / Serial / Lot Liner Actb Altrx Hamilton Neutral 50mm 32mm Hip - [id number] Implanted:Qty : 1 on 05/14/2020 by Jaiden Gonzalez MD at [facility] IMPLANT Left: Hip [employer] 07/03/2024 [id number] / [id number] / [id number] Shell Actb 50mm Hip Sector Gription Hamilton - [id number] Implanted:Qty : 1 on 05/14/2020 by Jaiden Gonzalez MD at [facility] IMPLANT Left: Hip [employer] 02/02/2030 [id number] / [id number] / [id number] Femoral Stem Implanted:Qty : 1 on 05/14/2020 by Jaiden Gonzalez MD at [facility] Left: Hip [employer] 04/04/2030 [id number] / [id number] / [id number] Ceramic Femoral Head Implanted:Qty : 1 on 05/14/2020 by Jaiden Gonzalez MD at [facility] Left: Hip [employer] 08/03/2023 [id number] / [id number] / [id number] Insurance Care Teams Pocket Secretary Assembler Relationship Specialty Start Date End Date Rinku Suresh MD [address] [place] [id number] PCP - General Internal Medicine 05/18/18
--- OUTSIDE RECORDS SUMMARY | 2024-06-08 03:00 | XMS_ITS ---
Care Plan - [facility] Created on: June 08, 2024 MIGUEL PARK : 1960 Sex: Female Author Organization [facility] Address [address] [place] [address] Phone Care Team Providers Care Senior Living Advisor Name Role Phone DANNI HAMILTON, CANDY MITCHELL Unavailable [phone]
--- OUTSIDE RECORDS SUMMARY | 2024-06-08 03:01 | XMS_ITS | Clinical Summary ---
Author Organization [facility] Address [address] [place] [address] Phone Care Team Providers Care Air Duct Mechanic Name Role Phone DANNI HAMILTON, CANDY MITCHELL Unavailable [phone] Reason for Visit and Chief Complaint * PHONE CALL Problems Includes: Problems addressed during this encounter and other active Problems Current Visit Onset Date Resolved Date Provider Conditio n Status Generalized Anxiety Disorder 05/01/2021 CANDY LEUNG MD Active Last Documented On 2 2:53PM ; [facility] Past Visits Onset Date Resolved Date Provider Condition Status Attention Deficit Disorder Without Hyperactivity 05/01/2021 CANDY LEUNG MD Active Last Documented On 2 3:52PM ; [facility] Psychophysiological Insomnia 05/01/2021 CANDY LEUNG MD Active Last Documented On 2 2:53PM ; [facility] Major Depression 05/01/2021 CANDY LEUNG MD Active Last Documented On 2 2:52PM ; [facility] Plan of Treatment No Plan of Treatment Recorded Assessments Includes: Assessments from this encounter Findings - Generalized anxiety disorder - Last Documented On 02/17/2022 9:32AM ; [facility] Medical [...] 02/16/2022 1:30PM By Nani Leung MD ; [facility] New / Renewed during this visit CANDY LEUNG MD on 02/16/2022 LORazepam 0.5 MG Oral Tablet Provider: CANDY LEUNG MD 30 day supply: 15 tablet, 0 refills Diagnosis: Generalized anxiety disorder as directed - 1/2 - 1 tab a day as needed for severe panic attacks Pharmacy: [address], [phone] - Last Documented On 3 10:01AM By Nani Leung MD ; [facility] Current Medications (continue as prescribed) EQ Laxative Maximum Strength 25 MG Oral Tablet 023 Provider: Diagnosis: 3 tabs at night Last Documented On 3 10:04AM By NIKKI HOWARD ; [facility] Focalin 5 MG Oral Tablet 06/29/2022 Provider: [...] MG Oral Tablet 03/31/2022 Provider: SUSIE STOKES AUTO INSPECTION SPECIALIST-C Diagnosis: 1 tab daily Last Documented On 3 11:38AM By NIKKI OCHOA RMA ; [facility] Pramipexole Dihydrochloride 0.75 MG Oral Tablet 09/08/2021 Provider: TIMMY VALENZUELA MD Diagnosis: 2 tabs in the evening Last Documented On 3 11:39AM By NIKKI OCHOA A ; [facility] Antacid 200-200-20 MG/5ML Oral Suspension 05/21/2021 Provider: RENU ARGUELLO MD Diagnosis: as needed Last Documented On 06/06/2021 2:04PM By MICHELLE PARKS ; [facility] Ocuvite Adult 50+ Oral Capsule 05/01/2021 Provider: Diagnosis: 1 cap daily Last Documented On 05/01/2021 3:10PM By NIKKI OCHOA A ; [facility] Xyzal 5 MG Oral Tablet 05/01/2021 Provider: Diagnosis: 1 tab daily Last Documented On 05/01/2021 3:10PM By NIKKI OCHOA A ; [facility] Biotin 5000 MCG Oral Capsule 05/01/2021 Provider: Diagnosis: 1 cap daily Last Documented On 05/01/2021 3:13PM By NIKKI OCHOA A ; [facility] Stool Softener 100 MG Oral Capsule 05/01/2021 Pr ovider: Diagnosis: 1 cap tid Last Documented On 05/01/2021 3:12PM By NIKKI OCHOA A ; [facility] Ondansetron HCl 8 MG Oral Tablet 03/13/2021 Provider : RENU ARGUELLO MD Diagnosis: 2 tab prn nausea/vomiting Last Documented On 05/01/2021 3:04PM By NIKKI HOWARD ; [facility] Anoro Ellipta 62.5-25 MCG/IN H Inhalation Aerosol Powder Breath Activated 03/11/2021 Provider: ERNIE MADRIGAL MD Diagnosis: 1 inhalation daily Last Documented On 05/01/2021 3:07PM By NIKKI GUAMANA ; [facility] Cyclobenzaprine HCl 10 MG Oral Tablet 01/06/2021 Pro vider: ERNIE MADRIGAL MD Diagnosis: take 1 tab prn Last Documented On 05/01/2021 3:07PM By NIKKI HOWARD ; [facility] Suspended [...] Documented On 10:02AM By NIKKI HOWARD ; [facility] [...] Active Last Documented On 07/05/2023 10:12AM ; [facility] Note: Imported from external source. Valium Allergy Nausea, Vomiting, Diarrhea / Diarrheal disorder 04/01/2015 Active Last Documented On 07/05/2023 10:12AM ; [facility] Note: Imported from external source. Sulfa Antibiotics Allergy Nausea, Vomiting, Diarrhea / Diarrheal disorder 08/13/2021 Active Last Documented On 07/05/2023 10:12AM ; [facility] Note: Imported from external source. Percocet Allergy Nausea, Vomiting, Diarrhea / Diarrheal disorder 04/01/2015 Active Last Documented On 07/05/2023 10:12AM ; [facility] Note: Imported from external source. Morphine Sulfate Allergy Nausea, Vomiting, Diarrhea / Diarrheal disorder 04/01/2015 Resolved Last Documented On 09/22/2022 11:29AM ; [facility] Note: Imported from external source. Morphine Sulfate Allergy Nausea, Vomiting, Diarrhea / Diarrheal disorder 04/01/2015 Active Last Documented On 10:12AM ; [facility] Ancef Allergy Nausea, Vomiting , Diarrhea / Diarrheal disorder 04/01/2015 Active Last Documented On 07/05/2023 10:12AM ; [facility] Note: Imported from external source. Encounters Encounter Provider Location Date Check-In Time Check-Out Time Diagnosis * PHONE CALL CANDY LEUNG MD [facility] 02/17/20 12:17PM 11:59PM Generalized Anxiety Disorder Insurance Includes: Active Insurance Policies Plan Name Member ID Group # Subscriber Relationship Effect lauryn Dates 1 - [employer]AGE [id number] MIGUEL PARK Self Clinical Notes Includes: Clinical Notes from this encounter No Clinical Notes Recorded
--- OUTSIDE RECORDS SUMMARY | 2024-06-08 03:01 | XMS_ITS | Clinical Summary ---
Author Organization [facility] Address [address] [place] [address] Phone Care Team Providers Care Vineyard Tender Name Role Phone JOS HAMILTON, RENU Valerio Unavailable [phone] ELIDIA BARNETT, NAREN Lozano Unavailable [phone] ROHAN HAMILTON, ERNIE Hinds Primary Care Provider [phone] BUD VERDIN MD Unavailable [phone] [...] Active Last Documented On 3 5:53PM ; [facility] Iron Deficiency Anemia 01/27/2021 SUSIE CALVILLO CORRECTIONS CASEWORKER-C Active Last Documented On 1 9:09AM ; [facility] Constipation 11/27/2020 SUSIE STOKES CORRECTIONS CASEWORKER- C Active Last Documented On 1 9:08AM ; [facility] Spinal Stenosis Lumbar 11/27/2020 SUSIE CALVILLO CORRECTIONS CASEWORKER-C Active Last Documented On 1 7:54AM ; [facility] Chronic Obstructive Pulmonary Disease 12/28/2019 SUSIE Fernandez KIKE CORRECTIONS CASEWORKER-C Active Last Documented On 0 10:52AM ; [facility] Past Visits Onset Date Resolved Date Provider Condition Status Panic Disorder 05/06/2023 CANDY Wright Active Last Documented On 4 8:48PM ; [facility] Marijuana By Prescription 07/27/2022 SUSIE PONDERS CORRECTIONS CASEWORKER-C Active Last Documented On 3 8:03PM ; [facility] Folic Acid Deficiency 03/31/2022 SUSIE PULLIAMS CORRECTIONS CASEWORKER-C Active Last Documented On 2 9:21AM ; [facility] Hyperlipidemia 07/02/2021 SUSIE PONDERS FN P-C Active Last Documented On 2 12:57PM ; [facility] Attention Deficit Disorder Without Hyperactivity 2 Active Last Documented On 3 5:53PM ; [facility] Psychophysiological Insomnia 05/01/2021 Active Last Documented On 3 5:53PM ; [facility] Major Depression 05/01/2021 Active Last Documented On 3 5:53PM ; [facility] Aortic Regurgitation 01/21/2021 SUSIE PONDERS CORRECTIONS CASEWORKER-C Active Last Documented On 01/21/2021 9:23AM ; [facility] Note: mild on ECHO 2020. Mitral Regurgitation 01/21/2021 SUSIE PONDERS CORRECTIONS CASEWORKER-C Active Last Documented On 01/21/2021 9:22AM ; [facility] Note: mild on ECHO 2020. Tricuspid Regurgitation 01/21/2021 ROSALIND ZARIA Rebecca KIKE CORRECTIONS CASEWORKER-C Active Last Documented On 01/21/2021 9:23AM ; [facility] Note: mild on ECHO 2020. Spinal Stenosis Thoracic 11/27/2020 BRAVO GUTIERREZ Rebecca KIKE CORRECTIONS CASEWORKER-C Active Last Documented On 1 7:53AM ; [facility] Splenic Laceration 01/12/2019 ERNIE Wright Active Last Documented On 01/12/2019 11:00AM ; [facility] 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 Troop Harriett Depression with Anxiety 09/26/2012 ERNIE SHEPHERD MD Active Last Documented On 5 10:05AM ; [facility] Restless Legs Syndrome 09/26/2012 ERNIE ROSALES MD Active Last Documented On 5 10:05AM ; [facility] Peptic Ulcer Chronic 05/31/2012 ERNIE MADRIGAL MD Active Last Documented On 5 10:04AM ; [facility] Osteoarthritis Generalized Multiple Sites 05/31/2012 ERNIE MADRIGAL MD Active Last Documented On 5 10:05AM ; [facility] Plan of Treatment 1. Get labs done [...] - Last Documented On 05/18/2023 10:03AM ; [facility] Future Appointments Date Time Location Provi ronel PSYCH ADULT FOLLOW UP 06/13/2024 10:00AM [facility] OUP-PSY CANDY LEUNG MD Last Documented On 11:09AM ; [facility] Assessments Includes: Assessments from this encounter Findings - J44.9 - Chronic obstructive pulmonary disease, unspecified - Last Documented On 05/18/2023 10:03AM ; [facility] - K59.00 - Constipation, unspecified - Last Documented On 05/18/2023 10:03AM ; [facility] - Lumbar stenosis - Last Documented On 05/18/2023 10:03AM ; [facility] - F41.1 - Generalized anxiety disorder - Last Documented On 05/18/2023 10:03AM ; [facility] - D50.9 - Iron deficiency anemia, unspecified - Last Documented On 05/18/2023 10:03AM ; [facility] Medical Equipment - Implanted Devices Includes: Current Devices No Medical Equipment Recorded Medications Includes: Medications discussed during this encounter and other current Medications Discontinued / Stopped on this date ERNIE MADRIGAL MD on 05/13/2023 Anoro Ellipta 62.5-25 MCG/ACT Inhalation Aerosol Powder Breath Activated Provider: ERNIE MADRIGAL MD Diagnosis: Chronic obstruct lauryn pulmonary disease, unspecified Last Documented On 9:20AM By Susie CARLTON ; [facility] Focalin 10 MG Oral Tablet Provider: CANDY LEUNG MD Diagnosis: Attention-defici t hyperactivity disorder, unspecified type Last Documented On 05/14/2023 8:52AM By Alyssa HOWARD ; [facility] Focalin 5 MG Oral Tablet Provider: CANDY LEUNG MD Diagnosis: Attn-defct hyper activity disorder, predom inattentive type Last Documented On 05/14/2023 8:53AM By Alyssa HOWARD ; [facility] Tamsulosin HCl 0.4 MG Oral Capsule Provider: SUSIE CARLTON Diagnosis: Retention of uri ne, unspecified Last Documented On 05/14/2023 8:55AM By Alyssa HOWARD ; [facility] Gabapentin 300 MG Oral Capsule Provider: ERNIE MADRIGAL MD Diagnosis: Last Documented On 05/14/2023 8:53AM By Alyssa HOWARD ; [facility] Cyclobenzaprine HCl 10 MG Oral Tablet Pro vider: Diagnosis: Last Documented On 05/14/2023 8:51AM By Alyssa HOWARD ; [facility] OLANZapine 15 MG Oral Tablet Provider: CANDY LEUNG MD Diagnosis: Major depressive disorder, recurrent, moderate Last Documented On 05/14/2023 8:54AM By Alyssa HOWARD ; [facility] Methocarbamol 750 MG Oral Tablet Provider : BUD VERDIN MD Diagnosis: Last Documented On 05/14/2023 8:54AM By Alyssa HOWARD ; [facility] Probiotic (Lactobacillus) Oral Capsule Pr ovider: Diagnosis: Last Documented On 9:33AM By Susie CARLTON ; [facility] Ondansetron 4 MG Oral Tablet Disintegrating Provider: ERNIE MADRIGAL MD Diagnosis: Nausea with vomi ting, unspecified Last Documented On 05/14/2023 8:55AM By Alyssa HOWARD ; [facility] Xyzal 5 MG OR TABS Provider: Diagnosis: Last Documented On 05/14/2023 8:56AM By Alyssa HOWARD ; [facility] DayVigo 5 MG OR TABS Provider: CANDY LEUNG MD Diagnosis: Psychophysiologi c insomnia Last Documented On 05/14/2023 8:51AM By Alyssa HOWARD ; [facility] New / Renewed during this visit SUSIE CARLTON on 05/14/2023 Trelegy Ellipta 100-62.5-25 MCG/ACT Inhalation Aerosol Powder Breath Activated Provider: SUSIE CARLTON 30 day supply: 60 each, 5 refills Diagnosis: Chronic obstructive pulmonary disease, unspecified 1 puff daily Pharmacy: [facility] - [address] [facility], [phone] - Last Documented On 4 9:31AM By Susie CARLTON ; [facility] Famotidine 20 MG Oral Tablet Provider: SUSIE CARLTON 30 day supply: 60 tablet, 6 refills Diagnosis: Gastro-esophageal reflux disease without esophagitis take 1-2 tabs daily Pharmacy: [facility] - [address] [facility], [phone] - Last Documented On 4 9:47AM By Susie CARLTON ; [facility] Current Medications (continue as prescribed) Gabapentin 300 MG Oral Capsule 08/23/2023 Provider: ERNIE MADRIGAL MD Diagnosis: Polyosteoarthrit is, unspecified 1-2 po tid Last Documented On 08/23/2023 6:32PM By ERNIE MADRIGAL MD ; [facility] LORazepam 0.5 MG Oral Tablet 08/23/2023 Provider: CANDY LEUNG MD Diagnosis: Generalized anxi ety disorder as directed - 1/2 - 1 tab a day as needed for severe panic attacks Last Documented On 08/23/2023 1:38PM By Nani Leung MD ; [facility] Focalin 10 MG Oral Tablet 08/12/2023 Provider: CANDY LEUNG MD Diagnosis: Attention-defici t hyperactivity disorder, unspecified type as directed 1 tablet in the morning and 1 tablet at noon Last Documented On 08/12/2023 10:36AM By Nani Leung MD ; [facility] traZODone HCl 100 MG Oral Tablet 07/20/2023 Provider: CANDY LEUNG MD Diagnosis: Psychophysiologi c insomnia as directed 4 tabs at bedtime Last Documented On 07/20/2023 3:22PM By Nani Leung MD ; [facility] Pramipexole Dihydrochloride 0.75 MG Oral Tablet 06/15/2023 Provider: ERNIE MADRIGAL MD Diagnosis: 2 at 5 pm and 2 at bedtime Last Documented On 07/05/2023 10:11AM By NIKKI HOWARD ; [facility] Sertraline HCl 100 MG Oral Tablet 05/31/2023 Provider: CANDY LEUNG MD Diagnosis: Major depressive disorder, recurrent, unspecified ud - as directed as directed 2 tabs daily Last Documented On 05/31/2023 10:55AM By Nani Leung MD ; [facility] Levocetirizine Dihydrochloride 5 MG Oral Tablet 2023 Provider: Diagnosis: Last Documented On 05/14/2023 8:57AM By Alyssa HOWARD ; [facility] Vitamin D 25 MCG (1000 UT) Oral Tablet 05/14/2023 Pr ovider: Diagnosis: Last Documented On 05/14/2023 8:58AM By Alyssa HOWARD ; [facility] traZODone HCl 100 MG Oral Tablet 03/16/2023 Provider: CANDY LEUNG MD Diagnosis: Psychophysiologi c insomnia as directed 5 tabs at bedtime Last Documented On 03/16/2023 12:00PM By Nani Leung MD ; [facility] HYDROcodone-Acetaminophen 10 -325 MG Oral Tablet 02/23/2023 Provider: BUD VERDIN MD Diagnosis: use prn Last Documented On 03/16/2023 11:27AM By NIKKI HOWARD ; [facility] EQ Laxative Maximum Strength 25 MG Oral Tablet 023 Provider: Diagnosis: 3-4 tabs at night Last Documented On 09/22/2022 11:16AM By NIKKI HOWARD ; [facility] Stool Softener 100 MG Oral Tablet 07/02/2021 Provide r: Diagnosis: 3 times daily Last Documented On 07/02/2021 8:37AM By Alyssa HOWARD ; [facility] Fluticasone Propionate 50 MCG/ACT Nasal Suspension 06/10/2021 Provider: ERNIE MADRIGAL MD Diagnosis: Allergic rhiniti s due to pollen 1 sq each nostril 1-2xd as needed Last Documented On 06/10/2021 12:32PM By ERNIE MADRIGAL MD ; [facility] Biotin 5000 MCG OR CAPS 05/01/2021 Provider: Diagnosis: 1 cap daily Last Documented On 08/01/2022 5:38PM By NIKKI HOWARD ; [facility] Ocuvite Adult 50+ OR CAPS 05/01/2021 Provider: Diagnosis: 1 cap daily Last Documented On 08/01/2022 5:38PM By NIKKI HOWARD ; [facility] Past Medications on file traZODone HCl 100 MG Oral Tablet 07/20/2023 - 08/19/2023 Provider: CANDY LEUNG MD Diagnosis: Psychophysiologi c insomnia 4 tabs at bedtime Last Documented On 07/20/2023 2:59PM By MICHELLE PARKS ; [facility] Pramipexole Dihydrochloride 0.75 MG Oral Tablet 03/16/2023 - 06/14/2023 Provider: Diagnosis: 2 tabs late afternoon and 2 in the evening Last Documented On 03/16/2023 11:20AM By NIKKI HOWARD ; [facility] Medications Administered Includes: Administered Medications [...] 98 Last Documented: On 05/14/2023 9:00AM ; [facility] Results Includes: Results discussed during [...] 04/2023 Last Documented On 4 8:43AM ; [facility] Consuming 5 or more drinks per day None 05/14/2023 Last Documented On 4 10:03AM ; [facility] Not recovering alcoholic 05/14/2023 Last Documented On 4 10:03AM ; [facility] Not recovering from substance abuse 12/2023 Last Documented On 4 10:03AM ; [facility] Number of times used recreat ional drug/ prescription drug for nonmedical reason. None 05/14/2023 Last Documented On 4 10:03AM ; [facility] Stopped smoking years ago 2012 3 Last Documented On 4 8:43AM ; [facility] Former smoker 02/03/2022 Last Documented On 4 8:43AM ; [facility] Currently 06/14/2019 Last Documented On 4 8:43AM ; [facility] Smoking Status Unknown Procedures and Surgical History Includes: Procedures from this encounter Procedures Code Diagnosis Performing Provider Service L ocation Service Date continue current medication Last Documented On 4 9:25AM ; [facility] use of tobacco assessment performed 1000F Last Documented On 4 9:25AM ; [facility] review of medications documented 1160F Last Documented On 4 8:44AM ; [facility] Medical History Includes: Medical History addressed during this encounter Description Last Updated Surgery T1-L1 Spinal Fusion - 03/12/[address] Jorge Hsieh ~ERMIAS 2008- Dr. Cristina 12/31/2022 Last Documented On 4 8:43AM ; [facility] History of colonoscopy fiberoptic was pe rformed 12/26/2018 F/U in 5 years 02/03/2022 Last Documented On 4 8:43AM ; [facility] History of screening mammogram was perfo rmed 10/22/2020 02/03/2022 Last Documented On 4 8:43AM ; [facility] History of essential hypertension 2021 Last Documented On 4 8:43AM ; [facility] History of hyperlipidemia 08/22/2021 Last Documented On 4 8:43AM ; [facility] LOW BACK FUSIONS 1994, 2005, 2007, 2011, 2015, 2020 ~APPENDECTOMY 1973 ~KNEES 04 06 02 ~NECK FUSIONS 06 08 07 ~SPINAL SIMULLATORS 05 2009 ~CHOLECYSTECTOM 2014 ~SHOULDERS 2012 2013 2015 ~SPLENECTOMY 12/31/18 ~ABDOMINAL DRAIN 01/2019 PANCREATIC STENT 02/201901/09/2021 Last Documented On 4 8:43AM ; [facility] History of Abnormal Pap Smear 06/14/2019 Last Documented On 4 8:43AM ; [facility] History of arthritis 06/14/2019 Last Documented On 4 8:43AM ; [facility] No recent change in medical history 06/03 Last Documented On 4 8:43AM ; [facility] Family History Includes: Family History addressed during this encounter Description Last Updated Family history reviewed - unchanged sinc e last visit 12/28/2019 Last Documented On 4 8:43AM ; [facility] Sororal history of diabetes mellitus MOTHER PARKINSON/M.S. ~SISTER LING ~FATHER HIGH BLOOD PRESSURE ~ 06/14/2019 Last Documented On 4 8:43AM ; [facility] Review of Systems Includes: [...] Active Last Documented On 07/05/2023 10:12AM ; [facility] Note: Imported from external source. Valium Allergy Nausea, Vomiting, Diarrhea / Diarrheal disorder 04/01/2015 Active Last Documented On 07/05/2023 10:12AM ; [facility] Note: Imported from external source. Sulfa Antibiotics Allergy Nausea, Vomiting, Diarrhea / Diarrheal disorder 08/13/2021 Active Last Documented On 07/05/2023 10:12AM ; [facility] Note: Imported from external source. Percocet Allergy Nausea, Vomiting, Diarrhea / Diarrheal disorder 04/01/2015 Active Last Documented On 07/05/2023 10:12AM ; [facility] Note: Imported from external source. Morphine Sulfate Allergy Nausea, Vomiting, Diarrhea / Diarrheal disorder 04/01/2015 Resolved Last Documented On 09/22/2022 11:29AM ; [facility] Note: Imported from external source. Morphine Sulfate Allergy Nausea, Vomiting, Diarrhea / Diarrheal disorder 04/01/2015 Active Last Documented On 10:12AM ; [facility] Ancef Allergy Nausea, Vomiting , Diarrhea / Diarrheal disorder 04/01/2015 Active Last Documented On 07/05/2023 10:12AM ; [facility] Note: Imported from external source. Encounters Encounter Provider Location Date Check-In Time Check-Out Time Diagnosis CHECK UP SUSIE CARLTON [facility]- 4 8:39AM 9:40AM Iron Deficiency Anemia,Generali zed Anxiety Disorder,Consti pation,Chronic Obstructive Pulmonary Disease,Spinal Stenosis Lumbar Insurance Includes: Active Insurance Policies Plan Name Member ID Group # Subscriber Relationship Effect lauryn Dates 1 - [employer]VANTAGE [id number] [place] Self Clinical Notes Includes: Clinical Notes from this encounter * Progress note Date Encounter Last Documented by 05/14/2023 CHECK UP Last documented on 05/18/2023; 10:03 AM, SUSIE CARLTON; [facility] Active Problems & Conditions [...]
--- OUTSIDE RECORDS SUMMARY | 2024-06-08 03:01 | XMS_ITS | Clinical Summary ---
Author Organization [facility] Address [address] [place] [address] Phone Care Team Providers Care Merchant Miller Name Role Phone Rinku Suresh MD Primary Care Provider Allergies Active Allergy Reactions Criticality Noted Date [...] daily. 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 DAY CARE TEACHER 9 Active omeprazole (PriLOSEC) 20 mg Capsule, [...] on file Legal Sex Female 5:11 AM CHILD DAY CARE TEACHER Gender Identity Not on file Sexual Orientation [...] 03/21/2019, 01/06/2019 Medical Devices Implanted Type Area Webmethods Consultant Device Identifier Shelf Expiration Date Model / Serial / Lot Barrier Seprafilm 3x5in [id number] - [id number] Implanted:Qty: 1 on 12/31/2018 by Desmond Nix MD at [facility] Adhesion Barrier N/A: Abdomen [employer] [id number] 03/04/2021 [id number] / / [id number] Coil Embol Pod Packing [id number]/26 /2019 Implanted:Qty: 2 on 12/29/2018 by Chantelle Kimball MD Coil Left: Arterial [employer] 11/09/2026 [id number] / [id number] / [id number] Description:Pod Packing coil 60 cm implanted in splenic artery Coil Embol Pod5 Cmplx 5mm 30cm [id number] Implanted:Qty: 1 on 12/29/2018 by Chantelle Kimball MD Coil Left: Arterial [employer] 10/18/2026 [id number] / [id number] / [id number] Description:Pod 5 coil 30 cm implanted in splenic artery Coil-12/29/2018 Implanted:Qty: 1 on 12/29/2018 by Chantelle Kimball MD Coil Left: Arterial 06/19/2023 [id number] / [id number] / [id number] Description:MicroNester Embo lization COil 4 mm x 7 cm implanted in splenic artery Stent Pncrtc Frmn Flx 5fr 5cm 6552 - [id number] Implanted:Qty: 1 on 03/17/2019 by Eduardo Hernandez MD at [facility] Stent N/A: Pancreas [employer] [id number] 01/04/2024 [id number] / / [id number] Insurance [facility] Address: [place] [address] [employer] Medicare Part D RX [employer] (INTERNAL) [facility] Advance Directives For more information, please contact: [phone] * Full Code (Latest Code Status on [...] 6:02 PM 02/02/2019 3:40 PM Care Teams Merchant Miller Relationship Specialty Start Date End Date Rinku Suresh MD [address] [place] [phone] PCP - General Internal Medicine 12/24/18
--- OUTSIDE RECORDS SUMMARY | 2024-06-08 03:01 | XMS_ITS ---
Author Organization [facility] S Address [address] [place] [address] Phone Care Team Providers Care Library Page Name Role Phone DANNI HAMILTON, CANDY MITCHELL Unavailable [phone] Problems Includes: Active, inactive, and resolved Problems All Visits Onset Date Resolved Date Provider Condition S tatus Attention Deficit Disorder Without Hyperactivity 05/01/2021 CANDY LEUNG MD Active Last Documented On 2 3:52PM ; [facility] Generalized Anxiety Disorder 05/01/2021 CANDY LEUNG MD Active Last Documented On 2 2:53PM ; [facility] Psychophysiological Insomnia 05/01/2021 CANDY LEUNG MD Active Last Documented On 2 2:53PM ; [facility] Major Depression 05/01/2021 CANDY LEUNG MD Active Last Documented On 2 2:52PM ; [facility] Plan of Treatment Education and Decision Aids were provided during visit for: Discussed calming techniques such as breathing exercises and other relaxation techniques Last Documented On 3 9:53AM ; [facility] Discussed good sleep hygiene habits Last Documented On 3 10:18AM ; [facility] Discussed calming techniques such as breathing exercises and other relaxation techniques if and when anxious Last Documented On 3 4:05PM ; [facility] Discussed good sleep hygiene habits - balanced meal plan, health supplements but pt said she cannot tolerate protein shakes Last Documented On 3 4:05PM ; [facility] Patient education about medi cation ---Education was given on medication(s) and diagnosis. I reviewed the risks, benefits and side effects of patient's medications Last Documented On 2 10:54AM ; [facility] Discussed calming techniques such as breathing exercises and other relaxation techniques Last Documented On 2 10:54AM ; [facility] Discussed good sleep hygiene habits Last Documented On 2 10:56AM ; [facility] Patient education about medi cation --- I educated patient on medication(s) and diagnosis. I reviewed the risks, benefits and side effects of patient's medications Last Documented On 2 1:50PM ; [facility] Discussed calming techniques such as breathing exercises and other relaxation techniques Last Documented On 2 1:50PM ; [facility] Discussed good sleep hygiene habits Last Documented On 2 1:58PM ; [facility] Patient education about medi cation --- I educated patient on medication(s) and diagnosis. I reviewed the risks, benefits and side effects of patient's medications Last Documented On 2 9:19AM ; [facility] Discussed calming techniques such as breathing exercises and other relaxation techniques Last Documented On 2 9:19AM ; [facility] Discussed good sleep hygiene habits Last Documented On 2 9:41AM ; [facility] Patient education about medi cation --- I educated patient on medication(s) and diagnosis. I reviewed the risks, benefits and side effects of patient's medications Last Documented On 2 1:50PM ; [facility] Discussed calming techniques such as breathing exercises and other relaxation techniques Last Documented On 2 1:50PM ; [facility] Patient counseling I discuss ed risk, benefits, and side effects of sleep aid Belsomra - including the possibility of sleep related behaviors i.e. sleepwalking, sleeptalking, sleepdriving, etc... Pt verbalized understanding Last Documented On 2 2:02PM ; [facility] Counseling for nutrition/jordan ght management provided Last Documented On 2 2:02PM ; [facility] Discussed good sleep hygiene habits Last Documented On 2 2:02PM ; [facility] Patient education about medi cation --- I educated patient on medication(s) and diagnosis. I reviewed the risks, benefits and side effects of patient's medications Last Documented On 2 2:36PM ; [facility] Discussed calming techniques such as breathing exercises and other relaxation techniques Last Documented On 2 2:36PM ; [facility] Counseling for nutrition/jordan ght management provided Last Documented On 2 3:23PM ; [facility] Discussed good sleep hygiene habits Last Documented On 2 3:23PM ; [facility] Assessments Includes: Assessments for all patient encounters Findings Encounter Date Attention deficit disorder w ithout hyperactivity FOLLOW UP with CANDY LEUNG MD 06/29/2022 Last Documented On 3 2:44PM ; [facility] Generalized anxiety disorder FOLLOW UP with MARILIA LEUNG MD 06/29/2022 Last Documented On 3 2:44PM ; [facility] Major depressive disorder FOLLOW UP with CANDY LEUNG MD 06/29/2022 Last Documented On 3 2:44PM ; [facility] Psychophysiological insomnia FOLLOW UP with MARILIA LEUNG MD 06/29/2022 Last Documented On 3 2:44PM ; [facility] Attention deficit disorder w ithout hyperactivity TELEHEALTH with CANDY LEUNG MD 05/04/2022 Last Documented On 3 4:12PM ; [facility] Generalized anxiety disorder TELEHEALTH with MET JACQUELINE LEUNG MD 05/04/2022 Last Documented On 3 4:12PM ; [facility] Major depressive disorder TELEHEALTH with ESME LEUNG MD 05/04/2022 Last Documented On 3 4:12PM ; [facility] Psychophysiological insomnia TELEHEALTH with MET JACQUELINE LEUNG MD 05/04/2022 Last Documented On 3 4:12PM ; [facility] Generalized anxiety disorder * PHONE CALL with Marta LEUNG MD 02/16/2022 Last Documented On 2 9:32AM ; [facility] Major depressive disorder * PHONE CALL with MARILIA LEUNG MD 01/26/2022 Last Documented On 2 2:27PM ; [facility] Attention deficit disorder w ithout hyperactivity FOLLOW UP with CANDY LEUNG MD 01/09/2022 Last Documented On 2 12:34AM ; [facility] Generalized anxiety disorder FOLLOW UP with MARILIA LEUNG MD 01/09/2022 Last Documented On 2 12:34AM ; [facility] Major depressive disorder FOLLOW UP with CANDY LEUNG MD 01/09/2022 Last Documented On 2 12:34AM ; [facility] Psychophysiological insomnia FOLLOW UP with MARILIA LEUNG MD 01/09/2022 Last Documented On 2 12:34AM ; [facility] Attention deficit disorder w ithout hyperactivity * PHONE CALL with CANDY LEUNG MD 01/05/2022 Last Documented On 2 2:03PM ; [facility] Attention deficit disorder w ithout hyperactivity FOLLOW UP with CANDY LEUNG MD 10/14/2021 Last Documented On 2 8:08AM ; [facility] Generalized anxiety disorder FOLLOW UP with MARILIA LEUNG MD 10/14/2021 Last Documented On 2 8:08AM ; [facility] Major depressive disorder FOLLOW UP with CANDY LEUNG MD 10/14/2021 Last Documented On 2 8:08AM ; [facility] Psychophysiological insomnia FOLLOW UP with MARILIA LEUNG MD 10/14/2021 Last Documented On 2 8:08AM ; [facility] Attention deficit disorder w ithout hyperactivity FOLLOW UP with CANDY LEUNG MD 08/13/2021 Last Documented On 2 12:15PM ; [facility] Generalized anxiety disorder FOLLOW UP with MARILIA LEUNG MD 08/13/2021 Last Documented On 2 12:15PM ; [facility] Major depressive disorder FOLLOW UP with CANDY LEUNG MD 08/13/2021 Last Documented On 2 12:15PM ; [facility] Psychophysiological insomnia FOLLOW UP with MARILIA LEUNG MD 08/13/2021 Last Documented On 2 12:15PM ; [facility] Attention deficit disorder w ithout hyperactivity TELEHEALTH with CANDY LENUG MD 06/06/2021 Last Documented On 2 11:06PM ; [facility] Generalized anxiety disorder TELEHEALTH with MET JACQUELINE LEUNG MD 06/06/2021 Last Documented On 2 11:06PM ; [facility] Major depressive disorder TELEHEALTH with ESME LEUNG MD 06/06/2021 Last Documented On 2 11:06PM ; [facility] Psychophysiological insomnia TELEHEALTH with MET JACQUELINE LEUNG MD 06/06/2021 Last Documented On 2 11:06PM ; [facility] Psychophysiological insomnia * PHONE CALL with Marta LEUNG MD 05/21/2021 Last Documented On 2 5:02PM ; [facility] Attention deficit disorder w ithout hyperactivity PSYCH NEW PATIENT EXAM- ADULT with CANDY LEUNG MD 05/01/2021 Last Documented On 2 9:17AM ; [facility] Generalized anxiety disorder PSYCH NEW P ATIENT EXAM- ADULT with CANDY LEUNG MD 05/01/2021 Last Documented On 2 9:17AM ; [facility] Major depressive disorder PSYCH NEW [place] ENT EXAM- ADULT with CANDY LEUNG MD 05/01/2021 Last Documented On 2 9:17AM ; [facility] Psychophysiological insomnia PSYCH NEW P ATIENT EXAM- ADULT with CANDY LEUNG MD 05/01/2021 Last Documented On 2 9:17AM ; [facility] Instructions Includes: Instructions for all patient encounters Education and Decision Aids were provided during visit for: Discussed calming techniques such as breathing exercises and other relaxation techniques Last Documented On 3 9:53AM ; [facility] Discussed good sleep hygiene habits Last Documented On 3 10:18AM ; [facility] Discussed calming techniques such as breathing exercises and other relaxation techniques if and when anxious Last Documented On 3 4:05PM ; [facility] Discussed good sleep hygiene habits - balanced meal plan, health supplements but pt said she cannot tolerate protein shakes Last Documented On 3 4:05PM ; [facility] Patient education about medi cation ---Education was given on medication(s) and diagnosis. I reviewed the risks, benefits and side effects of patient's medications Last Documented On 2 10:54AM ; [facility] Discussed calming techniques such as breathing exercises and other relaxation techniques Last Documented On 2 10:54AM ; [facility] Discussed good sleep hygiene habits Last Documented On 2 10:56AM ; [facility] Patient education about medi cation --- I educated patient on medication(s) and diagnosis. I reviewed the risks, benefits and side effects of patient's medications Last Documented On 2 1:50PM ; [facility] Discussed calming techniques such as breathing exercises and other relaxation techniques Last Documented On 2 1:50PM ; [facility] Discussed good sleep hygiene habits Last Documented On 2 1:58PM ; [facility] Patient education about medi cation --- I educated patient on medication(s) and diagnosis. I reviewed the risks, benefits and side effects of patient's medications Last Documented On 2 9:19AM ; [facility] Discussed calming techniques such as breathing exercises and other relaxation techniques Last Documented On 2 9:19AM ; [facility] Discussed good sleep hygiene habits Last Documented On 2 9:41AM ; [facility] Patient education about medi cation --- I educated patient on medication(s) and diagnosis. I reviewed the risks, benefits and side effects of patient's medications Last Documented On 2 1:50PM ; [facility] Discussed calming techniques such as breathing exercises and other relaxation techniques Last Documented On 2 1:50PM ; [facility] Patient counseling I discuss ed risk, benefits, and side effects of sleep aid Belsomra - including the possibility of sleep related behaviors i.e. sleepwalking, sleeptalking, sleepdriving, etc... Pt verbalized understanding Last Documented On 2 2:02PM ; [facility] Counseling for nutrition/jordan ght management provided Last Documented On 2 2:02PM ; [facility] Discussed good sleep hygiene habits Last Documented On 2 2:02PM ; [facility] Patient education about medi cation --- I educated patient on medication(s) and diagnosis. I reviewed the risks, benefits and side effects of patient's medications Last Documented On 2 2:36PM ; [facility] Discussed calming techniques such as breathing exercises and other relaxation techniques Last Documented On 2 2:36PM ; [facility] Counseling for nutrition/jordan ght management provided Last Documented On 2 3:23PM ; [facility] Discussed good sleep hygiene habits Last Documented On 2 3:23PM ; [facility] Medical Equipment - Implanted Devices Includes: Current and historical Devices No Medical Equipment Recorded Medications Includes: Current and historical Medications Current Medications (continue as prescribed) EQ Laxative Maximum Strength 25 MG Oral Tablet 023 Provider: Diagnosis: 3 tabs at night Last Documented On 3 10:04AM By NIKKI HOWARD ; [facility] Focalin 5 MG Oral Tablet 06/29/2022 Provider: MET JACQUELINE LEUNG MD Diagnosis: Attn-defct hyper activity disorder, predom inattentive type as directed - 1 tab in am with food Last Documented On 3 11:33AM By Nani Leung MD ; [facility] LORazepam 0.5 MG Oral Tablet 06/29/2022 Provider: CANDY LEUNG MD Diagnosis: Generalized anxi ety disorder as directed - 1/2 - 1 tab a day as needed for severe panic attacks Last Documented On 3 11:33AM By Nani Leung MD ; [facility] OLANZapine 15 MG Oral Tablet 06/29/2022 Provider: CANDY LEUNG MD Diagnosis: Major depressive disorder, recurrent, moderate as directed -- 1 tab at bedtime Last Documented On 3 11:33AM By Nani Leung MD ; [facility] traZODone HCl 100 MG Oral Tablet 06/15/2022 Provider: CANDY LEUNG MD Diagnosis: Psychophysiologi c insomnia as directed 3 tabs at bedtime Last Documented On 06/15/2022 3:36PM By Nani Leung MD ; [facility] Folic Acid 1 MG Oral Tablet 03/31/2022 Provider: [employer] Diagnosis: 1 tab daily Last Documented On 3 11:38AM By NIKKI HOWARD ; [facility] Pramipexole Dihydrochloride 0.75 MG Oral Tablet 09/08/2021 Provider: TIMMY VALENZUELA MD Diagnosis: 2 tabs in the evening Last Documented On 3 11:39AM By NIKKI HOWARD ; [facility] Antacid 200-200-20 MG/5ML Oral Suspension 05/21/2021 Provider: MELANIE PARKINSON MD Diagnosis: as needed Last Documented On 06/06/2021 2:04PM By MICHELLE PARKS ; [facility] Ocuvite Adult 50+ Oral Capsule 05/01/2021 Provider: Diagnosis: 1 cap daily Last Documented On 05/01/2021 3:10PM By NIKKI HOWARD ; [facility] Xyzal 5 MG Oral Tablet 05/01/2021 Provider: Diagnosis: 1 tab daily Last Documented On 05/01/2021 3:10PM By NIKKI HOWARD ; [facility] Biotin 5000 MCG Oral Capsule 05/01/2021 Provider: Diagnosis: 1 cap daily Last Documented On 05/01/2021 3:13PM By NIKKI GUAMANA ; [facility] Stool Softener 100 MG Oral Capsule 05/01/2021 Pr ovider: Diagnosis: 1 cap tid Last Documented On 05/01/2021 3:12PM By NIKKI OCHOA RMA ; [facility] Ondansetron HCl 8 MG Oral Tablet 03/13/2021 Provider : MELANIE PARKINSON MD Diagnosis: 2 tab prn nausea/vomiting Last Documented On 05/01/2021 3:04PM By NIKKI OCHOA A ; [facility] Anoro Ellipta 62.5-25 MCG/IN H Inhalation Aerosol Powder Breath Activated 03/11/2021 Provider: ERNIE MADRIGAL MD Diagnosis: 1 inhalation daily Last Documented On 05/01/2021 3:07PM By NIKKI OCHOA A ; [facility] Cyclobenzaprine HCl 10 MG Oral Tablet 01/06/2021 Pro vider: ERNIE MADRIGAL MD Diagnosis: take 1 tab prn Last Documented On 05/01/2021 3:07PM By NIKKI OCHOA A ; [facility] Suspended Medications Sertraline HCl 100 MG Oral Tablet 03/11/2022 Provide r: CANDY LEUNG MD Diagnosis: as directed 1 and 1/2 tabs daily Last Documented On 03/11/2022 4:45PM By Nani Leung MD ; [facility] Past Medications on file Gabapentin 300 MG Oral Capsule 06/29/2022 - 07/29/2022 Provider: Diagnosis: 2 capsules at night Last Documented On 3 10:02AM By NIKKI OCHOA RMA ; [facility] traZODone HCl 100 MG Oral Tablet 06/15/2022 - 06/30/19 Provider: Diagnosis: Psychophysiologi c insomnia 3 tabs at bedtime Last Documented On 3 10:16AM By NIKKI OCHOA ROWENAA ; [facility] LORazepam 0.5 MG Oral Tablet 05/20/2022 - 06/29/2022 Provider: CANDY LEUNG MD Diagnosis: Generalized anxi ety disorder as directed - 1/2 - 1 tab a day as needed for severe panic attacks Last Documented On 3 10:40AM By Nani Leung MD ; [facility] Focalin 5 MG Oral Tablet 05/20/2022 - 06/29/2022 Provider: CANDY LEUNG MD Diagnosis: Attn-defct hyper activity disorder, predom inattentive type as directed - 1 tab in am with food Last Documented On 3 10:36AM By Nani Leung MD ; [facility] traZODone HCl 100 MG Oral Tablet 05/04/2022 - 06/29/2022 Provider: CANDY LEUNG MD Diagnosis: Psychophysiologi c insomnia as directed -- 3 tabs at bedtime Last Documented On 3 10:16AM By NIKKI HOWARD ; [facility] OLANZapine 15 MG Oral Tablet 05/04/2022 - 06/29/2022 Provider: CANDY LEUNG MD Diagnosis: Major depressive disorder, recurrent, moderate as directed -- 1 tab at bedtime Last Documented On 3 10:51AM By Nani Leung MD ; [facility] oxyCODONE HCl 5 MG Oral Tablet 04/18/2022 - 06/29/2022 Provider: Diagnosis: use prn pain Last Documented On 3 10:25AM By Nani Leung MD ; [facility] LORazepam 0.5 MG Oral Tablet 04/13/2022 - 05/20/2022 Provider: CANDY LEUNG MD Diagnosis: Generalized anxi ety disorder as directed - 1/2 - 1 tab a day as needed for severe panic attacks Last Documented On 3 11:13AM By Nani Leung MD ; [facility] LORazepam 0.5 MG Oral Tablet 02/16/2022 - 04/13/2022 Provider: CANDY LEUNG MD Diagnosis: Generalized anxi ety disorder as directed - 1/2 - 1 tab a day as needed for severe panic attacks Last Documented On 3 10:01AM By Nani Leung MD ; [facility] traZODone HCl 50 MG Oral Tablet 02/04/2022 - 06/29/2022 Provider: CANDY LEUNG MD Diagnosis: Obstructive slee p apnea (adult) (pediatric) as directed 3-4 tablets at b edtime as needed for sleep Last Documented On 3 10:17AM By NIKKI HOWARD ; [facility] OLANZapine 10 MG Oral Tablet 01/26/2022 - 06/29/2022 Provider: CANDY LEUNG MD Diagnosis: Major depressive disorder, recurrent, unspecified as directed -- 1 tab at bedtime Last Documented On 3 10:16AM By NIKKI HOWARD ; [facility] LORazepam 0.5 MG Oral Tablet 01/09/2022 - 02/16/2022 Provider: CANDY LEUNG MD Diagnosis: Generalized anxi ety disorder as directed - 1/2 - 1 tab a day as needed for severe panic attacks Last Documented On 02/16/2022 1:30PM By Nani Leung MD ; [facility] Focalin 5 MG Oral Tablet 01/05/2022 - 05/20/2022 Provider: CANDY LEUNG MD Diagnosis: Attn-defct hyper activity disorder, predom inattentive type as directed - 1 tab in am with food Last Documented On 05/20/2022 6:59PM By Nani Leung MD ; [facility] Sertraline HCl 100 MG Oral Tablet 12/09/2021 - 03/11/2022 Provider: CANDY CASTANO MD Diagnosis: as directed 1 and 1/2 tabs daily Last Documented On 03/11/2022 4:34PM By Nani Leung MD ; [facility] traZODone HCl 50 MG Oral Tablet 11/05/2021 - 02/04/2022 Provider: CANDY LEUNG MD Diagnosis: Obstructive slee p apnea (adult) (pediatric) as directed 3-4 tablets at b edtime as needed for sleep Last Documented On 02/04/2022 4:27PM By Nani Leung MD ; [facility] traZODone HCl 50 MG Oral Tablet 11/05/2021 - 02/02/2022 Provider: Diagnosis: Obstructive slee p apnea (adult) (pediatric) 3-4 tablets at bedtime as needed for sleep Last Documented On 10/31/202 2 12:12AM By Nani Leung MD ; [facility] OLANZapine 5 MG Oral Tablet 10/14/2021 - 02/02/2022 Provider: CANDY LEUNG MD Diagnosis: Major depressive disorder, recurrent, moderate One tablet at bed time Last Documented On 2 12:12AM By Nani Leung MD ; [facility] Focalin 10 MG Oral Tablet 10/14/2021 - 11/13/2021 Provider: CANDY LEUNG MD Diagnosis: Generalized anxi ety disorder as directed -- 1 tab in am Last Documented On 10/14/2021 2:31PM By Nani Leung MD ; [facility] Gabapentin 300 MG Oral Capsule 09/08/2021 - 06/29/2022 Provider: Diagnosis: 1 to 2 capsuled three times a day Last Documented On 3 10:02AM By NIKKI HOWARD ; [facility] Sertraline HCl 100 MG Oral Tablet 09/04/2021 - 12/09/2021 Provider: CANDY CASTANO MD Diagnosis: as directed 1 and 1/2 tabs daily Last Documented On 2 11:01AM By Nani Leung MD ; [facility] traZODone HCl 50 MG Oral Tablet 09/04/2021 - 02/02/2022 Provider: CANDY LEUNG MD Diagnosis: Psychophysiologi c insomnia as directed 3 - 4 tablets at bedtime Last Documented On 2 12:12AM By Nani Leung MD ; [facility] traZODone HCl 50 MG Oral Tablet 09/04/2021 - 2 Provider: Diagnosis: Psychophysiologi c insomnia 3 - 4 tablets at bedtime Last Documented On 2 12:13AM By Nani Leung MD ; [facility] Pramipexole Dihydrochloride 0.75 MG Oral Tablet 08/13/2021 - 11/11/2021 Provider: Diagnosis: 1 afternoon prn and 2 at hs Last Documented On 08/13/2021 9:28AM By NIKKI HOWARD ; [facility] Gabapentin 300 MG Oral Capsule 08/13/2021 - 09/12/2021 Provider: ERNIE MADRIGAL MD Diagnosis: 2 at night Last Documented On 08/13/2021 9:26AM By NIKKI HOWARD ; [facility] Focalin 10 MG Oral Tablet 07/25/2021 - 02/02/2022 Provider: CANDY LEUNG MD Diagnosis: Attn-defct hyper activity disorder, predom inattentive type 1 tablet every morning with food Last Documented On 2 12:13AM By Nani Leung MD ; [facility] Focalin 10 MG Oral Tablet 06/30/2021 - 07/25/2021 Provider: CANDY LEUNG MD Diagnosis: Attn-defct hyper activity disorder, predom inattentive type 1 tablet every morning with food Last Documented On 07/25/2021 4:30PM By Nani Leung MD ; [facility] traZODone HCl 50 MG Oral Tablet 06/06/2021 - 02/02/2022 Provider: CANDY LEUNG MD Diagnosis: Psychophysiologi c insomnia as directed 2 or 3 tabs at bedtime Last Documented On 2 12:13AM By Nani Leung MD ; [facility] Focalin 10 MG Oral Tablet 06/02/2021 - 06/30/2021 Provider: CANDY LEUNG MD Diagnosis: Attn-defct hyper activity disorder, predom inattentive type 1 tablet every morning with food Last Documented On 06/30/2021 7:03PM By Nani Leung MD ; [facility] Lubiprostone 24 MCG Oral Capsule 05/21/2021 - 08/13/2021 Provider: MELANIE MEJÍA MD Diagnosis: 1 capsule daily Last Documented On 08/13/2021 9:25AM By NIKKI HOWARD ; [facility] Belsomra 20 MG Oral Tablet 05/21/2021 - 08/13/2021 Provider: CANDY LEUNG MD Diagnosis: Psychophysiologi c insomnia as directed -- 1/2 - 1 tab a t bedtime as needed for sleep Last Documented On 2 10:14AM By Nani Leung MD ; [facility] HM Melatonin 10 MG Oral Tablet Extended Release 05/01/2021 - 08/13/2021 Provider: Diagnosis: 1 tab at bedtime Last Documented On 08/13/2021 9:25AM By NIKKI HOWARD ; [facility] Adult Aspirin Regimen 81 MG Oral Tablet Delayed Release 05/01/2021 - 05/04/2022 Provider: Diagnosis: 1 tab daily Last Documented On 3 11:25AM By NIKKI HOWARD ; [facility] Lansoprazole 30 MG Oral Capsule Delayed Release 05/01/2021 - 08/13/2021 Provider: Diagnosis: 1 cap daily Last Documented On 08/13/2021 9:26AM By NIKKI HOWARD ; [facility] Focalin 10 MG Oral Tablet 05/01/2021 - 06/02/2021 Provider: CANDY LEUNG MD Diagnosis: Attn-defct hyper activity disorder, predom inattentive type 1 tablet every morning with food Last Documented On 11:41AM By Nani Leung MD ; [facility] [facility] Laxative Maximum Strength 25 MG Oral Tablet 0 05/01/2021 - 06/29/2022 Provider: Diagnosis: 1 tab at night Last Documented On 3 10:04AM By NIKKI HOWARD ; [facility] DayVigo 5 MG Oral Tablet 05/01/2021 - 05/21/2021 Provider: CANDY LEUNG MD Diagnosis: Psychophysiologi c insomnia as directed -- 1 tab at hs a s needed for sleep Last Documented On 05/01/2021 4:02PM By Nani Leung MD ; [facility] amLODIPine Besylate 5 MG Ora l Tablet 04/24/2021 - 05/04/2022 Provider: ERNIE MADRIGAL MD Diagnosis: 1 tab daily Last Documented On 3 11:26AM By NIKKI HOWARD ; [facility] Gabapentin 300 MG Oral Capsule 04/21/2021 - 08/13/2021 Provider: ERNIE MADRIGAL MD Diagnosis: 1 cap tid Last Documented On 08/13/2021 9:26AM By NIKKI HOWARD ; [facility] busPIRone HCl 5 MG Oral Tablet 04/14/2021 - 08/13/2021 Provider: MELANIE MEJÍA MD Diagnosis: 1 tab tid Last Documented On 08/13/2021 9:27AM By NIKKI HOWARD ; [facility] Linzess 290 MCG Oral Capsule 03/28/2021 - 08/13/2021 Provider: SUSIE MCALLISTER [employer] Diagnosis: 1 cap daily pt thinks her bottle says 145 mcg Last Documented On 08/13/2021 9:27AM By NIKKI HOWARD ; [facility] Mirtazapine 45 MG Oral Tablet 03/20/2021 - 08/13/2021 Provider: SUSIE Fernandez DEJAHGuzman [employer] Diagnosis: 1 tab daily Last Documented On 2 10:13AM By Nani Leung MD ; [facility] Pramipexole Dihydrochloride 0.75 MG Oral Tablet 03/14/2021 - 08/13/2021 Provider: Diagnosis: [address] Timmy Ayala Last Documented On 08/13/2021 9:28AM By NIKKI HOWARD ; [facility] Sertraline HCl 100 MG Oral Tablet 03/01/2021 - 02/02/2022 Provider: ERNIE MADRIGAL MD Diagnosis: 1 and 1/2 tabs daily Last Documented On 2 12:13AM By Nani Leung MD ; [facility] Medications Administered Includes: Administered Medications in patient's [...] 05/04/2022 Last Documented On 3 4:12PM ; [facility] Patient reported that she wa s born [...] past or pending legal history. Patient enjoys [employer] and christianity. 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 05/01/2021 Last Documented On 2 9:17AM ; [facility] Former smoker - quit smoking 2012 Last Documented On 2 9:17AM ; [facility] Smoking Status Unknown Procedures and Surgical History Surgical History Last Updated History of enteroscopic proc edures - 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 Jorge Aranda -- Joss 06/29/2022 Last Documented On 3 2:44PM ; [facility] History of endoscopic insert ion of stent of pancreatic duct - abdominal drain - 01/2019 and 02/201902/02/2022 Last Documented On 2 12:34AM ; [facility] History of splenectomy - 12/31/201802/02 Last Documented On 2 12:34AM ; [facility] History of cervical vertebra l fusion and cervical decompression in 2002 and 200705/02/2021 Last Documented On 2 9:17AM ; [facility] History of hip replacement - bilateral - - 2019 and 202005/01/2021 Last Documented On 2 9:17AM ; [facility] History of knee replacement - bilateral -- 2000 and 200105/01/2021 Last Documented On 2 9:17AM ; [facility] History of cholecystectomy - 2007 Last Documented On 2 9:17AM ; [facility] History of appendectomy - 1971 2 Last Documented On 2 9:17AM ; [facility] Medical History Includes: Medical History in patient's chart Description Last Updated History of urinary tract infection - giv en Nitrofurantoin 100 mg 06/11/22 06/29/2022 Last Documented On 3 2:44PM ; [facility] Primary Care Provider: Dr. Adriana Madrigal ~Dr. Melanie Parkinson -- Citrix Consultant ~Dr. Jorge Hsieh -- Orthopedist [facility] ~Dr. Alberto Valdez -- Shoulder Surgeon at [facility] ~Dr. Andi Mcrae -- Dentist ~Dr. Luis Handley - Pain Mgt 06/29/2022 Last Documented On 3 2:44PM ; [facility] History of iron deficiency a tj - had 2 iron infusions 04/21/22 since her Hgb went down to 7.3 last 03/2022 but now it went back up to 10.3 last 04/202205/04/2022 Last Documented On 3 4:12PM ; [facility] of [facility] - seen at [facility] given emema 05/04/2022 Last Documented On 3 4:12PM ; [facility] History of dysuria - given Cipro 250 mg 02/03/22 05/04/2022 Last Documented On 3 4:12PM ; [facility] History of cough - given Tessalon Perles 100 mg 04/01/22 05/04/2022 Last Documented On 3 4:12PM ; [facility] History of urinary retention - given Zayas sulosin 0.4 mg 04/08/22 05/04/2022 Last Documented On 3 4:12PM ; [facility] History of tooth extraction - given Zpak 250 mg for prophylaxis purposes 08/13/2021 Last Documented On 2 12:15PM ; [facility] History of colonoscopy - 201 9 -- botched per patient leading to weight loss 08/13/2021 Last Documented On 2 12:15PM ; [facility] History of coronavirus 2019- nCoV vaccine - Moderna #1 06/2020 #2 06/2020 #3 03/25/21 05/01/2021 Last Documented On 2 9:17AM ; [facility] History of osteoarthritis of multiple sites - accelerated degenerative disk and joint disease 05/01/2021 Last Documented On 2 9:17AM ; [facility] History of splenic laceration - requirin g slenectomy 05/01/2021 Last Documented On 2 9:17AM ; [facility] History of spinal stenosis - lumbar and thoracic 05/01/2021 Last Documented On 2 9:17AM ; [facility] History of restless legs syndrome 2021 Last Documented On 2 9:17AM ; [facility] History of chronic peptic ulcer 05/01/19 22 Last Documented On 2 9:17AM ; [facility] History of chronic obstructive pulmonary disease 05/01/2021 Last Documented On 2 9:17AM ; [facility] History of tricuspid regurgitation 05/01 Last Documented On 2 9:17AM ; [facility] History of mitral regurgitation 05/01/19 22 Last Documented On 2 9:17AM ; [facility] History of aortic regurgitation 05/01/19 22 Last Documented On 2 9:17AM ; [facility] Family History Includes: Family History in patient's chart Description Last Updated Sororal history of dementia of Alzheimer's type with early onset - oldest sister - and depression 05/01/2021 Last Documented On 2 9:17AM ; [facility] Review of Systems Review of Systems not [...] Active Last Documented On 07/05/2023 10:12AM ; [facility] Note: Imported from external source. Valium Allergy Nausea, Vomiting, Diarrhea / Diarrheal disorder 04/01/2015 Active Last Documented On 07/05/2023 10:12AM ; [facility] Note: Imported from external source. Sulfa Antibiotics Allergy Nausea, Vomiting, Diarrhea / Diarrheal disorder 08/13/2021 Active Last Documented On 07/05/2023 10:12AM ; [facility] Note: Imported from external source. Percocet Allergy Nausea, Vomiting, Diarrhea / Diarrheal disorder 04/01/2015 Active Last Documented On 07/05/2023 10:12AM ; [facility] Note: Imported from external source. Morphine Sulfate Allergy Nausea, Vomiting, Diarrhea / Diarrheal disorder 04/01/2015 Resolved Last Documented On 09/22/2022 11:29AM ; [facility] Note: Imported from external source. Morphine Sulfate Allergy Nausea, Vomiting, Diarrhea / Diarrheal disorder 04/01/2015 Active Last Documented On 4 10:12AM ; [facility] Ancef Allergy Nausea, Vomiting , Diarrhea / Diarrheal disorder 04/01/2015 Active Last Documented On 07/05/2023 10:12AM ; [facility] Note: Imported from external source. Insurance Includes: Active Insurance Policies Plan Name Member ID Group # Subscriber Relationship Effect lauryn Dates 1 - [employer] [id number] [place]IG[place]EL [place] Self Clinical Notes Includes: Signed Clinical Notes starting from 04/24/2022 No Clinical Notes Recorded
--- OUTSIDE RECORDS SUMMARY | 2024-06-08 03:01 | XMS_ITS | Referral Summary ---
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 not drink Q3: How often do you have si x or more drinks on one occasion? Never 05/29/2024 Overall Financial Resource Strain (CARDIA) Answe r Date Recorded How hard is it for you to pa y for the very basics like food, housing, medical care, and heating? Not hard at all 03/18/2022 Hunger Vital Sign Answer Date Recorded Within the past 12 months, y ou worried that your food would run out before you got the money to buy more. Never true 03/18/20 22 Within the past 12 months, t he food you bought just didn't last and you didn't have money to get more. Never true 03/18/2022 PRAPARE - Transportation Answer Date Re corded In the past 12 months, has l ack of transportation kept you from medical appointments or from getting medications? No 03/05 In the past 12 months, has l ack of transportation kept you from meetings, work, or from getting things needed for daily living? No 03/18/2022 Housing Stability Vital Sign Answer John e Recorded In the last 12 months, was t here a time when you were not able to pay the mortgage or rent on time? No 03/18/2022 In the last 12 months, how many places have you lived? 1 03/18/2022 In the last 12 months, was t here a time when you did not have a steady place to sleep or slept in a residential (including now)? No 03/18/2022 Personal Safety Answer Date Recorded Have you ever been in or are you currently in a harmful physical or emotional relationship or is someone making you feel afraid or unsafe? 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 Not on file Not on file Last Filed Vital Signs Vital Sign Reading Time Taken Comments Blood Pressure 126/74 06/05/2024 10:03 AM MINER OPERATOR Pulse 71 06/05/2024 10:03 AM MINER OPERATOR Temperature 36.8 C (98.2 F) 05/31/2024 2:53 PM MINER OPERATOR Respiratory Rate 18 05/29/2024 7:34 AM MINER OPERATOR Oxygen Saturation 96% 05/31/2024 2:53 PM MINER OPERATOR Inhaled Oxygen Concentration - - Weight 60.3 kg (133 lb) 06/05/2024 10:03 AM MINER OPERATOR Height 162.6 cm (5' 4 ) 06/05/2024 10:03 AM MINER OPERATOR Body Mass Index 22.83 06/05/2024 10:03 AM MINER OPERATOR Plan of Treatment Not on file Goals Goal Patient Goal Type Associated Problems Recent Progress Patient-Stated? Author CCM Chronic Pain Care Plan Chronic Care Management No Penelope Hutchins, RN Note: Problem: Chronic Pain Goals: 1. Minimize further functional decline 2. Maximize quality of life 3. Control pain Strategies: - Activity/exercise program recommendation - Conservative stepwise pain medicine strategy with multi-disciplinary approach - Recommend healthy lifestyle strategies and compensatory methods as needed Reduce the likelihood of falling Lifestyle Yes Penelope Hutchins RN Note: Below are four things you can do to prevent falls: Begin an exercise program to improve your leg strength & balance Ask your doctor or pharmacist to review your medicines Get annual eye check-ups & update your eyeglasses Make your home safer by: Removing clutter & tripping hazards Putting railings on all stairs & adding grab bars in the bathroom Having good lighting, especially on stairs Contact your local community or senior center for information on exercise, fall prevention programs, or options for improving home safety. Reduce the likelihood of falling Lifestyle No Shi Neil RN Note: Below are four things you can do to prevent falls: Begin an exercise program to improve your leg strength & balance Ask your doctor or pharmacist to review your medicines Get annual eye check-ups & update your eyeglasses Make your home safer by: Removing clutter & tripping hazards Putting railings on all stairs & adding grab bars in the bathroom Having good lighting, especially on stairs Contact your local community or senior center for information on exercise, fall prevention programs, or options for improving home safety. Medical Devices Implanted Type Area It Program Auditor Device Identifier Shelf Expiration Date Model / Serial / Lot Carotid Stent Stent N/A: Carotid Pancreatic Stent-03/17/20 19 Implanted:03/05 (Quantity not on file) Stent N/A: Pancreas Total Knee Replacement Bilateral: Knee Shoulder Replacement Bilateral: Shoulder Cervical Fusion N/A: Spine Cervical Total Hip Replacement Left: Hip [employer] [id number] [place] 50mm Sector Hip Shell Acetabular Gription Sterile Latex Free - [id number] Implanted:Qty: 1 on 01/10/2020 by Jaiden Gonzalez MD at [facility] Right: Hip [employer] 07/03/2029 [id number] / / [id number] Dep[employer] [id number] [place] 50mm 32mm Hip Neutral Liner Acetabular Altrx Sterile Latex Free - [id number] Implanted:Qty: 1 on 01/10/2020 by Jaiden Gonzalez MD at [facility] Right: Hip [employer] 11/02/2024 [id number] / / [id number] [employer] [id number] Actis Collared Hip 12/14 6 Standard Offset Stem Femoral - [id number] Implanted:Qty: 1 on 01/10/2020 by Jaiden Gonzalez MD at [facility] Right: Hip [employer] 12/03/2029 [id number] / / [id number] [employer] [id number] Articul/Ivan 32mm Hip +5mm 12/14 Taper Head Femoral Biolox Delta Latex Free - [id number] Implanted:Qty: 1 on 01/10/2020 by Jaiden Gonzalez MD at [facility] Right: Hip [employer] 11/02/2024 [id number] / / [id number] Allosource [id number] Crushed Chip Frozen Graft 60ml Bone Cancellous - [id number] Implanted:Qty: 1 on 12/12/2020 by Jorge Hsieh MD at [facility] N/A: Spine Lumbar Allosource 10/06/2025 [id number] / / [id number] Medtronic Sofamor Danek [id number] Mastergraft Matrix Block Extension Void Filler Substitute 10ml - [id number] Implanted:Qty: 1 on 12/12/2020 by Jorge Hsieh MD at [facility] N/A: Spine Lumbar Medtronic Inc [id number] 05/05/2023 [id number] / / [id number] Medtronic Sofamor Danek [id number] Infuse 18mm 26mm Absorbable Sponge Sterile Water Syringe Needle - [id number] Implanted:Qty: 1 on 12/12/2020 by Jorge Hsieh MD at [facility] N/A: Spine Lumbar Medtronic Inc 09/02/2022 [id number] / / [id number] Medtronic Sofamor Danek [id number] Solera Cd Horizon 6.5mm 45mm Multiaxial Spine Screw Bone Cocr - [id number] Implanted:Qty: 8 on 12/12/2020 by Jorge Hsieh MD at [facility] N/A: Spine Lumbar Medtronic Inc [id number] / / Medtronic Sofamor Danek [id number] Solera Cd Horizon 7.5mm 45mm Multiaxial Spine Screw Bone Cocr - [id number] Implanted:Qty: 2 on 12/12/2020 by Jorge Hsieh MD at [facility] N/A: Spine Lumbar Medtronic Inc [id number] / / Medtronic Sofamor Danek [id number] Cd Horizon Break Off Spinal Screw Set Titanium Nonsterile 5.5 Mm - [id number] Implanted:Qty: 13 on 12/12/2020 by Jorge Hsieh MD at [facility] N/A: Spine Lumbar Medtronic Inc [id number] / / Medtronic Inc [id number] Cd Horizon 6mm 500mm Line Straight Harsh Spinal Titanium Nonsterile - [id number] Implanted:Qty: 2 on 12/12/2020 by Jorge Hsieh MD at [facility] N/A: Spine Lumbar Medtronic Inc [id number] / / Medtronic Inc Infuse 18mm Sponge [id number] - [id number] Implanted:Qty: 2 on 03/12/2022 by Jorge Hsieh MD at [facility] N/A: Spine Thoracic Medtronic Inc 08/03/2023 [id number] / / [id number] Allosource Crushed Chip Frozen Graft 60ml Bone Cancellous [id number] - [id number] - [id number] Implanted:Qty: 1 on 03/12/2022 by Jorge Hsieh MD at [facility] 02/14/2026 [id number] / [id number] / - Allosource Crushed Chip Frozen Graft 60ml Bone Cancellous [id number] - [id number] - [id number] Implanted:Qty: 1 on 03/12/2022 by Jorge Hsieh MD at [facility] 04/08/2026 [id number] / [id number] / - Medtronic Inc Cd Horizon Break Off Spinal Screw Set Titanium Nonsterile 5.5 Mm [id number] - [id number] Implanted:Qty: 29 on 03/12/2022 by Jorge Hsieh MD at [facility] Medtronic Inc [id number] / / Medtronic Inc Solera Cd Horizon 5.5mm 30mm Multiaxial Spine Screw Bone Cocr [id number] - [id number] Implanted:Qty: 1 on 03/12/2022 by Jorge Hsieh MD at [facility] Medtronic Inc [id number] / / Medtronic Inc Solera Cd Horizon 5.5mm 35mm Multiaxial Spine Screw Bone Cocr [id number] - [id number] Implanted:Qty: 1 on 03/12/2022 by Jorge Hsieh MD at [facility] N/A: Spine Thoracic Medtronic Inc [id number] / / Medtronic Inc Solera Cd Horizon 6.5mm 30mm Multiaxial Spine Screw Bone Cocr [id number] - [id number] Implanted:Qty: 2 on 03/12/2022 by Jorge Hsieh MD at [facility] N/A: Spine Thoracic Medtronic Inc [id number] / / Medtronic Inc Solera Cd Horizon 6.5mm 40mm Multiaxial Spine Screw Bone Cocr [id number] - [id number] Implanted:Qty: 12 on 03/12/2022 by Jorge Hsieh MD at [facility] N/A: Spine Thoracic Medtronic Inc [id number] / / Medtronic Inc Solera Cd Horizon 7.5mm 45mm Multiaxial Spine Screw Bone Cocr [id number] - [id number] Implanted:Qty: 4 on 03/12/2022 by Jorge Hsieh MD at [facility] N/A: Spine Thoracic Medtronic Inc [id number] / / Medtronic Inc [place]uben Spine Offset Connector Harsh 3.5-5.5/6mm Harsh [id number] - [id number] Implanted:Qty: 2 on 03/12/2022 by Jorge Hsieh MD at [facility] N/A: Spine Thoracic Medtronic Inc [id number] / / Medtronic Inc Longitude Ii 5.5mm 500mm Straight Harsh Spinal Cocr Molybdenum [id number] - [id number] Implanted:Qty: 2 on 03/12/2022 by Jorge Hsieh MD at [facility] N/A: Spine Thoracic Medtronic Inc [id number] / / Explanted Type Area It Program Auditor Device Identifier Shelf Expiration Date Model / Serial / Lot Lumbar Fusion Explanted:Qty: 1 on 12/12/2020 by Jogre Hsieh MD at [facility] N/A: Spine Lumbar Description:5 set screws, 2 rods, 4 screws Procedures Procedure Name Priority Date/Time Associated Diagnosis Comments URINALYSIS, MICROSCOPIC ONLY Routine 05/29/2024 1:51 PM MINER OPERATOR Multiple sclerosis (HCC) URINALYSIS AND REFLEX TO MICROSCOPIC AND CULTURE Routine 05/29/2024 1:51 PM MINER OPERATOR Multiple sclerosis (HCC) MEASURE POST VOID RESIDUAL Routine 05/19/2024 10:04 AM MINER OPERATOR Urge incontinence [place] ARTHROCENTESIS ASPIR&/INJ MAJOR JT/BURSA W/O US Routine 05/17/2024 3:15 PM MINER OPERATOR Left shoulder pain, unspecified chronicity XR SHOULDER LEFT 2 OR MORE VIEWS Schedule Routine, Read Routine (OP Routine) 05/17/2024 1:31 PM MINER OPERATOR Left shoulder pain, unspecified chronicity HEPATITIS C ANTIBODY Routine 01/07/2024 10:56 AM CDT Multiple sclerosis (HCC) Encounter for screening for viral disease COLONOSCOPY 06/17/2023 10:12 AM CDT DEXA AXIAL SKELETON BONE DENSITY 1 OR MORE SITES Schedule Routine, Read Routine (OP Routine) 11/21/2020 9:28 AM CDT Osteoporosis, post-menopausal from Last 3 Months or Most Recently Relevant to Health Maintenance Results * (ABNORMAL) Urinalysis reflex to microscopic and culture Urine (05/29/2024 1:51 PM MINER OPERATOR) Color, ur Yellow Yellow Clarity, ur Clear Clear CERNER CH Specific gravity, ur 1.008 1.003 - 1.030 CERNER CH pH, urine 5.5 CERNER CH Comment: Interpretive Data U rine pH is affected by diet, medications, systemic acid-base disturbances, and renal tubular function. pH may affect urinary stone formation. For example, urine pH below 6.0 may help reduce the tendency for calcium phosphate stones and pH greater than 6.0 may reduce the tendency for uric acid stone formation. Source: [facility] Current Interpretive Data was last revised on 2017 Protein, ur ql Negative Negative CERNER CH Glucose, ur ql Negative Negative [facility] Ketones, ur Negative Negative [facility] Bilirubin, ur Negative Negative [facility] Blood, ur Negative Negative [facility] Urobilinogen, ur <2.0 <2.0 mg/dL [facility] Nitrite, ur Negative Negative [facility] Leukocyte esterase, ur 1+(A) Negative [facility]ER [facility] UA reflex comment Reflex to microscopic UA will be performed. [facility] Urine 05/29/2024 1:51 PM MINER OPERATOR 05/29/2024 9:06 PM MINER OPERATOR Chinmay Carmona MD LAB MICROBIOLOGY - GENERAL ORDER EBONY Final Result ANA M [id number] Department [place] [address] * Urinalysis, microscopic only (05/29/2024 1:51 PM MINER OPERATOR) WBC, ur 0-5 0 - 5 /HPF RBC, ur 0-2 0 - 2 /HPF [facility] Epithelial cells, squamous, ur 1-5 0 - 5 /HPF [facility] Culture Reflex Comment Reflex conditions for urine culture (WBC >10) not met. [facility] Urine 05/29/2024 1:51 PM MINER OPERATOR 05/29/2024 9:06 PM MINER OPERATOR us Chinmay Carmona MD LAB URINE ORDERABLES Final Resul t Performing Organization Address [facility] Co de Phone Number ANA M LANGLEY [address] Department [place] [address] * Measure post void residual (05/19/2024 10:04 AM MINER OPERATOR) Narrative Madison oMura LPN - 05/19/2024 10:04 AM MINER OPERATOR Measurement of post-voiding residual urine and/or bladder capacity by ultrasound, non-imaging. PVR = 20 mL us Lolis Mckeon ALTERATION WORKROOM SUPERVISOR NURSING ASSESSMENTS Final Res ult * [place] ARTHROCENTESIS ASPIR&/INJ MAJOR JT/BURSA W/O US (05/17/2024 3:15 PM MINER OPERATOR) Narrative Alberto Vladez MD - 05/17/2024 3:15 PM MINER OPERATOR Alberto Valdez MD 05/18/2024 7:04 AM Large Joint Injection: L subacromial bursa Performed by: Alberto Valdez MD Authorized by: Alberto Valdez MD Supporting Documentation: Indications: Pain Procedure Details: Location: Shoulder Site: L subacromial bursa Prep: patient was prepped using a clean technique Needle Size: 22 G Approach: Posterior Ultrasound guided: No Medications: 80 mg triamcinolone 40 mg/mL; 4 mL BUPivacaine HCl 0.5 % (5 mg/mL); 4 mL lidocaine 10 mg/mL (1 %) us Alberto Valdez MD IN CLINIC/BEDSIDE ORDERABL ES Final Result * XR Shoulder Left 2+ View (05/17/2024 1:31 PM MINER OPERATOR) Anatomical Region Laterality Modality Upper Extremities, Shoulder Left Comp uted Radiography 05/17/2024 1:58 PM MINER OPERATOR Impressions 05/17/2024 8:48 PM MINER OPERATOR Moderate rotator cuff arthropathy of the left shoulder. Dictated by: Wayne Siu M.D. The radiology attending physician has personally reviewed this study, and had reviewed and/or edited this written report and agrees with it. Electronically signed by: Mir Acosta M.D. Narrative 05/17/2024 8:48 PM MINER OPERATOR EXAMINATION: XR SHOULDER LEFT 2 OR MORE VIEWS HISTORY: Left shoulder pain COMPARISON: Comparison is made to prior radiograph dated 04/17/2022. FINDINGS: No acute fracture. Mild superior subluxation of the humeral head in keeping with rotator cuff arthropathy. Unchanged postoperative findings of left rotator cuff repair. Moderate glenohumeral joint osteoarthritis. Mild acromioclavicular joint osteoarthritis. Partially evaluated posterior cervical and thoracic spinal fusion hardware. Procedure Note Mir Acosta MD - 05/17/2024 EXAMINATION: XR SHOULDER LEFT 2 OR MORE VIEWS HISTORY: Left shoulder pain COMPARISON: Comparison is made to prior radiograph dated 04/17/2022. FINDINGS: No acute fracture. Mild superior subluxation of the humeral head in keeping with rotator cuff arthropathy. Unchanged postoperative findings of left rotator cuff repair. Moderate glenohumeral joint osteoarthritis. Mild acromioclavicular joint osteoarthritis. Partially evaluated posterior cervical and thoracic spinal fusion hardware. IMPRESSION: Moderate rotator cuff arthropathy of the left shoulder. Dictated by: Wayne Siu M.D. The radiology attending physician has personally reviewed this study, and had reviewed and/or edited this written report and agrees with it. Electronically signed by: Mir Acosta M.D. Alberto Valdez MD IMG XR PROCEDURES Final Re sult * Hepatitis C antibody Blood (01/07/2024 10:56 AM CDT) Hep C Ab Nonreactive Nonreactive Comment: Interpretive Data Nonreactive: Antibodies to HCV not detected. Does NOT exclude the possibility of recent exposure to HCV. Equivocal: Equivocal for HCV antibodies. Supplemental molecular testing will be automatically performed to determine infection status in accordance with current CDC screening recommendations. Reactive: Positive for HCV antibodies. This may represent current or past HCV infection. Supplemental molecular testing will be automatically performed to determine current infection status in accordance with current CDC screening recommendations. Interpretive data was last revised on 2019. Testing performed by: [facility], [address] [place] [address]., [id number] Blood 01/07/2024 10:5 6 AM CDT 01/07/2024 1:39 PM CDT us Yoshi Hussein MD LAB MICROBIOLOGY - GENERAL ORD ERABLES Final Result ANA M [facility]) 1 [facility] Department [place] [address] * Colonoscopy (06/17/2023 10:12 AM CDT) Anatomical Region Laterality Modality Other Narrative Procedure Note Melanie Parkinson MD - 06/17/2023 10:12 AM CDT ENDOSCOPY LAB Patient Name: Eloisa Enciso Procedure Date: 06/17/2023 10:12 AM Date of : 1960 Admit Type: Outpatient Age: 62 Gender: Female Attending MD: Melanie Parkinson M.D. Room: [facility] ENDOSCOPY ROOM 01 Note Status: Finalized Procedure: Colonoscopy Indications: Screening for colorectal malignant neoplasm, Last colonoscopy: 2019 (complicated by spleenlaceration), Incidental abdominal pain noted, Incidental constipation noted Providers: Melanie Parkinson M.D. Referring MD: Rinku Suresh MD Medicines: Monitored Anesthesia Care Complications: No immediate complications. Estimated Blood Loss: Estimated blood loss was minimal. Procedure: Pre-Anesthesia Assessment: - Prior to the procedure, a History and Physicalwas performed, and patient medications, allergies and sensitivities were reviewed. The patient'stolerance of previous anesthesia was reviewed. The benefits, risks and alternatives of theprocedure and sedation were discussed and informed consentwas obtained. All questions were answered. Please referto the signed informed consent document in the medical record. The scope was passed under direct vision.The [id number] was introduced through the anusand advanced to the terminal ileum, with identificationof the appendiceal orifice and IC valve. Thecolonoscopy was performed without difficulty. The patient tolerated the procedure well. The quality of thebowel preparation was evaluated using the BBPS (BostonBowel Preparation Scale) with scores of: Right Colon = 3, Transverse Colon = 3 and Left Colon = 3 (entiremucosa seen well with no residual staining, smallfragments of stool or opaque liquid). The total BBPS score equals 9. The bowel preparation used was SUPREP via split dose instruction. AI Technology was utilized during the procedure to aid in polyp detection. Findings: The perianal and digital rectal examinations were normal. Mildly melanotic mucosa was found in the entire colon. The terminal ileum appeared normal. A 3 mm polyp was found in the cecum. The polyp was sessile. The polyp was removed with a cold snare. Resection and retrieval werecomplete. Three sessile polyps were found in the ascending colon. The polypswere 4 to 8 mm in size. These polyps were removed with a cold snare. Resection and retrieval were complete. Two sessile polyps were found in the transverse colon. The polypswere 2 to 4 mm in size. These polyps were removed with a cold snare.Resection and retrieval were complete. An 8 mm polyp was found in the sigmoid colon. The polyp was sessile.The polyp was removed with a cold snare. Resection and retrieval were complete. The exam was otherwise without abnormality. Unable to retroflex in the rectum successfully due to small rectalvault but no abnormalites found on careful forward exam. Impression: - Melanotic mucosa in the entire examined colon. - The examined portion of the ileum was normal. - One 3 mm polyp in the cecum, removed with a cold snare. Resected and retrieved. - Three 4 to 8 mm polyps in the ascending colon, removed with a cold snare. Resected andretrieved. - Two 2 to 4 mm polyps in the transverse colon, removed with a cold snare. Resected andretrieved. - One 8 mm polyp in the sigmoid colon, removed witha cold snare. Resected and retrieved. - The examination was otherwise normal. Recommendation: - The patient will be observed post-procedure,until all discharge criteria are met. - Await pathology results. - Repeat colonoscopy in 3 years for surveillancebased on pathology results. - Biopsy results are typically available within 7-10 days and you will be contacted with the results. If you have not recieved your results within this timeframe, please call [phone] regarding your results. - Contact Information: During normal business hours - Please call theNurse Coordinator: [phone] After hours, evening, nights, weekends and holidays- Please call the hospital liquor bridge operator helper at and ask for the GI fellow human resource consultant. - . Attending Participation: I personally performed the entire procedure. Electronically Signed By: Melanie Parkinson M.D. Melanie Parkinson M.D. 06/17/2023 10:50:39 AM Number of Addenda: 0 Note Initiated On: 06/17/2023 10:12 AM Melanie Parkinson MD ENDOSCOPY PROCEDURES Fin al Result * Dexa Axial Skeleton Bone Density 1 or 2 Site (11/21/2020 9:28 AM CDT) Anatomical Region Laterality Modality Body N/A Radiographic Lisy ging Narrative 11/21/2020 11:58 AM CDT Patient Name: Eloisa Enciso Date of : 1960 Date of scan: 11/21/2020 Bone mineral density was performed on a [employer] Discovery Densitometer. Based on machine cross-calibration and precision studies the least significant changes of this densitometer is 0.024 g/cm2 at the spine, 0.020 g/cm2 at the total proximal femur, and 0.014g/cm2 at the forearm. HISTORY: This is a 59 y.o. postmenopausal female with a history of vitamin D deficiency. She reports that she quit smoking about 9 years ago. She started smoking about 43 years ago. She smoked 1.00 pack per day. She has never used smokeless tobacco. . She has a current complaint of back pain, neck pain and leg pain. INDICATIONS: Menopause status, vitamin D deficiency and screening for osteoporosis. FINDINGS: BONE MINERAL DENSITY OF THE FOREARM Bone Mineral density (BMD) of the left proximal 1/3 of the radius measures 0.669 gm/cm2. This corresponds to a T-score (standard deviations from the mean of young adults) of -0.4. There is no previous study available for comparison. A forearm bone density study was performed instead of a spine and femur study because of bilateral hip replacement and presence of surgical hardware SUMMARY: Bone mineral density is near the young adult normal mean with no increased risk for fracture. ADDITIONAL COMMENTS: Postmenopausal Women and Men Over 50: Diagnostic criteria: Osteoporosis: BMD at or below -2.5 T-score; Osteopenia (low bone mass): BMD between -1.0 and -2.5 T-score. If the patient has a history of a fragility fracture, a fracture that occurred with trauma equivalent to a fall from a standing position or less, then the diagnosis is osteoporosis regardless of bone density. The history and data sections of the bone mineral density scan were prepared by Janett Tinoco (R)(CBDT) who is accredited by the International Society of Clinical Densitometry. The overall patient assessment and scan interpretation were performed by Raisa Martin M.D. who is certified by the International Society of Clinical Densitometry. [id number] Jorge Hsieh MD IMG DXA PROCEDURES Fin al Result from Last 3 Months or Most Recently Relevant to Health Maintenance Insurance [facility] MEDICARE SUPPLEMENT MEDICARE SOLUTIONS MEDICARE [facility] MDCR HMO REF MEDICARE Member Subscriber Plan / Payer (Ef fective 2014-Present) Name:Eloisa Enciso Member ID:[id number] Relation to Subscriber:Self Name:Eloisa Enciso Subscriber ID:[id number] Payer ID:[id number] Group ID:Not on file Type:MEDICARE TRADITIONAL Address: [address] [place] [id number] [facility] MEDICARE SUPPLEMENT Advance Directives For more information, please contact: [phone] * Full Code (Latest Code Status on File) Date Activated Date Inactivated Comments 09/01/2023 8:57 AM 09/02/2023 5:14 AM * Full Code Date Activated Date Inactivated Comments 06/17/2023 9:13 AM 06/17/2023 3:39 PM * Full Code Date Activated Date Inactivated Comments 06/02/2022 8:27 AM 06/02/2022 2:27 PM * Full Code Date Activated Date Inactivated Comments 03/12/2022 2:48 PM 03/17/2022 3:56 PM * Full Code Date Activated Date Inactivated Comments 08/07/2021 10:48 AM 08/07/2021 7:10 PM Care Teams Raw Mill Operator Relationship Specialty Start Date End Date Rinku Suresh MD [address] [place] [address] PCP - General 06/10/16 Johanny Alvarez PA [address] [place] [address] Orthopedic Surgery 01/11/20
--- OUTSIDE RECORDS SUMMARY | 2024-06-08 03:01 | XMS_ITS | Clinical Summary ---
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 02/13/2022 Overview (02/13/2022): Added automatically from request for surgery [id number] Esophageal dysphagia 07/03/2021 Overview (07/03/2021): Added automatically from request for surgery [id number] Psychophysiological insomnia 05/01/2021 Generalized anxiety disorder 05/01/2021 Attention deficit disorder without hyperactivity 05/01/2021 Encounter for postoperative wound check 01/14/20 21 Epigastric pain 01/06/2021 Overview (01/06/2021): Added automatically from request for surgery [id number] Chest pain 01/06/2021 Overview (01/06/2021): Added automatically from request for surgery [id number] Spinal stenosis of lumbar re gion without neurogenic claudication 12/12/2020 GERD (gastroesophageal reflux disease) Depression 12/11/2020 Allergic rhinitis 12/11/2020 Thoracic stenosis 11/21/2020 Functional tremor 02/26/2020 Abnormality of gait and mobility 02/26/2020 Primary osteoarthritis of right hip 2019 Overview (2019): Added automatically from request for surgery [id number] Chronic obstructive pulmonary disease (CMS/FORMER[facility]) 11/01/2019 Other chronic pancreatitis 09/29/2019 Pancreatic pseudocyst [...] encounter. Assessment & Plan (04/23/2023 12:36 PM PHYSICAL THERAPY PROFESSOR): Ms. Eloisa Enciso is a 62 y.o. [...] next month and if she remains with early breastfeeding care specialist symptoms, this could be a sign of [...] encounter. Assessment & Plan (03/03/2021 8:46 PM PHYSICAL THERAPY PROFESSOR): Ms. Eloisa Enciso is a 60 y.o. 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 Assessment & Plan (02/26/2020 9:07 AM PHYSICAL THERAPY PROFESSOR): Ms. Eloisa Enciso is a 59 y.o. [...] (03/11/2020): Added automatically from request for surgery [id number] Esophageal dysphagia 03/11/2020 021 Overview (03/11/2020): Added automatically from request for surgery [id number] Abnormal weight loss 03/11/2020 021 Overview (03/11/2020): Added automatically from request for surgery [id number] Hip pain 12/06/2019 05/16/2020 Abdominal pain 11/01/2019 05/16/2020 Allergy to antibiotic 11/01/20192020 C. difficile diarrhea 11/01/20192020 WILLEM (obstructive sleep apnea) 11/01/2019 05/16/2020 Acute biliary pancreatitis w ithout infection or necrosis 03/24/2019 05/16/2020 Acute pancreatitis 03/19/2019 Lung nodule 02/15/2019 05/16/2020 Abscess after procedure 01/28/201905/06 Disorder of rotator cuff 02/10/201502/2021 Arthralgia of shoulder 05/02/201305/16 Knee pain 09/19/2010 05/16/2020 Neck pain 09/09/2009 05/16/2020 Encounters Date Type Department Care Team Description 06/05/2024 10:15 AM PHYSICAL THERAPY PROFESSOR Office Visit [facility] Multiple Sclerosis [address] 7th [place] [address] Vicky Alas CNS Multiple sclerosis (HCC) (Primary Dx); Immunosuppression due to drug therapy; High risk medication use; Medication monitoring encounter; Abnormal MRI; Spasticity; Abnormality of gait and mobility; Dysesthesia of multiple sites 05/31/2024 3:30 PM PHYSICAL THERAPY PROFESSOR Office Visit [facility] Neuro Sleep [address] 6th [address] [place] [address] Madeline Chino DNP WILLEM (obstructive sleep apnea) (Primary Dx); Sleep apnea, unspecified type; Cognitive change; Myelopathy (HCC); Other chronic pancreatitis (HCC); Chronic obstructive pulmonary disease, unspecified COPD type (HCC); Snoring 05/30/[address] [place] [phone] Radhika Watson RN 05/30/2024 Orders Only [address] [place] [phone] Bonnie Mcintosh, RN 05/30/[address] [place] [address] Bonnie Mcintosh, RN 05/29/2024 2:00 PM PHYSICAL THERAPY PROFESSOR Lab [facility] Outpatient Lab at [address] [place] [address] 05/29/2024 1:51 PM PHYSICAL THERAPY PROFESSOR - 05/29/2024 11:59 PM PHYSICAL THERAPY PROFESSOR Hospital Encounter [address] [address] Multiple sclerosis (HCC) Discharge Disposition: Discharge to home or self care 05/29/2024 7:33 AM PHYSICAL THERAPY PROFESSOR - 05/29/2024 11:59 PM PHYSICAL THERAPY PROFESSOR Hospital Encounter [facility] [address] [place] [address] Luis Handley MD Degeneration 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 (Primary Dx); Multiple sclerosis (HCC); Primary osteoarthritis of right hip; Radiculopathy of cervicothoracic region; Spinal stenosis of lumbar region without neurogenic claudication; Chronic prescription opiate use Discharge Disposition: Discharge to home or self care 05/28/2024 Patient Self-Triage [facility] [address] [place] [address] Mychart, Generic Provider 05/26/2024 Telephone [facility] [address] [place] [address] Yoshi Hussein MD 05/19/2024 10:00 AM PHYSICAL THERAPY PROFESSOR Office Visit [facility]) - [facility] Urology [address] [place] [address] Lolis Mckeon NP Urge incontinence (Primary Dx); Overactive bladder 05/17/2024 3:15 PM PHYSICAL THERAPY PROFESSOR Office Visit [facility] Orthopaedic Surgery [address] [place] [address] for [facility] 12th [place] [address] [place] [address] Alberto Valdez MD Left shoulder pain, unspecified chronicity (Primary Dx) 05/17/2024 1:22 PM PHYSICAL THERAPY PROFESSOR - 05/17/2024 11:59 PM PHYSICAL THERAPY PROFESSOR Hospital Encounter [facility] [address] [place] [address] Left shoulder pain, unspecified chronicity Discharge Disposition: Discharge to home or self care 04/18/2024 Documentation [facility] Multiple Sclerosis [address] [place] [phone] Dee Tran RN 04/11/2024 8:00 AM PHYSICAL THERAPY PROFESSOR Telemedicine [facility] Multiple Sclerosis [facility] [address]th [place] [address] Yoshi Hussein MD Multiple sclerosis (HCC) (Primary Dx); High risk medication use; Myelopathy (HCC); Spasticity; Sleep apnea, unspecified type; Cognitive change; Restless leg syndrome 03/27/2024 Orders Only [facility] [address] [place] [address] Luis Handley MD from Last 3 Months Immunizations Immunization Administration Dates Next Due Hib (PRP-D) 01/06/2019 Hib (PRP-T) 01/06/2019 Influenza, Quadrivalent, Spl it, Preservative Free, Intramuscular 03/19/2018,01/30/2017 Influenza, Trivalent, IM (MDV) 01/03/2019,2015,04/09/2015 Meningococcal B, OMV (Bexsero) 01/06/2019 Meningococcal Conjugate (Menveo) 01/06/2019 Pneumococcal Conjugate PCV 13 01/06/2019 Pneumococcal Polysaccharide PPV23 03/21/2019 Surgical History Surgery Date Site/Laterality Comments BACK SURGERY 04/05/2015 - 04/04/2016 APPENDECTOMY 04/05/1972 - 04/04/1973 FLUORO GUIDED INJECTION HIP RIGHT 11/14/2019 Right TOTAL SHOULDER REPLACEMENT 04/05/2016 - 04/04/2017 Right TOTAL KNEE ARTHROPLASTY 04/05/2000 - 04/04/2001 Bilateral TOTAL HIP ARTHROPLASTY 01/10/2020 Right L-05/14/20 CHOLECYSTECTOMY 04/05/2009 - 04/04/2010 ROTATOR CUFF REPAIR Bilateral FL UPPER GI AIR CONTRAST W KUB 08/09/2020 Bilateral LUMBAR FUSION 04/05/2004 - 04/04/20052007, 2009, 2012 CERVICAL FUSION 2003, 2003, 2010 COLOSTOMY UPPER GASTROINTESTINAL ENDOSCOPY SPLENECTOMY 04/05/2018 - 04/04/2019 FLUORO GUIDED INJECTION SHOULDER LEFT 11/20/2021 Left SPINAL FUSION 03/12/2022 Revision C2-Sacrum/Ilium PSF/I w/ Dr. Hsieh SPINAL FUSION 12/04/2020 - 01/02/2021 Revision Thoracolumbar fusion FLUORO GUIDED INJECTION SHOULDER LEFT 12/14/2023 Left LUMBAR PUNCTURE WO INJECTION, DIAGNOSTIC 12/15/2023 N/A COLON SURGERY JOINT REPLACEMENT SPLENECTOMY, TOTAL 2019 Medical History Medical History Date Comments Genetic disorder Peripheral neuropathy COPD (chronic obstructive pu lmonary disease) (HCC) GERD (gastroesophageal reflux disease) PONV (postoperative nausea and vomiting) Reports nausea with every surgery, treated successfully w/ antiemetics RLS (restless legs syndrome) Anemia MRSA (methicillin resistant Staphylococcus aureus) Allergic rhinitis Awareness under anesthesia 2016 back surgery Dysphagia History of transfusion Non-cardiac chest pain Chronic pain disorder Arthritis 1994 Depression Family History Medical History Relation Name Comments No Known Problems Daughter Anesthesia problems Father Rab intraop awareness Arthritis Father Rab Cancer Father Rab Hearing loss Father Rab Hypertension Father Rab Stroke Father Rab Arthritis Mother Vicky jasso Cancer Mother Vicky jasso Depression Mother Vicky jasso Multiple sclerosis Mother Vicky jasso Parkinsonism Mother Vicky jasso Restless legs syndrome Mother Vicky jasso Stroke Mother Vicky jasso Vision loss Mother Vicky jasso Parkinsonism Mother's Brother Arthritis Sister 1 Marly Cancer Sister 1 Marly Cancer Sister 2 Diabetes Sister 3 Arthritis Sister 4 Srinivasa Malig Hypertension Neg Hx Malig Hyperthermia Neg Hx Pseudochol deficiency Neg Hx Tremor Neg Hx Relation Name Status Comments Daughter Alive Father Rab Alive Mother Vicky jasso Mother's Brother Sister 1 Marly Sister 2 Sister 3 Sister 4 Srinivasa Social History Tobacco Use Types Packs/Day Years [...] 03/18/2022 How often do you attend chur or jewish services? Never 03/18/2022 Do you belong to any clubs o r organizations such as synagogue groups, unions, fraternal or athletic groups, or [...] place to sleep or slept in a assisted (including now)? No 03/18/2022 Personal Safety Answer Date Recorded Have you ever been in or are you currently in a harmful physical or emotional relationship or is someone making you feel afraid or unsafe? 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 Not on file Not on file Obstetrics History Last Filed Vital Signs Vital Sign Reading Time Taken Comments Blood Pressure 126/74 06/05/2024 10:03 AM PHYSICAL THERAPY PROFESSOR Pulse 71 06/05/2024 10:03 AM PHYSICAL THERAPY PROFESSOR Temperature 36.8 C (98.2 F) 05/31/2024 2:53 PM PHYSICAL THERAPY PROFESSOR Respiratory Rate 18 05/29/2024 7:34 AM PHYSICAL THERAPY PROFESSOR Oxygen Saturation 96% 05/31/2024 2:53 PM PHYSICAL THERAPY PROFESSOR Inhaled Oxygen Concentration - - Weight 60.3 kg (133 lb) 06/05/2024 10:03 AM PHYSICAL THERAPY PROFESSOR Height 162.6 cm (5' 4 ) 06/05/2024 10:03 AM PHYSICAL THERAPY PROFESSOR Body Mass Index 22.83 06/05/2024 10:03 AM PHYSICAL THERAPY PROFESSOR Plan of Treatment Health Maintenance Due Date Last Done Comments Breast Cancer Screening-Mammogram 1960 Cervical Cancer Screening 1960 DTaP/Tdap/Td Vaccine (1 - Tdap) 1969 Lung Cancer Screening 2008 Meningococcal B Vaccine (2 o f 5 - Increased Risk Bexsero 3-dose series) 02/03/2019 01/06/2019 Depression Screening 02/25/2021 02/26/2020 Osteoporosis Screening-Bone Density Scan 11/21/2022 11/21/2020 Covid-19 Vaccine (4 - 2023-2 5 season) 2023 03/25/2021, 07/05/2020, 06/07/2020 Well Visit 65+ 12/08/2023 Pneumococcal vaccine 65+ (4 of 4 - PCV20 or PCV21) 04/16/2025 04/16/2020, 03/21/2019, 01/06/2019 Fall Risk Assessment 05/29/2025 05/29/2024, 02/25/2024, 11/26/2023, Additional history exists Colon Cancer Screening-Colonoscopy 06/16/2033 06/17/2023 Colon Cancer Screening-CT Colonography Discontinued 06/17/2023 Colon Cancer Screening-DNA Stool Discontinued 06/17/19 Colon Cancer Screening-FIT Discontinued 06/17/2023 Colon Cancer Screening-Sigmoidoscopy Discontinued 06/17/2023 Hepatitis B Screening Completed 01/07/2024 Hepatitis C Screening Completed 01/07/2024, 12/10/2 020 Influenza Vaccine Completed 01/26/2024, , 07/02/2021, Additional history exists Zoster Vaccine Completed 05/26/2024, 02/02/2024 Goals Goal Patient Goal Type Associated Problems [...] lighting, especially on stairs Contact your local [facility] for information on exercise, fall prevention programs, [...] lighting, especially on stairs Contact your local [facility] for information on exercise, fall prevention programs, or options for improving home safety. Medical Devices Implanted Type Area Digital Assistant Device Identifier Shelf Expiration Date Model / Serial / Lot Carotid Stent Stent N/A: Carotid Pancreatic Stent-03/17/20 19 Implanted:03/05 (Quantity not on file) Stent N/A: Pancreas Total Knee Replacement Bilateral: Knee Shoulder Replacement Bilateral: Shoulder Cervical Fusion N/A: Spine Cervical Total Hip Replacement Left: Hip Mitokynes [facility] [id number] Mifflin 50mm Sector Hip Shell Acetabular Gription Sterile Latex Free - [id number] Implanted:Qty: 1 on 01/10/2020 by Jaiden Gonzalez MD at [facility] Right: Hip [employer] 07/03/2029 [id number] / / [id number] [employer] [id number] Mifflin 50mm 32mm Hip Neutral Liner Acetabular Altrx Sterile Latex Free - [id number] Implanted:Qty: 1 on 01/10/2020 by Jaiden Gonzalez MD at [facility] Right: Hip [employer] 11/02/2024 [id number] / / [id number] [employer] [id number] Actis Collared Hip 12/14 6 Standard Offset Stem Femoral - [id number] Implanted:Qty: 1 on 01/10/2020 by Jaiden Gonzalez MD at [facility] Right: Hip [employer] 12/03/2029 [id number] / / [id number] [employer] [id number] Articul/Ivan 32mm Hip +5mm 12/14 Taper Head Femoral Biolox Delta Latex Free - [id number] Implanted:Qty: 1 on 01/10/2020 by Jaiden Gonzalez MD at [facility] Right: Hip [employer] 11/02/2024 [id number] / / [id number] Allosource [id number] Crushed Chip Frozen Graft 60ml Bone Cancellous - [id number] Implanted:Qty: 1 on 12/12/2020 by Jorge Hsieh MD at [facility] N/A: Spine Lumbar [employer]osource 10/06/2025 [id number] / / [id number] Medtronic Sofamor Danek [id number] Mastergraft Matrix Block Extension Void Filler Substitute 10ml - [id number] Implanted:Qty: 1 on 12/12/2020 by Jorge Hsieh MD at [facility] N/A: Spine Lumbar Medtronic Inc [id number] 05/05/2023 [id number] / / [id number] Medtronic Sofamor Danek [id number] Infuse 18mm 26mm Absorbable Sponge Sterile Water Syringe Needle - [id number] Implanted:Qty: 1 on 12/12/2020 by Jorge Hsieh MD at [facility] N/A: Spine Lumbar Medtronic Inc 09/02/2022 [id number] / / [id number] Medtronic Sofamor Danek [id number] Solera Cd Horizon 6.5mm 45mm Multiaxial Spine Screw Bone Cocr - [id number] Implanted:Qty: 8 on 12/12/2020 by Jorge Hsieh MD at [facility] N/A: Spine Lumbar Medtronic Inc [id number] / / Medtronic Sofamor Danek [id number] Solera Cd Horizon 7.5mm 45mm Multiaxial Spine Screw Bone Cocr - [id number] Implanted:Qty: 2 on 12/12/2020 by Jorge Hsieh MD at [facility] N/A: Spine Lumbar Medtronic Inc [id number] / / Medtronic Sofamor Danek [id number] Cd Horizon Break Off Spinal Screw Set Titanium Nonsterile 5.5 Mm - [id number] Implanted:Qty: 13 on 12/12/2020 by Jorge Hsieh MD at [facility] N/A: Spine Lumbar Medtronic Inc [id number] / / Medtronic Inc [id number] Cd Horizon 6mm 500mm Line Straight Harsh Spinal Titanium Nonsterile - [id number] Implanted:Qty: 2 on 12/12/2020 by Jorge Hsieh MD at [facility] N/A: Spine Lumbar Medtronic Inc [id number] / / Medtronic Inc Infuse 18mm Sponge [id number] - [id number] Implanted:Qty: 2 on 03/12/2022 by Jorge Hsieh MD at [facility] N/A: Spine Thoracic Medtronic Inc 08/03/2023 [id number] / / [id number] Allosource Crushed Chip Frozen Graft 60ml Bone Cancellous [id number] - [id number] - [id number] Implanted:Qty: 1 on 03/12/2022 by Jorge Hsieh MD at [facility] All[employer]ource 02/14/2026 [id number] / [id number] / - Allosource Crushed Chip Frozen Graft 60ml Bone Cancellous [id number] - [id number] - [id number] Implanted:Qty: 1 on 03/12/2022 by Jorge Hsieh MD at [facility] All[employer]ource 04/08/2026 [id number] / [id number] / - Medtronic Inc Cd Horizon Break Off Spinal Screw Set Titanium Nonsterile 5.5 Mm [id number] - [id number] Implanted:Qty: 29 on 03/12/2022 by Jorge Hsieh MD at [facility] Medtronic Inc [id number] / / Medtronic Inc Solera Cd Horizon 5.5mm 30mm Multiaxial Spine Screw Bone Cocr [id number] - [id number] Implanted:Qty: 1 on 03/12/2022 by Jorge Hsieh MD at [facility] Medtronic Inc [id number] / / Medtronic Inc Solera Cd Horizon 5.5mm 35mm Multiaxial Spine Screw Bone Cocr [id number] - [id number] Implanted:Qty: 1 on 03/12/2022 by Jorge Hsieh MD at [facility] N/A: Spine Thoracic Medtronic Inc [id number] / / Medtronic Inc Solera Cd Horizon 6.5mm 30mm Multiaxial Spine Screw Bone Cocr [id number] - [id number] Implanted:Qty: 2 on 03/12/2022 by Jorge Hsieh MD at [facility] N/A: Spine Thoracic Medtronic Inc [id number] / / Medtronic Inc Solera Cd Horizon 6.5mm 40mm Multiaxial Spine Screw Bone Cocr [id number] - [id number] Implanted:Qty: 12 on 03/12/2022 by Jorge Hsieh MD at [facility] N/A: Spine Thoracic Medtronic Inc [id number] / / Medtronic Inc Solera Cd Horizon 7.5mm 45mm Multiaxial Spine Screw Bone Cocr [id number] - [id number] Implanted:Qty: 4 on 03/12/2022 by Jorge Hsieh MD at [facility] N/A: Spine Thoracic Medtronic Inc [id number] / / Medtronic Inc [place] Spine Offset Connector Harsh 3.5-5.5/6mm Harsh [id number] - [id number] Implanted:Qty: 2 on 03/12/2022 by Jorge Hsieh MD at [facility] N/A: Spine Thoracic Medtronic Inc [id number] / / Medtronic Inc Longitude Ii 5.5mm 500mm Straight Harsh Spinal Cocr Molybdenum [id number] - [id number] Implanted:Qty: 2 on 03/12/2022 by Jorge Hsieh MD at [facility] N/A: Spine Thoracic Medtronic Inc [id number] / / Explanted Type Area Digital Assistant Device Identifier Shelf Expiration Date Model / Serial / Lot Lumbar Fusion Explanted:Qty: 1 on 12/12/2020 by Jorge Hsieh MD at [facility] N/A: Spine Lumbar Description:5 set screws, 2 rods, 4 screws Procedures Procedure Name Priority Date/Time Associated Diagnosis Comments URINALYSIS, MICROSCOPIC ONLY Routine 05/29/2024 1:51 PM PHYSICAL THERAPY PROFESSOR Multiple sclerosis (HCC) URINALYSIS AND REFLEX TO MICROSCOPIC AND CULTURE Routine 05/29/2024 1:51 PM PHYSICAL THERAPY PROFESSOR Multiple sclerosis (HCC) MEASURE POST VOID RESIDUAL Routine 05/19/2024 10:04 AM PHYSICAL THERAPY PROFESSOR Urge incontinence MI ARTHROCENTESIS ASPIR&/INJ MAJOR JT/BURSA W/O US Routine 05/17/2024 3:15 PM PHYSICAL THERAPY PROFESSOR Left shoulder pain, unspecified chronicity XR SHOULDER LEFT 2 OR MORE VIEWS Schedule Routine, Read Routine (OP Routine) 05/17/2024 1:31 PM PHYSICAL THERAPY PROFESSOR Left shoulder pain, unspecified chronicity HEPATITIS C [...] microscopic and culture Urine (05/29/2024 1:51 PM PHYSICAL THERAPY PROFESSOR) Color, ur Yellow Yellow Clarity, ur Clear [...] tendency for uric acid stone formation. Source: [facility] NewsFixed Current Interpretive Data was last revised on [...] to microscopic UA will be performed. CERNER Urine 05/29/2024 1:51 PM PHYSICAL THERAPY PROFESSOR 05/29/2024 9:06 PM PHYSICAL THERAPY PROFESSOR us Chinmay Carmona MD LAB MICROBIOLOGY - GENERAL ORDER EBONY Final Result [facility] [address] Department [place] [address] * Urinalysis, microscopic only (05/29/2024 1:51 PM PHYSICAL THERAPY PROFESSOR) WBC, ur 0-5 0 - 5 /HPF RBC, ur 0-2 0 - 2 /HPF CERNER Epithelial cells, squamous, ur 1-5 0 - 5 /HPF CERNER CH Culture Reflex Comment Reflex conditions for urine culture (WBC >10) not met. CERNER Urine 05/29/2024 1:51 PM PHYSICAL THERAPY PROFESSOR 05/29/2024 9:06 PM PHYSICAL THERAPY PROFESSOR us Chinmay Carmona MD LAB URINE ORDERABLES Final Resul t [facility] [address] Department of Laboratories [place] [id number] * Measure post void residual (05/19/2024 10:04 AM PHYSICAL THERAPY PROFESSOR) Narrative Madison Moura LPN - 05/19/2024 10:04 AM PHYSICAL THERAPY PROFESSOR Measurement of post-voiding residual urine and/or bladder capacity by ultrasound, non-imaging. PVR = 20 mL us Lolis Mckeon FLARER NURSING ASSESSMENTS Final Res ult * MI ARTHROCENTESIS ASPIR&/INJ MAJOR JT/BURSA W/O US (05/17/2024 3:15 PM PHYSICAL THERAPY PROFESSOR) Narrative Alberto Valdez MD - 05/17/2024 3:15 PM PHYSICAL THERAPY PROFESSOR Alberto Valdez MD 05/18/2024 7:04 AM Large [...] Shoulder Left 2+ View (05/17/2024 1:31 PM PHYSICAL THERAPY PROFESSOR) Anatomical Region Laterality Modality Upper Extremities, Shoulder Left Comp uted Radiography 05/17/2024 1:58 PM PHYSICAL THERAPY PROFESSOR Impressions 05/17/2024 8:48 PM PHYSICAL THERAPY PROFESSOR Moderate rotator cuff arthropathy of the left shoulder. Dictated by: Wayne Siu M.D. The radiology attending physician has personally reviewed this study, and had reviewed and/or edited this written report and agrees with it. Electronically signed by: Mir Acosta M.D. Narrative 05/17/2024 8:48 PM PHYSICAL THERAPY PROFESSOR EXAMINATION: XR SHOULDER LEFT 2 OR MORE [...] last revised on 2019. Testing performed by: [facility], [address] [place] [address]., [address] Blood 01/07/2024 10:5 6 AM CDT 01/07/2024 1:39 PM CDT us Yoshi Hussein MD LAB MICROBIOLOGY - GENERAL ORD ERABLES Final Result [facility]) [address] [place] [address] * Colonoscopy (06/17/2023 10:12 AM CDT) Anatomical Region Laterality Modality Other Narrative Procedure Note Melanie Parkinson MD - 06/17/2023 10:12 AM CDT ENDOSCOPY LAB Patient Name: Eloisa Enciso Procedure Date: 06/17/2023 10:12 AM Date of : 1960 Admit Type: Outpatient Age: 62 Gender: Female Attending MD: Melanie Parkinson M.D. Room: [facility] ENDOSCOPY ROOM 01 Note Status: Finalized Procedure: [...] The scope was passed under direct vision.The [id number] was introduced through the anusand advanced to [...] your results within this timeframe, please call [phone] regarding your results. - Contact Information: During normal business hours - [facility]: [phone] After hours, evening, nights, weekends and holidays- Please call the hospital pick pulling machine operator at and ask for the GI fellow bonding machine setter. - . Attending Participation: I personally performed [...] Bone mineral density was performed on a HoloConcernTrak Discovery Densitometer. Based on machine cross-calibration and [...] mineral density scan were prepared by Janett Lopez)(CBDT) who is accredited by the International Society of Clinical Densitometry. The overall patient assessment and scan interpretation were performed by Raisa Martin M.D. who is certified by the International Society of Clinical Densitometry. [id number] Jorge Hsieh MD [facility] DXA PROCEDURES Fin al Result from Last 3 Months or Most Recently Relevant to Health Maintenance Insurance MEDICARE [facility] MEDICARE SUPPLEMENT MEDICARE SOLUTIONS MEDICARE [facility] MDCR HMO REF MEDICARE [facility] MEDICARE SUPPLEMENT Advance Directives For more information, please contact: [phone] * Full Code (Latest Code Status on [...] 10:48 AM 08/07/2021 7:10 PM Care Teams Hand Tire Trimmer Relationship Specialty Start Date End Date Rinku Suresh MD [address] [place] [address] PCP - General 06/10/16 Johanny Alvarez, PA [address] [place] [address] Orthopedic Surgery 01/11/20
--- OUTSIDE RECORDS SUMMARY | 2024-06-08 03:01 | XMS_ITS | Clinical Summary ---
Author Organization [facility] Address [address] [place] [id number] Care Team Providers Care Paramedic Name Role Phone Unavailable Primary Care Provider [...]
--- OUTSIDE RECORDS SUMMARY | 2024-06-08 03:01 | XMS_ITS | Referral Summary ---
Author Organization [facility] Address [address] [place] [address] Care Team Providers Care Hand Cooper Helper Name Role Phone Unavailable Primary Care Provider Unavailabl e Source Comments [facility],non-owned Affiliates and Associated Physician Practices is amultiple site organization consisting of ambulatory clinics and hospital sitesin [place], [place], [place] and [place]. This disclosure is being madepursuant to the Care Everywhere program and may not contain all information available regarding this patient. Last updated 17.[facility] Social History Tobacco Use Types Packs/Day Years Used Date Smoking Tobacco: Never Assessed Sex and Gender Information Value Date Recorded Sex Assigned at Not on file Gender Identity Not on file Sexual Orientation Not on file Plan of Treatment Not on file
--- OUTSIDE RECORDS SUMMARY | 2024-06-08 03:01 | XMS_ITS | Clinical Summary ---
Author Organization [facility] Address [address] [place] [address] Care Team Providers Care Dedicated Truck Driver Name Role Phone Unavailable Primary Care Provider Unavailabl e Source Comments [facility],non-owned Affiliates and Associated Physician Practices is amultiple site organization consisting of ambulatory clinics and hospital sitesin [place], [place], [place] and [place]. This disclosure is being madepursuant to the Care Everywhere program and may not contain all information available regarding this patient. Last updated 17.[facility] [employer] Social History Tobacco Use Types Packs/Day Years [...]
--- OUTSIDE RECORDS SUMMARY | 2024-06-08 03:01 | XMS_ITS | Clinical Summary ---
Author Organization [facility] Address [address] [place] [address] Phone Care Team Providers Care Stock Feeder Name Role Phone JOS HAMILTON, RNEU Valerio Unavailable [phone] ELIDIA BARNETT, NAREN Lozano Unavailable [phone] ROHAN HAMILTON, ERNIE Hinds Primary Care Provider [phone] LUIS HANDLEY MD Unavailable [phone] [...] Active Last Documented On 4 8:48PM ; [facility] Attention Deficit Disorder Without Hyperactivity 2 Active Last Documented On 3 5:53PM ; [facility] Generalized Anxiety Disorder 05/01/2021 Active Last Documented On 3 5:53PM ; [facility] Psychophysiological Insomnia 05/01/2021 Active Last Documented On 3 5:53PM ; [facility] Major Depression 05/01/2021 Active Last Documented On 3 5:53PM ; [facility] Restless Legs Syndrome 09/26/2012 ERNIE ROSALES MD Active Last Documented On 5 10:05AM ; [facility] Past Visits Onset Date Resolved Date Provider Condition Status Marijuana By Prescription 07/27/2022 SUSIE PONDERS [employer] Active Last Documented On 3 8:03PM ; [facility] Folic Acid Deficiency 03/31/2022 SUSIE PULLIAMS [employer] Active Last Documented On 2 9:21AM ; [facility] Hyperlipidemia 07/02/2021 SUSIE PONDERS FN P-C Active Last Documented On 2 12:57PM ; [facility] Iron Deficiency Anemia 01/27/2021 SUSIE SKELTONERS [employer] Active Last Documented On 1 9:09AM ; [facility] Aortic Regurgitation 01/21/2021 SUSIE PONDERS [employer] Active Last Documented On 01/21/2021 9:23AM ; [facility] Note: mild on ECHO 2020. Mitral Regurgitation 01/21/2021 SUSIE PONDERS [employer] Active Last Documented On 01/21/2021 9:22AM ; [facility] Note: mild on ECHO 2020. Tricuspid Regurgitation 01/21/2021 ROSALIND Fernandez KIKE [employer] Active Last Documented On 01/21/2021 9:23AM ; [facility] Note: mild on ECHO 2020. Constipation 11/27/2020 SUSIE POND ERS [employer] Active Last Documented On 1 9:08AM ; [facility] Spinal Stenosis Lumbar 11/27/2020 SUSIE SKELTONERS [employer] Active Last Documented On 1 7:54AM ; [facility] Spinal Stenosis Thoracic 11/27/2020 SUSIE Fernandez Lisa ALDANADERS [employer] Active Last Documented On 1 7:53AM ; [facility] Chronic Obstructive Pulmonary Disease 12/28/2019 SUSIE Fernandez [employer] Active Last Documented On 0 10:52AM ; [facility] Splenic Laceration 01/12/2019 ERNIE Wright Active Last Documented On 01/12/2019 11:00AM ; [facility] 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 [facility] Depression with Anxiety 09/26/2012 ERNIE SHEPHERD MD Active Last Documented On 5 10:05AM ; [facility] Peptic Ulcer Chronic 05/31/2012 ERNIE MADRIGAL MD Active Last Documented On 5 10:04AM ; [facility] Osteoarthritis Generalized Multiple Sites 05/31/2012 ERNIE MADRIGAL MD Active Last Documented On 5 10:05AM ; [facility] Plan of Treatment - Referred to: Sleep specialist - r/o WILLEM - in home sleep study [facility] - 07/05/23 - Last Documented On 07/25/2023 9:03PM ; [facility] - Transition in care, clinical summary provided - Last Documented On 07/25/2023 9:03PM ; [facility] - Clinical summary transmitted to referring provider electronically with reasonable certainty of receipt - Last Documented On 07/25/2023 9:03PM ; [facility] Major depressive disorder -Sertraline 100 mg [...] WILLEM - ordered HSS on 07/05/23 through [facility] - Last Documented On 07/25/2023 9:03PM ; [facility] Referrals To Diagnosis Sleep Study-[facility] Obstructive slee p apnea (adult) (pediatric) Note: Home Sleep study - [facility] Last Documented On 4 12:50PM ; [facility] Future Appointments Date Time Location Provi ronel PSYCH ADULT FOLLOW UP 06/13/2024 10:00AM [facility] OUP-PSY CANDY LEUNG MD Last Documented On 4 11:09AM ; [facility] Education and Decision Aids were provided during visit for: Discussed good sleep hygiene habits Last Documented On 4 8:54PM ; [facility] Calming techniques such as b reathing exercises/meditation and other relaxation techniques Last Documented On 4 8:54PM ; [facility] Assessments Includes: Assessments from this encounter Findings - Restless legs syndrome - Last Documented On 07/25/2023 9:03PM ; [facility] - Attention deficit disorder without hyperactivity - Last Documented On 07/25/2023 9:03PM ; [facility] - Major depressive disorder - Last Documented On 07/25/2023 9:03PM ; [facility] - Psychophysiological insomnia - Last Documented On 07/25/2023 9:03PM ; [facility] - Generalized anxiety disorder - Last Documented On 07/25/2023 9:03PM ; [facility] - Panic disorder - Last Documented On 07/25/2023 9:03PM ; [facility] Instructions Includes: Instructions from this encounter Education and Decision Aids were provided during visit for: Discussed good sleep hygiene habits Last Documented On 4 8:54PM ; [facility] Calming techniques such as b reathing exercises/meditation and other relaxation techniques Last Documented On 4 8:54PM ; [facility] Medical Equipment - Implanted Devices Includes: Current Devices No Medical Equipment Recorded Medications Includes: Medications discussed during this encounter and other current Medications Discontinued / Stopped on this date CANDY LEUNG MD on 06/15/2023 LORazepam 0.5 MG Oral Tablet Provider: CANDY LEUNG MD Diagnosis: Generalized anxi ety disorder Last Documented On 07/05/2023 10:59AM By Nani Leung MD ; [facility] Focalin 10 MG Oral Tablet Provider: CANDY LEUNG MD Diagnosis: Attention-defici t hyperactivity disorder, unspecified type Last Documented On 07/05/2023 10:54AM By Nani Leung MD ; [facility] New / Renewed during this visit CANDY LEUNG MD on 07/05/2023 Focalin 10 MG Oral Tablet Provider: CANDY LEUNG MD 30 day supply: 60 tablet, 0 refills Diagnosis: Attention-deficit hyperactivity disorder, unspecified type as directed 1 tablet in the morning and 1 tablet at noon Pharmacy: [facility] [address], [id number] - Last Documented On 08/12/2023 10:31AM By Nani Leung MD ; [facility] LORazepam 0.5 MG Oral Tablet Provider: CANDY LEUNG MD 30 day supply: 15 tablet, 0 refills Diagnosis: Generalized anxiety disorder as directed - 1/2 - 1 tab a day as needed for severe panic attacks Pharmacy: [address], [id number] - Last Documented On 08/23/2023 1:30PM By Nani Leung MD ; [facility] Current Medications (continue as prescribed) Gabapentin 300 MG Oral Capsule 08/23/2023 Provider: ERNIE MADRIGAL MD Diagnosis: Polyosteoarthrit is, unspecified 1-2 po tid Last Documented On 08/23/2023 6:32PM By ERNIE MADRIGAL MD ; [facility] LORazepam 0.5 MG Oral Tablet 08/23/2023 Provider: CANDY LEUNG MD Diagnosis: Generalized anxi ety disorder as directed - 1/2 - 1 tab a day as needed for severe panic attacks Last Documented On 08/23/2023 1:38PM By Nani Leung MD ; [facility] Focalin 10 MG Oral Tablet 08/12/2023 Provider: CANDY LEUNG MD Diagnosis: Attention-defici t hyperactivity disorder, unspecified type as directed 1 tablet in the morning and 1 tablet at noon Last Documented On 08/12/2023 10:36AM By Nani Leung MD ; [facility] traZODone HCl 100 MG Oral Tablet 07/20/2023 Provider: CANDY LEUNG MD Diagnosis: Psychophysiologi c insomnia as directed 4 tabs at bedtime Last Documented On 07/20/2023 3:22PM By Nani Leung MD ; [facility] Pramipexole Dihydrochloride 0.75 MG Oral Tablet 06/15/2023 Provider: ERNIE MADRIGAL MD Diagnosis: 2 at 5 pm and 2 at bedtime Last Documented On 07/05/2023 10:11AM By NIKKI HOWARD ; [facility] Sertraline HCl 100 MG Oral Tablet 05/31/2023 Provider: CANDY LEUNG MD Diagnosis: Major depressive disorder, recurrent, unspecified ud - as directed as directed 2 tabs daily Last Documented On 05/31/2023 10:55AM By Nani Leung MD ; [facility] Levocetirizine Dihydrochloride 5 MG Oral Tablet 2023 Provider: Diagnosis: Last Documented On 05/14/2023 8:57AM By Alyssa HOWARD ; [facility] Vitamin D 25 MCG (1000 UT) Oral Tablet 05/14/2023 Pr ovider: Diagnosis: Last Documented On 05/14/2023 8:58AM By Alyssa HOWARD ; [facility] Trelegy Ellipta 100-62.5-25 MCG/ACT Inhalation Aerosol Powder Breath Activated 05/14/2023 Provider: SUSIE CARLTON Diagnosis: Chronic obstruct lauryn pulmonary disease, unspecified 1 puff daily Last Documented On 4 9:31AM By Susie CARLTON ; [facility] Famotidine 20 MG Oral Tablet 05/14/2023 Provider: SUSIE CARLTON Diagnosis: Gastro-esophagea l reflux disease without esophagitis take 1-2 tabs daily Last Documented On 4 9:47AM By Susie CARLTON ; [facility] traZODone HCl 100 MG Oral Tablet 03/16/2023 Provider: CANDY LEUNG MD Diagnosis: Psychophysiologi c insomnia as directed 5 tabs at bedtime Last Documented On 03/16/2023 12:00PM By Nani Leung MD ; [facility] HYDROcodone-Acetaminophen 10 -325 MG Oral Tablet 02/23/2023 Provider: LUIS HANDLEY MD Diagnosis: use prn Last Documented On 03/16/2023 11:27AM By NIKKI HOWARD ; [facility] EQ Laxative Maximum Strength 25 MG Oral Tablet 023 Provider: Diagnosis: 3-4 tabs at night Last Documented On 09/22/2022 11:16AM By NIKKI HOWARD ; [facility] Stool Softener 100 MG Oral Tablet 07/02/2021 Provide r: Diagnosis: 3 times daily Last Documented On 07/02/2021 8:37AM By Alyssa HOWARD ; [facility] Fluticasone Propionate 50 MCG/ACT Nasal Suspension 06/10/2021 Provider: ERNIE MADRIGAL MD Diagnosis: Allergic rhiniti s due to pollen 1 sq each nostril 1-2xd as needed Last Documented On 06/10/2021 12:32PM By ERNIE MADRIGAL MD ; [facility] Biotin 5000 MCG OR CAPS 05/01/2021 Provider: Diagnosis: 1 cap daily Last Documented On 08/01/2022 5:38PM By NIKKI HOWARD ; [facility] Ocuvite Adult 50+ OR CAPS 05/01/2021 Provider: Diagnosis: 1 cap daily Last Documented On 08/01/2022 5:38PM By NIKKI HOWARD ; [facility] Past Medications on file traZODone HCl 100 MG Oral Tablet 07/20/2023 - 08/19/2023 Provider: CANDY LEUNG MD Diagnosis: Psychophysiologi c insomnia 4 tabs at bedtime Last Documented On 07/20/2023 2:59PM By MICHELLE PARKS ; [facility] Pramipexole Dihydrochloride 0.75 MG Oral Tablet 03/16/2023 - 06/14/2023 Provider: Diagnosis: 2 tabs late afternoon and 2 in the evening Last Documented On 03/16/2023 11:20AM By NIKKI HOWARD ; [facility] Medications Administered Includes: Administered Medications from this encounter No Administered Medications Recorded Vital Signs Includes: Vital Signs from this encounter Vital Name 07/05/2023 10:13A Blood Pressure Sitting L 120/64 BP Cuff Size Regular Pulse Rate-Sitting (bpm) 75 Pulse Rhythm Regular Height (in) 65 Weight (lb) 130 Body Mass Index 21.6 Body Surface Area 1.6 Last Documented: On 07/05/2023 10:14A M ; [facility] Results Includes: Results discussed during this [...] 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 Patient enjoys [employer] and adventism. Her anabaptist background is [employer]. 07/25/2023 Last Documented On 4 9:01PM ; [facility] Tobacco non-user - quit smoking 2013 04/2023 Last Documented On 4 9:03PM ; [facility] Smoking Status Unknown Procedures and Surgical History Includes: Procedures from this encounter Procedures Code Diagnosis Performing Provider Service Location Service Date PSYCHOTHERAPY 45 MIN W/ PT-WHEN PERFMD WITH E/ 16409 Major depressive disorder, recurrent, unspecified, Generalized anxiety disorder, Attention-deficit hyperactivity disorder, unspecified type, Panic disorder [episodic paroxysmal anxiety] CANDY LEUNG MD [facility] 07/05/2023 Last Documented On 4 2:02PM ; [facility] education and instructions Last Documented On 4 9:47AM ; [facility] supportive care and encourag ement--given positive reinforcement to keep patient motivated and active Last Documented On 4 10:19AM ; [facility] ~* Call [phone] and /or go t o the nearest emergency room or call me if suicidal/homicidal ideation or other serious concerns arise. ~ ~* I gave instructions to call me should there be any questions or concerns. ~ ~* Patient voiced understanding and agreed to treatment plan Last Documented On 4 10:12AM ; [facility] dangerousness assessment: no suicide risk 3085F Last Documented On 4 9:47AM ; [facility] use of tobacco assessment performed 1000F Last Documented On 4 9:47AM ; [facility] patient screened for future fall risk: documentation of any fall with injury in past year - no recent falls 1100F Last Documented On 4 9:47AM ; [facility] review of medications documented 1160F Last Documented On 4 9:47AM ; [facility] assessment of suicide risk performed - n ot suicidal Last Documented On 4 10:12AM ; [facility] screening for adult depressi on: impression and score - please see above for treatment and PHQ score Last Documented On 4 9:47AM ; [facility] standardized depression screening: posit lauryn for symptoms Last Documented On 4 9:47AM ; [facility] encouragement to exercise as tolerated o nly due to pain, balanced meal plan Last Documented On 4 8:55PM ; [facility] Clinical summary provided to patient Last Documented On 4 9:47AM ; [facility] PHQ-9: total score 9 Last Documented On 4 8:54PM ; [facility] Medical History Includes: Medical History addressed during this encounter Description Last Updated Primary Care Provider: Dr. Adriana Parkinson -- Pasting Machine Operator Dr. Jorge Hsieh -- Orthopedist Dr. Lana Mclean -- Neurologist Dr. Alberto Valdez -- Shoulder Surgeon at [facility] Dr. Andi Mcrae -- Dentist Dr. Luis Handley - Pain MgtDiagnoses: Aortic regurgitationMitral regurgitationTricuspid regurgitation. Chronic obstructive pulmonary disease. Chronic peptic ulcerConstipation - seen at [facility] ER given enema. Urinary tract infection - [...] 07/05/2023 Last Documented On 4 10:18AM ; [facility] Family History Includes: Family History addressed during this encounter Description Last Updated Dementia of Alzheimer's type with early onset - oldest sister - and depression 07/05/2023 Last Documented On 4 9:47AM ; [facility] Review of Systems Includes: [...] Active Last Documented On 07/05/2023 10:12AM ; [facility] Note: Imported from external source. Valium Allergy Nausea, Vomiting, Diarrhea / Diarrheal disorder 04/01/2015 Active Last Documented On 07/05/2023 10:12AM ; [facility] Note: Imported from external source. Sulfa Antibiotics Allergy Nausea, Vomiting, Diarrhea / Diarrheal disorder 08/13/2021 Active Last Documented On 07/05/2023 10:12AM ; [facility] Note: Imported from external source. Percocet Allergy Nausea, Vomiting, Diarrhea / Diarrheal disorder 04/01/2015 Active Last Documented On 07/05/2023 10:12AM ; [facility] Note: Imported from external source. Morphine Sulfate Allergy Nausea, Vomiting, Diarrhea / Diarrheal disorder 04/01/2015 Resolved Last Documented On 09/22/2022 11:29AM ; [facility] Note: Imported from external source. Morphine Sulfate Allergy Nausea, Vomiting, Diarrhea / Diarrheal disorder 04/01/2015 Active Last Documented On 10:12AM ; [facility] Ancef Allergy Nausea, Vomiting , Diarrhea / Diarrheal disorder 04/01/2015 Active Last Documented On 07/05/2023 10:12AM ; [facility] Note: Imported from external source. Encounters Encounter Provider Location Date Check-In Time Check-Out Time Diagnosis PSYCH ADULT FOLLOW UP CANDY LEUNG MD [facility] 07/05/19 24 9:46AM 11:05AM Generalized Anxiety Disorder,Restle ss Legs Syndrome,Psycho physiological Insomnia,Attent ion Deficit Disorder Without Hyperactivity,M ajor Depression,Raphael c Disorder Insurance Includes: Active Insurance Policies Plan Name Member ID Group # Subscriber Relationship Effect lauryn Dates 1 - [employer]VANTAGE [id number] [place] Self Clinical Notes Includes: Clinical Notes from this encounter * Progress note Date Encounter Last Documented by 07/05/2023 PSYCH ADULT FOLLOW UP Last docum ented on 07/25/2023; 9:03 PM, CANDY LEUNG MD; [facility] Top of Document Medication [...] Primary Care Provider: Dr. Ernie Parkinson -- Pasting Machine Operator Dr. Jorge Hsieh -- [facility] -- Neurologist Dr. Alberto Valdez -- Shoulder Surgeon at [facility] Dr. Andi Mcrae -- Dentist Dr. Luis Handley - Pain Mgt Diagnoses: Aortic regurgitation Mitral regurgitation Tricuspid regurgitation. Chronic obstructive pulmonary disease. Chronic peptic ulcer Constipation - seen at [facility] given enema. 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 Patient reported that she was [...] with her . She was in the [employer]. She reported having 4 years of college. Patient is heterosexual and denied any history of sexual dysfunction. She has no past or pending legal history. Patient enjoys [employer] and adventism. Her anabaptist background is [employer]. Allergies - Ancef Reaction: , Diarrhea / [...] Clinical summary provided to patient. * Call [phone] and /or go to the nearest emergency [...] Obstructive sleep apnea (adult) (pediatric) Referral: Sleep Study-[facility] Instructions: Home Sleep study - [facility] EndCited StartCited - Other Follow-up 10/18/23 EndCited - Referred to: Sleep specialist - r/o WILLEM - in home sleep study [facility] - 07/05/23 - Transition in care, [...] WILLEM - ordered HSS on 07/05/23 through [facility] Practice Management Use of tobacco assessment performed and patient screened for future fall risk documentation of any fall with injury in past year - no recent falls Review of medications documented; Standardized depression screening: positive for symptoms and for adult impression and score - please see above for treatment and PHQ score. Care Team - CANYD LEUNG MD - Psychiatry - RENU PARKINSON MD - Gastroenterology - LUIS HANDLEY MD - Pain Management - NAREN BRENNER NP - Neurology
[2024-06-08 03:16] LABS: Base Excess ABG 4.9 mmol/L (0-2); HCO3 ABG 25.4 mmol/L (23-29); Oxygen Saturation ABG 85.3 % (95-97); Oxyhemoglobin 83.5 % (94-100); PCO2 ABG 26.3 mmHg (35-45)
[2024-06-08 03:20] LABS: Basophils Absolute Auto 0.03 K/mm3 (0.00-0.10); Basophils Percent Auto 0.3 % (0.0-1.0); Eosinophils Absolute Auto 0.32 K/mm3 (0.02-0.50); Eosinophils Percent Auto 3.4 % (1.0-6.0); Hematocrit 38.7 % (35.0-42.0); Hemoglobin 12.5 g/dL (11.7-13.8); Immature Granulocyte Absolute 0.06 K/mm3 (0.00-0.00); Immature Granulocyte Percent A 0.6 % (0.0-0.0); Lymphocytes Absolute Auto 1.32 K/mm3 (1.10-4.50); Lymphocytes Percent Auto 13.9 % (18.0-42.0); Mean Corpuscular HGB Conc 32.3 g/dL (32-36); Mean Corpuscular Hemoglobin 28.7 pg (27.0-31.0); Mean Platelet Volume 9.6 fl (9.2-11.8); Monocytes Absolute Auto 1.33 K/mm3 (0.10-0.90); Neutrophils Absolute Auto 6.46 K/mm3 (1.70-7.20); Neutrophils Percent Auto 67.8 % (50.0-70.0); Platelet Count Result 224 K/mm3 (150-420); Red Blood Count 4.35 M/mm3 (4.20-5.40); Red Cell Distribution Width 15.2 % (11.6-14.4); White Blood Count 9.5 K/mm3 (4.8-10.8)
[2024-06-08 03:27] LABS: Influenza A QL RT-PCR Positive (Negative); Influenza B QL RT-PCR Negative (Negative); RSV RNA, RT-PCR Negative (Negative); SARS-CoV-2 RNA PCR Negative (Negative)
[2024-06-08] MEDS: IPRATROPIUM 0.5 MG/ALBUTEROL SULFATE 2.5 MG AMPUL.NEB 3 ML INHALATION (03:33)
[2024-06-08 03:37] LABS: Partial Thromboplastin Time 32.1 Sec (23.9-30.70); Prothrombin Time 10.8 Seconds (9.50-12.1)
[2024-06-08] MEDS: LINEZOLID 600 MG/300 ML 600 MG/300 ML SOLN 300 MG IVPB (03:38)
[2024-06-08 03:39] LABS: D Dimer 1.87 mg/L (0.19-0.50)
[2024-06-08 03:40] LABS: Lactic Acid Reflex 1.4 mmol/L (0.4-2.0)
[2024-06-08 03:42] LABS: Alanine Aminotransferase 31 U/L (14-59); Albumin Level 3.2 g/dL (3.4-5.0); Alkaline Phosphatase 107 U/L (46-116); Anion Gap 7 mmol/L (4-12); Aspartate Amino Transferase 33 U/L (15-37); Bilirubin,Total 0.3 mg/dL (0.00-1.00); Blood Urea Nitrogen 19 mg/dL (7-18); Calcium 9.5 mg/dL (8.5-10.1); Carbon Dioxide 29 mmol/L (21-32); Chloride 97 mmol/L (98-108); Estimated CRCL calculation 45 ml/min; Estimated Glomerular Filt Rate 59; Glucose 99 mg/dL (70-99); NT Pro B Type Natriuretic Pept 1822 pg/mL (0-125); Osmolality Calculated 278 mOsm/kg (285-295); Sodium 133 mmol/L (136-145); Total Protein 7.5 g/dL (6.4-8.2)
[2024-06-08] MEDS: PIPERACILLN/TAZ 3.375GM/NS50ML 3.375 GM/50 ML BAG IVPB (03:45)
[2024-06-08 03:49] LABS: Site Drawn LEFT RADIAL
[2024-06-08 03:50] LABS: Device ROOM AIR; Modified Allen's Test Pass
[2024-06-08] MEDS: KETOROLAC 15 MG/ML VIAL (*BKC) IV PUSH (03:58)
[2024-06-08 04:42] LABS: Device NASAL CANNULA; HCO3 ABG 24.9 mmol/L (23-29); Modified Allen's Test Pass; Oxygen Saturation ABG 95.1 % (95-97); Oxyhemoglobin 93.3 % (94-100); PCO2 ABG 37.2 mmHg (35-45); PO2 ABG 73.6 mmHg (80-90); Site Drawn RIGHT RADIAL; pH ABG 7.44 (7.35-7.45)
[2024-06-08] MEDS: AZITHROMYCIN 500 MG/NS 250 ML 500 MG/250 ML BAG 250 MG IVPB (05:15)
[2024-06-08 05:21] LABS: MRSA (PCR) NOT DETECTED (NOT DETECTE)
[2024-06-08] MEDS: OSELTAMIVIR PHOSPHATE 75 MG CAPSULE PO (07:22)
[2024-06-08 07:31] VITALS: BP 111/53; PULSE 55; RESP 19; TEMP 36.9; O2SAT 94
--- NOTE | 2024-06-09 13:01 | PC.NURSE ---
preliminary blood culture report; no growth to date.
--- NOTE | 2024-06-14 13:45 | PC.NURSE ---
FINAL BLOOD CULTURE RESULTS X2: NO GROWTH AFTER 5 DAYS.
== END 2024-06-08 07:31 | disposition short-term general hospital (02) ==
PROVIDERS: Emergency Provider Internal Medicine Critical Care Medicine
DX: J11.1 Influenza due to unidentified influenza virus with other respiratory manifestations (principal); J96.01 Acute respiratory failure with hypoxia; J18.9 Pneumonia, unspecified organism; I50.9 Heart failure, unspecified; G35 Multiple sclerosis; J44.9 Chronic obstructive pulmonary disease, unspecified; Z87.891 Personal history of nicotine dependence; Z20.822 Contact with and (suspected) exposure to COVID-19
CPT/HCPCS: 36415; 36600; 71045; 71275; 80053; 82805; 83605; 83880; 84484; 85025; 85380; 85610; 85730; 87040; 87637; 87641; 93005; 96365; 96366; 96367; 96375; 99285; A9270; J0456; J1885; J2020; J2543; Q9967

== ENCOUNTER 2024-06-08 08:10 | Inpatient (IN) | payer MEDICARE, SELFPAY ==
[2024-06-08] VITALS (12 sets, daily range): BP systolic 97–129; BP diastolic 55–62; PULSE 55–62; RESP 18; TEMP 36.6–37; O2SAT 94–97; BMI 23.5
--- OUTSIDE RECORDS SUMMARY | 2024-06-08 08:46 | XMS_ITS | Encounter Summary ---
Author Organization [facility] Address [address] [place] [address] Phone Care Team Providers Care Leather Grader Name Role Phone Riknu Suresh MD Primary Care Provider [phone] Encounter Details Date Type Department Care Team (Late st Contact Info) Description 04/26/2020 [facility] [address] [place] [id number] Jaiden Gonzalez MD [address] [place] [address] Preop testing (Primary Dx) Social History Tobacco [...] COVID-19? No / Unsure 04/26/2020 2:23 PM [facility] documented as of this encounter Plan of Treatment Not on file documented as of this encounter Results * SARS-COV-2 BY MOLECULAR (05/11/2020 8:29 AM [facility]) SARSCOV2 NOT DETECTED (Referen ce Range for this test is Not Detected ) [facility] THERMOFISHER FAST DX 05/12/2020 1:51 AM [facility] Comment:This test was perfor med by a PCR method. Other NASOPHARYNGEAL STRUCTURE / Unknown Non-Phlebotomy Collection / Unknown 05/11/2020 8:29 AM [facility] 05/11/2020 8:54 AM [facility] Narrative [facility] - 05/12/2020 1:51 AM [facility] Authorized Fact Sheets about this test for providers and patients are available at: https://www.fda.gov/medical-devices/mebnpmoyn-pkdvomtuxf-enncbqv-devices/emergen -us e-authorizations us Jaiden Gonzalez MD MICROBIOLOGY - GENERAL ORDERAB LES Final Result Performing Organization Address City/State/[facility] Co de Phone Number [facility] [address] [place] [address], documented in this encounter Visit Diagnoses Diagnosis Preop testing- Primary Preoperative examination, unspecified documented in this encounter Care Teams Leather Grader Relationship Specialty Start Date End Date Rinku Suresh MD [address] [place] [id number] PCP - General Internal Medicine 05/18/18 documented as of this encounter
--- OUTSIDE RECORDS SUMMARY | 2024-06-08 08:46 | XMS_ITS | Clinical Summary ---
Author Organization [facility] Address [address] [facility], [address] [address] Phone Care Team Providers Care Tax Specialist Name Role Phone Rinku Suresh MD Primary Care Provider [phone] Allergies Active Allergy Reactions Criticality Noted Date [...] PUFF PO QD 05/05/19 20 Active [facility]ON [address] Particles TK 1 C [...] this topic Medical Devices Implanted Type Area Taping Supervisor Device Identifier Shelf Expiration Date Model / Serial / Lot Liner Actb Altrx [place] Neutral 50mm 32mm Hip - [id number] Implanted:Qty : 1 on 05/14/2020 by Jaiden Gonzalez MD at [facility] IMPLANT Left: Hip [employer] 07/03/2024 [id number] / [id number] / [id number] Shell Actb 50mm Hip Sector Gription [place] - [id number] Implanted:Qty : 1 on 05/14/2020 by Jaiden Gonzalez MD at [facility] IMPLANT Left: Hip [employer] 02/02/2030 [id number] / [id number] / [id number] Femoral Stem Implanted:Qty : 1 on 05/14/2020 by Jaiden Gonzalez MD at [facility] Left: Hip [employer] 04/04/2030 [id number] / [id number] / [id number] Ceramic Femoral Head Implanted:Qty : 1 on 05/14/2020 by Jaiden Gonzalez MD at [facility] Left: Hip [employer] 08/03/2023 [id number] / [id number] / [id number] Insurance Care Teams Tax Specialist Relationship Specialty Start Date End Date Rinku Suresh MD [address] [place] [phone] PCP - General Internal Medicine 05/18/18
--- OUTSIDE RECORDS SUMMARY | 2024-06-08 08:46 | XMS_ITS | Clinical Summary ---
Author Organization [facility] Address [address] [place] [address] Phone Care Team Providers Care Human Resources Benefits Manager Name Role Phone JOS HAMILTON, RENU Valerio Unavailable [phone] ELIDIA BARNETT, NAREN Lozano Unavailable [phone] ROHAN HAMILTON, ERNIE Hinds Primary Care Provider [phone] VELVET HAMILTON, BUD Fernandez Unavailable [phone] DANNI HAMILTON, CANDY MITCHELL Unavailable [phone] Reason for Visit and Chief Complaint * PHONE CALL Problems Includes: Problems addressed during this encounter and other active Problems All Visits Onset Date Resolved Date Provider Condition S tatus Panic Disorder 05/06/2023 CANDY Wright Active Last Documented On 4 8:48PM ; [facility] Marijuana By Prescription 07/27/2022 SUSIE STOKES SENIOR COMPLIANCE ANALYST-C Active Last Documented On 3 8:03PM ; [facility] Folic Acid Deficiency 03/31/2022 SUSIE BARRERA SENIOR COMPLIANCE ANALYST-C Active Last Documented On 2 9:21AM ; [facility] Hyperlipidemia 07/02/2021 SUSIE STOKES FN P-C Active Last Documented On 2 12:57PM ; [facility] Attention Deficit Disorder Without Hyperactivity 2 Active Last Documented On 3 5:53PM ; [facility] Generalized Anxiety Disorder 05/01/2021 Active Last Documented On 3 5:53PM ; [facility] Psychophysiological Insomnia 05/01/2021 Active Last Documented On 3 5:53PM ; [facility] Major Depression 05/01/2021 Active Last Documented On 3 5:53PM ; [facility] Iron Deficiency Anemia 01/27/2021 SUSIE Fernandez [employer] SENIOR COMPLIANCE ANALYST-C Active Last Documented On 1 9:09AM ; [facility] Aortic Regurgitation 01/21/2021 SUSIE Fernandez [employer] SENIOR COMPLIANCE ANALYST-C Active Last Documented On 01/21/2021 9:23AM ; [facility] Note: mild on ECHO 2020. Mitral Regurgitation 01/21/2021 SUSIE Fernandez KIKE SENIOR COMPLIANCE ANALYST-C Active Last Documented On 01/21/2021 9:22AM ; [facility] Note: mild on ECHO 2020. Tricuspid Regurgitation 01/21/2021 ROSALIND Fernandez KIKE SENIOR COMPLIANCE ANALYST-C Active Last Documented On 01/21/2021 9:23AM ; [facility] Note: mild on ECHO 2020. Constipation 11/27/2020 SUSIE Fernandez [facility] SENIOR COMPLIANCE ANALYST-C Active Last Documented On 1 9:08AM ; [facility] Spinal Stenosis Lumbar 11/27/2020 SUSIE Fernandez [employer] SENIOR COMPLIANCE ANALYST-C Active Last Documented On 1 7:54AM ; [facility] Spinal Stenosis Thoracic 11/27/2020 SUSIE Gonzalez [employer] SENIOR COMPLIANCE ANALYST-C Active Last Documented On 1 7:53AM ; [facility] Chronic Obstructive Pulmonary Disease 12/28/2019 SUSIE Fernandez KIKE SENIOR COMPLIANCE ANALYST-C Active Last Documented On 0 10:52AM ; [facility] Splenic Laceration 01/12/2019 ERNIE Wright Active Last Documented On 01/12/2019 11:00AM ; [facility] 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 [facility] Depression with Anxiety 09/26/2012 ERNIE SHEPHERD MD Active Last Documented On 5 10:05AM ; [facility] Restless Legs Syndrome 09/26/2012 ERNIE ROSALES MD Active Last Documented On 5 10:05AM ; [facility] Peptic Ulcer Chronic 05/31/2012 ERNIE MADRIGAL MD Active Last Documented On 5 10:04AM ; [facility] Osteoarthritis Generalized Multiple Sites 05/31/2012 ERNIE MADRIGAL MD Active Last Documented On 5 10:05AM ; [facility] Plan of Treatment Future Appointments Date Time Location Provi ronel PSYCH ADULT FOLLOW UP 06/13/2024 10:00AM [facility] CANDY LEUNG MD Last Documented On 11:09AM ; [facility] Assessments Includes: Assessments from this encounter No [...] 08/23/2023 6:32PM By ERNIE MADRIGAL MD ; [facility] LORazepam 0.5 MG Oral Tablet 08/23/2023 Provider: CANDY LEUNG MD Diagnosis: Generalized anxi ety disorder as directed - 1/2 - 1 tab a day as needed for severe panic attacks Last Documented On 08/23/2023 1:38PM By Nani Leung MD ; [facility] Focalin 10 MG Oral Tablet 08/12/2023 Provider: CANDY LEUNG MD Diagnosis: Attention-defici t hyperactivity disorder, unspecified type as directed 1 tablet in the morning and 1 tablet at noon Last Documented On 08/12/2023 10:36AM By Nani Leung MD ; [facility] traZODone HCl 100 MG Oral Tablet 07/20/2023 Provider: CANDY LEUNG MD Diagnosis: Psychophysiologi c insomnia as directed 4 tabs at bedtime Last Documented On 07/20/2023 3:22PM By Nani Leung MD ; [facility] Pramipexole Dihydrochloride 0.75 MG Oral Tablet 06/15/2023 Provider: ERNIE MADRIGAL MD Diagnosis: 2 at 5 pm and 2 at bedtime Last Documented On 07/05/2023 10:11AM By NIKKI HOWARD ; [facility] Sertraline HCl 100 MG Oral Tablet 05/31/2023 Provider: CANDY LEUNG MD Diagnosis: Major depressive disorder, recurrent, unspecified ud - as directed as directed 2 tabs daily Last Documented On 05/31/2023 10:55AM By Nani Leung MD ; [facility] Levocetirizine Dihydrochloride 5 MG Oral Tablet 2023 Provider: Diagnosis: Last Documented On 05/14/2023 8:57AM By Alyssa HOWARD ; [facility] Vitamin D 25 MCG (1000 UT) Oral Tablet 05/14/2023 Pr ovider: Diagnosis: Last Documented On 05/14/2023 8:58AM By Alyssa HOWARD ; [facility] Trelegy Ellipta 100-62.5-25 MCG/ACT Inhalation Aerosol Powder Breath Activated 05/14/2023 Provider: SUSIE CARLTON Diagnosis: Chronic obstruct lauryn pulmonary disease, unspecified 1 puff daily Last Documented On 4 9:31AM By Susie CARLTON ; [facility] Famotidine 20 MG Oral Tablet 05/14/2023 Provider: SUSIE CARLTON Diagnosis: Gastro-esophagea l reflux disease without esophagitis take 1-2 tabs daily Last Documented On 4 9:47AM By Susie CARLTON ; [facility] traZODone HCl 100 MG Oral Tablet 03/16/2023 Provider: CANDY LEUNG MD Diagnosis: Psychophysiologi c insomnia as directed 5 tabs at bedtime Last Documented On 03/16/2023 12:00PM By Nani Leung MD ; [facility] HYDROcodone-Acetaminophen 10 -325 MG Oral Tablet 02/23/2023 Provider: BUD VERDIN MD Diagnosis: use prn Last Documented On 03/16/2023 11:27AM By NIKKI HOWARD ; [facility] EQ Laxative Maximum Strength 25 MG Oral Tablet 023 Provider: Diagnosis: 3-4 tabs at night Last Documented On 09/22/2022 11:16AM By NIKKI HOWARD ; [facility] Stool Softener 100 MG Oral Tablet 07/02/2021 Provide r: Diagnosis: 3 times daily Last Documented On 07/02/2021 8:37AM By Alyssa HOWARD ; [facility] Fluticasone Propionate 50 MCG/ACT Nasal Suspension 06/10/2021 Provider: ERNIE MADRIGAL MD Diagnosis: Allergic rhiniti s due to pollen 1 sq each nostril 1-2xd as needed Last Documented On 06/10/2021 12:32PM By ERNIE MADRIGAL MD ; [facility] Biotin 5000 MCG OR CAPS 05/01/2021 Provider: Diagnosis: 1 cap daily Last Documented On 08/01/2022 5:38PM By NIKKI HOWARD ; [facility] Ocuvite Adult 50+ OR CAPS 05/01/2021 Provider: Diagnosis: 1 cap daily Last Documented On 08/01/2022 5:38PM By NIKKI HOWARD ; [facility] Medications Administered Includes: Administered Medications from this [...] Active Last Documented On 07/05/2023 10:12AM ; [facility] Note: Imported from external source. Valium Allergy Nausea, Vomiting, Diarrhea / Diarrheal disorder 04/01/2015 Active Last Documented On 07/05/2023 10:12AM ; [facility] Note: Imported from external source. Sulfa Antibiotics Allergy Nausea, Vomiting, Diarrhea / Diarrheal disorder 08/13/2021 Active Last Documented On 07/05/2023 10:12AM ; [facility] Note: Imported from external source. Percocet Allergy Nausea, Vomiting, Diarrhea / Diarrheal disorder 04/01/2015 Active Last Documented On 07/05/2023 10:12AM ; [facility] Note: Imported from external source. Morphine Sulfate Allergy Nausea, Vomiting, Diarrhea / Diarrheal disorder 04/01/2015 Resolved Last Documented On 09/22/2022 11:29AM ; [facility] Note: Imported from external source. Morphine Sulfate Allergy Nausea, Vomiting, Diarrhea / Diarrheal disorder 04/01/2015 Active Last Documented On 10:12AM ; [facility] Ancef Allergy Nausea, Vomiting , Diarrhea / Diarrheal disorder 04/01/2015 Active Last Documented On 07/05/2023 10:12AM ; [facility] Note: Imported from external source. Encounters Encounter Provider Location Date Check-In Time Check-Out Time Diagnosis * PHONE CALL ERNIE MADRIGAL MD 08/03/2023 9:14AM 11:59PM Insurance Includes: Active Insurance Policies Plan Name Member ID Group # Subscriber Relationship Effect lauryn Dates 1 - [employer] MEDIC[employer] ADVANTAGE [id number] MIGUEL Orozco VIVIAN Self Clinical Notes Includes: Clinical Notes from this encounter * Progress note Date Encounter Last Documented by 08/03/2023 * PHONE CALL Last documented on 08/03/2023; 11:54 AM, ERNIE MADRIGAL MD; [facility] Chief Complaint Phone Call - Chief Concern: [...] stone? pt phone # for return call: [phone] Date/Initials:08/03/23 tlk left msg reviewed er w/u--T spine pain/ no stone.
--- OUTSIDE RECORDS SUMMARY | 2024-06-08 08:46 | XMS_ITS | Clinical Summary ---
Author Organization [facility] Address [address] [place] [address] Phone Care Team Providers Care Neurology Teacher Name Role Phone DANNI HAMILTON, CANDY MITCHELL Unavailable [phone] Reason for Visit and Chief Complaint * PHONE CALL Problems Includes: Problems addressed during this encounter and other active Problems Current Visit Onset Date Resolved Date Provider Conditio n Status Major Depression 05/01/2021 CANDY LEUNG MD Active Last Documented On 2 2:52PM ; [facility] Past Visits Onset Date Resolved Date Provider Condition Status Attention Deficit Disorder Without Hyperactivity 05/01/2021 CANDY LEUNG MD Active Last Documented On 2 3:52PM ; [facility] Generalized Anxiety Disorder 05/01/2021 CANDY LEUNG MD Active Last Documented On 2 2:53PM ; [facility] Psychophysiological Insomnia 05/01/2021 CANDY LEUNG MD Active Last Documented On 2 2:53PM ; [facility] Plan of Treatment No Plan of Treatment Recorded Assessments Includes: Assessments from this encounter Findings - Major depressive disorder - Last Documented On 01/26/2022 2:27PM ; [facility] Medical Equipment - Implanted Devices [...] directed -- 1 tab at bedtime Pharmacy: [address], [id number] - Last Documented On 3 10:16AM By NIKKI HOWARD ; [facility] Current Medications (continue as prescribed) EQ Laxative Maximum Strength 25 MG Oral Tablet 023 Provider: Diagnosis: 3 tabs at night Last Documented On 3 10:04AM By [facility]I [facility] Focal[facility] 5 MG Oral Tablet 06/29/2022 Provider: MET JACQUELINE LEUNG MD Diagnosis: Attn-defct hyper activity disorder, predom inattentive type as directed - 1 tab in am with food Last Documented On 3 11:33AM By Nani Leung MD ; [facility] LORazepam 0.5 MG Oral Tablet 06/29/2022 Provider: CANDY LEUNG MD Diagnosis: Generalized anxi ety disorder as directed - 1/2 - 1 tab a day as needed for severe panic attacks Last Documented On 3 11:33AM By Nani Leung MD ; [facility] OLANZapine 15 MG Oral Tablet 06/29/2022 Provider: CANDY LEUNG MD Diagnosis: Major depressive disorder, recurrent, moderate as directed -- 1 tab at bedtime Last Documented On 3 11:33AM By Nani Leung MD ; [facility] traZODone HCl 100 MG Oral Tablet 06/15/2022 Provider: CANDY LEUNG MD Diagnosis: Psychophysiologi c insomnia as directed 3 tabs at bedtime Last Documented On 06/15/2022 3:36PM By Nani Leung MD ; [facility] Folic Acid 1 MG Oral Tablet 03/31/2022 Provider: SUSIE STOKES ANIMAL SCIENTIST-C Diagnosis: 1 tab daily Last Documented On 3 11:38AM By NIKKI HOWARD ; [facility] Pramipexole Dihydrochloride 0.75 MG Oral Tablet 09/08/2021 Provider: TIMMY VALENZUELA MD Diagnosis: 2 tabs in the evening Last Documented On 3 11:39AM By NIKKI OCHOA RMA ; [facility] Antacid 200-200-20 MG/5ML Oral Suspension 05/21/2021 Provider: RENU ARGUELLO MD Diagnosis: as needed Last Documented On 06/06/2021 2:04PM By MICHELLE PARKS ; [facility] Ocuvite Adult 50+ Oral Capsule 05/01/2021 Provider: Diagnosis: 1 cap daily Last Documented On 05/01/2021 3:10PM By NIKKI OCHOA RMA ; [facility] Xyzal 5 MG Oral Tablet 05/01/2021 Provider: Diagnosis: 1 tab daily Last Documented On 05/01/2021 3:10PM By NIKKI OCHOA RMA ; [facility] Biotin 5000 MCG Oral Capsule 05/01/2021 Provider: Diagnosis: 1 cap daily Last Documented On 05/01/2021 3:13PM By NIKKI OCHOA RMA ; [facility] Stool Softener 100 MG Oral Capsule 05/01/2021 Pr ovider: Diagnosis: 1 cap tid Last Documented On 05/01/2021 3:12PM By NIKKI OCHOA RMA ; [facility] Ondansetron HCl 8 MG Oral Tablet 03/13/2021 Provider : RENU ARGUELLO MD Diagnosis: 2 tab prn nausea/vomiting Last Documented On 05/01/2021 3:04PM By NIKKI OCHOA RMA ; [facility] Anoro Ellipta 62.5-25 MCG/IN H Inhalation Aerosol Powder Breath Activated 03/11/2021 Provider: ERNIE MADRIGAL MD Diagnosis: 1 inhalation daily Last Documented On 05/01/2021 3:07PM By NIKKI OCHOA RMA ; [facility] Cyclobenzaprine HCl 10 MG Oral Tablet 01/06/2021 Pro vider: ERNIE MADRIGAL MD Diagnosis: take 1 tab prn Last Documented On 05/01/2021 3:07PM By NIKKI OCHOA RMA ; [facility] Suspended Medications Sertraline HCl 100 MG Oral Tablet 03/11/2022 Provide r: CANDY LEUNG MD Diagnosis: as directed 1 and 1/2 tabs daily Last Documented On 03/11/2022 4:45PM By Nani Leung MD ; [facility] Past Medications on file Gabapentin 300 MG Oral Capsule 06/29/2022 - 07/29/2022 Provider: Diagnosis: 2 capsules at night Last Documented On 3 10:02AM By NIKKI HOWARD ; [facility] Focalin 10 MG Oral Tablet 10/14/2021 - 11/13/2021 Provider: CANDY LEUNG MD Diagnosis: Generalized anxi ety disorder as directed -- 1 tab in am Last Documented On 10/14/2021 2:31PM By Nani Leung MD ; [facility] Pramipexole Dihydrochloride 0.75 MG Oral Tablet 08/13/2021 - 11/11/2021 Provider: Diagnosis: 1 afternoon prn and 2 at hs Last Documented On 08/13/2021 9:28AM By NIKKI HOWARD ; [facility] Gabapentin 300 MG Oral Capsule 08/13/2021 - 09/12/2021 Provider: ERNIE MADRIGAL MD Diagnosis: 2 at night Last Documented On 08/13/2021 9:26AM By NIKKI HOWARD ; [facility] DayVigo 5 MG Oral Tablet 05/01/2021 - 05/21/2021 Provider: CANDY LEUNG MD Diagnosis: Psychophysiologi c insomnia as directed -- 1 tab at hs a s needed for sleep Last Documented On 05/01/2021 4:02PM By Nani Leung MD ; [facility] Medications Administered Includes: Administered Medications [...] Active Last Documented On 07/05/2023 10:12AM ; [facility] Note: Imported from external source. Valium Allergy Nausea, Vomiting, Diarrhea / Diarrheal disorder 04/01/2015 Active Last Documented On 07/05/2023 10:12AM ; [facility] Note: Imported from external source. Sulfa Antibiotics Allergy Nausea, Vomiting, Diarrhea / Diarrheal disorder 08/13/2021 Active Last Documented On 07/05/2023 10:12AM ; [facility] Note: Imported from external source. Percocet Allergy Nausea, Vomiting, Diarrhea / Diarrheal disorder 04/01/2015 Active Last Documented On 07/05/2023 10:12AM ; [facility] Note: Imported from external source. Morphine Sulfate Allergy Nausea, Vomiting, Diarrhea / Diarrheal disorder 04/01/2015 Resolved Last Documented On 09/22/2022 11:29AM ; [facility] Note: Imported from external source. Morphine Sulfate Allergy Nausea, Vomiting, Diarrhea / Diarrheal disorder 04/01/2015 Active Last Documented On 10:12AM ; [facility] Ancef Allergy Nausea, Vomiting , Diarrhea / Diarrheal disorder 04/01/2015 Active Last Documented On 07/05/2023 10:12AM ; [facility] Note: Imported from external source. Encounters Encounter Provider Location Date Check-In Time Check-Out Time Diagnosis * PHONE CALL CANDY LEUNG MD [facility] 01/27/20 22 2:02PM 11:59PM Major Depression Insurance Includes: Active Insurance Policies Plan Name Member ID Group # Subscriber Relationship Effect lauryn Dates 1 - [employer] MED[employer] ADVANTAGE [id number] MIGUEL PARK Self Clinical Notes Includes: Clinical Notes from this encounter No Clinical Notes Recorded
--- OUTSIDE RECORDS SUMMARY | 2024-06-08 08:46 | XMS_ITS ---
Care Plan - [facility] Created on: June 08, 2024 MIGUEL PARK : [id number] Sex: Female Author Organization [facility] Address [address] [place] [address] Phone Care Team Providers Care Stamp Classifier Name Role Phone JOS HAMILTON, RENU Valerio Unavailable [phone] ELIDIA BARNETT, NAREN Lozano Unavailable [phone] ROHAN HAMILTON, ERNIE Hinds Primary Care Provider [phone] VELVET HAMILTON, BUD Fernandez Unavailable [phone] DANNI HAMILTON, CANDY MITCHELL Unavailable [phone]
--- OUTSIDE RECORDS SUMMARY | 2024-06-08 08:46 | XMS_ITS | Clinical Summary ---
Author Organization [facility] Address [address] [place] [address] Phone Care Team Providers Care Metal Die Finisher Name Role Phone DANNI HAMILTON, CANDY MITCHELL Unavailable [phone] Reason for Visit and Chief Complaint The Chief Complaint is: follow up for depression, anxiety, insomnia Problems Includes: Problems addressed during this encounter and other active Problems Current Visit Onset Date Resolved Date Provider Conditio n Status Attention Deficit Disorder Without Hyperactivity 05/01/2021 CANDY LEUNG MD Active Last Documented On 2 3:52PM ; [facility] Generalized Anxiety Disorder 05/01/2021 CANDY LEUNG MD Active Last Documented On 2 2:53PM ; [facility] Psychophysiological Insomnia 05/01/2021 CANDY LEUNG MD Active Last Documented On 2 2:53PM ; [facility] Major Depression 05/01/2021 CANDY LEUNG MD Active Last Documented On 2 2:52PM ; [facility] Plan of Treatment Major depressive disorder -Sertraline [...] - Last Documented On 02/02/2022 12:34AM ; [facility] Education and Decision Aids were provided during visit for: Patient education about medi cation ---Education was given on medication(s) and diagnosis. I reviewed the risks, benefits and side effects of patient's medications Last Documented On 2 10:54AM ; [facility] Discussed calming techniques such as breathing exercises and other relaxation techniques Last Documented On 10:54AM ; [facility] Discussed good sleep hygiene habits Last Documented On 10:56AM ; [facility] Assessments Includes: Assessments from this encounter Findings - Attention deficit disorder without hyperactivity - Last Documented On 02/02/2022 12:34AM ; [facility] - Major depressive disorder - Last Documented On 02/02/2022 12:34AM ; [facility] - Psychophysiological insomnia - Last Documented On 02/02/2022 12:34AM ; [facility] - Generalized anxiety disorder - Last Documented On 02/02/2022 12:34AM ; [facility] Instructions Includes: Instructions from this encounter Education and Decision Aids were provided during visit for: Patient education about medi cation ---Education was given on medication(s) and diagnosis. I reviewed the risks, benefits and side effects of patient's medications Last Documented On 10:54AM ; [facility] Discussed calming techniques such as breathing exercises and other relaxation techniques Last Documented On 10:54AM ; [facility] Discussed good sleep hygiene habits Last Documented On 10:56AM ; [facility] Medical Equipment - Implanted Devices Includes: Current [...] as needed for severe panic attacks Pharmacy: [address], [id number] - Last Documented On 02/16/2022 1:30PM By Nani Leung MD ; [facility] Current Medications (continue as prescribed) EQ Laxative Maximum Strength 25 MG Oral Tablet 023 Provider: Diagnosis: 3 tabs at night Last Documented On 3 10:04AM By NIKKI HOWARD ; [facility] Focalin 5 MG Oral Tablet 06/29/2022 Provider: MET JACQUELINE LEUNG MD Diagnosis: Attn-defct hyper activity disorder, predom inattentive type as directed - 1 tab in am with food Last Documented On 3 11:33AM By Nani Leung MD ; [facility] LORazepam 0.5 MG Oral Tablet 06/29/2022 Provider: CANDY LEUNG MD Diagnosis: Generalized anxi ety disorder as directed - 1/2 - 1 tab a day as needed for severe panic attacks Last Documented On 3 11:33AM By Nani Leung MD ; [facility] OLANZapine 15 MG Oral Tablet 06/29/2022 Provider: CANDY LEUNG MD Diagnosis: Major depressive disorder, recurrent, moderate as directed -- 1 tab at bedtime Last Documented On 3 11:33AM By Nani Leung MD ; [facility] traZODone HCl 100 MG Oral Tablet 06/15/2022 Provider: CANDY LEUNG MD Diagnosis: Psychophysiologi c insomnia as directed 3 tabs at bedtime Last Documented On 06/15/2022 3:36PM By Nani Leung MD ; [facility] Folic Acid 1 MG Oral Tablet 03/31/2022 Provider: SUSIE STOKES FISH CLEANER MACHINE TENDER-C Diagnosis: 1 tab daily Last Documented On 3 11:38AM By NIKKI HOWARD ; [facility] Pramipexole Dihydrochloride 0.75 MG Oral Tablet 09/08/2021 Provider: TIMMY VALENZUELA MD Diagnosis: 2 tabs in the evening Last Documented On 3 11:39AM By NIKKI HOWARD ; [facility] Antacid 200-200-20 MG/5ML Oral Suspension 05/21/2021 Provider: MELANIE PARKINSON MD Diagnosis: as needed Last Documented On 06/06/2021 2:04PM By MICHELLE PARKS ; [facility] Ocuvite Adult 50+ Oral Capsule 05/01/2021 Provider: Diagnosis: 1 cap daily Last Documented On 05/01/2021 3:10PM By NIKKI OCHOA RMA ; [facility] Xyzal 5 MG Oral Tablet 05/01/2021 Provider: Diagnosis: 1 tab daily Last Documented On 05/01/2021 3:10PM By NIKKI OCHOA RMA ; [facility] Biotin 5000 MCG Oral Capsule 05/01/2021 Provider: Diagnosis: 1 cap daily Last Documented On 05/01/2021 3:13PM By NIKKI OCHOA RMA ; [facility] Stool Softener 100 MG Oral Capsule 05/01/2021 Pr ovider: Diagnosis: 1 cap tid Last Documented On 05/01/2021 3:12PM By NIKKI OCHOA A ; [facility] Ondansetron HCl 8 MG Oral Tablet 03/13/2021 Provider : MELANIE PARKINSON MD Diagnosis: 2 tab prn nausea/vomiting Last Documented On 05/01/2021 3:04PM By NIKKI OCHOA A ; [facility] Anoro Ellipta 62.5-25 MCG/IN H Inhalation Aerosol Powder Breath Activated 03/11/2021 Provider: ERNIE MADRIGAL MD Diagnosis: 1 inhalation daily Last Documented On 05/01/2021 3:07PM By NIKKI OCHOA A ; [facility] Cyclobenzaprine HCl 10 MG Oral Tablet 01/06/2021 Pro vider: ERNIE MADRIGAL MD Diagnosis: take 1 tab prn Last Documented On 05/01/2021 3:07PM By NIKKI OCHOA RMA ; [facility] Suspended Medications Sertraline HCl 100 MG Oral Tablet 03/11/2022 Provide r: CANDY LEUNG MD Diagnosis: as directed 1 and 1/2 tabs daily Last Documented On 03/11/2022 4:45PM By aNni Leung MD ; [facility] Past Medications on file Gabapentin 300 MG Oral Capsule 06/29/2022 - 07/29/2022 Provider: Diagnosis: 2 capsules at night Last Documented On 03/27/202 3 10:02AM By NIKKI HOWARD ; [facility] Focalin 10 MG Oral Tablet 10/14/2021 - 11/13/2021 Provider: CANDY LEUNG MD Diagnosis: Generalized anxi ety disorder as directed -- 1 tab in am Last Documented On 10/14/2021 2:31PM By Nani Leung MD ; [facility] Pramipexole Dihydrochloride 0.75 MG Oral Tablet 08/13/2021 - 11/11/2021 Provider: Diagnosis: 1 afternoon prn and 2 at hs Last Documented On 08/13/2021 9:28AM By NIKKI HOWARD ; [facility] Gabapentin 300 MG Oral Capsule 08/13/2021 - 09/12/2021 Provider: ERNIE MADRIGAL MD Diagnosis: 2 at night Last Documented On 08/13/2021 9:26AM By NIKKI HOWARD ; [facility] DayVigo 5 MG Oral Tablet 05/01/2021 - 05/21/2021 Provider: CANDY LEUNG MD Diagnosis: Psychophysiologi c insomnia as directed -- 1 tab at hs a s needed for sleep Last Documented On 05/01/2021 4:02PM By Nani Leung MD ; [facility] Medications Administered Includes: Administered Medications from this encounter No Administered Medications Recorded Vital Signs Includes: Vital Signs from this encounter Vital Name 01/09/2022 11:09A Blood Pressure Sitting (mmHg) 122/62 BP Cuff Size Regular Pulse Rate-Sitting (bpm) 88 Pulse Rhythm Regular Height (in) 66 Weight (lb) 123 Body Mass Index (kg/m2) 19.9 Body Surface Area (m2) 1.6 Last Documented: On 01/09/2022 11:19A M ; [facility] Results Includes: Results discussed during this encounter No Results Recorded For Specified Dates History of Present Illness Includes: History of Present Illness from this encounter JOSE PARK is a 61 year old female. - Past medical history reviewed - Medication list reviewed Pt reported some stressors in her life. She was caring for her father until he had to be placed in a prison due to end stage CHF and unable to care for himself. However, her father refused to go to the prison and has been resistive to care. She was pushing his father in a wheelchair and had pain in the right anterior rib cage. She saw Ernesto Tellez ALEJANDRO on 12/04/21. She was treated for UTI. She also got her dental implants top and bottom in [place], [place] a discounted gipson of $20,000. [...] 05/04/2022 Last Documented On 2 10:54AM ; [facility] Patient reported that she [...] past or pending legal history. Patient enjoys [employer] and temple. 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 05/01/2021 Last Documented On 2 10:54AM ; [facility] Former smoker - quit smoking 2012 Last Documented On 2 10:54AM ; [facility] Smoking Status Unknown Procedures and Surgical History Includes: Procedures from this encounter Procedures Code Diagnosis Performing Provider Service L ocation Service Date education and instructions Last Documented On 2 10:54AM ; [facility] I discussed the risks, benef its and side effects of Olanzapine to the patient including the possibility of metabolic and motor side effects such as tardive dyskinesia Last Documented On 2 10:56AM ; [facility] dangerousness assessment: suicide risk -not suic idal 3085F Last Documented On 2 10:54AM ; [facility] use of tobacco assessment performed 1000F Last Documented On 2 11:09AM ; [facility] patient screened for future fall risk - no recen t falls 3288F Last Documented On 2 11:07AM ; [facility] review of medications documented 1160F Last Documented On 2 10:56AM ; [facility] screening for adult depressi on: impression and score - please see above treatment and PHQ score Last Documented On 11:09AM ; [facility] standardized depression screening: posit lauryn for symptoms Last Documented On 11:09AM ; [facility] Counseling on new medication : I discussed the risks, benefits and side effects of Lorazepam. Patient verbalized understanding and agreed to treatment Last Documented On 2 12:15AM ; [facility] Clinical summary provided to patient Last Documented On 2 10:54AM ; [facility] PHQ-9: total score 10 Last Documented On 2 12:15AM ; [facility] Surgical History Last Updated History of total shoulder replacement - bilateral -- 2016 and 201806/29/2022 Last Documented On 2 10:54AM ; [facility] History of lumbar vertebral fusion - 12/2020 -- including thoracic -- Dr. Jorge Aranda -- [place] 06/29/2022 Last Documented On 2 10:54AM ; [facility] History of endoscopic insert ion of stent of pancreatic duct - abdominal drain - 01/2019 and 02/201902/02/2022 Last Documented On 2 12:34AM ; [facility] History of splenectomy - 12/31/201802/02 Last Documented On 2 12:34AM ; [facility] History of cervical vertebra l fusion and cervical decompression in 2002 and 200705/02/2021 Last Documented On 2 10:54AM ; [facility] History of hip replacement - bilateral - - 2019 and 202005/01/2021 Last Documented On 2 10:54AM ; [facility] History of knee replacement - bilateral -- 2000 and 200105/01/2021 Last Documented On 2 10:54AM ; [facility] History of cholecystectomy - 2007 Last Documented On 2 10:54AM ; [facility] History of appendectomy - 1971 2 Last Documented On 2 10:54AM ; [facility] Medical History Includes: Medical History addressed during this encounter Description Last Updated History of iron deficiency anemia 2022 Last Documented On 2 10:54AM ; [facility] History of constipation - has tried Derick luis 05/04/2022 Last Documented On 2 10:54AM ; [facility] Primary Care Provider: Dr. Adriana Madrigal ~Dr. Melanie Parkinson -- Keno Writer/Runner ~Dr. Jorge Hsieh -- Orthopedist ~Dr. Timmy Mclean -- Neurologist ~Dr. Alberto Valdez -- Shoulder Surgeon at [facility] ~Dr. Rg Montgomery -- Dentist ~Luis Quiros Mgkermit 02/02/2022 Last Documented On 2 12:34AM ; [facility] No diagnosis of history of C OVID-19 infection - pt reported no Covid symptoms 08/13/2021 Last Documented On 2 10:54AM ; [facility] History of tooth extraction - given Zpak 250 mg for prophylaxis purposes 08/13/2021 Last Documented On 2 10:54AM ; [facility] History of colonoscopy - 201 9 -- botched per patient leading to weight loss 08/13/2021 Last Documented On 2 10:54AM ; [facility] History of coronavirus 2019- nCoV vaccine - Moderna #1 06/2020 #2 06/2020 #3 03/25/21 05/01/2021 Last Documented On 2 10:54AM ; [facility] History of osteoarthritis of multiple sites - accelerated degenerative disk and joint disease 05/01/2021 Last Documented On 2 10:54AM ; [facility] History of splenic laceration - requirin g slenectomy 05/01/2021 Last Documented On 2 10:54AM ; [facility] History of spinal stenosis - lumbar and thoracic 05/01/2021 Last Documented On 2 10:54AM ; [facility] History of restless legs syndrome 2021 Last Documented On 2 10:54AM ; [facility] History of chronic peptic ulcer 05/01/19 Last Documented On 2 10:54AM ; [facility] History of chronic obstructive pulmonary disease 05/01/2021 Last Documented On 2 10:54AM ; [facility] History of tricuspid regurgitation 05/01 Last Documented On 2 10:54AM ; [facility] History of mitral regurgitation 05/01/19 Last Documented On 2 10:54AM ; [facility] History of aortic regurgitation 05/01/19 Last Documented On 2 10:54AM ; [facility] Family History Includes: Family History addressed during this encounter Description Last Updated Sororal history of dementia of Alzheimer's type with early onset - oldest sister - and depression 05/01/2021 Last Documented On 2 10:54AM ; [facility] Review of Systems Includes: Review of Systems [...] Active Last Documented On 07/05/2023 10:12AM ; [facility] Note: Imported from external source. Valium Allergy Nausea, Vomiting, Diarrhea / Diarrheal disorder 04/01/2015 Active Last Documented On 07/05/2023 10:12AM ; [facility] Note: Imported from external source. Sulfa Antibiotics Allergy Nausea, Vomiting, Diarrhea / Diarrheal disorder 08/13/2021 Active Last Documented On 07/05/2023 10:12AM ; [facility] Note: Imported from external source. Percocet Allergy Nausea, Vomiting, Diarrhea / Diarrheal disorder 04/01/2015 Active Last Documented On 07/05/2023 10:12AM ; [facility] Note: Imported from external source. Morphine Sulfate Allergy Nausea, Vomiting, Diarrhea / Diarrheal disorder 04/01/2015 Resolved Last Documented On 09/22/2022 11:29AM ; [facility] Note: Imported from external source. Morphine Sulfate Allergy Nausea, Vomiting, Diarrhea / Diarrheal disorder 04/01/2015 Active Last Documented On 10:12AM ; [facility] Ancef Allergy Nausea, Vomiting , Diarrhea / Diarrheal disorder 04/01/2015 Active Last Documented On 07/05/2023 10:12AM ; [facility] Note: Imported from external source. Encounters Encounter Provider Location Date Check-In Time Check-Out Time Diagnosis FOLLOW UP CANDY LEUNG MD [facility] 2 11:00AM 12:05PM Generalized Anxiety Disorder,Psycho physiological Insomnia,Attent ion Deficit Disorder Without Hyperactivity,M ajor Depression Insurance Includes: Active Insurance Policies Plan Name Member ID Group # Subscriber Relationship Effect lauryn Dates 1 - [employer]AGE [id number] MIGUEL PARK Self Clinical Notes Includes: Clinical Notes from this encounter No Clinical Notes Recorded
--- OUTSIDE RECORDS SUMMARY | 2024-06-08 08:46 | XMS_ITS | Clinical Summary ---
Author Organization [facility] Address [address] [place] [address] Phone Care Team Providers Care Information Technology Auditor Name Role Phone JOS HAMILTON, RENU Valerio Unavailable [phone] ELIDIA BARNETT, NAREN Lozano Unavailable [phone] ROHAN HAMILTON, ERNIE Hinds Primary Care Provider [phone] VELVET HAMILTON, BUD Fernandez Unavailable [phone] DANNI HAMILTON, CANDY MITCHELL Unavailable [phone] Reason for Visit and Chief Complaint * PHONE CALL Problems Includes: Problems addressed during this encounter and other active Problems All Visits Onset Date Resolved Date Provider Condition S tatus Panic Disorder 05/06/2023 CANDY Wright Active Last Documented On 4 8:48PM ; [facility] Marijuana By Prescription 07/27/2022 SUSIE STOKES MANAGER INTERNAL-C Active Last Documented On 3 8:03PM ; [facility] Folic Acid Deficiency 03/31/2022 SUSIE BARRERA MANAGER INTERNAL-C Active Last Documented On 2 9:21AM ; [facility] Hyperlipidemia 07/02/2021 SUSIE STOKES FN P-C Active Last Documented On 2 12:57PM ; [facility] Attention Deficit Disorder Without Hyperactivity 2 Active Last Documented On 3 5:53PM ; [facility] Generalized Anxiety Disorder 05/01/2021 Active Last Documented On 3 5:53PM ; [facility] Psychophysiological Insomnia 05/01/2021 Active Last Documented On 3 5:53PM ; [facility] Major Depression 05/01/2021 Active Last Documented On 3 5:53PM ; [facility] Iron Deficiency Anemia 01/27/2021 SUSIE Fernandez CHI LDERS MANAGER INTERNAL-C Active Last Documented On 1 9:09AM ; [facility] Aortic Regurgitation 01/21/2021 SUSIE Fernandez KIKE MANAGER INTERNAL-C Active Last Documented On 01/21/2021 9:23AM ; [facility] Note: mild on ECHO 2020. Mitral Regurgitation 01/21/2021 SUSIE Fernandez KIKE MANAGER INTERNAL-C Active Last Documented On 01/21/2021 9:22AM ; [facility] Note: mild on ECHO 2020. Tricuspid Regurgitation 01/21/2021 ROSALIND Fernandez KIKE MANAGER INTERNAL-C Active Last Documented On 01/21/2021 9:23AM ; [facility] Note: mild on ECHO 2020. Constipation 11/27/2020 SUSIE Fernandez CHILD ERS MANAGER INTERNAL-C Active Last Documented On 1 9:08AM ; [facility] Spinal Stenosis Lumbar 11/27/2020 SUSIE Fernandez CHI LDERS MANAGER INTERNAL-C Active Last Documented On 1 7:54AM ; [facility] Spinal Stenosis Thoracic 11/27/2020 SUSIE Gonzalez HILDERS MANAGER INTERNAL-C Active Last Documented On 1 7:53AM ; [facility] Chronic Obstructive Pulmonary Disease 12/28/2019 SUSIE Fernandez KIKE MANAGER INTERNAL-C Active Last Documented On 0 10:52AM ; [facility] Splenic Laceration 01/12/2019 ERNIE Wright Active Last Documented On 01/12/2019 11:00AM ; [facility] 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 [facility] Depression with Anxiety 09/26/2012 ERNIE SHEPHERD MD Active Last Documented On 5 10:05AM ; [facility] Restless Legs Syndrome 09/26/2012 ERNIE ROSALES MD Active Last Documented On 5 10:05AM ; [facility] Peptic Ulcer Chronic 05/31/2012 ERNIE MADRIGAL MD Active Last Documented On 5 10:04AM ; [facility] Osteoarthritis Generalized Multiple Sites 05/31/2012 ERNIE MADRIGAL MD Active Last Documented On 5 10:05AM ; [facility] Plan of Treatment Future Appointments Date Time Location Provi ronel PSYCH ADULT FOLLOW UP 06/13/2024 10:00AM [facility] CANDY LEUNG MD Last Documented On 11:09AM ; [facility] Assessments Includes: Assessments from this [...] 08/23/2023 6:32PM By ERNIE MADRIGAL MD ; [facility] LORazepam 0.5 MG Oral Tablet 08/23/2023 Provider: CANDY LEUNG MD Diagnosis: Generalized anxi ety disorder as directed - 1/2 - 1 tab a day as needed for severe panic attacks Last Documented On 08/23/2023 1:38PM By Nani Leung MD ; [facility] Focalin 10 MG Oral Tablet 08/12/2023 Provider: CANDY LEUNG MD Diagnosis: Attention-defici t hyperactivity disorder, unspecified type as directed 1 tablet in the morning and 1 tablet at noon Last Documented On 08/12/2023 10:36AM By Nani Leung MD ; [facility] traZODone HCl 100 MG Oral Tablet 07/20/2023 Provider: CANDY LEUNG MD Diagnosis: Psychophysiologi c insomnia as directed 4 tabs at bedtime Last Documented On 07/20/2023 3:22PM By Nani Leung MD ; [facility] Pramipexole Dihydrochloride 0.75 MG Oral Tablet 06/15/2023 Provider: ERNIE MADRIGAL MD Diagnosis: 2 at 5 pm and 2 at bedtime Last Documented On 07/05/2023 10:11AM By NIKKI HOWARD ; [facility] Sertraline HCl 100 MG Oral Tablet 05/31/2023 Provider: CANDY LEUNG MD Diagnosis: Major depressive disorder, recurrent, unspecified ud - as directed as directed 2 tabs daily Last Documented On 05/31/2023 10:55AM By Nani Leung MD ; [facility] Levocetirizine Dihydrochloride 5 MG Oral Tablet 2023 Provider: Diagnosis: Last Documented On 05/14/2023 8:57AM By Alyssa HOWARD ; [facility] Vitamin D 25 MCG (1000 UT) Oral Tablet 05/14/2023 Pr ovider: Diagnosis: Last Documented On 05/14/2023 8:58AM By Alyssa HOWARD ; [facility] Trelegy Ellipta 100-62.5-25 MCG/ACT Inhalation Aerosol Powder Breath Activated 05/14/2023 Provider: SUSIE CARLTON Diagnosis: Chronic obstruct lauryn pulmonary disease, unspecified 1 puff daily Last Documented On 4 9:31AM By Susie CARLTON ; [facility] Famotidine 20 MG Oral Tablet 05/14/2023 Provider: SUSIE CARLTON Diagnosis: Gastro-esophagea l reflux disease without esophagitis take 1-2 tabs daily Last Documented On 4 9:47AM By Susie CARLTON ; [facility] traZODone HCl 100 MG Oral Tablet 03/16/2023 Provider: CANDY LEUNG MD Diagnosis: Psychophysiologi c insomnia as directed 5 tabs at bedtime Last Documented On 03/16/2023 12:00PM By Nani Leung MD ; [facility] HYDROcodone-Acetaminophen 10 -325 MG Oral Tablet 02/23/2023 Provider: BUD VERDIN MD Diagnosis: use prn Last Documented On 03/16/2023 11:27AM By NIKKI HOWARD ; [facility] EQ Laxative Maximum Strength 25 MG Oral Tablet 023 Provider: Diagnosis: 3-4 tabs at night Last Documented On 09/22/2022 11:16AM By NIKKI HOWARD ; [facility] Stool Softener 100 MG Oral Tablet 07/02/2021 Provide r: Diagnosis: 3 times daily Last Documented On 07/02/2021 8:37AM By Alyssa HOWARD ; [facility] Fluticasone Propionate 50 MCG/ACT Nasal Suspension 06/10/2021 Provider: ERNIE MADRIGAL MD Diagnosis: Allergic rhiniti s due to pollen 1 sq each nostril 1-2xd as needed Last Documented On 06/10/2021 12:32PM By ERNIE MADRIGAL MD ; [facility] Biotin 5000 MCG OR CAPS 05/01/2021 Provider: Diagnosis: 1 cap daily Last Documented On 08/01/2022 5:38PM By NIKKI HOWARD ; [facility] Ocuvite Adult 50+ OR CAPS 05/01/2021 Provider: Diagnosis: 1 cap daily Last Documented On 08/01/2022 5:38PM By NIKKI HOWARD ; [facility] Past Medications on file traZODone HCl 100 MG Oral Tablet 07/20/2023 - 08/19/2023 Provider: CANDY LEUNG MD Diagnosis: Psychophysiologi c insomnia 4 tabs at bedtime Last Documented On 07/20/2023 2:59PM By MICHELLE PARKS ; [facility] Pramipexole Dihydrochloride 0.75 MG Oral Tablet 03/16/2023 - 06/14/2023 Provider: Diagnosis: 2 tabs late afternoon and 2 in the evening Last Documented On 03/16/2023 11:20AM By NIKKI HOWARD ; [facility] Medications Administered Includes: Administered Medications [...] Last Documented On 07/05/2023 10:12AM ; [facility] Note: Imported from external source. Valium Allergy Nausea, Vomiting, Diarrhea / Diarrheal disorder 04/01/2015 Active Last Documented On 07/05/2023 10:12AM ; [facility] Note: Imported from external source. Sulfa Antibiotics Allergy Nausea, Vomiting, Diarrhea / Diarrheal disorder 08/13/2021 Active Last Documented On 07/05/2023 10:12AM ; [facility] Note: Imported from external source. Percocet Allergy Nausea, Vomiting, Diarrhea / Diarrheal disorder 04/01/2015 Active Last Documented On 07/05/2023 10:12AM ; [facility] Note: Imported from external source. Morphine Sulfate Allergy Nausea, Vomiting, Diarrhea / Diarrheal disorder 04/01/2015 Resolved Last Documented On 09/22/2022 11:29AM ; [facility] Note: Imported from external source. Morphine Sulfate Allergy Nausea, Vomiting, Diarrhea / Diarrheal disorder 04/01/2015 Active Last Documented On 10:12AM ; [facility] Ancef Allergy Nausea, Vomiting , Diarrhea / Diarrheal disorder 04/01/2015 Active Last Documented On 07/05/2023 10:12AM ; [facility] Note: Imported from external source. Encounters Encounter Provider Location Date Check-In Time Check-Out Time Diagnosis * PHONE CALL CANDY LEUNG MD [facility] 4 6:36PM 11:59PM Insurance Includes: Active Insurance Policies Plan Name Member ID Group # Subscriber Relationship Effect lauryn Dates 1 - [employer] [id number] [place] Self Clinical Notes Includes: Clinical Notes from this encounter * Progress note Date Encounter Last Documented by 08/05/2023 * PHONE CALL Last documented on 08/05/2023; 6:39 PM, CANDY LEUNG MD; [facility] Active Problems & Conditions - [...] CPAP and will probably send referral to [facility] for the equipment. I informed her that I will have my staff call her as to where to pick pulling machine operator the CPAP equipment since it may depend on her insurance. Pt voiced understanding and appreciated the call. EndCited Care Team - CANDY LEUNG MD - Psychiatry - RENU ARGUELLO MD - Gastroenterology - BUD VERDIN MD - Pain Management - NAREN BRENNER NP - Neurology
--- OUTSIDE RECORDS SUMMARY | 2024-06-08 08:47 | XMS_ITS ---
Care Plan - [facility] Created on: June 08, 2024 MIG[place]EL PARK : 1960 Sex: Female Author Organization [facility] Address [address] [place] [address] Phone Care Team Providers Care Lock And Dam Repairer Name Role Phone DANNI HAMILTON, CANDY MITCHELL Unavailable [phone]
--- OUTSIDE RECORDS SUMMARY | 2024-06-08 08:47 | XMS_ITS | Patient Health Summary ---
Author Organization [facility] Address [address] [place] [address] Care Team Providers Care Manager Of Patient Name Role Phone Unavailable Primary Care Provider Unavailabl e Note from [facility],non-owned Affiliates and Associated Physician Practices is amultiple site organization consisting of ambulatory clinics and hospital sitesin [place], [place], [place]. This disclosure is being madepursuant to the Care Everywhere program and may not contain all information available regarding this patient. Last updated 17.[facility] Social History Tobacco Use Types Packs/Day Years Used Date Smoking Tobacco: Never Assessed Sex and Gender Information Value Date Recorded Sex Assigned at Not on file Gender Identity Not on file Sexual Orientation Not on file Procedures * DERMATOPATHOLOGY(Performed 10/25/2019) Results * DERMATOPATHOLOGY (10/25/2019 12:00 AM CDT) Case Report Dermatopathology Report Case: [id number] Authorizing Provider: Em Tran MD Collected: 10/25/2019 12:00 AM Ordering Location: [facility] DermPath Lab Received: 10/26/2019 02:28 PM Pathologist: [...] specimen consists of a shave biopsy measuring [id number]. Jar 0. Specimen B: Received is one formalin filled container labeled with the patient's name and designated left central parietal scalp. The specimen consists of a shave biopsy measuring [id number]. Jar 0. 0 5:19 PM CDT DERMATOPATHOLOGY [...] characteristic determined by the Dermatopathology Laboratory at [facility], directed by Dr. Alicja Osman. These tests need not be, and therefore are not, approved by the [place] Food and Drug Administration. The tests are used for clinical purposes. Billing Codes Specimen Charges Stain Charges [id number] [id number] 1 1 0 5:19 PM CDT DERMATOPATHOLOGY LABORATORY Embedded Images 0 5:19 PM CDT DERMATOPATHOLOGY LABORATORY Pathology/Cytology TISSUE SPECIMEN FROM SKIN / Unknown 10/25/2019 10/26/2019 2:28 PM CDT Miscellaneous samples (specimen) TISSUE SPECIMEN FROM SKIN / Unknown 10/25/2019 10/26/2019 2:28 PM CDT Em Tran MD LAB - PATHOLOGY/C YTOLOGY ORDERABLES DERMATOPATHOLOGY LABORATORY [facility] - Department of Dermatology Environmental Air Specialist [place]/[address] [place] [address], [facility] [phone]
--- OUTSIDE RECORDS SUMMARY | 2024-06-08 08:47 | XMS_ITS | Clinical Summary ---
Author Organization [facility] Address [address] [place] [address] Phone Care Team Providers Care Wheel Setter Name Role Phone JOS HAMILTON, RENU Valerio Unavailable [phone] ELIDIA BARNETT, NAREN Lozano Unavailable [phone] ROHAN HAMILTON, ERNIE Hinds Primary Care Provider [phone] LUIS HANDLEY MD Unavailable [phone] [...] Active Last Documented On 4 8:48PM ; [facility] Attention Deficit Disorder Without Hyperactivity 2 Active Last Documented On 3 5:53PM ; [facility] Generalized Anxiety Disorder 05/01/2021 Active Last Documented On 3 5:53PM ; [facility] Psychophysiological Insomnia 05/01/2021 Active Last Documented On 3 5:53PM ; [facility] Major Depression 05/01/2021 Active Last Documented On 3 5:53PM ; [facility] Restless Legs Syndrome 09/26/2012 ERNIE ROSALES MD Active Last Documented On 5 10:05AM ; [facility] Past Visits Onset Date Resolved Date Provider Condition Status Marijuana By Prescription 07/27/2022 SUSIE PONDERS RN LABOR AND DELIVERY-C Active Last Documented On 3 8:03PM ; [facility] Folic Acid Deficiency 03/31/2022 SUSIE PULLIAMS RN LABOR AND DELIVERY-C Active Last Documented On 2 9:21AM ; [facility] Hyperlipidemia 07/02/2021 SUSIE PONDERS FN P-C Active Last Documented On 2 12:57PM ; [facility] Iron Deficiency Anemia 01/27/2021 SUSIE SKELTONERS RN LABOR AND DELIVERY-C Active Last Documented On 1 9:09AM ; [facility] Aortic Regurgitation 01/21/2021 SUSIE PONDERS RN LABOR AND DELIVERY-C Active Last Documented On 01/21/2021 9:23AM ; [facility] Note: mild on ECHO 2020. Mitral Regurgitation 01/21/2021 SUSIE PONDERS RN LABOR AND DELIVERY-C Active Last Documented On 01/21/2021 9:22AM ; [facility] Note: mild on ECHO 2020. Tricuspid Regurgitation 01/21/2021 ROSALIND Fernandez KIKE RN LABOR AND DELIVERY-C Active Last Documented On 01/21/2021 9:23AM ; [facility] Note: mild on ECHO 2020. Constipation 11/27/2020 SUSIE POND ERS RN LABOR AND DELIVERY-C Active Last Documented On 1 9:08AM ; [facility] Spinal Stenosis Lumbar 11/27/2020 SUSIE SKELTONERS RN LABOR AND DELIVERY-C Active Last Documented On 1 7:54AM ; [facility] Spinal Stenosis Thoracic 11/27/2020 SUSIE Fenrandez Lisa ALDANADERS RN LABOR AND DELIVERY-C Active Last Documented On 1 7:53AM ; [facility] Chronic Obstructive Pulmonary Disease 12/28/2019 SUSIE Fernandez KIKE RN LABOR AND DELIVERY-C Active Last Documented On 0 10:52AM ; [facility] Splenic Laceration 01/12/2019 ERNIE Wright Active Last Documented On 01/12/2019 11:00AM ; [facility] 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 [facility] Depression with Anxiety 09/26/2012 ERNIE SHEPHERD MD Active Last Documented On 5 10:05AM ; [facility] Peptic Ulcer Chronic 05/31/2012 ERNIE MADRIGAL MD Active Last Documented On 5 10:04AM ; [facility] Osteoarthritis Generalized Multiple Sites 05/31/2012 ERNIE MADRIGAL MD Active Last Documented On 5 10:05AM ; [facility] Plan of Treatment - Referred to: Sleep specialist - r/o WILLEM - in home sleep study [facility] - 07/05/23 - Last Documented On 07/25/2023 9:03PM ; [facility] - Transition in care, clinical summary provided - Last Documented On 07/25/2023 9:03PM ; [facility] - Clinical summary transmitted to referring provider electronically with reasonable certainty of receipt - Last Documented On 07/25/2023 9:03PM ; [facility] Major depressive disorder -Sertraline 100 mg 2 [...] WILLEM - ordered HSS on 07/05/23 through [facility] - Last Documented On 07/25/2023 9:03PM ; [facility] Referrals To Diagnosis Sleep Study-[facility] Obstructive slee p apnea (adult) (pediatric) Note: Home Sleep study - [facility] Last Documented On 4 12:50PM ; [facility] Future Appointments Date Time Location Provi ronel PSYCH ADULT FOLLOW UP 06/13/2024 10:00AM [facility] OUP-PSY CANDY LEUNG MD Last Documented On 4 11:09AM ; [facility] Education and Decision Aids were provided during visit for: Discussed good sleep hygiene habits Last Documented On 4 8:54PM ; [facility] Calming techniques such as b reathing exercises/meditation and other relaxation techniques Last Documented On 4 8:54PM ; [facility] Assessments Includes: Assessments from this encounter Findings - Restless legs syndrome - Last Documented On 07/25/2023 9:03PM ; [facility] - Attention deficit disorder without hyperactivity - Last Documented On 07/25/2023 9:03PM ; [facility] - Major depressive disorder - Last Documented On 07/25/2023 9:03PM ; [facility] - Psychophysiological insomnia - Last Documented On 07/25/2023 9:03PM ; [facility] - Generalized anxiety disorder - Last Documented On 07/25/2023 9:03PM ; [facility] - Panic disorder - Last Documented On 07/25/2023 9:03PM ; [facility] Instructions Includes: Instructions from this encounter Education and Decision Aids were provided during visit for: Discussed good sleep hygiene habits Last Documented On 4 8:54PM ; [facility] Calming techniques such as b reathing exercises/meditation and other relaxation techniques Last Documented On 4 8:54PM ; [facility] Medical Equipment - Implanted Devices Includes: Current Devices No Medical Equipment Recorded Medications Includes: Medications discussed during this encounter and other current Medications Discontinued / Stopped on this date CANDY LEUNG MD on 06/15/2023 LORazepam 0.5 MG Oral Tablet Provider: CANDY LEUNG MD Diagnosis: Generalized anxi ety disorder Last Documented On 07/05/2023 10:59AM By Nani Leung MD ; [facility] Focalin 10 MG Oral Tablet Provider: CANDY LEUNG MD Diagnosis: Attention-defici t hyperactivity disorder, unspecified type Last Documented On 07/05/2023 10:54AM By Nani Leung MD ; [facility] New / Renewed during this visit CANDY LEUNG MD on 07/05/2023 Focalin 10 MG Oral Tablet Provider: CANDY LEUNG MD 30 day supply: 60 tablet, 0 refills Diagnosis: Attention-deficit hyperactivity disorder, unspecified type as directed 1 tablet in the morning and 1 tablet at noon Pharmacy: [facility], [id number] - Last Documented On 08/12/2023 10:31AM By Nani Leung MD ; [facility] LORazepam 0.5 MG Oral Tablet Provider: CANDY LEUNG MD 30 day supply: 15 tablet, 0 refills Diagnosis: Generalized anxiety disorder as directed - 1/2 - 1 tab a day as needed for severe panic attacks Pharmacy: [address], [id number] - Last Documented On 08/23/2023 1:30PM By Nani Leung MD ; [facility] Current Medications (continue as prescribed) Gabapentin 300 MG Oral Capsule 08/23/2023 Provider: ERNIE MADRIGAL MD Diagnosis: Polyosteoarthrit is, unspecified 1-2 po tid Last Documented On 08/23/2023 6:32PM By ERNIE MADRIGAL MD ; [facility] LORazepam 0.5 MG Oral Tablet 08/23/2023 Provider: CANDY LEUNG MD Diagnosis: Generalized anxi ety disorder as directed - 1/2 - 1 tab a day as needed for severe panic attacks Last Documented On 08/23/2023 1:38PM By Nani Leung MD ; [facility] Focalin 10 MG Oral Tablet 08/12/2023 Provider: CANDY LEUNG MD Diagnosis: Attention-defici t hyperactivity disorder, unspecified type as directed 1 tablet in the morning and 1 tablet at noon Last Documented On 08/12/2023 10:36AM By Nani Leung MD ; [facility] traZODone HCl 100 MG Oral Tablet 07/20/2023 Provider: CANDY LEUNG MD Diagnosis: Psychophysiologi c insomnia as directed 4 tabs at bedtime Last Documented On 07/20/2023 3:22PM By Nani Leung MD ; [facility] Pramipexole Dihydrochloride 0.75 MG Oral Tablet 06/15/2023 Provider: ERNIE MADRIGAL MD Diagnosis: 2 at 5 pm and 2 at bedtime Last Documented On 07/05/2023 10:11AM By NIKKI HOWARD ; [facility] Sertraline HCl 100 MG Oral Tablet 05/31/2023 Provider: CANDY LEUNG MD Diagnosis: Major depressive disorder, recurrent, unspecified ud - as directed as directed 2 tabs daily Last Documented On 05/31/2023 10:55AM By Nani Leung MD ; [facility] Levocetirizine Dihydrochloride 5 MG Oral Tablet 2023 Provider: Diagnosis: Last Documented On 05/14/2023 8:57AM By Alyssa HOWARD ; [facility] Vitamin D 25 MCG (1000 UT) Oral Tablet 05/14/2023 Pr ovider: Diagnosis: Last Documented On 05/14/2023 8:58AM By Alyssa HOWARD ; [facility] Trelegy Ellipta 100-62.5-25 MCG/ACT Inhalation Aerosol Powder Breath Activated 05/14/2023 Provider: SUSIE CARLTON Diagnosis: Chronic obstruct lauryn pulmonary disease, unspecified 1 puff daily Last Documented On 4 9:31AM By Susie CARLTON ; [facility] Famotidine 20 MG Oral Tablet 05/14/2023 Provider: SUSIE CARLTON Diagnosis: Gastro-esophagea l reflux disease without esophagitis take 1-2 tabs daily Last Documented On 4 9:47AM By Susie CARLTON ; [facility] traZODone HCl 100 MG Oral Tablet 03/16/2023 Provider: CANDY LEUNG MD Diagnosis: Psychophysiologi c insomnia as directed 5 tabs at bedtime Last Documented On 03/16/2023 12:00PM By Nani Leung MD ; [facility] HYDROcodone-Acetaminophen 10 -325 MG Oral Tablet 02/23/2023 Provider: LUIS HANDLEY MD Diagnosis: use prn Last Documented On 03/16/2023 11:27AM By NIKKI HOWARD ; [facility] EQ Laxative Maximum Strength 25 MG Oral Tablet 023 Provider: Diagnosis: 3-4 tabs at night Last Documented On 09/22/2022 11:16AM By NIKKI HOWARD ; [facility] Stool Softener 100 MG Oral Tablet 07/02/2021 Provide r: Diagnosis: 3 times daily Last Documented On 07/02/2021 8:37AM By Alyssa HOWARD ; [facility] Fluticasone Propionate 50 MCG/ACT Nasal Suspension 06/10/2021 Provider: ERNIE MADRIGAL MD Diagnosis: Allergic rhiniti s due to pollen 1 sq each nostril 1-2xd as needed Last Documented On 06/10/2021 12:32PM By ERNIE MADRIGAL MD ; [facility] Biotin 5000 MCG OR CAPS 05/01/2021 Provider: Diagnosis: 1 cap daily Last Documented On 08/01/2022 5:38PM By NIKKI HOWARD ; [facility] Ocuvite Adult 50+ OR CAPS 05/01/2021 Provider: Diagnosis: 1 cap daily Last Documented On 08/01/2022 5:38PM By NIKKI HOWARD ; [facility] Past Medications on file traZODone HCl 100 MG Oral Tablet 07/20/2023 - 08/19/2023 Provider: CANDY LEUNG MD Diagnosis: Psychophysiologi c insomnia 4 tabs at bedtime Last Documented On 07/20/2023 2:59PM By MICHELLE PARKS ; [facility] Pramipexole Dihydrochloride 0.75 MG Oral Tablet 03/16/2023 - 06/14/2023 Provider: Diagnosis: 2 tabs late afternoon and 2 in the evening Last Documented On 03/16/2023 11:20AM By NIKKI HOWARD ; [facility] Medications Administered Includes: Administered Medications from this encounter No Administered Medications Recorded Vital Signs Includes: Vital Signs from this encounter Vital Name 07/05/2023 10:13A Blood Pressure Sitting L 120/64 BP Cuff Size Regular Pulse Rate-Sitting (bpm) 75 Pulse Rhythm Regular Height (in) 65 Weight (lb) 130 Body Mass Index 21.6 Body Surface Area 1.6 Last Documented: On 07/05/2023 10:14A M ; [facility] Results Includes: Results discussed during this encounter [...] 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 Patient enjoys [employer] and sabianism. Her samaritan background is [employer]. 07/25/2023 Last Documented On 4 9:01PM ; [facility] Tobacco non-user - quit smoking 2013 04/2023 Last Documented On 4 9:03PM ; [facility] Smoking Status Unknown Procedures and Surgical History Includes: Procedures from this encounter Procedures Code Diagnosis Performing Provider Service Location Service Date PSYCHOTHERAPY 45 MIN W/ PT-WHEN PERFMD WITH E/ 67844 Major depressive disorder, recurrent, unspecified, Generalized anxiety disorder, Attention-deficit hyperactivity disorder, unspecified type, Panic disorder [episodic paroxysmal anxiety] CANDY LEUNG MD [facility] 07/05/2023 Last Documented On 4 2:02PM ; [facility] education and instructions Last Documented On 4 9:47AM ; [facility] supportive care and encourag ement--given positive reinforcement to keep patient motivated and active Last Documented On 4 10:19AM ; [facility] ~* Call [phone] and /or go t o the nearest emergency room or call me if suicidal/homicidal ideation or other serious concerns arise. ~ ~* I gave instructions to call me should there be any questions or concerns. ~ ~* Patient voiced understanding and agreed to treatment plan Last Documented On 4 10:12AM ; [facility] dangerousness assessment: no suicide risk 3085F Last Documented On 4 9:47AM ; [facility] use of tobacco assessment performed 1000F Last Documented On 4 9:47AM ; [facility] patient screened for future fall risk: documentation of any fall with injury in past year - no recent falls 1100F Last Documented On 4 9:47AM ; [facility] review of medications documented 1160F Last Documented On 4 9:47AM ; [facility] assessment of suicide risk performed - n ot suicidal Last Documented On 4 10:12AM ; [facility] screening for adult depressi on: impression and score - please see above for treatment and PHQ score Last Documented On 4 9:47AM ; [facility] standardized depression screening: posit lauryn for symptoms Last Documented On 4 9:47AM ; [facility] encouragement to exercise as tolerated o nly due to pain, balanced meal plan Last Documented On 4 8:55PM ; [facility] Clinical summary provided to patient Last Documented On 4 9:47AM ; [facility] PHQ-9: total score 9 Last Documented On 4 8:54PM ; [facility] Medical History Includes: Medical History addressed during this encounter Description Last Updated Primary Care Provider: Dr. Adriana Parkinson -- Transporter Radiology Dr. Jorge Hsieh -- Orthopedist Dr. Lana Mclean -- Neurologist Dr. Alberto Valdez -- Shoulder Surgeon at [facility] Dr. Andi Mcrae -- Dentist Dr. Luis Handley - Pain MgtDiagnoses: Aortic regurgitationMitral regurgitationTricuspid regurgitation. Chronic obstructive pulmonary disease. Chronic peptic ulcerConstipation - [facility] given enema. Urinary tract infection - [...] 07/05/2023 Last Documented On 4 10:18AM ; [facility] Family History Includes: Family History addressed during this encounter Description Last Updated Dementia of Alzheimer's type with early onset - oldest sister - and depression 07/05/2023 Last Documented On 4 9:47AM ; [facility] Review of Systems Includes: [...] Last Documented On 07/05/2023 10:12AM ; [facility] Note: Imported from external source. Valium Allergy Nausea, Vomiting, Diarrhea / Diarrheal disorder 04/01/2015 Active Last Documented On 07/05/2023 10:12AM ; [facility] Note: Imported from external source. Sulfa Antibiotics Allergy Nausea, Vomiting, Diarrhea / Diarrheal disorder 08/13/2021 Active Last Documented On 07/05/2023 10:12AM ; [facility] Note: Imported from external source. Percocet Allergy Nausea, Vomiting, Diarrhea / Diarrheal disorder 04/01/2015 Active Last Documented On 07/05/2023 10:12AM ; [facility] Note: Imported from external source. Morphine Sulfate Allergy Nausea, Vomiting, Diarrhea / Diarrheal disorder 04/01/2015 Resolved Last Documented On 09/22/2022 11:29AM ; [facility] Note: Imported from external source. Morphine Sulfate Allergy Nausea, Vomiting, Diarrhea / Diarrheal disorder 04/01/2015 Active Last Documented On 10:12AM ; [facility] Ancef Allergy Nausea, Vomiting , Diarrhea / Diarrheal disorder 04/01/2015 Active Last Documented On 07/05/2023 10:12AM ; [facility] Note: Imported from external source. Encounters Encounter Provider Location Date Check-In Time Check-Out Time Diagnosis PSYCH ADULT FOLLOW UP CANDY LEUNG MD [facility] 07/05/19 24 9:46AM 11:05AM Generalized Anxiety Disorder,Restle ss Legs Syndrome,Psycho physiological Insomnia,Attent ion Deficit Disorder Without Hyperactivity,M ajor Depression,Raphael c Disorder Insurance Includes: Active Insurance Policies Plan Name Member ID Group # Subscriber Relationship Effect lauryn Dates 1 - [employer] [id number] [place] Self Clinical Notes Includes: Clinical Notes from this encounter * Progress note Date Encounter Last Documented by 07/05/2023 PSYCH ADULT FOLLOW UP Last docum ented on 07/25/2023; 9:03 PM, CANDY LEUNG MD; [facility] Top of Document Medication [...] Primary Care Provider: Dr. Ernie Parkinson -- Transporter Radiology Dr. Jorge Hsieh -- [facility] -- Neurologist Dr. Alberto Valdez -- Shoulder Surgeon at [facility] Dr. Andi Mcrae -- Dentist Dr. 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 Patient reported that she [...] with her . She was in the [employer]. She reported having 4 years of college. Patient is heterosexual and denied any history of sexual dysfunction. She has no past or pending legal history. Patient enjoys [employer] and sabianism. Her samaritan background is [facility] [employer]. Allergies - Ancef Reaction: , Diarrhea / [...] Clinical summary provided to patient. * Call [phone] and /or go to the nearest emergency [...] Obstructive sleep apnea (adult) (pediatric) Referral: Sleep Study-[facility] Instructions: Home Sleep study - [facility] EndCited StartCited - Other Follow-up 10/18/23 EndCited - Referred to: Sleep specialist - r/o WILLEM - in home sleep study [facility] - 07/05/23 - Transition in care, [...] WILLEM - ordered HSS on 07/05/23 through [facility] Practice Management Use of tobacco assessment [...]
--- OUTSIDE RECORDS SUMMARY | 2024-06-08 08:47 | XMS_ITS | Referral Summary ---
Author Organization [facility] Address [address] [place] [address] Care Team Providers Care Hardboard Press Operator Name Role Phone Unavailable Primary Care Provider Unavailabl e Source Comments [facility],non-owned Affiliates and Associated Physician Practices is amultiple site organization consisting of ambulatory clinics and hospital sitesin [place], [place], [place] and [place]. This disclosure is being madepursuant to the Care Everywhere program and may not contain all information available regarding this patient. Last updated 17.[facility] Social History Tobacco Use Types Packs/Day Years Used Date Smoking Tobacco: Never Assessed Sex and Gender Information Value Date Recorded Sex Assigned at Not on file Gender Identity Not on file Sexual Orientation Not on file Plan of Treatment Not on file
--- OUTSIDE RECORDS SUMMARY | 2024-06-08 08:47 | XMS_ITS | Encounter Summary ---
Author Organization [facility] Address [address] [place] [address] Care Team Providers Care Administrative And Program Specialist Name Role Phone Unavailable Primary Care Provider Unavailabl e Encounter Details Date Type Department Care Team (Late st Contact Info) Description 10/26/2019 Lab Requisition [facility] [address] [place] [id number] [place] [address] [place] [address] Social History Tobacco Use Types Packs/Day Years [...] AM CDT) Case Report Dermatopathology Report Case: [id number] Authorizing Provider: Em Tran MD Collected: 10/25/2019 12:00 AM Ordering Location: [facility] Received: 10/26/2019 02:28 PM [...] specimen consists of a shave biopsy measuring [id number]. Jar 0. Specimen B: Received is one formalin filled container labeled with the patient's name and designated left central parietal scalp. The specimen consists of a shave biopsy measuring [id number]. Jar 0. 0 5:19 PM CDT DERMATOPATHOLOGY [...] characteristic determined by the Dermatopathology Laboratory at [facility], directed by Dr. Alicja Osman. These tests need not be, and therefore are not, approved by the [place] Food and Drug Administration. The tests are used for clinical purposes. Billing Codes Specimen Charges Stain Charges [id number] 1 1 0 5:19 PM CDT DERMATOPATHOLOGY LABORATORY Embedded Images 0 5:19 PM CDT DERMATOPATHOLOGY LABORATORY Pathology/Cytology TISSUE SPECIMEN FROM SKIN / Unknown 10/25/2019 10/26/2019 2:28 PM CDT Miscellaneous samples (specimen) TISSUE SPECIMEN FROM SKIN / Unknown 10/25/2019 10/26/2019 2:28 PM CDT Em Tran MD LAB - PATHOLOGY/C YTOLOGY ORDERABLES DERMATOPATHOLOGY LABORATORY [facility] - Department of Dermatology [employer] [facility] [address] [phone] documented in this encounter Visit Diagnoses Not on filedocumented in this encounter
--- OUTSIDE RECORDS SUMMARY | 2024-06-08 08:47 | XMS_ITS | Clinical Summary ---
Author Organization [facility] Address [address] [place] [address] Care Team Providers Care General Handling Supervisor Name Role Phone Unavailable Primary Care Provider Unavailabl e Source Comments [facility],non-owned Affiliates and Associated Physician Practices is amultiple site organization consisting of ambulatory clinics and hospital sitesin [place], [place] and [place]. This disclosure is being madepursuant to the Care Everywhere program and may not contain all information available regarding this patient. Last updated 17.[facility] [employer] Social History Tobacco Use Types Packs/Day Years [...]
--- OUTSIDE RECORDS SUMMARY | 2024-06-08 08:47 | XMS_ITS | Clinical Summary ---
Author Organization [facility] Address [address] [place] [address] Phone Care Team Providers Care Drill Hand Name Role Phone JOS HAMILTON, RENU Valerio Unavailable [phone] ELIDIA BARNETT, NAREN Lozano Unavailable [phone] ROHAN HAMILTON, ERNIE Hinds Primary Care Provider [phone] BUD VERDIN MD Unavailable [phone] [...] Active Last Documented On 3 5:53PM ; [facility] Iron Deficiency Anemia 01/27/2021 SUSIE CALVILLO WINE MANAGER-C Active Last Documented On 1 9:09AM ; [facility] Constipation 11/27/2020 SUSIE STOKES WINE MANAGER- C Active Last Documented On 1 9:08AM ; [facility] Spinal Stenosis Lumbar 11/27/2020 SUSIE CALVILLO WINE MANAGER-C Active Last Documented On 1 7:54AM ; [facility] Chronic Obstructive Pulmonary Disease 12/28/2019 SUSIE Fernandez KIKE WINE MANAGER-C Active Last Documented On 0 10:52AM ; [facility] Past Visits Onset Date Resolved Date Provider Condition Status Panic Disorder 05/06/2023 CANDY Wright Active Last Documented On 4 8:48PM ; [facility] Marijuana By Prescription 07/27/2022 SUSIE PONDERS WINE MANAGER-C Active Last Documented On 3 8:03PM ; [facility] Folic Acid Deficiency 03/31/2022 SUSIE PULLIAMS WINE MANAGER-C Active Last Documented On 2 9:21AM ; [facility] Hyperlipidemia 07/02/2021 SUSIE PONDERS FN P-C Active Last Documented On 2 12:57PM ; [facility] Attention Deficit Disorder Without Hyperactivity 2 Active Last Documented On 3 5:53PM ; [facility] Psychophysiological Insomnia 05/01/2021 Active Last Documented On 3 5:53PM ; [facility] Major Depression 05/01/2021 Active Last Documented On 3 5:53PM ; [facility] Aortic Regurgitation 01/21/2021 SUSIE PONDERS WINE MANAGER-C Active Last Documented On 01/21/2021 9:23AM ; [facility] Note: mild on ECHO 2020. Mitral Regurgitation 01/21/2021 SUSIE PONDERS WINE MANAGER-C Active Last Documented On 01/21/2021 9:22AM ; [facility] Note: mild on ECHO 2020. Tricuspid Regurgitation 01/21/2021 ROSALIND ZARIA Rebecca KIKE WINE MANAGER-C Active Last Documented On 01/21/2021 9:23AM ; [facility] Note: mild on ECHO 2020. Spinal Stenosis Thoracic 11/27/2020 BRAVO GUTIERREZ Rebecca KIKE WINE MANAGER-C Active Last Documented On 1 7:53AM ; [facility] Splenic Laceration 01/12/2019 ERNIE Wright Active Last Documented On 01/12/2019 11:00AM ; [facility] 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 Troop Harriett Depression with Anxiety 09/26/2012 ERNIE SHEPHERD MD Active Last Documented On 5 10:05AM ; [facility] Restless Legs Syndrome 09/26/2012 ERNIE ROSALES MD Active Last Documented On 5 10:05AM ; [facility] Peptic Ulcer Chronic 05/31/2012 ERNIE MADRIGAL MD Active Last Documented On 5 10:04AM ; [facility] Osteoarthritis Generalized Multiple Sites 05/31/2012 ERNIE MADRIGAL MD Active Last Documented On 5 10:05AM ; [facility] Plan of Treatment [...] - Last Documented On 05/18/2023 10:03AM ; [facility] Future Appointments Date Time Location Provi ronel PSYCH ADULT FOLLOW UP 06/13/2024 10:00AM [facility] OUP-PSY CANDY LEUNG MD Last Documented On 11:09AM ; [facility] Assessments Includes: Assessments from this encounter Findings - J44.9 - Chronic obstructive pulmonary disease, unspecified - Last Documented On 05/18/2023 10:03AM ; [facility] - K59.00 - Constipation, unspecified - Last Documented On 05/18/2023 10:03AM ; [facility] - Lumbar stenosis - Last Documented On 05/18/2023 10:03AM ; [facility] - F41.1 - Generalized anxiety disorder - Last Documented On 05/18/2023 10:03AM ; [facility] - D50.9 - Iron deficiency anemia, unspecified - Last Documented On 05/18/2023 10:03AM ; [facility] Medical Equipment - Implanted Devices Includes: Current Devices No Medical Equipment Recorded Medications Includes: Medications discussed during this encounter and other current Medications Discontinued / Stopped on this date ERNIE MADRIGAL MD on 05/13/2023 Anoro Ellipta 62.5-25 MCG/ACT Inhalation Aerosol Powder Breath Activated Provider: ERNIE MADRIGAL MD Diagnosis: Chronic obstruct lauryn pulmonary disease, unspecified Last Documented On 9:20AM By Susie CARLTON ; [facility] Focalin 10 MG Oral Tablet Provider: CANDY LEUNG MD Diagnosis: Attention-defici t hyperactivity disorder, unspecified type Last Documented On 05/14/2023 8:52AM By Alyssa HOWARD ; [facility] Focalin 5 MG Oral Tablet Provider: CANDY LEUNG MD Diagnosis: Attn-defct hyper activity disorder, predom inattentive type Last Documented On 05/14/2023 8:53AM By Alyssa HOWARD ; [facility] Tamsulosin HCl 0.4 MG Oral Capsule Provider: SUSIE CARLTON Diagnosis: Retention of uri ne, unspecified Last Documented On 05/14/2023 8:55AM By Alyssa HOWARD ; [facility] Gabapentin 300 MG Oral Capsule Provider: ERNIE MADRIGAL MD Diagnosis: Last Documented On 05/14/2023 8:53AM By Alyssa HOWARD ; [facility] Cyclobenzaprine HCl 10 MG Oral Tablet Pro vider: Diagnosis: Last Documented On 05/14/2023 8:51AM By Alyssa HOWARD ; [facility] OLANZapine 15 MG Oral Tablet Provider: CANDY LEUNG MD Diagnosis: Major depressive disorder, recurrent, moderate Last Documented On 05/14/2023 8:54AM By Alyssa HOWARD ; [facility] Methocarbamol 750 MG Oral Tablet Provider : BUD VERDIN MD Diagnosis: Last Documented On 05/14/2023 8:54AM By Alyssa HOWARD ; [facility] Probiotic (Lactobacillus) Oral Capsule Pr ovider: Diagnosis: Last Documented On 9:33AM By Susie CARLTON ; [facility] Ondansetron 4 MG Oral Tablet Disintegrating Provider: ERNIE MADRIGAL MD Diagnosis: Nausea with vomi ting, unspecified Last Documented On 05/14/2023 8:55AM By Alyssa HOWARD ; [facility] Xyzal 5 MG OR TABS Provider: Diagnosis: Last Documented On 05/14/2023 8:56AM By Alyssa HOWARD ; [facility] DayVigo 5 MG OR TABS Provider: CANDY LEUNG MD Diagnosis: Psychophysiologi c insomnia Last Documented On 05/14/2023 8:51AM By Alyssa HOWARD ; [facility] New / Renewed during this visit SUSIE CARLTON on 05/14/2023 Trelegy Ellipta 100-62.5-25 MCG/ACT Inhalation Aerosol Powder Breath Activated Provider: SUSIE CARLTON 30 day supply: 60 each, 5 refills Diagnosis: Chronic obstructive pulmonary disease, unspecified 1 puff daily Pharmacy: [facility] - [address] [facility], [phone] - Last Documented On 4 9:31AM By Susie CARLTON ; [facility] Famotidine 20 MG Oral Tablet Provider: SUSIE CARLTON 30 day supply: 60 tablet, 6 refills Diagnosis: Gastro-esophageal reflux disease without esophagitis take 1-2 tabs daily Pharmacy: [facility] - [address] [facility], [id number] - Last Documented On 4 9:47AM By Susie CARLTON ; [facility] Current Medications (continue as prescribed) Gabapentin 300 MG Oral Capsule 08/23/2023 Provider: ERNIE MADRIGAL MD Diagnosis: Polyosteoarthrit is, unspecified 1-2 po tid Last Documented On 08/23/2023 6:32PM By ERNIE MADRIGAL MD ; [facility] LORazepam 0.5 MG Oral Tablet 08/23/2023 Provider: CANDY LEUNG MD Diagnosis: Generalized anxi ety disorder as directed - 1/2 - 1 tab a day as needed for severe panic attacks Last Documented On 08/23/2023 1:38PM By Nani Leung MD ; [facility] Focalin 10 MG Oral Tablet 08/12/2023 Provider: CANDY LEUNG MD Diagnosis: Attention-defici t hyperactivity disorder, unspecified type as directed 1 tablet in the morning and 1 tablet at noon Last Documented On 08/12/2023 10:36AM By Nani Leung MD ; [facility] traZODone HCl 100 MG Oral Tablet 07/20/2023 Provider: CANDY LEUNG MD Diagnosis: Psychophysiologi c insomnia as directed 4 tabs at bedtime Last Documented On 07/20/2023 3:22PM By Nani Leung MD ; [facility] Pramipexole Dihydrochloride 0.75 MG Oral Tablet 06/15/2023 Provider: ERNIE MADRIGAL MD Diagnosis: 2 at 5 pm and 2 at bedtime Last Documented On 07/05/2023 10:11AM By NIKKI HOWARD ; [facility] Sertraline HCl 100 MG Oral Tablet 05/31/2023 Provider: CANDY LEUNG MD Diagnosis: Major depressive disorder, recurrent, unspecified ud - as directed as directed 2 tabs daily Last Documented On 05/31/2023 10:55AM By Nani Leung MD ; [facility] Levocetirizine Dihydrochloride 5 MG Oral Tablet 2023 Provider: Diagnosis: Last Documented On 05/14/2023 8:57AM By Alyssa HOWARD ; [facility] Vitamin D 25 MCG (1000 UT) Oral Tablet 05/14/2023 Pr ovider: Diagnosis: Last Documented On 05/14/2023 8:58AM By Alyssa HOWARD ; [facility] traZODone HCl 100 MG Oral Tablet 03/16/2023 Provider: CANDY LEUNG MD Diagnosis: Psychophysiologi c insomnia as directed 5 tabs at bedtime Last Documented On 03/16/2023 12:00PM By Nani Leung MD ; [facility] HYDROcodone-Acetaminophen 10 -325 MG Oral Tablet 02/23/2023 Provider: BUD VERDIN MD Diagnosis: use prn Last Documented On 03/16/2023 11:27AM By NIKKI HOWARD ; [facility] EQ Laxative Maximum Strength 25 MG Oral Tablet 023 Provider: Diagnosis: 3-4 tabs at night Last Documented On 09/22/2022 11:16AM By NIKKI HOWARD ; [facility] Stool Softener 100 MG Oral Tablet 07/02/2021 Provide r: Diagnosis: 3 times daily Last Documented On 07/02/2021 8:37AM By Alyssa HOWARD ; [facility] Fluticasone Propionate 50 MCG/ACT Nasal Suspension 06/10/2021 Provider: ERNIE MADRIGAL MD Diagnosis: Allergic rhiniti s due to pollen 1 sq each nostril 1-2xd as needed Last Documented On 06/10/2021 12:32PM By ERNIE MADRIGAL MD ; [facility] Biotin 5000 MCG OR CAPS 05/01/2021 Provider: Diagnosis: 1 cap daily Last Documented On 08/01/2022 5:38PM By NIKKI HOWARD ; [facility] Ocuvite Adult 50+ OR CAPS 05/01/2021 Provider: Diagnosis: 1 cap daily Last Documented On 08/01/2022 5:38PM By NIKKI HOWARD ; [facility] Past Medications on file traZODone HCl 100 MG Oral Tablet 07/20/2023 - 08/19/2023 Provider: CANDY LEUNG MD Diagnosis: Psychophysiologi c insomnia 4 tabs at bedtime Last Documented On 07/20/2023 2:59PM By MICHELLE PARKS ; [facility] Pramipexole Dihydrochloride 0.75 MG Oral Tablet 03/16/2023 - 06/14/2023 Provider: Diagnosis: 2 tabs late afternoon and 2 in the evening Last Documented On 03/16/2023 11:20AM By NIKKI HOWARD ; [facility] Medications Administered Includes: Administered Medications [...] 98 Last Documented: On 05/14/2023 9:00AM ; [facility] Results Includes: Results discussed during [...] 04/2023 Last Documented On 4 8:43AM ; [facility] Consuming 5 or more drinks per day None 05/14/2023 Last Documented On 4 10:03AM ; [facility] Not recovering alcoholic 05/14/2023 Last Documented On 4 10:03AM ; [facility] Not recovering from substance abuse 12/2023 Last Documented On 4 10:03AM ; [facility] Number of times used recreat ional drug/ prescription drug for nonmedical reason. None 05/14/2023 Last Documented On 4 10:03AM ; [facility] Stopped smoking years ago 2012 3 Last Documented On 4 8:43AM ; [facility] Former smoker 02/03/2022 Last Documented On 4 8:43AM ; [facility] Currently 06/14/2019 Last Documented On 4 8:43AM ; [facility] Smoking Status Unknown Procedures and Surgical History Includes: Procedures from this encounter Procedures Code Diagnosis Performing Provider Service L ocation Service Date continue current medication Last Documented On 4 9:25AM ; [facility] use of tobacco assessment performed 1000F Last Documented On 4 9:25AM ; [facility] review of medications documented 1160F Last Documented On 4 8:44AM ; [facility] Medical History Includes: Medical History addressed during this encounter Description Last Updated Surgery T1-L1 Spinal Fusion - 03/12/[address] Jorge Hsieh ~ERMIAS 2008- Dr. Cristina 12/31/2022 Last Documented On 4 8:43AM ; [facility] History of colonoscopy fiberoptic was pe rformed 12/26/2018 F/U in 5 years 02/03/2022 Last Documented On 4 8:43AM ; [facility] History of screening mammogram was perfo rmed 10/22/2020 02/03/2022 Last Documented On 4 8:43AM ; [facility] History of essential hypertension 2021 Last Documented On 4 8:43AM ; [facility] History of hyperlipidemia 08/22/2021 Last Documented On 4 8:43AM ; [facility] LOW BACK FUSIONS 1994, 2005, 2007, 2011, 2015, 2020 ~APPENDECTOMY 1973 ~KNEES 04 06 02 ~NECK FUSIONS 06 08 07 ~SPINAL SIMULLATORS 05 2009 ~CHOLECYSTECTOM 2014 ~SHOULDERS 2012 2013 2015 ~SPLENECTOMY 12/31/18 ~ABDOMINAL DRAIN 01/2019 PANCREATIC STENT 02/201901/09/2021 Last Documented On 4 8:43AM ; [facility] History of Abnormal Pap Smear 06/14/2019 Last Documented On 4 8:43AM ; [facility] History of arthritis 06/14/2019 Last Documented On 4 8:43AM ; [facility] No recent change in medical history 06/03 Last Documented On 4 8:43AM ; [facility] Family History Includes: Family History addressed during this encounter Description Last Updated Family history reviewed - unchanged sinc e last visit 12/28/2019 Last Documented On 4 8:43AM ; [facility] Sororal history of diabetes mellitus MOTHER PARKINSON/M.S. ~SISTER LING ~FATHER HIGH BLOOD PRESSURE ~ 06/14/2019 Last Documented On 4 8:43AM ; [facility] Review of Systems Includes: Review [...] Active Last Documented On 07/05/2023 10:12AM ; [facility] Note: Imported from external source. Valium Allergy Nausea, Vomiting, Diarrhea / Diarrheal disorder 04/01/2015 Active Last Documented On 07/05/2023 10:12AM ; [facility] Note: Imported from external source. Sulfa Antibiotics Allergy Nausea, Vomiting, Diarrhea / Diarrheal disorder 08/13/2021 Active Last Documented On 07/05/2023 10:12AM ; [facility] Note: Imported from external source. Percocet Allergy Nausea, Vomiting, Diarrhea / Diarrheal disorder 04/01/2015 Active Last Documented On 07/05/2023 10:12AM ; [facility] Note: Imported from external source. Morphine Sulfate Allergy Nausea, Vomiting, Diarrhea / Diarrheal disorder 04/01/2015 Resolved Last Documented On 09/22/2022 11:29AM ; [facility] Note: Imported from external source. Morphine Sulfate Allergy Nausea, Vomiting, Diarrhea / Diarrheal disorder 04/01/2015 Active Last Documented On 10:12AM ; [facility] Ancef Allergy Nausea, Vomiting , Diarrhea / Diarrheal disorder 04/01/2015 Active Last Documented On 07/05/2023 10:12AM ; [facility] Note: Imported from external source. Encounters Encounter Provider Location Date Check-In Time Check-Out Time Diagnosis CHECK UP SUSIE CARLTON [facility]- 4 8:39AM 9:40AM Iron Deficiency Anemia,Generali zed Anxiety Disorder,Consti pation,Chronic Obstructive Pulmonary Disease,Spinal Stenosis Lumbar Insurance Includes: Active Insurance Policies Plan Name Member ID Group # Subscriber Relationship Effect lauryn Dates 1 - [employer] [id number] [place] Self Clinical Notes Includes: Clinical Notes from this encounter * Progress note Date Encounter Last Documented by 05/14/2023 CHECK UP Last documented on 05/18/2023; 10:03 AM, SUSIE CARLTON; [facility] Active Problems & Conditions - [...]
--- OUTSIDE RECORDS SUMMARY | 2024-06-08 08:48 | XMS_ITS ---
Author Organization [facility] Address [address] [place] [address] Phone Care Team Providers Care Agricultural Agent Name Role Phone DANNI HAMILTON, CANDY MITCHELL Unavailable [phone] Problems Includes: Active, inactive, and resolved Problems All Visits Onset Date Resolved Date Provider Condition S tatus Attention Deficit Disorder Without Hyperactivity 05/01/2021 CANDY LEUNG MD Active Last Documented On 2 3:52PM ; [facility] Generalized Anxiety Disorder 05/01/2021 CANDY LEUNG MD Active Last Documented On 2 2:53PM ; [facility] Psychophysiological Insomnia 05/01/2021 CANDY LEUNG MD Active Last Documented On 2 2:53PM ; [facility] Major Depression 05/01/2021 CANDY LEUNG MD Active Last Documented On 2 2:52PM ; [facility] Plan of Treatment Education and Decision Aids were provided during visit for: Discussed calming techniques such as breathing exercises and other relaxation techniques Last Documented On 3 9:53AM ; [facility] Discussed good sleep hygiene habits Last Documented On 3 10:18AM ; [facility] Discussed calming techniques such as breathing exercises and other relaxation techniques if and when anxious Last Documented On 3 4:05PM ; [facility] Discussed good sleep hygiene habits - balanced meal plan, health supplements but pt said she cannot tolerate protein shakes Last Documented On 3 4:05PM ; [facility] Patient education about medi cation ---Education was given on medication(s) and diagnosis. I reviewed the risks, benefits and side effects of patient's medications Last Documented On 2 10:54AM ; [facility] Discussed calming techniques such as breathing exercises and other relaxation techniques Last Documented On 2 10:54AM ; [facility] Discussed good sleep hygiene habits Last Documented On 2 10:56AM ; [facility] Patient education about medi cation --- I educated patient on medication(s) and diagnosis. I reviewed the risks, benefits and side effects of patient's medications Last Documented On 2 1:50PM ; [facility] Discussed calming techniques such as breathing exercises and other relaxation techniques Last Documented On 2 1:50PM ; [facility] Discussed good sleep hygiene habits Last Documented On 2 1:58PM ; [facility] Patient education about medi cation --- I educated patient on medication(s) and diagnosis. I reviewed the risks, benefits and side effects of patient's medications Last Documented On 2 9:19AM ; [facility] Discussed calming techniques such as breathing exercises and other relaxation techniques Last Documented On 2 9:19AM ; [facility] Discussed good sleep hygiene habits Last Documented On 2 9:41AM ; [facility] Patient education about medi cation --- I educated patient on medication(s) and diagnosis. I reviewed the risks, benefits and side effects of patient's medications Last Documented On 2 1:50PM ; [facility] Discussed calming techniques such as breathing exercises and other relaxation techniques Last Documented On 2 1:50PM ; [facility] Patient counseling I discuss ed risk, benefits, and side effects of sleep aid Belsomra - including the possibility of sleep related behaviors i.e. sleepwalking, sleeptalking, sleepdriving, etc... Pt verbalized understanding Last Documented On 2 2:02PM ; [facility] Counseling for nutrition/jordan ght management provided Last Documented On 2 2:02PM ; [facility] Discussed good sleep hygiene habits Last Documented On 2 2:02PM ; [facility] Patient education about medi cation --- I educated patient on medication(s) and diagnosis. I reviewed the risks, benefits and side effects of patient's medications Last Documented On 2 2:36PM ; [facility] Discussed calming techniques such as breathing exercises and other relaxation techniques Last Documented On 2 2:36PM ; [facility] Counseling for nutrition/jordan ght management provided Last Documented On 2 3:23PM ; [facility] Discussed good sleep hygiene habits Last Documented On 2 3:23PM ; [facility] Assessments Includes: Assessments for all patient encounters Findings Encounter Date Attention deficit disorder w ithout hyperactivity FOLLOW UP with CANDY LEUNG MD 06/29/2022 Last Documented On 3 2:44PM ; [facility] Generalized anxiety disorder FOLLOW UP with MARILIA LEUNG MD 06/29/2022 Last Documented On 3 2:44PM ; [facility] Major depressive disorder FOLLOW UP with CANDY LEUNG MD 06/29/2022 Last Documented On 3 2:44PM ; [facility] Psychophysiological insomnia FOLLOW UP with MARILIA LEUNG MD 06/29/2022 Last Documented On 3 2:44PM ; [facility] Attention deficit disorder w ithout hyperactivity TELEHEALTH with CANDY LEUNG MD 05/04/2022 Last Documented On 3 4:12PM ; [facility] Generalized anxiety disorder TELEHEALTH with MET JCAQUELINE LEUNG MD 05/04/2022 Last Documented On 3 4:12PM ; [facility] Major depressive disorder TELEHEALTH with ESME LEUNG MD 05/04/2022 Last Documented On 3 4:12PM ; [facility] Psychophysiological insomnia TELEHEALTH with MET JACQUELINE LEUNG MD 05/04/2022 Last Documented On 3 4:12PM ; [facility] Generalized anxiety disorder * PHONE CALL with Marta LEUNG MD 02/16/2022 Last Documented On 2 9:32AM ; [facility] Major depressive disorder * PHONE CALL with MARILIA LEUNG MD 01/26/2022 Last Documented On 2 2:27PM ; [facility] Attention deficit disorder w ithout hyperactivity FOLLOW UP with CANDY LEUNG MD 01/09/2022 Last Documented On 2 12:34AM ; [facility] Generalized anxiety disorder FOLLOW UP with MARILIA LEUNG MD 01/09/2022 Last Documented On 2 12:34AM ; [facility] Major depressive disorder FOLLOW UP with CANDY LEUNG MD 01/09/2022 Last Documented On 2 12:34AM ; [facility] Psychophysiological insomnia FOLLOW UP with MARILIA LEUNG MD 01/09/2022 Last Documented On 2 12:34AM ; [facility] Attention deficit disorder w ithout hyperactivity * PHONE CALL with CANDY LEUNG MD 01/05/2022 Last Documented On 2 2:03PM ; [facility] Attention deficit disorder w ithout hyperactivity FOLLOW UP with CANDY LEUNG MD 10/14/2021 Last Documented On 2 8:08AM ; [facility] Generalized anxiety disorder FOLLOW UP with MARILIA LEUNG MD 10/14/2021 Last Documented On 2 8:08AM ; [facility] Major depressive disorder FOLLOW UP with CANDY LEUNG MD 10/14/2021 Last Documented On 2 8:08AM ; [facility] Psychophysiological insomnia FOLLOW UP with MARILIA LEUNG MD 10/14/2021 Last Documented On 2 8:08AM ; [facility] Attention deficit disorder w ithout hyperactivity FOLLOW UP with CANDY LEUNG MD 08/13/2021 Last Documented On 2 12:15PM ; [facility] Generalized anxiety disorder FOLLOW UP with MARILIA LEUNG MD 08/13/2021 Last Documented On 2 12:15PM ; [facility] Major depressive disorder FOLLOW UP with CANDY LEUNG MD 08/13/2021 Last Documented On 2 12:15PM ; [facility] Psychophysiological insomnia FOLLOW UP with MARILIA LEUNG MD 08/13/2021 Last Documented On 2 12:15PM ; [facility] Attention deficit disorder w ithout hyperactivity TELEHEALTH with CANDY LEUNG MD 06/06/2021 Last Documented On 2 11:06PM ; [facility] Generalized anxiety disorder TELEHEALTH with MET JACQUELINE LEUNG MD 06/06/2021 Last Documented On 2 11:06PM ; [facility] Major depressive disorder TELEHEALTH with ESME LEUNG MD 06/06/2021 Last Documented On 2 11:06PM ; [facility] Psychophysiological insomnia TELEHEALTH with MET JACQUELINE LEUNG MD 06/06/2021 Last Documented On 2 11:06PM ; [facility] Psychophysiological insomnia * PHONE CALL with Marta LEUNG MD 05/21/2021 Last Documented On 2 5:02PM ; [facility] Attention deficit disorder w ithout hyperactivity PSYCH NEW PATIENT EXAM- ADULT with CANDY LEUNG MD 05/01/2021 Last Documented On 2 9:17AM ; [facility] Generalized anxiety disorder PSYCH NEW P ATIENT EXAM- ADULT with CANDY LEUNG MD 05/01/2021 Last Documented On 2 9:17AM ; [facility] Major depressive disorder PSYCH NEW [place] ENT EXAM- ADULT with CANDY LEUNG MD 05/01/2021 Last Documented On 2 9:17AM ; [facility] Psychophysiological insomnia PSYCH NEW P ATIENT EXAM- ADULT with CANDY LEUNG MD 05/01/2021 Last Documented On 2 9:17AM ; [facility] Instructions Includes: Instructions for all patient encounters Education and Decision Aids were provided during visit for: Discussed calming techniques such as breathing exercises and other relaxation techniques Last Documented On 3 9:53AM ; [facility] Discussed good sleep hygiene habits Last Documented On 3 10:18AM ; [facility] Discussed calming techniques such as breathing exercises and other relaxation techniques if and when anxious Last Documented On 3 4:05PM ; [facility] Discussed good sleep hygiene habits - balanced meal plan, health supplements but pt said she cannot tolerate protein shakes Last Documented On 3 4:05PM ; [facility] Patient education about medi cation ---Education was given on medication(s) and diagnosis. I reviewed the risks, benefits and side effects of patient's medications Last Documented On 2 10:54AM ; [facility] Discussed calming techniques such as breathing exercises and other relaxation techniques Last Documented On 2 10:54AM ; [facility] Discussed good sleep hygiene habits Last Documented On 2 10:56AM ; [facility] Patient education about medi cation --- I educated patient on medication(s) and diagnosis. I reviewed the risks, benefits and side effects of patient's medications Last Documented On 2 1:50PM ; [facility] Discussed calming techniques such as breathing exercises and other relaxation techniques Last Documented On 2 1:50PM ; [facility] Discussed good sleep hygiene habits Last Documented On 2 1:58PM ; [facility] Patient education about medi cation --- I educated patient on medication(s) and diagnosis. I reviewed the risks, benefits and side effects of patient's medications Last Documented On 2 9:19AM ; [facility] Discussed calming techniques such as breathing exercises and other relaxation techniques Last Documented On 2 9:19AM ; [facility] Discussed good sleep hygiene habits Last Documented On 2 9:41AM ; [facility] Patient education about medi cation --- I educated patient on medication(s) and diagnosis. I reviewed the risks, benefits and side effects of patient's medications Last Documented On 2 1:50PM ; [facility] Discussed calming techniques such as breathing exercises and other relaxation techniques Last Documented On 2 1:50PM ; [facility] Patient counseling I discuss ed risk, benefits, and side effects of sleep aid Belsomra - including the possibility of sleep related behaviors i.e. sleepwalking, sleeptalking, sleepdriving, etc... Pt verbalized understanding Last Documented On 2 2:02PM ; [facility] Counseling for nutrition/jordan ght management provided Last Documented On 2 2:02PM ; [facility] Discussed good sleep hygiene habits Last Documented On 2 2:02PM ; [facility] Patient education about medi cation --- I educated patient on medication(s) and diagnosis. I reviewed the risks, benefits and side effects of patient's medications Last Documented On 2 2:36PM ; [facility] Discussed calming techniques such as breathing exercises and other relaxation techniques Last Documented On 2 2:36PM ; [facility] Counseling for nutrition/jordan ght management provided Last Documented On 2 3:23PM ; [facility] Discussed good sleep hygiene habits Last Documented On 2 3:23PM ; [facility] Medical Equipment - Implanted Devices Includes: Current and historical Devices No Medical Equipment Recorded Medications Includes: Current and historical Medications Current Medications (continue as prescribed) EQ Laxative Maximum Strength 25 MG Oral Tablet 023 Provider: Diagnosis: 3 tabs at night Last Documented On 3 10:04AM By NIKKI HOWARD ; [facility] Focalin 5 MG Oral Tablet 06/29/2022 Provider: MET JACQUELINE LEUNG MD Diagnosis: Attn-defct hyper activity disorder, predom inattentive type as directed - 1 tab in am with food Last Documented On 3 11:33AM By Nani Leung MD ; [facility] LORazepam 0.5 MG Oral Tablet 06/29/2022 Provider: CANDY LEUNG MD Diagnosis: Generalized anxi ety disorder as directed - 1/2 - 1 tab a day as needed for severe panic attacks Last Documented On 3 11:33AM By Nani Leung MD ; [facility] OLANZapine 15 MG Oral Tablet 06/29/2022 Provider: CANDY LEUNG MD Diagnosis: Major depressive disorder, recurrent, moderate as directed -- 1 tab at bedtime Last Documented On 3 11:33AM By Nani Leung MD ; [facility] traZODone HCl 100 MG Oral Tablet 06/15/2022 Provider: CANDY LEUNG MD Diagnosis: Psychophysiologi c insomnia as directed 3 tabs at bedtime Last Documented On 06/15/2022 3:36PM By Nani Leung MD ; [facility] Folic Acid 1 MG Oral Tablet 03/31/2022 Provider: SUSIE STOKES SCRUB WHEEL OPERATOR-C Diagnosis: 1 tab daily Last Documented On 3 11:38AM By NIKKI HOWARD ; [facility] Pramipexole Dihydrochloride 0.75 MG Oral Tablet 09/08/2021 Provider: TIMMY VALENZUELA MD Diagnosis: 2 tabs in the evening Last Documented On 3 11:39AM By NIKKI HOWARD ; [facility] Antacid 200-200-20 MG/5ML Oral Suspension 05/21/2021 Provider: MELANIE PARKINSON MD Diagnosis: as needed Last Documented On 06/06/2021 2:04PM By MICHELLE PARKS ; [facility] Ocuvite Adult 50+ Oral Capsule 05/01/2021 Provider: Diagnosis: 1 cap daily Last Documented On 05/01/2021 3:10PM By NIKKI HOWARD ; [facility] Xyzal 5 MG Oral Tablet 05/01/2021 Provider: Diagnosis: 1 tab daily Last Documented On 05/01/2021 3:10PM By NIKKI HOWARD ; [facility] Biotin 5000 MCG Oral Capsule 05/01/2021 Provider: Diagnosis: 1 cap daily Last Documented On 05/01/2021 3:13PM By NIKKI GUAMANA ; [facility] Stool Softener 100 MG Oral Capsule 05/01/2021 Pr ovider: Diagnosis: 1 cap tid Last Documented On 05/01/2021 3:12PM By NIKKI OCHOA RMA ; [facility] Ondansetron HCl 8 MG Oral Tablet 03/13/2021 Provider : MELANIE PARKINSON MD Diagnosis: 2 tab prn nausea/vomiting Last Documented On 05/01/2021 3:04PM By NIKKI OCHOA A ; [facility] Anoro Ellipta 62.5-25 MCG/IN H Inhalation Aerosol Powder Breath Activated 03/11/2021 Provider: ERNIE MADRIGAL MD Diagnosis: 1 inhalation daily Last Documented On 05/01/2021 3:07PM By NIKKI OCHOA A ; [facility] Cyclobenzaprine HCl 10 MG Oral Tablet 01/06/2021 Pro vider: ERNIE MADRIGAL MD Diagnosis: take 1 tab prn Last Documented On 05/01/2021 3:07PM By NIKKI OCHOA A ; [facility] Suspended Medications Sertraline HCl 100 MG Oral Tablet 03/11/2022 Provide r: CANDY LEUNG MD Diagnosis: as directed 1 and 1/2 tabs daily Last Documented On 03/11/2022 4:45PM By Nani Leung MD ; [facility] Past Medications on file Gabapentin 300 MG Oral Capsule 06/29/2022 - 07/29/2022 Provider: Diagnosis: 2 capsules at night Last Documented On 3 10:02AM By NIKKI OCHOA RMA ; [facility] traZODone HCl 100 MG Oral Tablet 06/15/2022 - 06/30/19 Provider: Diagnosis: Psychophysiologi c insomnia 3 tabs at bedtime Last Documented On 3 10:16AM By NIKKI OCHOA ROWENAA ; [facility] LORazepam 0.5 MG Oral Tablet 05/20/2022 - 06/29/2022 Provider: CANDY LEUNG MD Diagnosis: Generalized anxi ety disorder as directed - 1/2 - 1 tab a day as needed for severe panic attacks Last Documented On 3 10:40AM By Nani Leung MD ; [facility] Focalin 5 MG Oral Tablet 05/20/2022 - 06/29/2022 Provider: CANDY LEUNG MD Diagnosis: Attn-defct hyper activity disorder, predom inattentive type as directed - 1 tab in am with food Last Documented On 3 10:36AM By Nani Leung MD ; [facility] traZODone HCl 100 MG Oral Tablet 05/04/2022 - 06/29/2022 Provider: CANDY LEUNG MD Diagnosis: Psychophysiologi c insomnia as directed -- 3 tabs at bedtime Last Documented On 3 10:16AM By NIKKI HOWARD ; [facility] OLANZapine 15 MG Oral Tablet 05/04/2022 - 06/29/2022 Provider: CANDY LEUNG MD Diagnosis: Major depressive disorder, recurrent, moderate as directed -- 1 tab at bedtime Last Documented On 3 10:51AM By Nani Leung MD ; [facility] oxyCODONE HCl 5 MG Oral Tablet 04/18/2022 - 06/29/2022 Provider: Diagnosis: use prn pain Last Documented On 3 10:25AM By Nani Leung MD ; [facility] LORazepam 0.5 MG Oral Tablet 04/13/2022 - 05/20/2022 Provider: CANDY LEUNG MD Diagnosis: Generalized anxi ety disorder as directed - 1/2 - 1 tab a day as needed for severe panic attacks Last Documented On 3 11:13AM By Nani Leung MD ; [facility] LORazepam 0.5 MG Oral Tablet 02/16/2022 - 04/13/2022 Provider: CANDY LEUNG MD Diagnosis: Generalized anxi ety disorder as directed - 1/2 - 1 tab a day as needed for severe panic attacks Last Documented On 3 10:01AM By Nani Leung MD ; [facility] traZODone HCl 50 MG Oral Tablet 02/04/2022 - 06/29/2022 Provider: CANDY LEUNG MD Diagnosis: Obstructive slee p apnea (adult) (pediatric) as directed 3-4 tablets at b edtime as needed for sleep Last Documented On 3 10:17AM By NIKKI HOWARD ; [facility] OLANZapine 10 MG Oral Tablet 01/26/2022 - 06/29/2022 Provider: CANDY LEUNG MD Diagnosis: Major depressive disorder, recurrent, unspecified as directed -- 1 tab at bedtime Last Documented On 3 10:16AM By NIKKI HOWARD ; [facility] LORazepam 0.5 MG Oral Tablet 01/09/2022 - 02/16/2022 Provider: CANDY LEUNG MD Diagnosis: Generalized anxi ety disorder as directed - 1/2 - 1 tab a day as needed for severe panic attacks Last Documented On 02/16/2022 1:30PM By Nani Leung MD ; [facility] Focalin 5 MG Oral Tablet 01/05/2022 - 05/20/2022 Provider: CANDY LEUNG MD Diagnosis: Attn-defct hyper activity disorder, predom inattentive type as directed - 1 tab in am with food Last Documented On 05/20/2022 6:59PM By Nani Leung MD ; [facility] Sertraline HCl 100 MG Oral Tablet 12/09/2021 - 03/11/2022 Provider: CANDY CASTANO MD Diagnosis: as directed 1 and 1/2 tabs daily Last Documented On 03/11/2022 4:34PM By Nani Leung MD ; [facility] traZODone HCl 50 MG Oral Tablet 11/05/2021 - 02/04/2022 Provider: CANDY LEUNG MD Diagnosis: Obstructive slee p apnea (adult) (pediatric) as directed 3-4 tablets at b edtime as needed for sleep Last Documented On 02/04/2022 4:27PM By Nani Leung MD ; [facility] traZODone HCl 50 MG Oral Tablet 11/05/2021 - 02/02/2022 Provider: Diagnosis: Obstructive slee p apnea (adult) (pediatric) 3-4 tablets at bedtime as needed for sleep Last Documented On 10/31/202 2 12:12AM By Nani Leung MD ; [facility] OLANZapine 5 MG Oral Tablet 10/14/2021 - 02/02/2022 Provider: CANDY LEUNG MD Diagnosis: Major depressive disorder, recurrent, moderate One tablet at bed time Last Documented On 2 12:12AM By Nani Leung MD ; [facility] Focalin 10 MG Oral Tablet 10/14/2021 - 11/13/2021 Provider: CANDY LEUNG MD Diagnosis: Generalized anxi ety disorder as directed -- 1 tab in am Last Documented On 10/14/2021 2:31PM By Nani Leung MD ; [facility] Gabapentin 300 MG Oral Capsule 09/08/2021 - 06/29/2022 Provider: Diagnosis: 1 to 2 capsuled three times a day Last Documented On 3 10:02AM By NIKKI HOWADR ; [facility] Sertraline HCl 100 MG Oral Tablet 09/04/2021 - 12/09/2021 Provider: CANDY CASTANO MD Diagnosis: as directed 1 and 1/2 tabs daily Last Documented On 2 11:01AM By Nani Leung MD ; [facility] traZODone HCl 50 MG Oral Tablet 09/04/2021 - 02/02/2022 Provider: CANDY LEUNG MD Diagnosis: Psychophysiologi c insomnia as directed 3 - 4 tablets at bedtime Last Documented On 2 12:12AM By Nani Leung MD ; [facility] traZODone HCl 50 MG Oral Tablet 09/04/2021 - 2 Provider: Diagnosis: Psychophysiologi c insomnia 3 - 4 tablets at bedtime Last Documented On 2 12:13AM By Nani Leung MD ; [facility] Pramipexole Dihydrochloride 0.75 MG Oral Tablet 08/13/2021 - 11/11/2021 Provider: Diagnosis: 1 afternoon prn and 2 at hs Last Documented On 08/13/2021 9:28AM By NIKKI HOWARD ; [facility] Gabapentin 300 MG Oral Capsule 08/13/2021 - 09/12/2021 Provider: ERNIE MADRIGAL MD Diagnosis: 2 at night Last Documented On 08/13/2021 9:26AM By NIKKI HOWARD ; [facility] Focalin 10 MG Oral Tablet 07/25/2021 - 02/02/2022 Provider: CANDY LEUNG MD Diagnosis: Attn-defct hyper activity disorder, predom inattentive type 1 tablet every morning with food Last Documented On 2 12:13AM By Nani Leung MD ; [facility] Focalin 10 MG Oral Tablet 06/30/2021 - 07/25/2021 Provider: CANDY LEUNG MD Diagnosis: Attn-defct hyper activity disorder, predom inattentive type 1 tablet every morning with food Last Documented On 07/25/2021 4:30PM By Nani Leung MD ; [facility] traZODone HCl 50 MG Oral Tablet 06/06/2021 - 02/02/2022 Provider: CANDY LEUNG MD Diagnosis: Psychophysiologi c insomnia as directed 2 or 3 tabs at bedtime Last Documented On 2 12:13AM By Nani Leung MD ; [facility] Focalin 10 MG Oral Tablet 06/02/2021 - 06/30/2021 Provider: CANDY LEUNG MD Diagnosis: Attn-defct hyper activity disorder, predom inattentive type 1 tablet every morning with food Last Documented On 06/30/2021 7:03PM By Nani Leung MD ; [facility] Lubiprostone 24 MCG Oral Capsule 05/21/2021 - 08/13/2021 Provider: MELANIE MEJÍA MD Diagnosis: 1 capsule daily Last Documented On 08/13/2021 9:25AM By NIKKI HOWARD ; [facility] Belsomra 20 MG Oral Tablet 05/21/2021 - 08/13/2021 Provider: CANDY LEUNG MD Diagnosis: Psychophysiologi c insomnia as directed -- 1/2 - 1 tab a t bedtime as needed for sleep Last Documented On 2 10:14AM By Nani Leung MD ; [facility] HM Melatonin 10 MG Oral Tablet Extended Release 05/01/2021 - 08/13/2021 Provider: Diagnosis: 1 tab at bedtime Last Documented On 08/13/2021 9:25AM By NIKKI HOWARD ; [facility] Adult Aspirin Regimen 81 MG Oral Tablet Delayed Release 05/01/2021 - 05/04/2022 Provider: Diagnosis: 1 tab daily Last Documented On 3 11:25AM By NIKKI HOWARD ; [facility] Lansoprazole 30 MG Oral Capsule Delayed Release 05/01/2021 - 08/13/2021 Provider: Diagnosis: 1 cap daily Last Documented On 08/13/2021 9:26AM By NIKKI HOWARD ; [facility] Focalin 10 MG Oral Tablet 05/01/2021 - 06/02/2021 Provider: CANDY LEUNG MD Diagnosis: Attn-defct hyper activity disorder, predom inattentive type 1 tablet every morning with food Last Documented On 11:41AM By Nani Leung MD ; [facility] EQ Laxative Maximum Strength 25 MG Oral Tablet 0 05/01/2021 - 06/29/2022 Provider: Diagnosis: 1 tab at night Last Documented On 3 10:04AM By NIKKI HOWARD ; [facility] DayVigo 5 MG Oral Tablet 05/01/2021 - 05/21/2021 Provider: CANDY LEUNG MD Diagnosis: Psychophysiologi c insomnia as directed -- 1 tab at hs a s needed for sleep Last Documented On 05/01/2021 4:02PM By Nani Leung MD ; [facility] amLODIPine Besylate 5 MG Ora l Tablet 04/24/2021 - 05/04/2022 Provider: ERNIE MADRIGAL MD Diagnosis: 1 tab daily Last Documented On 3 11:26AM By NIKKI HOWARD ; [facility] Gabapentin 300 MG Oral Capsule 04/21/2021 - 08/13/2021 Provider: ERNIE MADRIGAL MD Diagnosis: 1 cap tid Last Documented On 08/13/2021 9:26AM By NIKKI HOWARD ; [facility] busPIRone HCl 5 MG Oral Tablet 04/14/2021 - 08/13/2021 Provider: MELANIE MEJÍA MD Diagnosis: 1 tab tid Last Documented On 08/13/2021 9:27AM By NIKKI HOWARD ; [facility] Linzess 290 MCG Oral Capsule 03/28/2021 - 08/13/2021 Provider: SUSIE MCALLISTER RS SCRUB WHEEL OPERATOR-C Diagnosis: 1 cap daily pt thinks her bottle says 145 mcg Last Documented On 08/13/2021 9:27AM By NIKKI HOWARD ; [facility] Mirtazapine 45 MG Oral Tablet 03/20/2021 - 08/13/2021 Provider: SUSIE Fernandez DEJAHGuzman RS SCRUB WHEEL OPERATOR-C Diagnosis: 1 tab daily Last Documented On 2 10:13AM By Nani Leung MD ; [facility] Pramipexole Dihydrochloride 0.75 MG Oral Tablet 03/14/2021 - 08/13/2021 Provider: Diagnosis: [address] Timmy Ayala Last Documented On 08/13/2021 9:28AM By NIKKI HOWARD ; [facility] Sertraline HCl 100 MG Oral Tablet 03/01/2021 - 02/02/2022 Provider: ERNIE MADRIGAL MD Diagnosis: 1 and 1/2 tabs daily Last Documented On 2 12:13AM By Nani Leung MD ; [facility] Medications Administered Includes: Administered Medications in patient's [...] 05/04/2022 Last Documented On 3 4:12PM ; [facility] Patient reported that she wa s born [...] past or pending legal history. Patient enjoys [employer] and [employer]. 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 05/01/2021 Last Documented On 2 9:17AM ; [facility] Former smoker - quit smoking 2012 Last Documented On 2 9:17AM ; [facility] Smoking Status Unknown Procedures and Surgical History Surgical History Last Updated History of enteroscopic proc edures - 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 Jorge Aranda -- Joss 06/29/2022 Last Documented On 3 2:44PM ; [facility] History of endoscopic insert ion of stent of pancreatic duct - abdominal drain - 01/2019 and 02/201902/02/2022 Last Documented On 2 12:34AM ; [facility] History of splenectomy - 12/31/201802/02 Last Documented On 2 12:34AM ; [facility] History of cervical vertebra l fusion and cervical decompression in 2002 and 200705/02/2021 Last Documented On 2 9:17AM ; [facility] History of hip replacement - bilateral - - 2019 and 202005/01/2021 Last Documented On 2 9:17AM ; [facility] History of knee replacement - bilateral -- 2000 and 200105/01/2021 Last Documented On 2 9:17AM ; [facility] History of cholecystectomy - 2007 Last Documented On 2 9:17AM ; [facility] History of appendectomy - 1971 2 Last Documented On 2 9:17AM ; [facility] Medical History Includes: Medical History in patient's chart Description Last Updated History of urinary tract infection - giv en Nitrofurantoin 100 mg 06/11/22 06/29/2022 Last Documented On 3 2:44PM ; [facility] Primary Care Provider: Dr. Adriana Madrigal ~Dr. Melanie Parkinson -- Service Station Cashier ~Dr. Jorge Hsieh -- Orthopedist [facility] ~Dr. Alberto Valdez -- Shoulder Surgeon at [facility] ~Dr. Andi Mcrae -- Dentist ~Dr. Luis Handley - Pain Mgt 06/29/2022 Last Documented On 3 2:44PM ; [facility] History of iron deficiency a tj - had 2 iron infusions 04/21/22 since her Hgb went down to 7.3 last 03/2022 but now it went back up to 10.3 last 04/202205/04/2022 Last Documented On 3 4:12PM ; [facility] of constipation - seen at [facility] given emema 05/04/2022 Last Documented On 3 4:12PM ; [facility] History of dysuria - given Cipro 250 mg 02/03/22 05/04/2022 Last Documented On 3 4:12PM ; [facility] History of cough - given Tessalon Perles 100 mg 04/01/22 05/04/2022 Last Documented On 3 4:12PM ; [facility] History of urinary retention - given Zayas sulosin 0.4 mg 04/08/22 05/04/2022 Last Documented On 3 4:12PM ; [facility] History of tooth extraction - given Zpak 250 mg for prophylaxis purposes 08/13/2021 Last Documented On 2 12:15PM ; [facility] History of colonoscopy - 201 9 -- botched per patient leading to weight loss 08/13/2021 Last Documented On 2 12:15PM ; [facility] History of coronavirus 2019- nCoV vaccine - Moderna #1 06/2020 #2 06/2020 #3 03/25/21 05/01/2021 Last Documented On 2 9:17AM ; [facility] History of osteoarthritis of multiple sites - accelerated degenerative disk and joint disease 05/01/2021 Last Documented On 2 9:17AM ; [facility] History of splenic laceration - requirin g slenectomy 05/01/2021 Last Documented On 2 9:17AM ; [facility] History of spinal stenosis - lumbar and thoracic 05/01/2021 Last Documented On 2 9:17AM ; [facility] History of restless legs syndrome 2021 Last Documented On 2 9:17AM ; [facility] History of chronic peptic ulcer 05/01/19 22 Last Documented On 2 9:17AM ; [facility] History of chronic obstructive pulmonary disease 05/01/2021 Last Documented On 2 9:17AM ; [facility] History of tricuspid regurgitation 05/01 Last Documented On 2 9:17AM ; [facility] History of mitral regurgitation 05/01/19 22 Last Documented On 2 9:17AM ; [facility] History of aortic regurgitation 05/01/19 22 Last Documented On 2 9:17AM ; [facility] Family History Includes: Family History in patient's chart Description Last Updated Sororal history of dementia of Alzheimer's type with early onset - oldest sister - and depression 05/01/2021 Last Documented On 2 9:17AM ; [facility] Review of Systems Review of Systems not [...] Active Last Documented On 07/05/2023 10:12AM ; [facility] Note: Imported from external source. Valium Allergy Nausea, Vomiting, Diarrhea / Diarrheal disorder 04/01/2015 Active Last Documented On 07/05/2023 10:12AM ; [facility] Note: Imported from external source. Sulfa Antibiotics Allergy Nausea, Vomiting, Diarrhea / Diarrheal disorder 08/13/2021 Active Last Documented On 07/05/2023 10:12AM ; [facility] Note: Imported from external source. Percocet Allergy Nausea, Vomiting, Diarrhea / Diarrheal disorder 04/01/2015 Active Last Documented On 07/05/2023 10:12AM ; [facility] Note: Imported from external source. Morphine Sulfate Allergy Nausea, Vomiting, Diarrhea / Diarrheal disorder 04/01/2015 Resolved Last Documented On 09/22/2022 11:29AM ; [facility] Note: Imported from external source. Morphine Sulfate Allergy Nausea, Vomiting, Diarrhea / Diarrheal disorder 04/01/2015 Active Last Documented On 4 10:12AM ; [facility] Ancef Allergy Nausea, Vomiting , Diarrhea / Diarrheal disorder 04/01/2015 Active Last Documented On 07/05/2023 10:12AM ; [facility] Note: Imported from external source. Insurance Includes: Active Insurance Policies Plan Name Member ID Group # Subscriber Relationship Effect lauryn Dates 1 - [employer] [id number] [place] Self Clinical Notes Includes: Signed Clinical Notes starting from 04/24/2022 No Clinical Notes Recorded
--- OUTSIDE RECORDS SUMMARY | 2024-06-08 08:48 | XMS_ITS | Referral Summary ---
Author Organization [facility] Address [address] [place] [address] Care Team Providers Care Conventions Reservationist Name Role Phone Rinku Suresh MD Primary Care Provider [phone] Johanny Alvarez Unavailable [phone] Encounters Date Type Department Care Team Description 06/05/2024 10:15 AM FOOD TRAY ASSEMBLER Office Visit [facility] Multiple Sclerosis [address] [facility] 7th [place] [phone] Vicky Alas CNS Multiple sclerosis (HCC) (Primary Dx); Immunosuppression due to drug therapy; High risk medication use; Medication monitoring encounter; Abnormal MRI; Spasticity; Abnormality of gait and mobility; Dysesthesia of multiple sites 05/31/2024 3:30 PM FOOD TRAY ASSEMBLER Office Visit [facility] Neuro Sleep [address] [facility] 6th [address] [place] [address] Madeline Chino DNP WILLEM (obstructive sleep apnea) (Primary Dx); Sleep apnea, unspecified type; Cognitive change; Myelopathy (HCC); Other chronic pancreatitis (HCC); Chronic obstructive pulmonary disease, unspecified COPD type (HCC); Snoring 05/30/2024 Telephone [facility] [address] [facility] [address] [place] [address] Radhika Watson, RN 05/30/2024 Orders Only [facility] [[email or web address] [address] [facility] [address] [place] [address] Bonnie Mcintosh RN 05/30/2024 Telephone [facility] [[email or web address] [address] [place] [address] Bonnie Mcintosh RN 05/29/2024 1:51 PM FOOD TRAY ASSEMBLER - 05/29/2024 11:59 PM FOOD TRAY ASSEMBLER Hospital Encounter [facility] [id number] [place] [address] Multiple sclerosis (HCC) Discharge Disposition: Discharge to home or self care 05/29/2024 2:00 PM FOOD TRAY ASSEMBLER Lab [facility] [place] [address] [place] [address] [address] [place] [address] 05/29/2024 7:33 AM FOOD TRAY ASSEMBLER - 05/29/2024 11:59 PM FOOD TRAY ASSEMBLER Hospital Encounter [facility] [address] [address], [address] [place] [address] Luis Handley MD Degeneration 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 (Primary Dx); Multiple sclerosis (HCC); Primary osteoarthritis of right hip; Radiculopathy of cervicothoracic region; Spinal stenosis of lumbar region without neurogenic claudication; Chronic prescription opiate use Discharge Disposition: Discharge to home or self care 05/28/2024 Patient Self-T[address] [facility] [address] [place] [address] Mychart, Generic Provider 05/26/2024 Telephone [facility] [address] [facility] [facility] [address] [place] [address] Yoshi Hussein MD 05/19/2024 10:00 AM FOOD TRAY ASSEMBLER [facility] [address] [facility] [address] [place] [phone] Lolis Mckeon, FILLETER Urge incontinence (Primary Dx); Overactive bladder 05/17/2024 1:22 PM FOOD TRAY ASSEMBLER - 05/17/2024 11:59 PM FOOD TRAY ASSEMBLER Hospital Encounter [facility] [address] [place] [address] Left shoulder pain, unspecified chronicity Discharge Disposition: Discharge to home or self care 05/17/2024 3:15 PM FOOD TRAY ASSEMBLER Office Visit [facility] Orthopaedic Surgery [address] [facility] 12th [place] [address] [place] [address] Alberto Valdez MD Left shoulder pain, unspecified chronicity (Primary Dx) 04/18/2024 Documentation [facility] Multiple Sclerosis [address] [place] [address] [place] [address] Dee Tran RN 04/11/2024 8:00 AM FOOD TRAY ASSEMBLER Telemedicine [facility] Multiple Sclerosis [address] [facility] 7th [place] [address] Yoshi Hussein MD Multiple sclerosis (HCC) (Primary Dx); High risk medication use; Myelopathy (HCC); Spasticity; Sleep apnea, unspecified type; Cognitive change; Restless leg syndrome 03/27/2024 Orders Only [facility] [address] [facility] [address] [place] [address] Luis Handley MD from Last 3 Months [...] (02/13/2022): Added automatically from request for surgery [id number] Radiculopathy of cervicothoracic region 02/14/20 Overview (02/13/2022): Added automatically from request for surgery [id number] 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 02/13/2022 Overview (02/13/2022): Added automatically from request for surgery [id number] Esophageal dysphagia 07/03/2021 Overview (07/03/2021): Added automatically from request for surgery [id number] Psychophysiological insomnia 05/01/2021 Generalized anxiety disorder 05/01/2021 Attention deficit disorder without hyperactivity 05/01/2021 Encounter for postoperative wound check 01/14/20 21 Epigastric pain 01/06/2021 Overview (01/06/2021): Added automatically from request for surgery [id number] Chest pain 01/06/2021 Overview (01/06/2021): Added automatically from request for surgery [id number] Spinal stenosis of lumbar re gion without neurogenic claudication 12/12/2020 GERD (gastroesophageal reflux disease) Depression 12/11/2020 Allergic rhinitis 12/11/2020 Thoracic stenosis 11/21/2020 Functional tremor 02/26/2020 Abnormality of gait and mobility 02/26/2020 Primary osteoarthritis of right hip 2019 Overview (2019): Added automatically from request for surgery [id number] Chronic obstructive pulmonary disease ([facility]) 11/01/2019 Other chronic pancreatitis 09/29/2019 Pancreatic pseudocyst [...] encounter. Assessment & Plan (04/23/2023 12:36 PM FOOD TRAY ASSEMBLER): Ms. Eloisa Enciso is a 62 y.o. [...] next month and if she remains with triage registered nurse symptoms, this could be a sign of [...] encounter. Assessment & Plan (03/03/2021 8:46 PM FOOD TRAY ASSEMBLER): Ms. Eloisa Enciso is a 60 y.o. [...] continue to replace iron, as low [employer] iron has been related to worsening of [...] encounter. Assessment & Plan (02/26/2020 9:07 AM FOOD TRAY ASSEMBLER): Ms. Eloisa Enciso is a 59 y.o. [...] (03/11/2020): Added automatically from request for surgery [id number] Esophageal dysphagia 03/11/2020 021 Overview (03/11/2020): Added automatically from request for surgery [id number] Abnormal weight loss 03/11/2020 021 Overview (03/11/2020): Added automatically from request for surgery [id number] Hip pain 12/06/2019 05/16/2020 Abdominal pain 11/01/2019 [...] often do you attend chur ch or restoration services? 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 Not on file Not on file Last Filed Vital Signs Vital Sign Reading Time Taken Comments Blood Pressure 126/74 06/05/2024 10:03 AM FOOD TRAY ASSEMBLER Pulse 71 06/05/2024 10:03 AM FOOD TRAY ASSEMBLER Temperature 36.8 C (98.2 F) 05/31/2024 2:53 PM FOOD TRAY ASSEMBLER Respiratory Rate 18 05/29/2024 7:34 AM FOOD TRAY ASSEMBLER Oxygen Saturation 96% 05/31/2024 2:53 PM FOOD TRAY ASSEMBLER Inhaled Oxygen Concentration - - Weight 60.3 kg (133 lb) 06/05/2024 10:03 AM FOOD TRAY ASSEMBLER Height 162.6 cm (5' 4 ) 06/05/2024 10:03 AM FOOD TRAY ASSEMBLER Body Mass Index 22.83 06/05/2024 10:03 AM FOOD TRAY ASSEMBLER Plan of Treatment Not on file Goals [...] home safety. Medical Devices Implanted Type Area Track Announcer Device Identifier Shelf Expiration Date Model / Serial / Lot Carotid Stent Stent N/A: Carotid Pancreatic Stent-03/17/20 19 Implanted:03/05 (Quantity not on file) Stent N/A: Pancreas Total Knee Replacement Bilateral: Knee Shoulder Replacement Bilateral: Shoulder Cervical Fusion N/A: Spine Cervical Total Hip Replacement Left: Hip [employer] [id number] Pierceton 50mm Sector Hip Shell Acetabular Gription Sterile Latex Free - [id number] Implanted:Qty: 1 on 01/10/2020 by Jaiden Gonzalez MD at [facility] Right: Hip [employer] 07/03/2029 [id number] / / [id number] Dep[employer] [id number] Pierceton 50mm 32mm Hip Neutral Liner Acetabular Altrx Sterile Latex Free - [id number] Implanted:Qty: 1 on 01/10/2020 by Jaiden Gonzalez MD at [facility] Right: Hip [employer] 11/02/2024 [id number] / / [id number] [employer] [id number] Actis Collared Hip 12/14 6 Standard Offset Stem Femoral - [id number] Implanted:Qty: 1 on 01/10/2020 by Jaiden Gonzalez MD at [facility] Right: Hip [employer] 12/03/2029 [id number] / / [id number] [employer] [id number] Articul/Ivan 32mm Hip +5mm 12/14 Taper Head Femoral Biolox Delta Latex Free - [id number] Implanted:Qty: 1 on 01/10/2020 by Jaiden Gonzalez MD at [facility] Right: Hip [employer] 11/02/2024 [id number] / / [id number] Allosource [id number] Crushed Chip Frozen Graft 60ml Bone Cancellous - [id number] Implanted:Qty: 1 on 12/12/2020 by Jorge Hsieh MD at [facility] N/A: Spine Lumbar Allosource 10/06/2025 [id number] / / [id number] Medtronic Sofamor Danek [id number] Mastergraft Matrix Block Extension Void Filler Substitute 10ml - [id number] Implanted:Qty: 1 on 12/12/2020 by Jorge Hsihe MD at [facility] N/A: Spine Lumbar Medtronic Inc [id number] 05/05/2023 [id number] / / [id number] Medtronic Sofamor Danek [id number] Infuse 18mm 26mm Absorbable Sponge Sterile Water Syringe Needle - [id number] Implanted:Qty: 1 on 12/12/2020 by Jorge Hsieh MD at [facility] N/A: Spine Lumbar Medtronic Inc 09/02/2022 [id number] / / [id number] Medtronic Sofamor Danek [id number] Solera Cd Horizon 6.5mm 45mm Multiaxial Spine Screw Bone Cocr - [id number] Implanted:Qty: 8 on 12/12/2020 by Jorge Hsieh MD at [facility] N/A: Spine Lumbar Medtronic Inc [id number] / / Medtronic Sofamor Danek [id number] Solera Cd Horizon 7.5mm 45mm Multiaxial Spine Screw Bone Cocr - [id number] Implanted:Qty: 2 on 12/12/2020 by Jorge Hsieh MD at [facility] N/A: Spine Lumbar Medtronic Inc [id number] / / Medtronic Sofamor Danek [id number] Cd Horizon Break Off Spinal Screw Set Titanium Nonsterile 5.5 Mm - [id number] Implanted:Qty: 13 on 12/12/2020 by Jorge Hsieh MD at [facility] N/A: Spine Lumbar Medtronic Inc [id number] / / Medtronic Inc [id number] Cd Horizon 6mm 500mm Line Straight Harsh Spinal Titanium Nonsterile - [id number] Implanted:Qty: 2 on 12/12/2020 by Jorge Hsieh MD at [facility] N/A: Spine Lumbar Medtronic Inc [id number] / / Medtronic Inc Infuse 18mm Sponge [id number] - [id number] Implanted:Qty: 2 on 03/12/2022 by Jorge Hsieh MD at [facility] N/A: Spine Thoracic Medtronic Inc 08/03/2023 [id number] / / [id number] Allosource Crushed Chip Frozen Graft 60ml Bone Cancellous [id number] - [id number] - [id number] Implanted:Qty: 1 on 03/12/2022 by Jorge Hsieh MD at [facility] 02/14/2026 [id number] / [id number] / - Allosource Crushed Chip Frozen Graft 60ml Bone Cancellous [id number] - [id number] - [id number] Implanted:Qty: 1 on 03/12/2022 by Jorge Hsieh MD at [facility] 04/08/2026 [id number] / [id number] / - Medtronic Inc Cd Horizon Break Off Spinal Screw Set Titanium Nonsterile 5.5 Mm [id number] - [id number] Implanted:Qty: 29 on 03/12/2022 by Jorge Hsieh MD at [facility] Medtronic Inc [id number] / / Medtronic Inc Solera Cd Horizon 5.5mm 30mm Multiaxial Spine Screw Bone Cocr [id number] - [id number] Implanted:Qty: 1 on 03/12/2022 by Jorge Hsieh MD at [facility] Medtronic Inc [id number] / / Medtronic Inc Solera Cd Horizon 5.5mm 35mm Multiaxial Spine Screw Bone Cocr [id number] - [id number] Implanted:Qty: 1 on 03/12/2022 by Jorge Hsieh MD at [facility] N/A: Spine Thoracic Medtronic Inc [id number] / / Medtronic Inc Solera Cd Horizon 6.5mm 30mm Multiaxial Spine Screw Bone Cocr [id number] - [id number] Implanted:Qty: 2 on 03/12/2022 by Jorge Hsieh MD at [facility] N/A: Spine Thoracic Medtronic Inc [id number] / / Medtronic Inc Solera Cd Horizon 6.5mm 40mm Multiaxial Spine Screw Bone Cocr [id number] - [id number] Implanted:Qty: 12 on 03/12/2022 by Jorge Hsieh MD at [facility] N/A: Spine Thoracic Medtronic Inc [id number] / / Medtronic Inc Solera Cd Horizon 7.5mm 45mm Multiaxial Spine Screw Bone Cocr [id number] - [id number] Implanted:Qty: 4 on 03/12/2022 by Jorge Hsieh MD at [facility] N/A: Spine Thoracic Medtronic Inc [id number] / / Medtronic Inc [place] Spine Offset Connector Harsh 3.5-5.5/6mm Harsh [id number] - [id number] Implanted:Qty: 2 on 03/12/2022 by Jorge Hsieh MD at [facility] N/A: Spine Thoracic Medtronic Inc [id number] / / Medtronic Inc Longitude Ii 5.5mm 500mm Straight Harsh Spinal Cocr Molybdenum [id number] - [id number] Implanted:Qty: 2 on 03/12/2022 by Jorge Hsieh MD at [facility] N/A: Spine Thoracic Medtronic Inc [id number] / / Explanted Type Area Track Announcer Device Identifier Shelf Expiration Date Model / Serial / Lot Lumbar Fusion Explanted:Qty: 1 on 12/12/2020 by Jorge Hsieh MD at [facility] N/A: Spine Lumbar Description:5 set screws, 2 rods, 4 screws Procedures Procedure Name Priority Date/Time Associated Diagnosis Comments URINALYSIS, MICROSCOPIC ONLY Routine 05/29/2024 1:51 PM FOOD TRAY ASSEMBLER Multiple sclerosis (HCC) URINALYSIS AND REFLEX TO MICROSCOPIC AND CULTURE Routine 05/29/2024 1:51 PM FOOD TRAY ASSEMBLER Multiple sclerosis (HCC) MEASURE POST VOID RESIDUAL Routine 05/19/2024 10:04 AM FOOD TRAY ASSEMBLER Urge incontinence TX ARTHROCENTESIS ASPIR&/INJ MAJOR JT/BURSA W/O US Routine 05/17/2024 3:15 PM FOOD TRAY ASSEMBLER Left shoulder pain, unspecified chronicity XR SHOULDER LEFT 2 OR MORE VIEWS Schedule Routine, Read Routine (OP Routine) 05/17/2024 1:31 PM FOOD TRAY ASSEMBLER Left shoulder pain, unspecified chronicity HEPATITIS C [...] microscopic and culture Urine (05/29/2024 1:51 PM FOOD TRAY ASSEMBLER) Color, ur Yellow Yellow Clarity, ur Clear [...] tendency for uric acid stone formation. Source: [facility] Current Interpretive Data was last [...] performed. CERNER CH Urine 05/29/2024 1:51 PM FOOD TRAY ASSEMBLER 05/29/2024 9:06 PM FOOD TRAY ASSEMBLER Chinmay Carmona MD LAB MICROBIOLOGY - GENERAL ORDER EBONY Final Result ANA M [address] Department [place] [address] * Urinalysis, microscopic only (05/29/2024 1:51 PM FOOD TRAY ASSEMBLER) WBC, ur 0-5 0 - 5 /HPF RBC, ur 0-2 0 - 2 /HPF [facility] Epithelial cells, squamous, ur 1-5 0 - 5 /HPF [facility] Culture Reflex Comment Reflex conditions for urine culture (WBC >10) not met. [facility] Urine 05/29/2024 1:51 PM FOOD TRAY ASSEMBLER 05/29/2024 9:06 PM FOOD TRAY ASSEMBLER us Chinmay Carmona MD LAB URINE ORDERABLES Final Resul t Performing Organization Address [facility] Co de Phone Number ANA M [place] [address] Department [place] [address] * Measure post void residual (05/19/2024 10:04 AM FOOD TRAY ASSEMBLER) Narrative Madison Moura LPN - 05/19/2024 10:04 AM FOOD TRAY ASSEMBLER Measurement of post-voiding residual urine and/or bladder capacity by ultrasound, non-imaging. PVR = 20 mL us Lolis Mckeon FILLETER NURSING ASSESSMENTS Final Res ult * TX ARTHROCENTESIS ASPIR&/INJ MAJOR JT/BURSA W/O US (05/17/2024 3:15 PM FOOD TRAY ASSEMBLER) Narrative Alberto Valdez MD - 05/17/2024 3:15 PM FOOD TRAY ASSEMBLER Alberto Valdez MD 05/18/2024 7:04 AM Large [...] Shoulder Left 2+ View (05/17/2024 1:31 PM FOOD TRAY ASSEMBLER) Anatomical Region Laterality Modality Upper Extremities, Shoulder Left Comp uted Radiography 05/17/2024 1:58 PM FOOD TRAY ASSEMBLER Impressions 05/17/2024 8:48 PM FOOD TRAY ASSEMBLER Moderate rotator cuff arthropathy of the left shoulder. Dictated by: Wayne Siu M.D. The radiology attending physician has personally reviewed this study, and had reviewed and/or edited this written report and agrees with it. Electronically signed by: Mir Acosta M.D. Narrative 05/17/2024 8:48 PM FOOD TRAY ASSEMBLER EXAMINATION: XR SHOULDER LEFT 2 OR MORE [...] thoracic spinal fusion hardware. Procedure Note Mir cAosta MD - 05/17/2024 EXAMINATION: XR SHOULDER LEFT [...] of the left shoulder. Dictated by: Wayne Sui M.D. The radiology attending physician has personally [...] last revised on 2019. Testing performed by: [facility], [address] [place] [address]., [id number] Blood 01/07/2024 10:5 6 AM CDT 01/07/2024 1:39 PM CDT us Yoshi Hussein MD LAB MICROBIOLOGY - GENERAL ORD ERABLES Final Result [facility]NA [facility]) [address] [facility] [facility] [place] [address] * Colonoscopy (06/17/2023 10:12 AM CDT) Anatomical Region Laterality Modality Other Narrative Procedure Note Melanie Parkinson MD - 06/17/2023 10:12 AM CDT ENDOSCOPY LAB Patient Name: Eloisa Enciso Procedure Date: 06/17/2023 10:12 AM Date of : 1960 Admit Type: Outpatient Age: 62 Gender: Female Attending MD: Melanie Parkinson M.D. Room: [facility] ENDOSCOPY ROOM 01 Note Status: [...] The scope was passed under direct vision.The [id number] was introduced through the anusand advanced to [...] your results within this timeframe, please call [phone] regarding your results. - Contact Information: During normal business hours - Please call theNurse Coordinator: [phone] After hours, evening, nights, weekends and holidays- Please call the hospital corrugator operator helper at and ask for the GI fellow money examiner. - . Attending Participation: I personally performed [...] Bone mineral density was performed on a [employer] Discovery Densitometer. Based on machine cross-calibration and [...] by the International Society of Clinical Densitometry. [id number] Jorge Hsieh MD IMG DXA PROCEDURES Fin al Result from Last 3 Months or Most Recently Relevant to Health Maintenance Insurance [facility] MEDICARE SUPPLEMENT MEDICARE SOLUTIONS MEDICARE [facility] MDCR HMO REF MEDICARE [facility] MEDICARE SUPPLEMENT Advance Directives For more information, please contact: [phone] * Full Code (Latest Code Status on [...] 10:48 AM 08/07/2021 7:10 PM Care Teams Conventions Reservationist Relationship Specialty Start Date End Date Rinku Suresh MD [address] [place] [address] PCP - General 06/10/16 Johanny Alvarez PA [address] [place] [address] Orthopedic Surgery 01/11/20
--- OUTSIDE RECORDS SUMMARY | 2024-06-08 08:48 | XMS_ITS | Clinical Summary ---
Author Organization [facility] Address [address] [place] [address] Phone Care Team Providers Care Materials Engineer Name Role Phone DANNI HAMILTON, CANDY MITCHELL [facility] [phone] Reason for Visit and Chief Complaint The Chief Complaint is: follow up for depression, anxiety, insomnia Problems Includes: Problems addressed during this encounter and other active Problems Current Visit Onset Date Resolved Date Provider Conditio n Status Attention Deficit Disorder Without Hyperactivity 05/01/2021 CANDY LEUNG MD Active Last Documented On 2 3:52PM ; [facility] Generalized Anxiety Disorder 05/01/2021 CANDY LEUNG MD Active Last Documented On 2 2:53PM ; [facility] Psychophysiological Insomnia 05/01/2021 CANDY LEUNG MD Active Last Documented On 2 2:53PM ; [facility] Major Depression 05/01/2021 CANDY LEUNG MD Active Last Documented On 2 2:52PM ; [facility] Plan of Treatment Major depressive disorder [...] - Last Documented On 06/29/2022 2:44PM ; [facility] Education and Decision Aids were provided during visit for: Discussed calming techniques such as breathing exercises and other relaxation techniques Last Documented On 3 9:53AM ; [facility] Discussed good sleep hygiene habits Last Documented On 3 10:18AM ; [facility] Assessments Includes: Assessments from this encounter Findings - Attention deficit disorder without hyperactivity - Last Documented On 06/29/2022 2:44PM ; [facility] - Major depressive disorder - Last Documented On 06/29/2022 2:44PM ; [facility] - Psychophysiological insomnia - Last Documented On 06/29/2022 2:44PM ; [facility] - Generalized anxiety disorder - Last Documented On 06/29/2022 2:44PM ; [facility] Instructions Includes: Instructions from this encounter Education and Decision Aids were provided during visit for: Discussed calming techniques such as breathing exercises and other relaxation techniques Last Documented On 3 9:53AM ; [facility] Discussed good sleep hygiene habits Last Documented On 3 10:18AM ; [facility] Medical Equipment - Implanted Devices Includes: Current Devices No Medical Equipment Recorded Medications Includes: Medications discussed during this encounter and other current Medications Discontinued / Stopped on this date on 06/15/2022 traZODone HCl 100 MG Oral Tablet Provider : Diagnosis: Psychophysiologi c insomnia Last Documented On 3 10:16AM By NIKKI HOWARD ; [facility] LORazepam 0.5 MG Oral Tablet Provider: CANDY LEUNG MD Diagnosis: Generalized anxi ety disorder Last Documented On 3 10:40AM By Nani Leung MD ; [facility] Focalin 5 MG Oral Tablet Provider: CANDY LEUNG MD Diagnosis: Attn-defct hyper activity disorder, predom inattentive type Last Documented On 3 10:36AM By Nani Leung MD ; [facility] traZODone HCl 100 MG Oral Tablet Provider: CANDY LEUNG MD Diagnosis: Psychophysiologi c insomnia Last Documented On 3 10:16AM By NIKKI HOWARD ; [facility] oxyCODONE HCl 5 MG Oral Tablet Provider: Diagnosis: Last Documented On 3 10:25AM By Nani Leung MD ; [facility] traZODone HCl 50 MG Oral Tablet Provider: CANDY LEUNG MD Diagnosis: Obstructive slee p apnea (adult) (pediatric) Last Documented On 3 10:17AM By NIKKI HOWARD ; [facility] OLANZapine 10 MG Oral Tablet Provider: CANDY LEUNG MD Diagnosis: Major depressive disorder, recurrent, unspecified Last Documented On 3 10:16AM By NIKKI HOWARD ; [facility] New / Renewed during this visit CANDY LEUNG MD on 06/29/2022 Focalin 5 MG Oral Tablet Provider: MET JACQUELINE LEUNG MD 30 day supply: 30 tablet, 0 refills Diagnosis: Attn-defct hyperactivity disorder, predom inattentive type as directed - 1 tab in am with food Pharmacy: [address] [employer] [facility], [id number] - Last Documented On 3 11:33AM By Nani Leung MD ; [facility] LORazepam 0.5 MG Oral Tablet Provider: CANDY LEUNG MD 30 day supply: 15 tablet, 0 refills Diagnosis: Generalized anxiety disorder as directed - 1/2 - 1 tab a day as needed for severe panic attacks Pharmacy: [address] [employer] [facility], [id number] - Last Documented On 3 11:33AM By Nani Leung MD ; [facility] OLANZapine 15 MG Oral Tablet Provider: CANDY LEUNG MD 90 day supply: 90 tablet, 1 refills Diagnosis: Major depressive disorder, recurrent, moderate as directed -- 1 tab at bedtime [facility] [id number] - Last Documented On 3 11:33AM By Nani Leung MD ; [facility] Current Medications (continue as prescribed) EQ Laxative Maximum Strength 25 MG Oral Tablet 023 Provider: Diagnosis: 3 tabs at night Last Documented On 3 10:04AM By NIKKI HOWARD ; [facility] traZODone HCl 100 MG Oral Tablet 06/15/2022 Provider: CANDY LEUNG MD Diagnosis: Psychophysiologi c insomnia as directed 3 tabs at bedtime Last Documented On 06/15/2022 3:36PM By Nani Leung MD ; [facility] Folic Acid 1 MG Oral Tablet 03/31/2022 Provider: SUSIE STOKES QUALITY ASSURANCE SUPERVISOR [employer]C Diagnosis: 1 tab daily Last Documented On 3 11:38AM By NIKKI HOWARD ; [facility] Pramipexole Dihydrochloride 0.75 MG Oral Tablet 09/08/2021 Provider: TIMMY VALENZUELA MD Diagnosis: 2 tabs in the evening Last Documented On 3 11:39AM By NIKKI HOWARD ; [facility] Antacid 200-200-20 MG/5ML Oral Suspension 05/21/2021 Provider: MELANIE PARKINSON MD Diagnosis: as needed Last Documented On 06/06/2021 2:04PM By MICHELLE PARKS ; [facility] Ocuvite Adult 50+ Oral Capsule 05/01/2021 Provider: Diagnosis: 1 cap daily Last Documented On 05/01/2021 3:10PM By NIKKI HOWARD ; [facility] Xyzal 5 MG Oral Tablet 05/01/2021 Provider: Diagnosis: 1 tab daily Last Documented On 05/01/2021 3:10PM By NIKKI HOWARD ; [facility] Biotin 5000 MCG Oral Capsule 05/01/2021 Provider: Diagnosis: 1 cap daily Last Documented On 05/01/2021 3:13PM By NIKKI HOWARD ; [facility] Stool Softener 100 MG Oral Capsule 05/01/2021 Pr ovider: Diagnosis: 1 cap tid Last Documented On 05/01/2021 3:12PM By NIKKI HOWARD ; [facility] Ondansetron HCl 8 MG Oral Tablet 03/13/2021 Provider : MELANIE PARKINSON MD Diagnosis: 2 tab prn nausea/vomiting Last Documented On 05/01/2021 3:04PM By NIKKI HOWARD ; [facility] Anoro Ellipta 62.5-25 MCG/IN H Inhalation Aerosol Powder Breath Activated 03/11/2021 Provider: ERNIE MADRIGAL MD Diagnosis: 1 inhalation daily Last Documented On 05/01/2021 3:07PM By NIKKI HOWARD ; [facility] Cyclobenzaprine HCl 10 MG Oral Tablet 01/06/2021 Pro vider: ERNIE MADRIGAL MD Diagnosis: take 1 tab prn Last Documented On 05/01/2021 3:07PM By NIKKI HOWARD ; [facility] Suspended Medications Sertraline HCl 100 MG Oral Tablet 03/11/2022 Provide r: CANDY LEUNG MD Diagnosis: as directed 1 and 1/2 tabs daily Last Documented On 03/11/2022 4:45PM By Nani Leung MD ; [facility] Past Medications on file Gabapentin 300 MG Oral Capsule 06/29/2022 - 07/29/2022 Provider: Diagnosis: 2 capsules at night Last Documented On 10:02AM By NIKKI HOWARD ; [facility] Focalin 10 MG Oral Tablet 10/14/2021 - 11/13/2021 Provider: CANDY LEUNG MD Diagnosis: Generalized anxi ety disorder as directed -- 1 tab in am Last Documented On 10/14/2021 2:31PM By Nani Leung MD ; [facility] Pramipexole Dihydrochloride 0.75 MG Oral Tablet 08/13/2021 - 11/11/2021 Provider: Diagnosis: 1 afternoon prn and 2 at hs Last Documented On 08/13/2021 9:28AM By NIKKI HOWARD ; [facility] Gabapentin 300 MG Oral Capsule 08/13/2021 - 09/12/2021 Provider: ERNIE MADRIGAL MD Diagnosis: 2 at night Last Documented On 08/13/2021 9:26AM By NIKKI HOWARD ; [facility] DayVigo 5 MG Oral Tablet 05/01/2021 - 05/21/2021 Provider: CANDY LEUNG MD Diagnosis: Psychophysiologi c insomnia as directed -- 1 tab at hs a s needed for sleep Last Documented On 05/01/2021 4:02PM By Nani Leung MD ; [facility] Medications Administered Includes: Administered [...] Last Documented: On 06/29/2022 10:19A M ; [facility] Results Includes: Results discussed during this encounter No Results Recorded For Specified Dates History of Present Illness Includes: History of Present Illness from this encounter JOSE PARK is a 61 year old female. - Allergy list reviewed - Past medical history reviewed - Medication list reviewed Pt has been stressed with her father who is at a detention in [place]. Her father has dementia and recently fell and fractured his pelvis. She and her had to bring him to various drs' appointments in [place] and this is too hard on her [...] neurologist from the movement disorder dept at [facility]. She was also told that it takes [...] 05/04/2022 Last Documented On 3 9:53AM ; [facility] Patient reported that [...] past or pending legal history. Patient enjoys [employer] and mormon. 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 05/01/2021 Last Documented On 3 9:53AM ; [facility] Former smoker - quit smoking 2012 Last Documented On 3 9:53AM ; [facility] Smoking Status Unknown Procedures and Surgical History Includes: Procedures from this encounter Procedures Code Diagnosis Performing Provider Service L ocation Service Date education and instructions Last Documented On 3 9:53AM ; [facility] I discussed the risks, benef its and side effects of Olanzapine to the patient including the possibility of metabolic and motor side effects such as tardive dyskinesia Last Documented On 3 10:18AM ; [facility] dangerousness assessment: suicide risk -not suic idal 3085F Last Documented On 3 9:53AM ; [facility] use of tobacco assessment performed 1000F Last Documented On 3 9:53AM ; [facility] patient screened for future fall risk - no recen t falls 3288F Last Documented On 3 9:53AM ; [facility] review of medications documented 1160F Last Documented On 3 9:53AM ; [facility] screening for adult depressi on: impression and score - please see above treatment and PHQ score Last Documented On 3 9:53AM ; [facility] standardized depression screening: posit lauryn for symptoms Last Documented On 3 9:53AM ; [facility] encouragement to exercise - doing PT Last Documented On 3 2:40PM ; [facility] Clinical summary provided to patient Last Documented On 3 9:53AM ; [facility] PHQ-9: total score 10 Last Documented On 3 2:39PM ; [facility] Surgical History Last Updated History of enteroscopic proc edures - 05/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 Jorge Aranda -- Joss 06/29/2022 Last Documented On 3 2:44PM ; [facility] History of endoscopic insert ion of stent of pancreatic duct - abdominal drain - 01/2019 and 02/201902/02/2022 Last Documented On 3 9:53AM ; [facility] History of splenectomy - 12/31/201802/02 Last Documented On 3 9:53AM ; [facility] History of cervical vertebra l fusion and cervical decompression in 2002 and 200705/02/2021 Last Documented On 3 9:53AM ; [facility] History of hip replacement - bilateral - - 2019 and 202005/01/2021 Last Documented On 3 9:53AM ; [facility] History of knee replacement - bilateral -- 2000 and 200105/01/2021 Last Documented On 3 9:53AM ; [facility] History of cholecystectomy - 2007 Last Documented On 3 9:53AM ; [facility] History of appendectomy - 1972 2 Last Documented On 3 9:53AM ; [facility] Medical History Includes: Medical History addressed during this encounter Description Last Updated History of urinary tract infection - giv en Nitrofurantoin 100 mg 06/11/22 06/29/2022 Last Documented On 3 2:44PM ; [facility] Primary Care Provider: Dr. Adriana Madrigal ~Dr. Melanie Parkinson -- [employer] ~Dr. Jorge Hsieh -- Orthopedist ~Dr. Timmy Mclean -- Neurologist ~Dr. Alberto Valdez -- Shoulder Surgeon at [facility] ~Dr. Andi Mcrae -- Dentist ~Dr. Luis Handley - Pain Mgt 06/29/2022 Last Documented On 3 2:44PM ; [facility] History of iron deficiency a nemia - had 2 iron infusions 04/21/22 since her Hgb went down to 7.3 last 03/2022 but now it went back up to 10.3 last 04/202205/04/2022 Last Documented On 3 9:53AM ; [facility] History of constipation - seen at [facility] given emema 05/04/2022 Last Documented On 3 9:53AM ; [facility] History of dysuria - given Cipro 250 mg 02/03/22 05/04/2022 Last Documented On 3 9:53AM ; [facility] History of cough - given Tessalon Perles 100 mg 04/01/22 05/04/2022 Last Documented On 3 9:53AM ; [facility] History of urinary retention - given Zayas sulosin 0.4 mg 04/08/22 05/04/2022 Last Documented On 3 9:53AM ; [facility] History of tooth extraction - given Zpak 250 mg for prophylaxis purposes 08/13/2021 Last Documented On 3 9:53AM ; [facility] History of colonoscopy - 201 9 -- botched per patient leading to weight loss 08/13/2021 Last Documented On 3 9:53AM ; [facility] History of coronavirus 2019- nCoV vaccine - Moderna #1 06/2020 #2 06/2020 #3 03/25/21 05/01/2021 Last Documented On 3 9:53AM ; [facility] History of osteoarthritis of multiple sites - accelerated degenerative disk and joint disease 05/01/2021 Last Documented On 3 9:53AM ; [facility] History of splenic laceration - requirin g slenectomy 05/01/2021 Last Documented On 3 9:53AM ; [facility] History of spinal stenosis - lumbar and thoracic 05/01/2021 Last Documented On 3 9:53AM ; [facility] History of restless legs syndrome 2021 Last Documented On 3 9:53AM ; [facility] History of chronic peptic ulcer 05/01/19 Last Documented On 3 9:53AM ; [facility] History of chronic obstructive pulmonary disease 05/01/2021 Last Documented On 3 9:53AM ; [facility] History of tricuspid regurgitation 05/01 Last Documented On 3 9:53AM ; [facility] History of mitral regurgitation 05/01/19 Last Documented On 3 9:53AM ; [facility] History of aortic regurgitation 05/01/19 Last Documented On 3 9:53AM ; [facility] Family History Includes: Family History addressed during this encounter Description Last Updated Sororal history of dementia of Alzheimer's type with early onset - oldest sister - and depression 05/01/2021 Last Documented On 3 9:53AM ; [facility] Review of Systems Includes: Review of [...] 11:29AM ; [facility] [...] Time Diagnosis FOLLOW UP CANDY LEUNG MD [facility] 3 9:52AM 11:05AM Generalized Anxiety Disorder,Psycho physiological Insomnia,Attent ion Deficit Disorder Without Hyperactivity,M ajor Depression Insurance Includes: Active Insurance Policies Plan Name Member ID Group # Subscriber Relationship Effect lauryn Dates 1 - [employer]AGE [id number] MIGUEL PARK Self Clinical Notes Includes: Clinical Notes from this encounter No Clinical Notes Recorded
--- OUTSIDE RECORDS SUMMARY | 2024-06-08 08:48 | XMS_ITS | Clinical Summary ---
Author Organization [facility] Address [address] [place] [address] Phone Care Team Providers Care Weights And Measures Inspector Name Role Phone DANNI HAMILTON, CANDY MITCHELL Unavailable [phone] Reason for Visit and Chief Complaint * PHONE CALL Problems Includes: Problems addressed during this encounter and other active Problems Current Visit Onset Date Resolved Date Provider Conditio n Status Generalized Anxiety Disorder 05/01/2021 CANDY LEUNG MD Active Last Documented On 2 2:53PM ; [facility] Past Visits Onset Date Resolved Date Provider Condition Status Attention Deficit Disorder Without Hyperactivity 05/01/2021 CANDY LEUNG MD Active Last Documented On 2 3:52PM ; [facility] Psychophysiological Insomnia 05/01/2021 CANDY LEUNG MD Active Last Documented On 2 2:53PM ; [facility] Major Depression 05/01/2021 CANDY LEUNG MD Active Last Documented On 2 2:52PM ; [facility] Plan of Treatment No Plan of Treatment Recorded Assessments Includes: Assessments from this encounter Findings - Generalized anxiety disorder - Last Documented On 02/17/2022 9:32AM ; [facility] Medical Equipment - Implanted Devices Includes: Current Devices No Medical Equipment Recorded Medications Includes: Medications discussed during this encounter and other current Medications Discontinued / Stopped on this date CANDY LEUNG MD on 01/09/2022 LORazepam 0.5 MG Oral Tablet Provider: CNADY LEUNG MD Diagnosis: Generalized anxi ety disorder Last Documented On 02/16/2022 1:30PM By Nani Leung MD ; [facility] New / Renewed during this visit CANDY LEUNG MD on 02/16/2022 LORazepam 0.5 MG Oral Tablet Provider: CANDY LEUNG MD 30 day supply: 15 tablet, 0 refills Diagnosis: Generalized anxiety disorder as directed - 1/2 - 1 tab a day as needed for severe panic attacks Pharmacy: [address], [phone] - Last Documented On 3 10:01AM By Nani Leung MD ; [facility] Current Medications (continue as prescribed) EQ Laxative Maximum Strength 25 MG Oral Tablet 023 Provider: Diagnosis: 3 tabs at night Last Documented On 3 10:04AM By NIKKI HOWARD ; [facility] Focalin 5 MG Oral Tablet 06/29/2022 Provider: MET JACQUELINE LEUNG MD Diagnosis: Attn-defct hyper activity disorder, predom inattentive type as directed - 1 tab in am with food Last Documented On 3 11:33AM By Nani Leung MD ; [facility] LORazepam 0.5 MG Oral Tablet 06/29/2022 Provider: CANDY LEUNG MD Diagnosis: Generalized anxi ety disorder as directed - 1/2 - 1 tab a day as needed for severe panic attacks Last Documented On 3 11:33AM By Nani Leung MD ; [facility] OLANZapine 15 MG Oral Tablet 06/29/2022 Provider: CANDY LEUNG MD Diagnosis: Major depressive disorder, recurrent, moderate as directed -- 1 tab at bedtime Last Documented On 3 11:33AM By Nani Leung MD ; [facility] traZODone HCl 100 MG Oral Tablet 06/15/2022 Provider: CANDY LEUNG MD Diagnosis: Psychophysiologi c insomnia as directed 3 tabs at bedtime Last Documented On 06/15/2022 3:36PM By Nani Leung MD ; [facility] Folic Acid 1 MG Oral Tablet 03/31/2022 Provider: SUSIE STOKES ORGANIC EXTRACTIONS TECHNICIAN-C Diagnosis: 1 tab daily Last Documented On 3 11:38AM By NIKKI OCHOA RMA ; [facility] Pramipexole Dihydrochloride 0.75 MG Oral Tablet 09/08/2021 Provider: TIMMY VALENZUELA MD Diagnosis: 2 tabs in the evening Last Documented On 3 11:39AM By NIKKI OCHOA A ; [facility] Antacid 200-200-20 MG/5ML Oral Suspension 05/21/2021 Provider: RENU ARGUELLO MD Diagnosis: as needed Last Documented On 06/06/2021 2:04PM By MICHELLE PARKS ; [facility] Ocuvite Adult 50+ Oral Capsule 05/01/2021 Provider: Diagnosis: 1 cap daily Last Documented On 05/01/2021 3:10PM By NIKKI OCHOA A ; [facility] Xyzal 5 MG Oral Tablet 05/01/2021 Provider: Diagnosis: 1 tab daily Last Documented On 05/01/2021 3:10PM By NIKKI OCHOA A ; [facility] Biotin 5000 MCG Oral Capsule 05/01/2021 Provider: Diagnosis: 1 cap daily Last Documented On 05/01/2021 3:13PM By NIKKI OCHOA A ; [facility] Stool Softener 100 MG Oral Capsule 05/01/2021 Pr ovider: Diagnosis: 1 cap tid Last Documented On 05/01/2021 3:12PM By NIKKI OCHOA A ; [facility] Ondansetron HCl 8 MG Oral Tablet 03/13/2021 Provider : RENU ARGUELLO MD Diagnosis: 2 tab prn nausea/vomiting Last Documented On 05/01/2021 3:04PM By NIKKI HOWARD ; [facility] Anoro Ellipta 62.5-25 MCG/IN H Inhalation Aerosol Powder Breath Activated 03/11/2021 Provider: ERNIE MADRIGAL MD Diagnosis: 1 inhalation daily Last Documented On 05/01/2021 3:07PM By NIKKI GUAMANA ; [facility] Cyclobenzaprine HCl 10 MG Oral Tablet 01/06/2021 Pro vider: ERNIE MADRIGAL MD Diagnosis: take 1 tab prn Last Documented On 05/01/2021 3:07PM By NIKKI HOWARD ; [facility] Suspended Medications Sertraline HCl 100 MG Oral Tablet 03/11/2022 Provide r: CANDY LEUNG MD Diagnosis: as directed 1 and 1/2 tabs daily Last Documented On 03/11/2022 4:45PM By Nani Leung MD ; [facility] Past Medications on file Gabapentin 300 MG Oral Capsule 06/29/2022 - 07/29/2022 Provider: Diagnosis: 2 capsules at night Last Documented On 10:02AM By NIKKI HOWARD ; [facility] Focalin 10 MG Oral Tablet 10/14/2021 - 11/13/2021 Provider: CANDY LEUNG MD Diagnosis: Generalized anxi ety disorder as directed -- 1 tab in am Last Documented On 10/14/2021 2:31PM By Nani Leung MD ; [facility] Pramipexole Dihydrochloride 0.75 MG Oral Tablet 08/13/2021 - 11/11/2021 Provider: Diagnosis: 1 afternoon prn and 2 at hs Last Documented On 08/13/2021 9:28AM By NIKKI HOWARD ; [facility] Gabapentin 300 MG Oral Capsule 08/13/2021 - 09/12/2021 Provider: ERNIE MADRIGAL MD Diagnosis: 2 at night Last Documented On 08/13/2021 9:26AM By NIKKI HOWARD ; [facility] DayVigo 5 MG Oral Tablet 05/01/2021 - 05/21/2021 Provider: CANDY LEUNG MD Diagnosis: Psychophysiologi c insomnia as directed -- 1 tab at hs a s needed for sleep Last Documented On 05/01/2021 4:02PM By Nani Leung MD ; [facility] Medications Administered Includes: Administered Medications from [...] 10:12AM ; [facility] Note: Imported from external source. Valium Allergy Nausea, Vomiting, Diarrhea / Diarrheal disorder 04/01/2015 Active Last Documented On 07/05/2023 10:12AM ; [facility] Note: Imported from external source. Sulfa Antibiotics Allergy Nausea, Vomiting, Diarrhea / Diarrheal disorder 08/13/2021 Active Last Documented On 07/05/2023 10:12AM ; [facility] Note: Imported from external source. Percocet Allergy Nausea, Vomiting, Diarrhea / Diarrheal disorder 04/01/2015 Active Last Documented On 07/05/2023 10:12AM ; [facility] Note: Imported from external source. Morphine Sulfate Allergy Nausea, Vomiting, Diarrhea / Diarrheal disorder 04/01/2015 Resolved Last Documented On 09/22/2022 11:29AM ; [facility] Note: Imported from external source. Morphine Sulfate Allergy Nausea, Vomiting, Diarrhea / Diarrheal disorder 04/01/2015 Active Last Documented On 10:12AM ; [facility] Ancef Allergy Nausea, Vomiting , Diarrhea / Diarrheal disorder 04/01/2015 Active Last Documented On 07/05/2023 10:12AM ; [facility] Note: Imported from external source. Encounters Encounter Provider Location Date Check-In Time Check-Out Time Diagnosis * PHONE CALL CANDY LEUNG MD [facility] 02/17/20 12:17PM 11:59PM Generalized Anxiety Disorder Insurance Includes: Active Insurance Policies Plan Name Member ID Group # Subscriber Relationship Effect lauryn Dates 1 - [employer] [id number] [place] Self Clinical Notes Includes: Clinical Notes from this encounter No Clinical Notes Recorded
--- OUTSIDE RECORDS SUMMARY | 2024-06-08 08:48 | XMS_ITS | Clinical Summary ---
Author Organization [facility] Address [address] [place] [address] Phone Care Team Providers Care Yardage Control Operator Name Role Phone DANNI HAMILTON, CANDY MITCHELL Unavailable [phone] Reason for Visit and Chief Complaint The Chief Complaint is: follow up for depression, anxiety, insomnia Problems Includes: Problems addressed during this encounter and other active Problems Current Visit Onset Date Resolved Date Provider Conditio n Status Attention Deficit Disorder Without Hyperactivity 05/01/2021 CANDY LEUNG MD Active Last Documented On 2 3:52PM ; [facility] Generalized Anxiety Disorder 05/01/2021 CANDY LEUNG MD Active Last Documented On 2 2:53PM ; [facility] Psychophysiological Insomnia 05/01/2021 CANDY LEUNG MD Active Last Documented On 2 2:53PM ; [facility] Major Depression 05/01/2021 CANDY LEUNG MD Active Last Documented On 2 2:52PM ; [facility] Plan of Treatment Major depressive disorder [...] - Last Documented On 05/04/2022 4:12PM ; [facility] Education and Decision Aids were provided during visit for: Discussed calming techniques such as breathing exercises and other relaxation techniques if and when anxious Last Documented On 3 4:05PM ; [facility] Discussed good sleep hygiene habits - balanced meal plan, health supplements but pt said she cannot tolerate protein shakes Last Documented On 3 4:05PM ; [facility] Assessments Includes: Assessments from this encounter Findings - Attention deficit disorder without hyperactivity - Last Documented On 05/04/2022 4:12PM ; [facility] - Major depressive disorder - Last Documented On 05/04/2022 4:12PM ; [facility] - Psychophysiological insomnia - Last Documented On 05/04/2022 4:12PM ; [facility] - Generalized anxiety disorder - Last Documented On 05/04/2022 4:12PM ; [facility] Instructions Includes: Instructions from this encounter Education and Decision Aids were provided during visit for: Discussed calming techniques such as breathing exercises and other relaxation techniques if and when anxious Last Documented On 3 4:05PM ; [facility] Discussed good sleep hygiene habits - balanced meal plan, health supplements but pt said she cannot tolerate protein shakes Last Documented On 3 4:05PM ; [facility] Medical Equipment - Implanted Devices Includes: Current Devices No Medical Equipment Recorded Medications Includes: Medications discussed during this encounter and other current Medications Discontinued / Stopped on this date on 05/01/2021 Adult Aspirin Regimen 81 MG Oral Tablet Delayed Releas e Provider: Diagnosis: Last Documented On 3 11:25AM By NIKKI HOWARD ; [facility] amLODIPine Besylate 5 MG Oral Tablet Prov ider: ERNIE MADRIGAL MD Diagnosis: Last Documented On 3 11:26AM By NIKKI HOWARD ; [facility] New / Renewed during this visit CANDY LEUNG MD on 05/04/2022 traZODone HCl 100 MG Oral Tablet Provider: CANDY LEUNG MD 30 day supply: 90 tablet, 0 refills Diagnosis: Psychophysiologic insomnia as directed -- 3 tabs at bedtime Pharmacy: [address], [id number] - Last Documented On 3 10:16AM By NIKKI OCHOA Rebecca ; [facility] OLANZapine 15 MG Oral Tablet Provider: CANDY LEUNG MD 30 day supply: 30 tablet, 3 refills Diagnosis: Major depressive disorder, recurrent, moderate as directed -- 1 tab at bedtime Pharmacy: [address], [id number] - Last Documented On 3 10:51AM By Nani Leung MD ; [facility] Current Medications (continue as prescribed) EQ Laxative Maximum Strength 25 MG Oral Tablet 023 Provider: Diagnosis: 3 tabs at night Last Documented On 3 10:04AM By NIKKI HOWARD ; [facility] Focalin 5 MG Oral Tablet 06/29/2022 Provider: MET JACQUELINE LEUNG MD Diagnosis: Attn-defct hyper activity disorder, predom inattentive type as directed - 1 tab in am with food Last Documented On 3 11:33AM By Nani Leung MD ; [facility] LORazepam 0.5 MG Oral Tablet 06/29/2022 Provider: CANDY LEUNG MD Diagnosis: Generalized anxi ety disorder as directed - 1/2 - 1 tab a day as needed for severe panic attacks Last Documented On 3 11:33AM By Nani Leung MD ; [facility] OLANZapine 15 MG Oral Tablet 06/29/2022 Provider: CANDY LEUNG MD Diagnosis: Major depressive disorder, recurrent, moderate as directed -- 1 tab at bedtime Last Documented On 3 11:33AM By Nani Leung MD ; [facility] traZODone HCl 100 MG Oral Tablet 06/15/2022 Provider: CANDY LEUNG MD Diagnosis: Psychophysiologi c insomnia as directed 3 tabs at bedtime Last Documented On 06/15/2022 3:36PM By Nani Leung MD ; [facility] Folic Acid 1 MG Oral Tablet 03/31/2022 Provider: SUSIE STOKES FINANCIAL REPRESENTATIVE-C Diagnosis: 1 tab daily Last Documented On 3 11:38AM By NIKKI OCHOA RMA ; [facility] Pramipexole Dihydrochloride 0.75 MG Oral Tablet 09/08/2021 Provider: TIMMY VALENZUELA MD Diagnosis: 2 tabs in the evening Last Documented On 3 11:39AM By NIKKI OCHOA RMA ; [facility] Antacid 200-200-20 MG/5ML Oral Suspension 05/21/2021 Provider: MELANIE PARKINSON MD Diagnosis: as needed Last Documented On 06/06/2021 2:04PM By MICHELLE PARKS ; [facility] Ocuvite Adult 50+ Oral Capsule 05/01/2021 Provider: Diagnosis: 1 cap daily Last Documented On 05/01/2021 3:10PM By NIKKI OCHOA RMA ; [facility] Xyzal 5 MG Oral Tablet 05/01/2021 Provider: Diagnosis: 1 tab daily Last Documented On 05/01/2021 3:10PM By NIKKI OCHOA RMA ; [facility] Biotin 5000 MCG Oral Capsule 05/01/2021 Provider: Diagnosis: 1 cap daily Last Documented On 05/01/2021 3:13PM By NIKKI OCHOA RMA ; [facility] Stool Softener 100 MG Oral Capsule 05/01/2021 Pr ovider: Diagnosis: 1 cap tid Last Documented On 05/01/2021 3:12PM By NIKKI OCHOA RMA ; [facility] Ondansetron HCl 8 MG Oral Tablet 03/13/2021 Provider : MELANIE PARKINSON MD Diagnosis: 2 tab prn nausea/vomiting Last Documented On 05/01/2021 3:04PM By NIKKI OCHOA RMA ; [facility] Anoro Ellipta 62.5-25 MCG/IN H Inhalation Aerosol Powder Breath Activated 03/11/2021 Provider: ERNIE MADRIGAL MD Diagnosis: 1 inhalation daily Last Documented On 05/01/2021 3:07PM By NIKKI OCHOA RMA ; [facility] Cyclobenzaprine HCl 10 MG Oral Tablet 01/06/2021 Pro vider: ERNIE MADRIGAL MD Diagnosis: take 1 tab prn Last Documented On 05/01/2021 3:07PM By NIKKI HOWARD ; [facility] Suspended Medications Sertraline HCl 100 MG Oral Tablet 03/11/2022 Provide r: CANDY LEUNG MD Diagnosis: as directed 1 and 1/2 tabs daily Last Documented On 03/11/2022 4:45PM By Nani Leung MD ; [facility] Past Medications on file Gabapentin 300 MG Oral Capsule 06/29/2022 - 07/29/2022 Provider: Diagnosis: 2 capsules at night Last Documented On 10:02AM By NIKKI HOWARD ; [facility] Focalin 10 MG Oral Tablet 10/14/2021 - 11/13/2021 Provider: CANDY LEUNG MD Diagnosis: Generalized anxi ety disorder as directed -- 1 tab in am Last Documented On 10/14/2021 2:31PM By Nani Leung MD ; [facility] Pramipexole Dihydrochloride 0.75 MG Oral Tablet 08/13/2021 - 11/11/2021 Provider: Diagnosis: 1 afternoon prn and 2 at hs Last Documented On 08/13/2021 9:28AM By NIKKI HOWARD ; [facility] Gabapentin 300 MG Oral Capsule 08/13/2021 - 09/12/2021 Provider: ERNIE MADRIGAL MD Diagnosis: 2 at night Last Documented On 08/13/2021 9:26AM By NIKKI HOWARD ; [facility] DayVigo 5 MG Oral Tablet 05/01/2021 - 05/21/2021 Provider: CANDY LEUNG MD Diagnosis: Psychophysiologi c insomnia as directed -- 1 tab at hs a s needed for sleep Last Documented On 05/01/2021 4:02PM By Nani Leung MD ; [facility] Medications Administered Includes: Administered Medications from [...] Last Documented: On 05/04/2022 11:44A M ; [facility] Results Includes: Results [...] 92 y/o father is now in the [facility] and she was told that her father is supposed to live only for 3 - 6 months. He has severe foot infection, CHF and other health issues. It has been hard for her to even visit her father at the [facility] but here sister has been making the [...] 05/04/2022 Last Documented On 3 4:12PM ; [facility] Patient reported that she wa s [...] past or pending legal history. Patient enjoys [employer] and quaker. 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 05/01/2021 Last Documented On 3 11:23AM ; [facility] Former smoker - quit smoking 2012 Last Documented On 3 11:23AM ; [facility] Smoking Status Unknown Procedures and Surgical History Includes: Procedures from this encounter Procedures Code Diagnosis Performing Provider Service L ocation Service Date education and instructions Last Documented On 3 11:23AM ; [facility] I discussed the risks, benef its and side effects of Olanzapine to the patient including the possibility of metabolic and motor side effects such as tardive dyskinesia Last Documented On 3 11:41AM ; [facility] dangerousness assessment: suicide risk -not chase cidal 3085F Last Documented On 3 11:23AM ; [facility] use of tobacco assessment performed 1000F Last Documented On 3 11:24AM ; [facility] patient screened for future fall risk - no recen t falls 3288F Last Documented On 3 11:24AM ; [facility] review of medications documented 1160F Last Documented On 3 11:24AM ; [facility] screening for adult depressi on: impression and score - please see above treatment and PHQ score Last Documented On 3 11:24AM ; [facility] standardized depression screening: posit lauryn for symptoms Last Documented On 3 11:24AM ; [facility] Clinical summary provided to patient Last Documented On 3 11:23AM ; [facility] PHQ-9: total score 11 Last Documented On 3 4:04PM ; [facility] Surgical History Last Updated History of total shoulder replacement - bilateral -- 2016 and 201806/29/2022 Last Documented On 3 11:23AM ; [facility] History of lumbar vertebral fusion - 03/12/22 fusion of T1 - L1 -- given Mupirocin ointment 2%; 12/2020 -- including thoracic -- Dr. Jorge Aranda -- Joss 05/04/2022 Last Documented On 3 4:12PM ; [facility] History of endoscopic insert ion of stent of pancreatic duct - abdominal drain - 01/2019 and 02/201902/02/2022 Last Documented On 3 11:23AM ; [facility] History of splenectomy - 12/31/201802/02 Last Documented On 3 11:23AM ; [facility] History of cervical vertebra l fusion and cervical decompression in 2002 and 200705/02/2021 Last Documented On 3 11:23AM ; [facility] History of hip replacement - bilateral - - 2019 and 202005/01/2021 Last Documented On 3 11:23AM ; [facility] History of knee replacement - bilateral -- 2000 and 200105/01/2021 Last Documented On 3 11:23AM ; [facility] History of cholecystectomy - 2007 Last Documented On 3 11:23AM ; [facility] History of appendectomy - 1971 Last Documented On 3 11:23AM ; [facility] Medical History Includes: Medical History addressed during this encounter Description Last Updated History of iron deficiency anemia 2022 Last Documented On 3 11:23AM ; [facility] History of iron deficiency a tj - had 2 iron infusions 04/21/22 since her Hgb went down to 7.3 last 03/2022 but now it went back up to 10.3 last 04/202205/04/2022 Last Documented On 3 4:12PM ; [facility] History of constipation - has tried Derick luis 05/04/2022 Last Documented On 3 11:23AM ; [facility] History of constipation - seen at [facility] given emema 05/04/2022 Last Documented On 3 4:12PM ; [facility] History of dysuria - given Cipro 250 mg 02/03/22 05/04/2022 Last Documented On 3 4:12PM ; [facility] History of cough - given Tessalon Perles 100 mg 04/01/22 05/04/2022 Last Documented On 3 4:12PM ; [facility] History of urinary retention - given Zayas sulosin 0.4 mg 04/08/22 05/04/2022 Last Documented On 3 4:12PM ; [facility] Primary Care Provider: Dr. Adriana Madrigal ~Dr. Melanie Parkinson -- Can Stacker ~Dr. Jorge Hsieh -- Orthopedist ~Dr. Timmy Mclean -- Neurologist ~Dr. Alberto Valdez -- Shoulder Surgeon at [facility] ~Dr. Rg Montgomery -- Dentist ~Dr. Luis Handley - Pain Mgt 05/04/2022 Last Documented On 3 4:12PM ; [facility] History of tooth extraction - given Zpak 250 mg for prophylaxis purposes 08/13/2021 Last Documented On 3 11:23AM ; [facility] History of colonoscopy - 201 9 -- botched per patient leading to weight loss 08/13/2021 Last Documented On 3 11:23AM ; [facility] History of coronavirus 2019- nCoV vaccine - Moderna #1 06/2020 #2 06/2020 #3 03/25/21 05/01/2021 Last Documented On 3 11:23AM ; [facility] History of osteoarthritis of multiple sites - accelerated degenerative disk and joint disease 05/01/2021 Last Documented On 3 11:23AM ; [facility] History of splenic laceration - requirin g slenectomy 05/01/2021 Last Documented On 3 11:23AM ; [facility] History of spinal stenosis - lumbar and thoracic 05/01/2021 Last Documented On 3 11:23AM ; [facility] History of restless legs syndrome 2021 Last Documented On 3 11:23AM ; [facility] History of chronic peptic ulcer 05/01/19 22 Last Documented On 3 11:23AM ; [facility] History of chronic obstructive pulmonary disease 05/01/2021 Last Documented On 3 11:23AM ; [facility] History of tricuspid regurgitation 05/01 Last Documented On 3 11:23AM ; [facility] History of mitral regurgitation 05/01/19 22 Last Documented On 3 11:23AM ; [facility] History of aortic regurgitation 05/01/19 22 Last Documented On 3 11:23AM ; [facility] Family History Includes: Family History addressed during this encounter Description Last Updated Sororal history of dementia of Alzheimer's type with early onset - oldest sister - and depression 05/01/2021 Last Documented On 3 11:23AM ; [facility] Review of Systems Includes: Review of [...] [facility] Note: Imported from external source. Valium Allergy Nausea, Vomiting, Diarrhea / Diarrheal disorder 04/01/2015 Active Last Documented On 07/05/2023 10:12AM ; [facility] Note: Imported from external source. Sulfa Antibiotics Allergy Nausea, Vomiting, Diarrhea / Diarrheal disorder 08/13/2021 Active Last Documented On 07/05/2023 10:12AM ; [facility] Note: Imported from external source. Percocet Allergy Nausea, Vomiting, Diarrhea / Diarrheal disorder 04/01/2015 Active Last Documented On 07/05/2023 10:12AM ; [facility] Note: Imported from external source. Morphine Sulfate Allergy Nausea, Vomiting, Diarrhea / Diarrheal disorder 04/01/2015 Resolved Last Documented On 09/22/2022 11:29AM ; [facility] Note: Imported from external source. Morphine Sulfate Allergy Nausea, Vomiting, Diarrhea / Diarrheal disorder 04/01/2015 Active Last Documented On 10:12AM ; [facility] Ancef Allergy Nausea, Vomiting , Diarrhea / Diarrheal disorder 04/01/2015 Active Last Documented On 07/05/2023 10:12AM ; [facility] Note: Imported from external source. Encounters Encounter Provider Location Date Check-In Time Check-Out Time Diagnosis [facility] CANDY LEUNG MD [facility] 05/04/19 23 11:23AM 11:59PM Generalized Anxiety Disorder,Psycho physiological Insomnia,Attent ion Deficit Disorder Without Hyperactivity,M ajor Depression Insurance Includes: Active Insurance Policies Plan Name Member ID Group # Subscriber Relationship Effect lauryn Dates 1 - [employer]AGE [id number] [place] Self Clinical Notes Includes: Clinical Notes from this encounter No Clinical Notes Recorded
--- OUTSIDE RECORDS SUMMARY | 2024-06-08 08:48 | XMS_ITS | Clinical Summary ---
Author Organization [facility] Address [address] [place] [address] Phone Care Team Providers Care Margin Trimmer Name Role Phone Rinku Suresh MD Primary Care Provider [phone] Allergies Active Allergy Reactions Criticality Noted Date [...] daily. Active fluticasone propionate (FLONASE) 50 mcg/spray Johnston, Suspension nasal inhaler Administer 2 Sprays in [...] Nausea/Vomiting 40 Tablet 1 03/21/2019 10:19 AM SLEEVE BOTTOM FELLER 9 Active omeprazole (PriLOSEC) 20 mg Capsule, [...] on file Legal Sex Female 5:11 AM SLEEVE BOTTOM FELLER Gender Identity Not on file Sexual Orientation [...] 03/21/2019, 01/06/2019 Medical Devices Implanted Type Area Transportation Economics Teacher Device Identifier Shelf Expiration Date Model / Serial / Lot Barrier Seprafilm 3x5in [id number] - [id number] Implanted:Qty: 1 on 12/31/2018 by Desmond Nix MD at [facility] Adhesion Barrier N/A: Abdomen [employer] [id number] 03/04/2021 [id number] / / [id number] Coil Embol Pod Packing [id number]/26 /2019 Implanted:Qty: 2 on 12/29/2018 by Chantelle Kimball MD Coil Left: Arterial [employer] 11/09/2026 [id number] / [id number] / [id number] Description:Pod Packing coil 60 cm implanted in splenic artery Coil Embol Pod5 Cmplx 5mm 30cm Rbypod5- [id number] Implanted:Qty: 1 on 12/29/2018 by Chantelle Kimball MD Coil Left: Arterial [employer] 10/18/2026 [id number] / [id number] / [id number] Description:Pod 5 coil 30 cm implanted in splenic artery Coil-12/29/2018 Implanted:Qty: 1 on 12/29/2018 by Chantelle Kimball MD Coil Left: Arterial 06/19/2023 [id number] / [id number] / [id number] Description:MicroNester Embo lization COil 4 mm x 7 cm implanted in splenic artery Stent Pncrtc Frmn Flx 5fr 5cm 6552 - [id number] Implanted:Qty: 1 on 03/17/2019 by Eduardo Hernandez MD at [facility] Stent N/A: Pancreas [facility] [id number] 01/04/2024 [id number] / / [id number] Insurance RX [employer] Medicare Part D RX [employer] (INTERNAL) [facility] Advance Directives For more information, please contact: [phone] * Full Code (Latest Code Status on [...] 6:02 PM 02/02/2019 3:40 PM Care Teams Margin Trimmer Relationship Specialty Start Date End Date Rinku Suresh MD [address] [place] [phone] PCP - General Internal Medicine 12/24/18
--- OUTSIDE RECORDS SUMMARY | 2024-06-08 08:48 | XMS_ITS | Clinical Summary ---
Author Organization [facility] Address [address] [place] [id number] Care Team Providers Care Valve Inserter Name Role Phone Unavailable Primary Care Provider [...]
--- OUTSIDE RECORDS SUMMARY | 2024-06-08 08:48 | XMS_ITS | Clinical Summary ---
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 02/13/2022 Overview (02/13/2022): Added automatically from request for surgery [id number] Esophageal dysphagia 07/03/2021 Overview (07/03/2021): Added automatically from request for surgery [id number] Psychophysiological insomnia 05/01/2021 Generalized anxiety disorder 05/01/2021 Attention deficit disorder without hyperactivity 05/01/2021 Encounter for postoperative wound check 01/14/20 21 Epigastric pain 01/06/2021 Overview (01/06/2021): Added automatically from request for surgery [id number] Chest pain 01/06/2021 Overview (01/06/2021): Added automatically from request for surgery [id number] Spinal stenosis of lumbar re gion without neurogenic claudication 12/12/2020 GERD (gastroesophageal reflux disease) Depression 12/11/2020 Allergic rhinitis 12/11/2020 Thoracic stenosis 11/21/2020 Functional tremor 02/26/2020 Abnormality of gait and mobility 02/26/2020 Primary osteoarthritis of right hip 2019 Overview (2019): Added automatically from request for surgery [id number] Chronic obstructive pulmonary disease (CMS/[facility]) 11/01/2019 Other chronic pancreatitis 09/29/2019 Pancreatic [...] encounter. Assessment & Plan (04/23/2023 12:36 PM ROTARY SOIL STABILIZER): Ms. Eloisa Enciso is a 62 y.o. 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 Assessment & Plan (03/03/2021 8:46 PM ROTARY SOIL STABILIZER): Ms. Eloisa Enciso is a 60 y.o. 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 Assessment & Plan (02/26/2020 9:07 AM ROTARY SOIL STABILIZER): Ms. Eloisa Enciso is a 59 y.o. [...] (03/11/2020): Added automatically from request for surgery [id number] Esophageal dysphagia 03/11/2020 021 Overview (03/11/2020): Added automatically from request for surgery [id number] Abnormal weight loss 03/11/2020 021 Overview (03/11/2020): Added automatically from request for surgery [id number] Hip pain 12/06/2019 05/16/2020 Abdominal pain 11/01/2019 [...] Department Care Team Description 06/05/2024 10:15 AM ROTARY SOIL STABILIZER Office Visit [facility] Multiple Sclerosis [address] 7th [place] [address] Vicky Alas CNS Multiple sclerosis (HCC) (Primary Dx); Immunosuppression due to drug therapy; High risk medication use; Medication monitoring encounter; Abnormal MRI; Spasticity; Abnormality of gait and mobility; Dysesthesia of multiple sites 05/31/2024 3:30 PM ROTARY SOIL STABILIZER Office Visit [facility] Neuro Sleep [address] 6th [address] [place] [address] Madeline Chino DNP WILLEM (obstructive sleep apnea) (Primary Dx); Sleep apnea, unspecified type; Cognitive change; Myelopathy (HCC); Other chronic pancreatitis (HCC); Chronic obstructive pulmonary disease, unspecified COPD type (HCC); Snoring 05/30/[address] [place] [address] Radhika Watson RN 05/30/2024 Orders Only [address] [place] [phone] Bonnie Mcintosh, RN 05/30/[address] [place] [address] Bonnie Mcintosh, RN 05/29/2024 2:00 PM ROTARY SOIL STABILIZER Lab [facility] Outpatient Lab at [address] [place] [address] 05/29/2024 1:51 PM ROTARY SOIL STABILIZER - 05/29/2024 11:59 PM ROTARY SOIL STABILIZER Hospital Encounter [address] [address] Multiple sclerosis (HCC) Discharge Disposition: Discharge to home or self care 05/29/2024 7:33 AM ROTARY SOIL STABILIZER - 05/29/2024 11:59 PM ROTARY SOIL STABILIZER Hospital Encounter [facility] [address] [place] [address] Luis Handley MD Degeneration 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 (Primary Dx); Multiple sclerosis (HCC); Primary osteoarthritis of right hip; Radiculopathy of cervicothoracic region; Spinal stenosis of lumbar region without neurogenic claudication; Chronic prescription opiate use Discharge Disposition: Discharge to home or self care 05/28/2024 Patient Self-T[address] [facility] [address] [place] [address] Mychart, Generic Provider 05/26/2024 Telephone [facility] [address] [place] [address] Yoshi Hussein MD 05/19/2024 10:00 AM ROTARY SOIL STABILIZER Office Visit [facility] Urology [address] [place] [address] Lolis Mckeon NP Urge incontinence (Primary Dx); Overactive bladder 05/17/2024 3:15 PM ROTARY SOIL STABILIZER Office Visit [facility] Orthopaedic Surgery [address] [place] [address] for Advanced Medicine 12th [place] [address] [place] [address] Alberto Valdez MD Left shoulder pain, unspecified chronicity (Primary Dx) 05/17/2024 1:22 PM ROTARY SOIL STABILIZER - 05/17/2024 11:59 PM ROTARY SOIL STABILIZER Hospital Encounter [facility] [address] [place] [phone] Left shoulder pain, unspecified chronicity Discharge Disposition: Discharge to home or self care 04/18/2024 Documentation [facility] Multiple Sclerosis [address] [place] [phone] Dee Tran RN 04/11/2024 8:00 AM ROTARY SOIL STABILIZER Telemedicine [facility] Multiple Sclerosis [facility] [address] [facility] [address] [place] [address] Yoshi Hussein MD Multiple sclerosis (HCC) (Primary Dx); High risk medication use; Myelopathy (HCC); Spasticity; Sleep apnea, unspecified type; Cognitive change; Restless leg syndrome 03/27/2024 Orders Only [facility] [place] [facility] [address] [place] [address] Luis Handley MD from Last 3 Months [...] How often do you attend chur or presybeterian services? Never 03/18/2022 Do you belong to any clubs o r organizations such as restorationism groups, unions, fraternal or athletic groups, or [...] place to sleep or slept in a senior living (including now)? No 03/18/2022 Personal Safety Answer Date Recorded Have you ever been in or are you currently in a harmful physical or emotional relationship or is someone making you feel afraid or unsafe? 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 Not on file Not on file Obstetrics History Last Filed Vital Signs Vital Sign Reading Time Taken Comments Blood Pressure 126/74 06/05/2024 10:03 AM ROTARY SOIL STABILIZER Pulse 71 06/05/2024 10:03 AM ROTARY SOIL STABILIZER Temperature 36.8 C (98.2 F) 05/31/2024 2:53 PM ROTARY SOIL STABILIZER Respiratory Rate 18 05/29/2024 7:34 AM ROTARY SOIL STABILIZER Oxygen Saturation 96% 05/31/2024 2:53 PM ROTARY SOIL STABILIZER Inhaled Oxygen Concentration - - Weight 60.3 kg (133 lb) 06/05/2024 10:03 AM ROTARY SOIL STABILIZER Height 162.6 cm (5' 4 ) 06/05/2024 10:03 AM ROTARY SOIL STABILIZER Body Mass Index 22.83 06/05/2024 10:03 AM ROTARY SOIL STABILIZER Plan of Treatment Health Maintenance Due Date [...] lighting, especially on stairs Contact your local [facility] or [facility] for information on exercise, fall prevention [...] lighting, especially on stairs Contact your local [facility] or [facility] for information on exercise, fall prevention programs, or options for improving home safety. Medical Devices Implanted Type Area Heel Gouger Device Identifier Shelf Expiration Date Model / Serial / Lot Carotid Stent Stent N/A: Carotid Pancreatic Stent-03/17/20 19 Implanted:03/05 (Quantity not on file) Stent N/A: Pancreas Total Knee Replacement Bilateral: Knee Shoulder Replacement Bilateral: Shoulder Cervical Fusion N/A: Spine Cervical Total Hip Replacement Left: Hip [facility] [id number] [place] 50mm Sector Hip Shell Acetabular Gription Sterile Latex Free - [id number] Implanted:Qty: 1 on 01/10/2020 by Jaiden Gonzalez MD at [facility] Right: Hip [employer] 07/03/2029 [id number] / / [id number] [employer] [id number] [place] 50mm 32mm Hip Neutral Liner Acetabular Altrx Sterile Latex Free - [id number] Implanted:Qty: 1 on 01/10/2020 by Jaiden Gonzalez MD at [facility] Right: Hip [employer] 11/02/2024 [id number] / / [id number] [employer] [id number] Actis Collared Hip 12/14 6 Standard Offset Stem Femoral - [id number] Implanted:Qty: 1 on 01/10/2020 by Jaiden Gonzalez MD at [facility] Right: Hip [employer] 12/03/2029 [id number] / / [id number] [employer] [id number] Articul/Ivan 32mm Hip +5mm 12/14 Taper Head Femoral Biolox Delta Latex Free - [id number] Implanted:Qty: 1 on 01/10/2020 by Jaiden Gonzalez MD at [facility] Right: Hip [employer] 11/02/2024 [id number] / / [id number] Allosource [id number] Crushed Chip Frozen Graft 60ml Bone Cancellous - [id number] Implanted:Qty: 1 on 12/12/2020 by Jorge Hsieh MD at [facility] N/A: Spine Lumbar [employer]osource 10/06/2025 [id number] / / [id number] Medtronic Sofamor Danek [id number] Mastergraft Matrix Block Extension Void Filler Substitute 10ml - [id number] Implanted:Qty: 1 on 12/12/2020 by Jorge Hsieh MD at [facility] N/A: Spine Lumbar Medtronic Inc [id number] 05/05/2023 [id number] / / [id number] Medtronic Sofamor Danek [id number] Infuse 18mm 26mm Absorbable Sponge Sterile Water Syringe Needle - [id number] Implanted:Qty: 1 on 12/12/2020 by Jorge Hsieh MD at [facility] N/A: Spine Lumbar Medtronic Inc 09/02/2022 [id number] / / [id number] Medtronic Sofamor Danek [id number] Solera Cd Horizon 6.5mm 45mm Multiaxial Spine Screw Bone Cocr - [id number] Implanted:Qty: 8 on 12/12/2020 by Jorge Hsieh MD at [facility] N/A: Spine Lumbar Medtronic Inc [id number] / / Medtronic Sofamor Danek [id number] Solera Cd Horizon 7.5mm 45mm Multiaxial Spine Screw Bone Cocr - [id number] Implanted:Qty: 2 on 12/12/2020 by Jorge Hsieh MD at [facility] N/A: Spine Lumbar Medtronic Inc [id number] / / Medtronic Sofamor Danek [id number] Cd Horizon Break Off Spinal Screw Set Titanium Nonsterile 5.5 Mm - [id number] Implanted:Qty: 13 on 12/12/2020 by Jorge Hsieh MD at [facility] N/A: Spine Lumbar Medtronic Inc [id number] / / Medtronic Inc [id number] Cd Horizon 6mm 500mm Line Straight Harsh Spinal Titanium Nonsterile - [id number] Implanted:Qty: 2 on 12/12/2020 by Jorge Hsieh MD at [facility] N/A: Spine Lumbar Medtronic Inc [id number] / / Medtronic Inc Infuse 18mm Sponge [id number] - [id number] Implanted:Qty: 2 on 03/12/2022 by Jorge Hsieh MD at [facility] N/A: Spine Thoracic Medtronic Inc 08/03/2023 [id number] / / [id number] Allosource Crushed Chip Frozen Graft 60ml Bone Cancellous [id number] - [id number] - [id number] Implanted:Qty: 1 on 03/12/2022 by Jorge Hsieh MD at [facility] All[employer]ource 02/14/2026 [id number] / [id number] / - Allosource Crushed Chip Frozen Graft 60ml Bone Cancellous [id number] - [id number] - [id number] Implanted:Qty: 1 on 03/12/2022 by Jorge Hsieh MD at [facility] [employer] 04/08/2026 [id number] / [id number] / - Medtronic Inc Cd Horizon Break Off Spinal Screw Set Titanium Nonsterile 5.5 Mm [id number] - [id number] Implanted:Qty: 29 on 03/12/2022 by Jorge Hsieh MD at [facility] Med[employer]onic Inc [id number] / / Medtronic Inc Solera Cd Horizon 5.5mm 30mm Multiaxial Spine Screw Bone Cocr [id number] - [id number] Implanted:Qty: 1 on 03/12/2022 by Jorge Hsieh MD at [facility] Med[employer] Inc [id number] / / Medtronic Inc Solera Cd Horizon 5.5mm 35mm Multiaxial Spine Screw Bone Cocr [id number] - [id number] Implanted:Qty: 1 on 03/12/2022 by Jorge Hsieh MD at [facility] N/A: Spine Thoracic Medtronic Inc [id number] / / Medtronic Inc Solera Cd Horizon 6.5mm 30mm Multiaxial Spine Screw Bone Cocr [id number] - [id number] Implanted:Qty: 2 on 03/12/2022 by Jorge Hsieh MD at [facility] N/A: Spine Thoracic Medtronic Inc [id number] / / Medtronic Inc Solera Cd Horizon 6.5mm 40mm Multiaxial Spine Screw Bone Cocr [id number] - [id number] Implanted:Qty: 12 on 03/12/2022 by Jorge Hsieh MD at [facility] N/A: Spine Thoracic Medtronic Inc [id number] / / Medtronic Inc Solera Cd Horizon 7.5mm 45mm Multiaxial Spine Screw Bone Cocr [id number] - [id number] Implanted:Qty: 4 on 03/12/2022 by Jorge Hsieh MD at [facility] N/A: Spine Thoracic Medtronic Inc [id number] / / Medtronic Inc [place] Spine Offset Connector Harsh 3.5-5.5/6mm Harsh [id number] - [id number] Implanted:Qty: 2 on 03/12/2022 by Jorge Hsieh MD at [facility] N/A: Spine Thoracic Medtronic Inc [id number] / / Medtronic Inc Longitude Ii 5.5mm 500mm Straight Harsh Spinal Cocr Molybdenum [id number] - [id number] Implanted:Qty: 2 on 03/12/2022 by Jorge Hseih MD at [facility] N/A: Spine Thoracic Medtronic Inc [id number] / / Explanted Type Area Heel Gouger Device Identifier Shelf Expiration Date Model / Serial / Lot Lumbar Fusion Explanted:Qty: 1 on 12/12/2020 by Jorge Hsieh MD at [facility] N/A: Spine Lumbar Description:5 set screws, 2 rods, 4 screws Procedures Procedure Name Priority Date/Time Associated Diagnosis Comments URINALYSIS, MICROSCOPIC ONLY Routine 05/29/2024 1:51 PM ROTARY SOIL STABILIZER Multiple sclerosis (HCC) URINALYSIS AND REFLEX TO MICROSCOPIC AND CULTURE Routine 05/29/2024 1:51 PM ROTARY SOIL STABILIZER Multiple sclerosis (HCC) MEASURE POST VOID RESIDUAL Routine 05/19/2024 10:04 AM ROTARY SOIL STABILIZER Urge incontinence [place] ARTHROCENTESIS ASPIR&/INJ MAJOR JT/BURSA W/O US Routine 05/17/2024 3:15 PM ROTARY SOIL STABILIZER Left shoulder pain, unspecified chronicity XR SHOULDER LEFT 2 OR MORE VIEWS Schedule Routine, Read Routine (OP Routine) 05/17/2024 1:31 PM ROTARY SOIL STABILIZER Left shoulder pain, unspecified chronicity HEPATITIS C [...] microscopic and culture Urine (05/29/2024 1:51 PM ROTARY SOIL STABILIZER) Color, ur Yellow Yellow Clarity, ur Clear [...] for uric acid stone formation. Source: [facility] Current Interpretive Data was last revised on [...] be performed. CERNER Urine 05/29/2024 1:51 PM ROTARY SOIL STABILIZER 05/29/2024 9:06 PM ROTARY SOIL STABILIZER us Chinmay Carmona MD LAB MICROBIOLOGY - GENERAL ORDER EBONY Final Result [facility] [address] Department [place] [address] * Urinalysis, microscopic only (05/29/2024 1:51 PM ROTARY SOIL STABILIZER) WBC, ur 0-5 0 - 5 /HPF RBC, ur 0-2 0 - 2 /HPF CERNER Epithelial cells, squamous, ur 1-5 0 - 5 /HPF CERNER CH Culture Reflex Comment Reflex conditions for urine culture (WBC >10) not met. CERNER Urine 05/29/2024 1:51 PM ROTARY SOIL STABILIZER 05/29/2024 9:06 PM ROTARY SOIL STABILIZER us Chinmay Carmona MD LAB URINE ORDERABLES Final Resul t [facility] [address] Department of Laboratories [place] [id number] * Measure post void residual (05/19/2024 10:04 AM ROTARY SOIL STABILIZER) Narrative Madison Moura LPN - 05/19/2024 10:04 AM ROTARY SOIL STABILIZER Measurement of post-voiding residual urine and/or bladder capacity by ultrasound, non-imaging. PVR = 20 mL us Lolis Mckeon ROENTGENOLOGIST NURSING ASSESSMENTS Final Res ult * [place] ARTHROCENTESIS ASPIR&/INJ MAJOR JT/BURSA W/O US (05/17/2024 3:15 PM ROTARY SOIL STABILIZER) Narrative Alberto Valdez MD - 05/17/2024 3:15 PM ROTARY SOIL STABILIZER Alberto Valdez MD 05/18/2024 7:04 AM Large [...] Shoulder Left 2+ View (05/17/2024 1:31 PM ROTARY SOIL STABILIZER) Anatomical Region Laterality Modality Upper Extremities, Shoulder Left Comp uted Radiography 05/17/2024 1:58 PM ROTARY SOIL STABILIZER Impressions 05/17/2024 8:48 PM ROTARY SOIL STABILIZER Moderate rotator cuff arthropathy of the left shoulder. Dictated by: Wayne Siu M.D. The radiology attending physician has personally reviewed this study, and had reviewed and/or edited this written report and agrees with it. Electronically signed by: Mir Acosta M.D. Narrative 05/17/2024 8:48 PM ROTARY SOIL STABILIZER EXAMINATION: XR SHOULDER LEFT 2 OR MORE [...] last revised on 2019. Testing performed by: [facility], [address] [place] [address]., [address] Blood 01/07/2024 10:5 6 AM CDT 01/07/2024 1:39 PM CDT us Yoshi Hussein MD LAB MICROBIOLOGY - GENERAL ORD ERABLES Final Result [facility]) [address] [facility] Department [place] [address] * Colonoscopy (06/17/2023 10:12 AM CDT) Anatomical Region Laterality Modality Other Narrative Procedure Note Melanie Parkinson MD - 06/17/2023 10:12 AM CDT ENDOSCOPY LAB Patient Name: Eloisa Enciso Procedure Date: 06/17/2023 10:12 AM Date of : 1960 Admit Type: Outpatient Age: 62 Gender: Female Attending MD: Melanie Parkinson M.D. Room: [facility] ENDOSCOPY ROOM 01 Note Status: Finalized [...] The scope was passed under direct vision.The [id number] was introduced through the anusand advanced to [...] your results within this timeframe, please call [phone] regarding your results. - Contact Information: During normal business hours - [facility] Coordinator: [phone] After hours, evening, nights, weekends and holidays- Please call the hospital bulldozer operator at and ask for the GI fellow production tech. - . Attending Participation: I personally performed the entire procedure. Electronically Signed By: Melanie Parkinson M.D. Melanie Parknison M.D. 06/17/2023 10:50:39 AM Number of Addenda: [...] Bone mineral density was performed on a HoloWappwolf Discovery Densitometer. Based on machine cross-calibration and [...] by the International Society of Clinical Densitometry. [id number] Jorge Hsieh MD [facility] DXA PROCEDURES Fin al Result from Last 3 Months or Most Recently Relevant to Health Maintenance Insurance [facility]ICARE [facility] MEDICARE SUPPLEMENT MEDICARE [employer] [facility] MEDIC[facility] Address: [address] [address] [place] [address] MEDICARE [facility] MDCR HMO REF [facility] MEDIC[facility] Address: [address] [address] [place] [address] [facility] MEDICARE SUPPLEMENT Advance Directives For more information, please contact: [phone] * Full Code (Latest Code Status on [...] 10:48 AM 08/07/2021 7:10 PM Care Teams Excelsior Cutter Relationship Specialty Start Date End Date Rinku Suresh MD [address] [place] [address] PCP - General 06/10/16 Johanny Alvarez, PA [address] [place] [address] Orthopedic Surgery 01/11/20
--- OUTSIDE RECORDS SUMMARY | 2024-06-08 08:48 | XMS_ITS | Clinical Summary ---
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 Name Role Phone JOS HAMILTON, RENU Valerio Unavailable [phone] ELIDIA BARNETT, NAREN Lozano Unavailable [phone] ROHAN HAMILTON, ERNIE Hinds Primary Care Provider [phone] VELVET HAMILTON, BUD Fernandez Unavailable [phone] DANNI HAMILTON, CANDY MITCHELL Unavailable [phone] Reason for Visit and Chief Complaint * PHONE CALL Problems Includes: Problems addressed during this encounter and other active Problems All Visits Onset Date Resolved Date Provider Condition S tatus Panic Disorder 05/06/2023 CANDY Wright Active Last Documented On 4 8:48PM ; [facility] Marijuana By Prescription 07/27/2022 SUSIE STOKES [employer]IER[employer] Active Last Documented On 3 8:03PM ; [facility] Folic Acid Deficiency 03/31/2022 SUSIE BARRERA [employer]ANT [employer]IER[employer]C Active Last Documented On 2 9:21AM ; [facility] Hyperlipidemia 07/02/2021 SUSIE STOKES FN P-C Active Last Documented On 2 12:57PM ; [facility] Attention Deficit Disorder Without Hyperactivity 2 Active Last Documented On 3 5:53PM ; [facility] Generalized Anxiety Disorder 05/01/2021 Active Last Documented On 3 5:53PM ; [facility] Psychophysiological Insomnia 05/01/2021 Active Last Documented On 3 5:53PM ; [facility] Major Depression 05/01/2021 Active Last Documented On 3 5:53PM ; [facility] Iron Deficiency Anemia 01/27/2021 SUSIE Fernandez [employer] Active Last Documented On 1 9:09AM ; [facility] Aortic Regurgitation 01/21/2021 SUSIE Fernandez [employer] Active Last Documented On 01/21/2021 9:23AM ; [facility] Note: mild on ECHO 2020. Mitral Regurgitation 01/21/2021 SUSIE Fernandez [employer] Active Last Documented On 01/21/2021 9:22AM ; [facility] Note: mild on ECHO 2020. Tricuspid Regurgitation 01/21/2021 ROSALIND Fernandez [employer] Active Last Documented On 01/21/2021 9:23AM ; [facility] Note: mild on ECHO 2020. Constipation 11/27/2020 SUSIE Fernandez [employer] Active Last Documented On 1 9:08AM ; [facility] Spinal Stenosis Lumbar 11/27/2020 SUSIE Fernandez [employer] Active Last Documented On 1 7:54AM ; [facility] Spinal Stenosis Thoracic 11/27/2020 SUSIE Gonzalez [employer] Active Last Documented On 1 7:53AM ; [facility] Chronic Obstructive Pulmonary Disease 12/28/2019 SUSIE Fernandez [employer] Active Last Documented On 0 10:52AM ; [facility] Splenic Laceration 01/12/2019 ERNIE Wright Active Last Documented On 01/12/2019 11:00AM ; [facility] 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 [facility] Depression with Anxiety 09/26/2012 ERNIE SHEPHERD MD Active Last Documented On 5 10:05AM ; [facility] Restless Legs Syndrome 09/26/2012 ERNIE ROSALES MD Active Last Documented On 5 10:05AM ; [facility] Peptic Ulcer Chronic 05/31/2012 ERNIE MADRIGAL MD Active Last Documented On 5 10:04AM ; [facility] Osteoarthritis Generalized Multiple Sites 05/31/2012 ERNIE MARDIGAL MD Active Last Documented On 5 10:05AM ; [facility] Plan of Treatment Future Appointments Date Time Location Provi ronel PSYCH ADULT FOLLOW UP 06/13/2024 10:00AM [facility] CANDY LEUNG MD Last Documented On 11:09AM ; [facility] Assessments Includes: Assessments from this encounter [...] 08/23/2023 6:32PM By ERNIE MADRIGAL MD ; [facility] LORazepam 0.5 MG Oral Tablet 08/23/2023 Provider: CANDY LEUNG MD Diagnosis: Generalized anxi ety disorder as directed - 1/2 - 1 tab a day as needed for severe panic attacks Last Documented On 08/23/2023 1:38PM By Nani Leung MD ; [facility] Focalin 10 MG Oral Tablet 08/12/2023 Provider: CANDY LEUNG MD Diagnosis: Attention-defici t hyperactivity disorder, unspecified type as directed 1 tablet in the morning and 1 tablet at noon Last Documented On 08/12/2023 10:36AM By Nani Leung MD ; [facility] traZODone HCl 100 MG Oral Tablet 07/20/2023 Provider: CANDY LEUNG MD Diagnosis: Psychophysiologi c insomnia as directed 4 tabs at bedtime Last Documented On 07/20/2023 3:22PM By Nani Leung MD ; [facility] Pramipexole Dihydrochloride 0.75 MG Oral Tablet 06/15/2023 Provider: ERNIE MADRIGAL MD Diagnosis: 2 at 5 pm and 2 at bedtime Last Documented On 07/05/2023 10:11AM By NIKKI HOWARD ; [facility] Sertraline HCl 100 MG Oral Tablet 05/31/2023 Provider: CANDY LEUNG MD Diagnosis: Major depressive disorder, recurrent, unspecified ud - as directed as directed 2 tabs daily Last Documented On 05/31/2023 10:55AM By Nani Leung MD ; [facility] Levocetirizine Dihydrochloride 5 MG Oral Tablet 2023 Provider: Diagnosis: Last Documented On 05/14/2023 8:57AM By Alyssa HOWARD ; [facility] Vitamin D 25 MCG (1000 UT) Oral Tablet 05/14/2023 Pr ovider: Diagnosis: Last Documented On 05/14/2023 8:58AM By Alyssa HOWARD ; [facility] Trelegy Ellipta 100-62.5-25 MCG/ACT Inhalation Aerosol Powder Breath Activated 05/14/2023 Provider: SUSIE CARLTON Diagnosis: Chronic obstruct lauryn pulmonary disease, unspecified 1 puff daily Last Documented On 4 9:31AM By Susie CARLTON ; [facility] Famotidine 20 MG Oral Tablet 05/14/2023 Provider: SUSIE CARLTON Diagnosis: Gastro-esophagea l reflux disease without esophagitis take 1-2 tabs daily Last Documented On 4 9:47AM By Susie CARLTON ; [facility] traZODone HCl 100 MG Oral Tablet 03/16/2023 Provider: CANDY LEUNG MD Diagnosis: Psychophysiologi c insomnia as directed 5 tabs at bedtime Last Documented On 03/16/2023 12:00PM By Nani Leung MD ; [facility] HYDROcodone-Acetaminophen 10 -325 MG Oral Tablet 02/23/2023 Provider: BUD VERDIN MD Diagnosis: use prn Last Documented On 03/16/2023 11:27AM By NIKKI HOWARD ; [facility] EQ Laxative Maximum Strength 25 MG Oral Tablet 023 Provider: Diagnosis: 3-4 tabs at night Last Documented On 09/22/2022 11:16AM By NIKKI HOWARD ; [facility] Stool Softener 100 MG Oral Tablet 07/02/2021 Provide r: Diagnosis: 3 times daily Last Documented On 07/02/2021 8:37AM By Alyssa HOWARD ; [facility] Fluticasone Propionate 50 MCG/ACT Nasal Suspension 06/10/2021 Provider: ERNIE MADRIGAL MD Diagnosis: Allergic rhiniti s due to pollen 1 sq each nostril 1-2xd as needed Last Documented On 06/10/2021 12:32PM By ERNIE MADRIGAL MD ; [facility] Biotin 5000 MCG OR CAPS 05/01/2021 Provider: Diagnosis: 1 cap daily Last Documented On 08/01/2022 5:38PM By NIKKI HOWARD ; [facility] Ocuvite Adult 50+ OR CAPS 05/01/2021 Provider: Diagnosis: 1 cap daily Last Documented On 08/01/2022 5:38PM By NIKKI HOWARD ; [facility] Past Medications on file traZODone HCl 100 MG Oral Tablet 07/20/2023 - 08/19/2023 Provider: CANDY LEUNG MD Diagnosis: Psychophysiologi c insomnia 4 tabs at bedtime Last Documented On 07/20/2023 2:59PM By MICHELLE PARKS ; [facility] Pramipexole Dihydrochloride 0.75 MG Oral Tablet 03/16/2023 - 06/14/2023 Provider: Diagnosis: 2 tabs late afternoon and 2 in the evening Last Documented On 03/16/2023 11:20AM By NIKKI HOWARD ; [facility] Medications Administered Includes: Administered Medications from this encounter No Administered Medications Recorded Results Includes: Results discussed during this encounter No Results Recorded For Specified Dates History of Present Illness Includes: History of Present Illness from this encounter No History of Present Illness Recorded Social History Description Last Updated Tobacco non-user - quit smoking 04/2023 Last Documented On 4 2:04PM ; [facility] Stopped smoking years ago 2012 3 Last Documented On 4 2:04PM ; [facility] Former smoker 02/03/2022 Last Documented On 4 2:04PM ; [facility] Currently 06/14/2019 Last Documented On 4 2:04PM ; [facility] Smoking Status Unknown Medical History Includes: Medical History addressed during this encounter Description Last Updated Surgery T1-L1 Spinal Fusion - 03/12/[address] Jorge Hsieh ~LEEP 2008- Dr. Cristina 12/31/2022 Last Documented On 4 2:04PM ; [facility] History of colonoscopy fiberoptic was pe rformed 12/26/2018 F/U in 5 years 02/03/2022 Last Documented On 4 2:04PM ; [facility] History of screening mammogram was perfo rmed 10/22/2020 02/03/2022 Last Documented On 4 2:04PM ; [facility] History of essential hypertension 2021 Last Documented On 4 2:04PM ; [facility] History of hyperlipidemia 08/22/2021 Last Documented On 4 2:04PM ; [facility] LOW BACK FUSIONS 1994, 2004, 2007, 2011, 2015, 2020 ~APPENDECTOMY 1973 ~KNEES 04 06 03 ~NECK FUSIONS 06 08 07 ~SPINAL SIMULLATORS 2009 ~CHOLECYSTECTOM 2014 ~SHOULDERS 2012 2013 2014 ~SPLENECTOMY 12/31/18 ~ABDOMINAL DRAIN 01/2019 PANCREATIC STENT 02/201901/09/2021 Last Documented On 4 2:04PM ; [facility] History of Abnormal Pap Smear 06/14/2019 Last Documented On 4 2:04PM ; [facility] History of arthritis 06/14/2019 Last Documented On 4 2:04PM ; [facility] No recent change in medical history 06/03 Last Documented On 4 2:04PM ; [facility] Family History Includes: Family History addressed during this encounter Description Last Updated Family history reviewed - unchanged sin e last visit 12/28/2019 Last Documented On 4 2:04PM ; [facility] Sororal history of diabetes mellitus MOTHER PARKINSON/M.S. ~[employer] ~FATHER HIGH BLOOD PRESSURE ~ 06/14/2019 Last Documented On 4 2:04PM ; [facility] Review of Systems Includes: Review of Systems [...] Active Last Documented On 07/05/2023 10:12AM ; [facility] Note: Imported from external source. Valium Allergy Nausea, Vomiting, Diarrhea / Diarrheal disorder 04/01/2015 Active Last Documented On 07/05/2023 10:12AM ; [facility] Note: Imported from external source. Sulfa Antibiotics Allergy Nausea, Vomiting, Diarrhea / Diarrheal disorder 08/13/2021 Active Last Documented On 07/05/2023 10:12AM ; [facility] Note: Imported from external source. Percocet Allergy Nausea, Vomiting, Diarrhea / Diarrheal disorder 04/01/2015 Active Last Documented On 07/05/2023 10:12AM ; [facility] Note: Imported from external source. Morphine Sulfate Allergy Nausea, Vomiting, Diarrhea / Diarrheal disorder 04/01/2015 Resolved Last Documented On 09/22/2022 11:29AM ; [facility] Note: Imported from external source. Morphine Sulfate Allergy Nausea, Vomiting, Diarrhea / Diarrheal disorder 04/01/2015 Active Last Documented On 10:12AM ; [facility] Ancef Allergy Nausea, Vomiting , [...] Dates 1 - [employer] [id number] ELOISA [place] Self Clinical Notes Includes: Clinical Notes from this encounter * Progress note Date Encounter Last Documented by 04/30/2023 * PHONE CALL Last documented on 04/30/2023; 2:27 PM, SUSIE ALLEN-Lisa; [facility] Active Problems & Conditions - [...] us. The labs she had done at [facility] were abnormal. The provider there had not sent us anything so that lab you saw this morning did not have everything on it. I printed off the lab from [facility] and had Nereyda scan it in for me so you can see it. pt phone # for return call: [phone] Date/Initials:04/30/23 tlk. Current Medication - Biotin 5000 [...]
[2024-06-08 10:18] LABS: Lactic Acid Reflex 0.9 mmol/L (0.7-2.0)
--- NOTE | 2024-06-08 11:28 | ADMGEN ---
This patient, Eloisa Enciso, was admitted to IMU Room 213-01. Patient/family oriented to hospital policies and general routines including ID bracelet, bed and alarms, visiting hours, pain management, procedures, bathroom and other care routines, personal items, smoking policy, room service/diet, and visiting hours. Information on how to activate the Rapid Response Team has been discussed. Patient/Family are encouraged to report perceived risks to care and to ask questions if they do not understand what they are told or what they should do.
[2024-06-08] MEDS: CEFEPIME 2 GM/NS 50 ML 2 GM/50 ML BAG IVPB ×2 (13:17→20:45)
[2024-06-08] MEDS: DOXYCYCLINE 100 MG/NS 100 ML 100 MG/100 ML BAG IVPB ×2 (13:19→20:37)
[2024-06-08] MEDS: HYDROcodone/acetaminophen (*CRX) 10-325 MG TABLET 1 TAB PO ×2 (16:37→20:36)
--- NOTE | 2024-06-08 17:34 | PM.IMHP ---
H&P: HPI History of Present Illness Date/Time: 06/08/24 17:34 Chief Complaint: transferred from [place] on account of Pneumonia and acute hypoxemic respiratory failure Narrative: 63 yo female former smoker, anemia, RLS, GERD, COPD, multiple sclerosis( leg Weakness ) status post treatment, status post splenectomy / partial gastrectomy/pancreatectomy with pancreatic insufficiency transferred from [place] ER on account of Acute hypoxemic respiratory failure. Patient reported that she started having cough, chest pain, SOB 5 days ago. reported no home oxygen, no fever, no vomiting, diarrhea, dysuria. ER eval notable Nasal cannula on 3 liters oxygen, other vital signs stable and within normal limits labs ddimer 1.87, abg 7.44/37.2/73.6/24.9; Flu A positive, CTA chest showed dependent dizzy airspace disease worse on the right lung base. Review of Systems Review of Systems: All other systems were reviewed and negative except as noted int eh HPI above PMFSH Past Medical History Medical History Multiple sclerosis Restless leg syndrome Depression GERD (gastroesophageal reflux disease) Anemia COPD (chronic obstructive pulmonary disease) Pancreatic insufficiency Surgical History Surgical History H/O spinal fusion History of cholecystectomy History of splenectomy 26 surgeries for complications from colonoscopy Family History Family History (Updated 06/08/24 @ 13:35 by Flaquita Ramirez RN) Sibling Crohn's disease Father Congestive heart failure Mother Multiple sclerosis Social History Social History Smoking status: Former smoker Alcohol intake: never Substance use: never Do You Feel Safe in your Home?: Yes Lack of Transportation: No Lack of Food: Never True Current Housing: I Have Housing Concerned About Future Housing: No Difficulty Paying Gas/Electric Bills: No Difficulty Paying for Meds: No Currently Unemployed: No Education: Associate Degree Difficulty w/ Childcare or Family Care: No Living arrangements: with family Gender identity (if verbalized by the patient): Female Spiritual care concerns: No Meds Home Medications and Allergies Home Medications ?Medication ?Instructions ?Recorded ?Confirmed ?Type biotin 5,000 mcg disintegrating 10,000 mcg PO DAILY 05/10/19 06/08/24 History tablet fluticasone propionate 50 1 spray intranasal BID PRN Allergy 05/10/19 06/08/24 History mcg/actuation nasal Symptoms spray,suspension levocetirizine 5 mg tablet (Xyzal) 5 mg PO DAILY 05/10/19 06/08/24 History multivitamin (Multiple Vitamins 1 tablet PO DAILY 05/10/19 06/08/24 History tablet) pramipexole 0.75 mg tablet 0.75 mg PO TID 05/10/19 06/08/24 History sertraline 100 mg tablet 150 mg PO DAILY 05/10/19 06/08/24 History vit C,E,zinc,copper-ogfgj2d 250 1 cap PO DAILY 05/10/19 06/08/24 History mg-lutein 5 mg-zeaxanthin 1 mg capsule (Ocuvite Adult 50 Plus) gabapentin 100 mg capsule 300 mg PO BID 06/17/19 06/08/24 History ondansetron 4 mg disintegrating 4 mg PO PRN 06/17/19 06/08/24 History tablet baclofen 10 mg tablet 10 mg PO HS 06/08/24 06/08/24 History dexmethylphenidate 10 mg tablet 10 mg PO DAILY 06/08/24 06/08/24 History fluticasone fur. 100 mcg-umeclid 1 inh inhalation DAILY 06/08/24 06/08/24 History 62.5 mcg-vilant 25 mcg inhalat.powder (Trelegy Ellipta) hydrocodone 10 mg-acetaminophen 1 tablet PO DAILY 06/08/24 06/08/24 History 325 mg tablet lansoprazole 15 mg capsule,delayed 15 mg PO Q12H 06/08/24 06/08/24 History release lorazepam 0.5 mg tablet 0.5 mg PO DAILY PRN anxiety 06/08/24 06/08/24 History naloxegol 25 mg tablet (Movantik) 25 mg PO DAILY 06/08/24 06/08/24 History tolterodine 4 mg capsule,extended 4 mg PO DAILY 06/08/24 06/08/24 History release 24 hr trazodone 100 mg tablet 100 mg PO QHS 06/08/24 06/08/24 History trazodone 300 mg tablet,extended 300 mg PO HS 06/08/24 06/08/24 History release 24 hr Allergies Allergy/AdvReac Type Severity Reaction Status Date / Time codeine AdvReac Mild Nausea and Verified 06/08/24 03:43 Vomiting vancomycin AdvReac Unknown Rash Verified 06/08/24 03:17 cefazolin (From Ancef) AdvReac Rash Verified 06/08/24 03:17 MORPHINE Allergy Mild Rash Uncoded 06/08/24 03:17 ANCEF AdvReac Rash Uncoded 06/08/24 03:17 Vital Signs Vital Signs - 24 hr 06/08/24 09:14 06/08/24 11:54 06/08/24 15:56 Temperature 97.8 F 98.2 F 98.2 F Pulse Rate 56 L 57 L 62 Respiratory Rate 18 18 18 Blood Pressure 118/59 L 110/62 129/60 Pulse Oximetry 97 94 96 Exam Narrative: General: alert and comfortable Eyes: EOMI, PERRLA ENNT External ears normal, Neck is supple, no masses, Respiratory systems: Clear to auscultation Cardiovascular S1, S2, normal rhythm, no murmur, rub, or gallop; no thrill or palpable murmurs on palpation. Gastrointestinal: soft, non-tender, and non-distended abdomen with no masses; BS present Skin: no rash, lesions, ulcerations, subcutaneous nodules or induration Musculoskeletal: no abnormality and no tenderness, normal ROM Neurologic: Alert and oriented x3, weakness lower extremities Mental Status Exam: normal affect Assessment and Plan Assessment and plan (1) Influenza: Code(s): J11.1 - Influenza due to unidentified influenza virus with other respiratory manifestations Status: Acute (2) Acute hypoxic respiratory failure: Code(s): J96.01 - Acute respiratory failure with hypoxia Status: Acute (3) Bilateral pneumonia: Qualifiers: Lung location: lower lobe of lung Pneumonia type: due to unspecified organism Qualified Code(s): J18.9 - Pneumonia, unspecified organism Code(s): J18.9 - Pneumonia, unspecified organism Status: Acute Plan Acute hypoxemic respiratory failure From Pneumonia and Influenza Continue titrating oxygen Pneumonia CT chest showed bilateral pneumonia worse on the right Blood and sputum cultures, MRSA pending Continue Cefepime, Doxycycline and Flagyl monitor Influenza A on Tamiflu MS with lower extremities weakness contineu home meds COPD not in exacerbation Continue home bronchodilators GERD continue home meds DVT prophylaxis on Sq Lovenox
[2024-06-08] MEDS: metroNIDAZOLE 500 MG/ISO 100ML 500 MG/100 ML BAG 100 MG IVPB (19:30)
[2024-06-08] MEDS: OSELTAMIVIR PHOSPHATE 75 MG CAPSULE PO (19:56)
[2024-06-08] MEDS: PRAMIPEXOLE 0.5 MG TABLET PO (19:56)
[2024-06-08] MEDS: PRAMIPEXOLE 0.25 MG TABLET PO (19:56)
[2024-06-08] MEDS: BACLOFEN 10 MG TABLET PO (20:36)
[2024-06-08] MEDS: GABAPENTIN 300 MG CAPSULE PO (20:37)
[2024-06-08] MEDS: ONDANSETRON INJ 4 MG/2 ML VIAL IV PUSH (20:37)
[2024-06-09] VITALS (15 sets, daily range): BP systolic 116–131; BP diastolic 56–66; PULSE 47–85; RESP 18–20; TEMP 36.3–37.3; O2SAT 91–96
[2024-06-09 03:28] LABS: MRSA (PCR) NOT DETECTED (NOT DETECTE)
[2024-06-09] MEDS: metroNIDAZOLE 500 MG/ISO 100ML 500 MG/100 ML BAG 100 MG IVPB ×3 (03:53→18:31)
[2024-06-09] MEDS: ONDANSETRON INJ 4 MG/2 ML VIAL IV PUSH (04:29)
[2024-06-09 04:36] LABS: Basophils Percent Auto 0.3 % (0.2-1.2); Eosinophils Percent Auto 0.1 % (0-4.4); Hematocrit 36.5 % (37.0-47.0); Hemoglobin 11.7 g/dL (12.0-15.0); Immature Granulocyte Absolute 0.03 K/mm3 (0.00-0.031); Immature Granulocyte Percent A 0.4 % (0-0.5); Lymphocytes Absolute Auto 1.38 K/mm3 (0.9-3.2); Lymphocytes Percent Auto 19.2 % (18.3-44.2); Mean Corpuscular HGB Conc 32.1 g/dl (32-36); Mean Corpuscular Hemoglobin 28.7 pg (26-34); Mean Corpuscular Volume 89.7 fl (80-100); Mean Platelet Volume 9.8 fl (7.4-10.4); Monocytes Percent Auto 14.2 % (2.6-8.5); Neutrophils Absolute Auto 4.7 K/mm3 (1.3-6.7); Neutrophils Percent Auto 65.8 % (45.5-73.1); Platelet Count Result 205 k/mm3 (150-375); Red Blood Count 4.07 M/mm3 (4.2-5.4); Red Cell Distribution Width 15.5 % (11.5-14.5); White Blood Count 7.2 K/mm3 (4.5-10.0)
[2024-06-09 04:48] LABS: Alanine Aminotransferase 28 U/L (6-35); Albumin Level 3.2 g/dL (3.5-5.1); Alkaline Phosphatase 73 U/L (38-126); Anion Gap 8 mmol/L (4-12); Aspartate Amino Transferase 45 U/L (14-36); Bilirubin,Total 0.2 mg/dL (0.2-1.3); Blood Urea Nitrogen 17 mg/dL (7-17); Calcium 8.6 mg/dL (8.4-10.2); Carbon Dioxide 24 mmol/L (22-30); Chloride 103 mmol/L (98-107); Estimated CRCL calculation 77 ml/min; Estimated Glomerular Filt Rate > 60; Glucose 84 mg/dL (65-110); Magnesium 1.9 mg/dL (1.6-2.3); Potassium 3.9 mmol/L (3.4-5.0); Sodium 135 mmol/L (137-145)
[2024-06-09 04:49] LABS: Lactic Acid Reflex 0.5 mmol/L (0.7-2.0)
[2024-06-09] MEDS: FLUTICASONE/UMECLIDIN/VILANTER 100-62.5-25 MCG ELLIPTA 1 PUFF INHALATION (08:20)
[2024-06-09] MEDS: GABAPENTIN 300 MG CAPSULE PO ×2 (08:51→20:46)
[2024-06-09] MEDS: PRAMIPEXOLE 0.5 MG TABLET PO ×3 (08:51→16:52)
[2024-06-09] MEDS: OSELTAMIVIR PHOSPHATE 30 MG CAPSULE PO ×2 (08:51→20:46)
[2024-06-09] MEDS: TOLTERODINE TARTRATE LA 4 MG CAP.ER.24H PO (08:51)
[2024-06-09] MEDS: OPTI-GEN TAB 1 TABLET PO (08:51)
[2024-06-09] MEDS: ENOXAPARIN 40 MG/0.4 ML SYRINGE SUB-Q (08:52)
[2024-06-09] MEDS: PRAMIPEXOLE 0.25 MG TABLET PO ×3 (08:52→16:52)
[2024-06-09] MEDS: DOXYCYCLINE 100 MG/NS 100 ML 100 MG/100 ML BAG IVPB ×2 (08:52→20:45)
[2024-06-09] MEDS: HYDROcodone/acetaminophen (*CRX) 10-325 MG TABLET 1 TAB PO ×2 (09:01→19:34)
[2024-06-09] MEDS: CEFEPIME 2 GM/NS 50 ML 2 GM/50 ML BAG IVPB ×2 (11:02→21:50)
--- NOTE | 2024-06-09 15:54 | PM.IMPN ---
Progress Note: A&P Assessment and Plan (1) Influenza: Code(s): J11.1 - Influenza due to unidentified influenza virus with other respiratory manifestations Status: Inactive (2) Acute hypoxic respiratory failure: Code(s): J96.01 - Acute respiratory failure with hypoxia Status: Inactive (3) Bilateral pneumonia: Qualifiers: Lung location: lower lobe of lung Pneumonia type: due to unspecified organism Qualified Code(s): J18.9 - Pneumonia, unspecified organism Code(s): J18.9 - Pneumonia, unspecified organism Status: Inactive Plan Acute hypoxemic respiratory failure, improving From Pneumonia and Influenza Continue titrating oxygen Pneumonia CT chest showed bilateral pneumonia worse on the right Blood and sputum cultures, MRSA pending Day 2 Cefepime, Doxycycline and Flagyl monitor Influenza A on Tamiflu MS with lower extremities weakness contineu home meds COPD not in exacerbation Continue home bronchodilators GERD continue home meds DVT prophylaxis on Sq Lovenox Subjective Date/time seen: 06/09/24 15:54 Interval history: Comfortable at bedside Review of Systems Review of Systems: All other systems were reviewed and negative except as noted int eh HPI above Exam Narrative: General: alert and comfortable Eyes: EOMI, PERRLA ENNT External ears normal, Neck is supple, no masses, Respiratory systems: Clear to auscultation Cardiovascular S1, S2, normal rhythm, no murmur, rub, or gallop; no thrill or palpable murmurs on palpation. Gastrointestinal: soft, non-tender, and non-distended abdomen with no masses; BS present Skin: no rash, lesions, ulcerations, subcutaneous nodules or induration Musculoskeletal: no abnormality and no tenderness, normal ROM Neurologic: Alert and oriented x3, weakness lower extremities Mental Status Exam: normal affect Objective Data Vital Signs Vital Signs: Vital Signs - 24 hr 06/08/24 15:56 06/08/24 16:00 06/08/24 16:00 Temperature 98.2 F Pulse Rate 62 56 L Respiratory Rate 18 Blood Pressure 129/60 Pulse Oximetry 96 97 Oxygen Delivery Nasal Cannula Oxygen Flow Rate 3 06/08/24 18:00 06/08/24 20:00 06/08/24 20:00 Temperature Pulse Rate 56 L 58 L Respiratory Rate Blood Pressure Pulse Oximetry 94 Oxygen Delivery Nasal Cannula Oxygen Flow Rate 3 06/08/24 20:27 06/08/24 22:00 06/08/24 23:44 Temperature 98.6 F 98.2 F Pulse Rate 56 L 58 L 55 L Respiratory Rate 18 18 Blood Pressure 110/57 L 97/55 L Pulse Oximetry 95 94 Oxygen Delivery Oxygen Flow Rate 06/09/24 00:00 06/09/24 00:00 06/09/24 02:00 Temperature Pulse Rate 55 L 47 L Respiratory Rate Blood Pressure Pulse Oximetry 94 Oxygen Delivery Nasal Cannula Oxygen Flow Rate 3 06/09/24 04:00 06/09/24 04:00 06/09/24 04:00 Temperature 99.2 F Pulse Rate 58 L 62 Respiratory Rate 18 Blood Pressure 118/60 Pulse Oximetry 93 93 Oxygen Delivery Nasal Cannula Oxygen Flow Rate 3 06/09/24 06:00 06/09/24 06:10 06/09/24 07:58 Temperature 98.4 F Pulse Rate 65 60 Respiratory Rate 20 Blood Pressure 125/56 L Pulse Oximetry 93 95 Oxygen Delivery Nasal Cannula Oxygen Flow Rate 3 06/09/24 08:00 06/09/24 08:23 06/09/24 08:23 Temperature Pulse Rate 66 82 82 Respiratory Rate 20 20 Blood Pressure Pulse Oximetry 96 Oxygen Delivery Nasal Cannula Oxygen Flow Rate 2 06/09/24 10:00 06/09/24 12:00 06/09/24 12:07 Temperature 98.3 F Pulse Rate 72 85 52 L Respiratory Rate 20 Blood Pressure 131/61 Pulse Oximetry 95 Oxygen Delivery Oxygen Flow Rate 06/09/24 14:00 Temperature Pulse Rate 58 L Respiratory Rate Blood Pressure Pulse Oximetry Oxygen Delivery Oxygen Flow Rate Intake/Output Intake/Output: Intake & Output 06/06/24 06/07/24 06/08/24 06/09/24 23:59 23:59 23:59 23:59 Intake Total 720 590 Output Total 500 400 Balance 220 190 Meds/Results Medications: Active Medications Generic Name Dose Route Start Last Admin Trade Name Freq PRN Reason Stop Dose Admin Hydrocodone Bitart/Acetaminophen 1 tab 06/08/24 16:09 06/09/24 09:01 Hydrocodone/Acetaminophen (*Crx) 10-325 Mg Tablet PO 1 tab BID PRN Administration PAIN RATED 7-10 Baclofen 10 mg 06/08/24 21:00 06/08/24 20:36 Baclofen 10 Mg Tablet PO 10 mg HS RANJAN Administration Enoxaparin Sodium 40 mg 06/09/24 09:00 06/09/24 08:52 Enoxaparin 40 Mg/0.4 Ml Syringe SUB-Q 40 mg DAILY RANJAN Administration Fluticasone/Umeclidinium/Vilanterol 1 puff 06/09/24 08:00 06/09/24 08:20 Fluticasone/Umeclidin/Vilanter 100-62.5-25 Mcg Ellipta INHALATION 1 puff DAILYRT RANJAN Administration Gabapentin 300 mg 06/08/24 21:00 06/09/24 08:51 Gabapentin 300 Mg Capsule PO 300 mg Q12HR RANJAN Administration Cefepime HCl 2 gm in 50 mls @ 100 mls/hr 06/08/24 10:00 06/09/24 11:02 Maxipime 2 Gm/Ns 50 Ml IVPB 100 mls/hr Q12H RANJAN Administration Doxycycline Hyclate 100 mg in 100 mls @ 100 mls/hr 06/08/24 09:15 06/09/24 08:52 Vibramycin 100 Mg/Ns 100 Ml IVPB 100 mls/hr Q12HR RANJAN Administration Metronidazole 500 mg in 100 mls @ 100 mls/hr 06/08/24 19:00 06/09/24 11:03 Flagyl 500 Mg/Iso Soln 100 Ml IVPB 100 mls/hr Q8H RANJAN Administration Lorazepam 0.5 mg 06/08/24 17:30 Lorazepam (*Crx) 0.5 Mg Tablet PO DAILY PRN anxiety Multivitamins/Minerals 1 tablet 06/09/24 09:00 06/09/24 08:51 Opti-Gen Tab PO 1 tablet QAM RANJAN Administration Ondansetron HCl 4 mg 06/08/24 20:03 06/09/24 04:29 Ondansetron Inj 4 Mg/2 Ml Vial IV PUSH 4 mg Q4H PRN Administration Nausea And Vomiting Oseltamivir Phosphate 30 mg 06/09/24 09:00 06/09/24 08:51 Oseltamivir Phosphate 30 Mg Capsule PO 06/13/24 09:01 30 mg Q12HR RANJAN Administration Pramipexole Dihydrochloride 0.5 mg 06/08/24 17:40 06/09/24 12:49 Pramipexole 0.5 Mg Tablet PO 0.5 mg TID RANJAN Administration Pramipexole Dihydrochloride 0.25 mg 06/08/24 17:40 06/09/24 12:50 Pramipexole 0.25 Mg Tablet PO 0.25 mg TID RANJAN Administration Tolterodine Tartrate 4 mg 06/09/24 09:00 06/09/24 08:51 Tolterodine Tartrate La 4 Mg Cap.Er.24h PO 4 mg DAILY RANJAN Administration Labs Labs: Laboratory Results - last 24 hr 06/09/24 06/09/24 02:14 04:25 WBC 7.2 RBC 4.07 L Hgb 11.7 L Hct 36.5 L MCV 89.7 MCH 28.7 MCHC 32.1 RDW 15.5 H Plt Count 205 MPV 9.8 Immature Gran % (Auto) 0.4 Neut % (Auto) 65.8 Lymph % (Auto) 19.2 [place] % (Auto) 14.2 H Eos % (Auto) 0.1 Baso % (Auto) 0.3 Lymph # (Auto) 1.38 [place] # (Auto) 1.0 H Eos # (Auto) 0.0 Baso # (Auto) 0.0 Abs Immat Gran (auto) 0.03 Absolute Neuts (auto) 4.7 Absolute Nucleated RBC 0.000 Nucleated RBC % 0.0 Sodium 135 L Potassium 3.9 Chloride 103 Carbon Dioxide 24 Anion Gap 8 BUN 17 Creatinine 0.53 L Estim Creat Clear Calc 77 Estimated GFR > 60 Glucose 84 Lactic Acid 0.5 L Calcium 8.6 Magnesium 1.9 Total Bilirubin 0.2 AST 45 H ALT 28 Alkaline Phosphatase 73 Total Protein 6.0 L Albumin 3.2 L Nasal MRSA (PCR) Not detected
--- NOTE | 2024-06-09 17:53 | PC.NURSE ---
This patient, Eloisa Enciso, was received from IMU on 06/09/24 at 1753. Patient/family oriented to unit policies and routines
[2024-06-09] MEDS: BACLOFEN 10 MG TABLET PO (20:46)
[2024-06-10] MEDS: traZODone HCL 50 MG TABLET 100 MG PO (00:17)
[2024-06-10] MEDS: metroNIDAZOLE 500 MG/ISO 100ML 500 MG/100 ML BAG 100 MG IVPB ×2 (02:51→10:25)
[2024-06-10 04:55] VITALS: BP 115/49; PULSE 51; RESP 18; TEMP 36.5; O2SAT 98
[2024-06-10 05:50] LABS: Basophils Percent Auto 0.6 % (0.2-1.2); Eosinophils Percent Auto 0.6 % (0-4.4); Hematocrit 38.2 % (37.0-47.0); Hemoglobin 12.3 g/dL (12.0-15.0); Lymphocytes Absolute Auto 1.58 K/mm3 (0.9-3.2); Lymphocytes Percent Auto 45.4 % (18.3-44.2); Mean Corpuscular HGB Conc 32.2 g/dl (32-36); Mean Corpuscular Hemoglobin 28.7 pg (26-34); Mean Corpuscular Volume 89.3 fl (80-100); Mean Platelet Volume 9.6 fl (7.4-10.4); Monocytes Absolute Auto 0.6 K/mm3 (0.1-0.6); Monocytes Percent Auto 15.8 % (2.6-8.5); Neutrophils Absolute Auto 1.3 K/mm3 (1.3-6.7); Neutrophils Percent Auto 37.6 % (45.5-73.1); Platelet Count Result 233 k/mm3 (150-375); Red Blood Count 4.28 M/mm3 (4.2-5.4); Red Cell Distribution Width 15.7 % (11.5-14.5); White Blood Count 3.5 K/mm3 (4.5-10.0)
[2024-06-10 06:06] LABS: Alanine Aminotransferase 26 U/L (6-35); Albumin Level 3.1 g/dL (3.5-5.1); Alkaline Phosphatase 74 U/L (38-126); Anion Gap 8 mmol/L (4-12); Aspartate Amino Transferase 40 U/L (14-36); Bilirubin,Total 0.2 mg/dL (0.2-1.3); Blood Urea Nitrogen 12 mg/dL (7-17); Calcium 8.8 mg/dL (8.4-10.2); Carbon Dioxide 23 mmol/L (22-30); Chloride 105 mmol/L (98-107); Estimated CRCL calculation 78 ml/min; Estimated Glomerular Filt Rate > 60; Glucose 79 mg/dL (65-110); Magnesium 1.9 mg/dL (1.6-2.3); Potassium 3.5 mmol/L (3.4-5.0); Sodium 136 mmol/L (137-145)
[2024-06-10] MEDS: FLUTICASONE/UMECLIDIN/VILANTER 100-62.5-25 MCG ELLIPTA 1 PUFF INHALATION (08:39)
[2024-06-10 09:05] VITALS: O2SAT 96
[2024-06-10] MEDS: OPTI-GEN TAB 1 TABLET PO (09:08)
[2024-06-10] MEDS: OSELTAMIVIR PHOSPHATE 30 MG CAPSULE PO (09:08)
[2024-06-10] MEDS: ENOXAPARIN 40 MG/0.4 ML SYRINGE SUB-Q (09:08)
[2024-06-10] MEDS: PRAMIPEXOLE 0.25 MG TABLET PO ×2 (09:08→12:35)
[2024-06-10] MEDS: GABAPENTIN 300 MG CAPSULE PO (09:08)
[2024-06-10] MEDS: PRAMIPEXOLE 0.5 MG TABLET PO ×2 (09:08→12:35)
[2024-06-10] MEDS: TOLTERODINE TARTRATE LA 4 MG CAP.ER.24H PO (09:08)
[2024-06-10] MEDS: DOXYCYCLINE 100 MG/NS 100 ML 100 MG/100 ML BAG IVPB (09:09)
--- NOTE | 2024-06-10 10:12 | P.DS_ITS ---
DS: Admitting Diagnosis Discharge Date 06/10/24 Admitting Diagnosis Pneumonia and acute hypoxemic respiratory failure DS: Discharge Diagnosis Discharge Diagnosis (1) Pneumonia: Code(s): J18.9 - Pneumonia, unspecified organism Status: Acute (2) Acute hypoxemic respiratory failure: Code(s): J96.01 - Acute respiratory failure with hypoxia Status: Acute DS: Summary Hospital Course Hospital Course: 63 yo female former smoker, anemia, RLS, GERD, COPD, multiple sclerosis( leg Weakness ) status post treatment, status post splenectomy / partial gastrectomy/pancreatectomy with pancreatic insufficiency transferred from [facility] on account of Acute hypoxemic respiratory failure. Patient reported that she started having cough, chest pain, SOB 5 days ago. reported no home oxygen, no fever, no vomiting, diarrhea, dysuria. ER eval notable Nasal cannula on 3 liters oxygen, other vital signs stable and within normal limits labs ddimer 1.87, abg 7.44/37.2/73.6/24.9; Flu A positive, CTA chest showed dependent dizzy airspace disease worse on the right lung base. Patient was managed with Cefepime, Doxycycline and Flagyl, oxygen requirement markedly improved and will go with oxygen requirement per home oxygen eval. Discharged on 5 days more of Levaquin and Flagyl. F/u with PCP in 3-5 days. Time Spent with Patient Time attestation: Total time spent providing and/or coordinating discharge services: DS: Data Data Completed and Pending Labs on day of discharge: Labs from last 24 hours 06/10/24 05:41 WBC 3.5 L RBC 4.28 Hgb 12.3 Hct 38.2 MCV 89.3 MCH 28.7 MCHC 32.2 RDW 15.7 H Plt Count 233 MPV 9.6 Immature Gran % (Auto) 0.0 Neut % (Auto) 37.6 L Lymph % (Auto) 45.4 H [place] % (Auto) 15.8 H Eos % (Auto) 0.6 Baso % (Auto) 0.6 Lymph # (Auto) 1.58 [place] # (Auto) 0.6 Eos # (Auto) 0.0 Baso # (Auto) 0.0 Abs Immat Gran (auto) 0.00 Absolute Neuts (auto) 1.3 Absolute Nucleated RBC 0.000 Nucleated RBC % 0.0 Sodium 136 L Potassium 3.5 Chloride 105 Carbon Dioxide 23 Anion Gap 8 BUN 12 D Creatinine 0.52 L Estim Creat Clear Calc 78 Estimated GFR > 60 Glucose 79 Calcium 8.8 Magnesium 1.9 Total Bilirubin 0.2 AST 40 H ALT 26 Alkaline Phosphatase 74 Total Protein 6.0 L Albumin 3.1 L Preliminary micro results at discharge 06/08/24 09:57 Blood Culture - Preliminary Blood 06/08/24 09:42 Blood Culture - Preliminary Blood Discharge Plan Discharge Attending physician on discharge: Tano Aldana Discharging Clinician: Tano Aldana Anticipated Discharge Date/Time: 06/10/24 10:10 Patient Disposition: Home, Self-Care Activity: as tolerated Diet: as tolerated and regular Patient Instructions: Antibiotic Form Patient Language: [place] Stand Alone Forms: General Discharge Information Follow-up/Referrals: UNKNOWN,DOCTOR [Primary Care Provider] - (F/u with PCP in 3-5 days ) Discharge Medications: New levofloxacin 750 mg tablet 750 mg PO DAILY 5 Days Qty: 5 0RF metronidazole 500 mg tablet 500 mg PO Q8H 5 Days Qty: 15 0RF Continued multivitamin [Multiple Vitamins] Tablet 1 tablet PO DAILY sertraline 100 mg tablet 150 mg PO DAILY fluticasone propionate 50 mcg/actuation spray,suspension 1 spray INTRANASAL BID PRN (Reason: Allergy Symptoms) levocetirizine [Xyzal] 5 mg Tablet 5 mg PO DAILY pramipexole 0.75 mg tablet 0.75 mg PO TID Ocuvite Adult 50 Plus 250-5-1 mg Capsule 1 cap PO DAILY biotin 5,000 mcg Tablet,Disintegrating 10,000 mcg PO DAILY gabapentin 100 mg capsule 300 mg PO BID ondansetron 4 mg tablet,disintegrating 4 mg PO PRN baclofen 10 mg tablet 10 mg PO HS dexmethylphenidate 10 mg tablet 10 mg PO DAILY hydrocodone-acetaminophen 10-325 mg tablet 1 tablet PO DAILY lorazepam 0.5 mg tablet 0.5 mg PO DAILY PRN (Reason: anxiety) trazodone 100 mg tablet 100 mg PO QHS lansoprazole 15 mg capsule,delayed release(DR/EC) 15 mg PO Q12H trazodone 300 mg tablet extended release 24 hr 300 mg PO HS Trelegy Ellipta 100-62.5-25 mcg blister with device 1 inh inhalation DAILY tolterodine 4 mg capsule,extended release 24hr 4 mg PO DAILY Movantik 25 mg tablet 25 mg PO DAILY Rx Instructions: must be taken on empty stomach; no food 1 hr after or 2-3 hrs before dose Date of admission: 06/08/24 17:30 Primary Care Provider: UNKNOWN,DOCTOR Admitting Provider: Tano Aldana Attending physician on admission: Tano Aldana Condition: Improved
[2024-06-10] MEDS: CEFEPIME 2 GM/NS 50 ML 2 GM/50 ML BAG IVPB (10:24)
[2024-06-10 10:40] VITALS: PULSE 56; O2SAT 98
[2024-06-10 10:45] VITALS: PULSE 56; O2SAT 92
[2024-06-10] MEDS: SERTRALINE HCL 50 MG TABLET 150 MG PO (12:35)
[2024-06-10 13:25] VITALS: BP 131/67; PULSE 66; RESP 18; TEMP 37.1; O2SAT 94
== END 2024-06-10 14:42 | disposition home or self-care (01) | DRG 193 ==
LOC: ANHIMU 06-09 09:41 → ANH2MED 06-09 17:47
PROVIDERS: Admitting Provider Internal Medicine; Visit Provider Internal Medicine
DX: J10.00 Influenza due to other identified influenza virus with unspecified type of pneumonia (principal); J96.01 Acute respiratory failure with hypoxia; J44.0 Chronic obstructive pulmonary disease with (acute) lower respiratory infection; K21.9 Gastro-esophageal reflux disease without esophagitis; K86.89 Other specified diseases of pancreas; M25.50 Pain in unspecified joint; G35 Multiple sclerosis; G25.81 Restless legs syndrome; F32.A Depression, unspecified; Z87.891 Personal history of nicotine dependence; Z90.81 Acquired absence of spleen; Z90.410 Acquired total absence of pancreas; Z90.3 Acquired absence of stomach [part of]
CPT/HCPCS: 36415; 80053; 83605; 83735; 85025; 87040; 87641; 94618; 94640; A9270; G0378; J0692; J1650; J1836; J2405

== ENCOUNTER 2024-06-20 08:15 | Outpatient (RCR) | payer MEDICARE, BC, SELFPAY ==
--- NOTE | 2024-06-20 08:25 | OPREHPOC ---
Outpatient Therapy Plan of Care This is a Multidisciplinary Plan of Care that may contain components documented by all disciplines (PT, OT, and ST.) PT Problem 1 PT Problem #1 Knowledge Deficit PT Goal 1 Goal / Goal Update Patient to demonstrate independence with HEP Target Visit 6 Progress Met PT Goal 2 Goal / Goal Update continue to progress PT Problem 2 PT Problem #2 Impaired Functional Mobility PT Goal 1 Goal / Goal Update 1. Patient to complete 600' during 6 min walk test with no seated rest to return to house hold ambulation at PLOF. not met 2. Patient to demonstrate 4+/5 B LE and UE strength to return to house hold tasks at PLOF. not met Target Visit 38 Progress Not Met PT Goal 2 Goal / Goal Update continue PT Problem 3 PT Problem #3 Impaired Balance PT Goal 1 Goal / Goal Update 1. Patient to improve [place] Balance test by 7 pts to decrease falls at home -not met 2. Patient to complete 5TSTS in <15 seconds to decrease fall risk -not met Target Visit 38 Progress Not Met PT Goal 2 Goal / Goal Update continue
--- NOTE | 2024-06-20 08:25 | PTOPPROG ---
Assessment and note entered by Ailyn Metcalf, PT Evaluation Information Assessment Status Progress Diagnosis weakness, gait impairment Other ICD-10 Condition Codes ( G95.9 PT) Onset 12/17/23 Subjective Information Eloisa reports she has been sick the last 2 weeks and was hospitalized from 06/13/24-06/17/24 with double pneumonia and influenza B. She reports she feels weak now and has lost some strength. She has not had any falls but does need her cane or help from her for balance. She denies pain. Assessment PT Clinical Summary Eloisa Enciso has completed 28 skilled PT visits for weakness, gait disturbance, and balance deficits with a diagnosis of MS. She has recently been hospitalized for influenza and pneumonia and presents with a decrease in her strength, endurance, and balance. She is demonstrating a high fall risk, impaired gait, impaired balance, decreased endurance, and decreased L > R LE strength. She will continue to benefit from skilled PT to improve her physical and functional limitations and improve her quality of life. Plan of Care Interventions Gait Training,Neuro Re-education,Patient/Caregiver Education,Therapeutic Activities,Therapeutic Exercise PT Services Indicated Yes Treatment Frequency and 1 time a week for 10 visits Duration These treatments will address the objective and functional deficits as defined above. The patient will be advanced safely and appropriately in order for the patient to progress towards his/her prior level of function. Additional exercises will be introduced and as well as a comprehensive home exercise program upon discharge, if needed, ?to ensure carryover of functional gains achieved in the clinic. This treatment plan has been reviewed and agreement upon by the patient.
--- NOTE | 2024-07-04 13:35 | BUOTOPEVAL ---
Assessment and note entered by Letty El, OT Evaluation Information Assessment Status Re-evaluation Reported Pain Level Pain Score 6: Self Report Assessment OT Clinical Summary The patient demonstrates good progress toward goals with completion of UE HEP and tolerance for continuous UB exercises. She demonstrates minimal progress toward UB strength and pain of shoulder due to recent hospitalization that has affected her engagement in everyday tasks and therapy services. The patient is ready to return to OT and continue with treatment to build her strength. The patient reports she has difficulty with muscle shakiness when reaching up overhead or doing too much at one time with experiencing muscle fatigue. She stated that in the mornings she will get up and engage in light morning routine for about 1 hour prior to needing to sit down. She recently had a 5 day hospitalization that affected her progress and strength due to laying in bed without doing her HEP and recovering from influenza. The patient demonstrates good motivation to engage in OT and continue to progress in strength, endurance and address shoulder pain needed to maximize and maintain independence with ADLs. Plan of Care Interventions Therapeutic Exercise,Manual Therapy,Neuro Re- education,Therapeutic Activities,Hot Pack/Cold Pack,Cognitive Function,Electrical Stimulation, Sensory Integrative Techniques,Self-Care/Home Management OT Services Indicated Yes Treatment Frequency and 1x/week for 10 visits. Duration These treatments will address the objective and functional deficits as defined above. The patient will be advanced safely and appropriately in order for the patient to progress towards his/her prior level of function. Additional exercises will be introduced and as well as a comprehensive home exercise program upon discharge, if needed, ?to ensure carryover of functional gains achieved in the clinic. This treatment plan has been reviewed and agreement upon by the patient.
--- NOTE | 2024-07-04 13:35 | OPREHPOC ---
Outpatient Therapy Plan of Care This is a Multidisciplinary Plan of Care that may contain components documented by all disciplines (PT, OT, and ST.) PT Problem 1 PT Problem #1 Knowledge Deficit PT Goal 1 Goal / Goal Update Patient to demonstrate independence with HEP Target Visit 6 Progress Met PT Goal 2 Goal / Goal Update continue to progress PT Problem 2 PT Problem #2 Impaired Functional Mobility PT Goal 1 Goal / Goal Update 1. Patient to complete 600' during 6 min walk test with no seated rest to return to house hold ambulation at PLOF. not met 2. Patient to demonstrate 4+/5 B LE and UE strength to return to house hold tasks at PLOF. not met Target Visit 38 Progress Not Met PT Goal 2 Goal / Goal Update continue PT Problem 3 PT Problem #3 Impaired Balance PT Goal 1 Goal / Goal Update 1. Patient to improve [place] Balance test by 7 pts to decrease falls at home -not met 2. Patient to complete 5TSTS in <15 seconds to decrease fall risk -not met Target Visit 38 Progress Not Met PT Goal 2 Goal / Goal Update continue OT Problem 1 OT Problem #1 Knowledge Deficit OT Goal 1 Goal / Goal Update The patient will demonstrate 100% knowledge and return demonstration of UB exercises to increase and maintain strength and endurance. GOAL PROGRESSING; CONTINUE 06/27/2024 Target Visit 20 OT Goal 1 Goal / Goal Update The patient will demonstrate increased UB strength demonstrating 4+/5 muscle strength of B elbow flexion/extension and R shoulder flexion, 4-/5 muscle strength for L shoulder flexion in order to reach overhead to place dishes in cabinet. GOAL PROGRESSING; CONTINUE 06/27/2024 Target Visit 20 OT Goal 1 Goal / Goal Update The patient will demonstrate increased endurance with ability to maintain continuous aerobic activity for >15 minutes with report of <4 on RPE, prior to need for rest break demonstrating good safety when moving around the room to improve endurance for caregiver. GOAL PROGRESSING; CONTINUE 06/27/2024 Target Visit 20 OT Goal 1 Goal / Goal Update The patient will demonstrate decreased shoulder pain of L shoulder reporting <3/10 during daily activities needed to avoid discomfort during ADLs. 5/10 reported GOAL PROGRESSING; CONTINUE 06/27/2024 Target Visit 20
== END 2024-09-12 20:00 | disposition still patient (30) ==
LOC: CHSPT 08:15
DX: G95.9 Disease of spinal cord, unspecified (principal)
CPT/HCPCS: 97014; 97110; 97112; 97116; 97140; 97168; 97530; 97535; 97750; G0283

== ENCOUNTER 2025-01-02 08:14 | Outpatient (RCR) | payer MEDICARE, BC, SELFPAY ==
--- NOTE | 2025-01-19 13:44 | OPREHPOC ---
Outpatient Therapy Plan of Care This is a Multidisciplinary Plan of Care that may contain components documented by all disciplines (PT, OT, and ST.) PT Problem 1 PT Problem #1 Knowledge Deficit PT Goal 1 Goal / Goal Update Patient to demonstrate independence with HEP Target Visit 6 Progress Met PT Goal 2 Goal / Goal Update continue to progress PT Problem 2 PT Problem #2 Impaired Functional Mobility PT Goal 1 Goal / Goal Update 1. Patient to complete 600' during 6 min walk test with no seated rest to return to house hold ambulation at PLOF. not met 2. Patient to demonstrate 4+/5 B LE and UE strength to return to house hold tasks at PLOF. not met Target Visit 38 Progress Not Met PT Goal 2 Goal / Goal Update continue Target Visit 60 PT Problem 3 PT Problem #3 Impaired Balance PT Goal 1 Goal / Goal Update 1. Patient to improve [place] Balance test by 7 pts to decrease falls at home -not met 2. Patient to complete 5TSTS in <15 seconds to decrease fall risk -not met Target Visit 38 Progress Not Met PT Goal 2 Goal / Goal Update continue Target Visit 60 OT Problem 1 OT Problem #1 Knowledge Deficit OT Goal 1 Goal / Goal Update The patient will demonstrate 100% knowledge and return demonstration of UB exercises to increase and maintain strength and endurance. GOAL MET; DISCONTINUE 09/22/2024 Target Visit 20 Progress Met OT Goal 1 Goal / Goal Update The patient will demonstrate increased UB strength demonstrating 4+/5 muscle strength of B elbow flexion/extension and R shoulder flexion, 4-/5 muscle strength for L shoulder flexion in order to reach overhead to place dishes in cabinet. GOAL MET; DISCONTINUE 09/22/2024 4+/5 muscle strength R shoulder and B elbows; therapist assessed min resistance to L UE due to some pain; patient reports pain has improved a lot and is tolerable Patient educated to continue to perform UE HEP to maintain arm strength Target Visit 20 Progress Met OT Goal 1 Goal / Goal Update The patient will demonstrate increased endurance with ability to maintain continuous aerobic activity for >15 minutes with report of <4 on RPE, prior to need for rest break demonstrating good safety when moving around the room to improve endurance for caregiver. GOAL MET; DISCONTINUE 09/22/2024 Target Visit 20 Progress Met OT Goal 1 Goal / Goal Update The patient will demonstrate decreased shoulder pain of L shoulder reporting <3/10 during daily activities needed to avoid discomfort during ADLs. 4/10 reported GOAL DISCONTINUED; PLATEAU; WFL 09/22/2024 Target Visit 20 OT Goal 2 Goal / Goal Update 09/22/2024 NEW GOAL: The patient will demonstrate increased glass etcher and pinch strength of B hands demonstrating R glass etcher >49 lbs and pinch strength >3 lbs increase from (R - 10, L - 7) in order to perform grooming tasks independently. GOAL PARTIALLY for R glass etcher strength and left pinch, continue for R pinch strength Target Visit 20 Progress Met OT Goal 1 Goal / Goal Update 09/22/2024 NEW GOAL: The patient will demonstrate increased B fine motor coordination by scoring <25 seconds on 9- hole peg test in order to avoid dropping items during self care tasks. GOAL MET as of 12/12/24 at 22 seconds for R and 23 seconds for left Target Visit 20 Progress Partially Met OT Goal 2 Goal / Goal Update 09/22/2024 NEW GOAL: The patient will demonstrate increased visual scanning speed and executive function skills by scoring 60 s on Trails A and 90 s on Trails B in order to perform daily tasks to highest level of safety. GOAL MET as of 12/12/24 at 28 sec for Trails A and 67 sec for Trails B PN Trails A: 75 s Trails B: 102 s [place]: 36s 4 mistakes [place]: Trails A: 36 s Trails B: 81 s [place]: 30 s Target Visit 20 Progress Met
--- NOTE | 2025-01-19 13:45 | PTOPREEVAL ---
Assessment and note entered by JT File, PT Evaluation Information Assessment Status Re-evaluation Diagnosis weakness, gait impairment, MS ICD-10 Condition Codes (PT) Abnormalities of gait and mobility R26.9 Other ICD-10 Condition Codes ( G95.9, R25.2, G35 PT) Onset 12/17/23 Subjective Information patient reports she definitely feels therapy helps to continue to keep her walking and mobile/ functional. she reports she is able to do her strengthening activities at home, but is unable to work on her balance at home like she is here. she reports she would like to continue therapy to continue to work on this. Reported Pain Level Pain Score 6,6: Self Report Pain Score 0: Self Report Assessment PT Clinical Summary mrs. henson presents to skilled PT for reassessment of her progress and consistency with maintenance skilled PT. she continues to adhere to the program here and at home. she is making slight improvements in ambulation efficiency, and is maintaining balance scores. continued skilled PT in a maintenance program is advised with the focus on further stability and maintenance of balance, ambulation, and strength scores to continue to be independent with ADL's and activities at home. Plan of Care Interventions Gait Training,Neuro Re-education,Patient/Caregiver Education,Therapeutic Activities,Therapeutic Exercise PT Services Indicated Yes Treatment Frequency and continue maintenance skilled PT 1x weekly for 4 Duration more visits These treatments will address the objective and functional deficits as defined above. The patient will be advanced safely and appropriately in order for the patient to progress towards his/her prior level of function. Additional exercises will be introduced and as well as a comprehensive home exercise program upon discharge, if needed, ?to ensure carryover of functional gains achieved in the clinic. This treatment plan has been reviewed and agreement upon by the patient.
--- NOTE | 2025-02-28 15:29 | OTOPDC ---
Assessment and note entered by Letty El, OT Evaluation Information Assessment Status Discharge - Pt Not Present Assessment OT Clinical Summary The patient is discharged this date due to plateau for goals, patient has been educated on HEP for continuation at home. The patient has been informed of discontinuing OT services at this time but was educated if need to be seen again to visit PCP for new orders. The patient has made progress toward goals but no longer requires skilled OT, patient is discharged. Plan of Care OT Services Indicated No
--- NOTE | 2025-03-19 11:07 | OPREHPOC ---
Outpatient Therapy Plan of Care This is a Multidisciplinary Plan of Care that may contain components documented by all disciplines (PT, OT, and ST.) PT Problem 1 PT Problem #1 Knowledge Deficit PT Goal 1 Goal / Goal Update Patient to demonstrate independence with HEP Target Visit 6 Progress Met PT Goal 2 Goal / Goal Update continue to progress PT Problem 2 PT Problem #2 Impaired Functional Mobility PT Goal 1 Goal / Goal Update 1. Patient to complete 600' during 6 min walk test with no seated rest to return to house hold ambulation at PLOF. not met 2. Patient to demonstrate 4+/5 B LE and UE strength to return to house hold tasks at PLOF. not met Target Visit 38 Progress Not Met PT Goal 2 Goal / Goal Update continue Target Visit 64 PT Problem 3 PT Problem #3 Impaired Balance PT Goal 1 Goal / Goal Update 1. Patient to improve Tinetti Balance test by 7 pts to decrease falls at home -not met 2. Patient to complete 5TSTS in <15 seconds to decrease fall risk -not met Target Visit 38 Progress Not Met PT Goal 2 Goal / Goal Update continue Target Visit 64 Progress Not Met PT Goal 1 Goal / Goal Update maintain tinetti score within 2 points maintain tug within 2 seconds maintain 5x sit to stand within 2 seconds Target Visit 64 OT Problem 1 OT Problem #1 Knowledge Deficit OT Goal 1 Goal / Goal Update The patient will demonstrate 100% knowledge and return demonstration of UB exercises to increase and maintain strength and endurance. GOAL MET; DISCONTINUE 09/22/2024 Target Visit 20 Progress Met OT Goal 1 Goal / Goal Update The patient will demonstrate increased UB strength demonstrating 4+/5 muscle strength of B elbow flexion/extension and R shoulder flexion, 4-/5 muscle strength for L shoulder flexion in order to reach overhead to place dishes in cabinet. GOAL MET; DISCONTINUE 09/22/2024 4+/5 muscle strength R shoulder and B elbows; therapist assessed min resistance to L UE due to some pain; patient reports pain has improved a lot and is tolerable Patient educated to continue to perform UE HEP to maintain arm strength Target Visit 20 Progress Met OT Goal 1 Goal / Goal Update The patient will demonstrate increased endurance with ability to maintain continuous aerobic activity for >15 minutes with report of <4 on RPE, prior to need for rest break demonstrating good safety when moving around the room to improve endurance for caregiver. GOAL MET; DISCONTINUE 09/22/2024 Target Visit 20 Progress Met OT Goal 1 Goal / Goal Update The patient will demonstrate decreased shoulder pain of L shoulder reporting <3/10 during daily activities needed to avoid discomfort during ADLs. 4/10 reported GOAL DISCONTINUED; PLATEAU; WFL 09/22/2024 Target Visit 20 OT Goal 2 Goal / Goal Update 09/22/2024 NEW GOAL: The patient will demonstrate increased glass washer and carrier and pinch strength of B hands demonstrating R glass washer and carrier >49 lbs and pinch strength >3 lbs increase from (R - 10, L - 7) in order to perform grooming tasks independently. GOAL PARTIALLY for R glass washer and carrier strength and left pinch, continue for R pinch strength Target Visit 20 Progress Met OT Goal 1 Goal / Goal Update 09/22/2024 NEW GOAL: The patient will demonstrate increased B fine motor coordination by scoring <25 seconds on 9- hole peg test in order to avoid dropping items during self care tasks. GOAL MET as of 12/12/24 at 22 seconds for R and 23 seconds for left Target Visit 20 Progress Partially Met OT Goal 2 Goal / Goal Update 09/22/2024 NEW GOAL: The patient will demonstrate increased visual scanning speed and executive function skills by scoring 60 s on Trails A and 90 s on Trails B in order to perform daily tasks to highest level of safety. GOAL MET as of 12/12/24 at 28 sec for Trails A and 67 sec for Trails B PN Trails A: 75 s Trails B: 102 s [place]: 36s 4 mistakes [place]: Trails A: 36 s Trails B: 81 s [place]: 30 s Target Visit 20 Progress Met
--- NOTE | 2025-03-19 11:07 | PTOPREEVAL ---
Assessment and note entered by JT File, PT Evaluation Information Assessment Status Re-evaluation Diagnosis weakness, gait impairment, MS ICD-10 Condition Codes (PT) Abnormalities of gait and mobility R26.9 Other ICD-10 Condition Codes ( G95.9, R25.2, G35 PT) Onset 12/17/23 Subjective Information patient reports she has been in and out of therapy and dealing with a lot of illness recently. she reports she feels she is going to need oxygen all the time soon as she cannot take a deep breath. however, she reports several of her illnesses lately have been regarding her respiratory health. Reported Pain Level Pain Score 5,5: Self Report Assessment PT Clinical Summary mrs. henson presents to skilled PT for re- evaluation after being away for 2 months with other illness. she was re-evaluated today, and displays no loss in ambulation efficiency, tinetti balance score, 5x sit to stand, or TUG performance. she would benefit from continued skilled maintenance PT, but at a reduced frequency . patient also requires the user of a rollator walker for ambulation safety and manual WC for long distance bouts of functional activity. she should get an order from her MD to receive one or both of these through insurance. Plan of Care Interventions Gait Training,Neuro Re-education,Patient/Caregiver Education,Therapeutic Activities,Therapeutic Exercise PT Services Indicated Yes Treatment Frequency and continue skilled PT 1x monthly for 4 more visits. Duration These treatments will address the objective and functional deficits as defined above. The patient will be advanced safely and appropriately in order for the patient to progress towards his/her prior level of function. Additional exercises will be introduced and as well as a comprehensive home exercise program upon discharge, if needed, ?to ensure carryover of functional gains achieved in the clinic. This treatment plan has been reviewed and agreement upon by the patient.
== END 2025-04-02 23:59 | disposition home or self-care (01) ==
LOC: CHSPT 08:14
DX: G95.9 Disease of spinal cord, unspecified (principal); G35 Multiple sclerosis; R25.2 Cramp and spasm
CPT/HCPCS: 97110; 97112; 97530